=== PATIENT | female | born 1950 | race Caucasian/White ===

== ENCOUNTER 2018-08-27 08:09 | Emergency (ER) | payer MEDICARE, OTHER, SELFPAY ==
[2018-08-27 08:11] VITALS: BP 161/72; PULSE 81; RESP 16; TEMP 37.2; O2SAT 96
--- NOTE | 2018-08-27 08:27 | W.ED.GENAD ---
Discharge Plan Disposition Patient Disposition: HOME Condition: Improving Discharge Details Chief Complaint: Nk/Back Pain Clinical Impression: Acute right-sided back pain with sciatica Primary Care Provider: Jenelle Arellano ED Provider: Ap Bolivar Home Meds and New Rx's Prescriptions: New prednisone 20 mg tablet 40 mg PO DAILY 5 Days Qty: 10 RF: 0 tramadol 50 mg tablet 50 mg PO Q6H PRN (Reason: pain) Qty: 5 RF: 0 No Action ProAir HFA 8.5 GM HFA aerosol inhaler 1 puff Inhalation Q4H PRN RF: 0 Centrum Silver 1 EACH tablet 1 tab PO DAILY RF: 0 Qvar 8.7 GM aerosol 1 inh Inhalation QID RF: 0 loratadine-pseudoephedrine [Loratadine-D] 1 EACH tablet extended release 24 hr 1 tab PO PRN PRNRF: 0 Discharge Instructions Instructions: Back Pain (ED) Additional Instructions: Return for worsening pain, numbness, tingling, weakness of the leg, or changes to urine. Follow-up with regular doctor in 5-7 days if not improving. May use medications as prescribed. Remove the lidocaine patch in 12 hours. Medical Decision Making 67-year-old female presents with days of right SI joint pain now with some radiation to her buttock and leg. No motor or sensory dysfunction. No changes to bowel or bladder habits. She arrives to the emergency department afebrile with mild hypertension of 161/72. Her exam does not reveal any deficits. Likely acute sciatica, with a recent slip and fall on the ice, must exclude an underlying pelvic fracture and patient sent for x-ray and given ibuprofen for pain. Her radiograph does not reveal acute fracture. Consistent with sciatica. She will be given a lidocaine topical patch for 12 hours, I will place her on a 5-day burst of steroid for anti-inflammatory properties, and will offer her small amount of tramadol as needed pain in addition to ibuprofen. She is stable for discharge at this time. HPI General Mode of arrival: ambulatory. Date/Time Provider Initiated Documentation: 08/27/18 08:15. Limitations to Documentation: no limitations. Information obtained by: patient. History of Present Illness 67 year old F presents to the emergency department with the chief complaint of Right low back pain, described as moderate and similar to prior episodes, Quality is described as aching, and is localized to the back and right. Patient distal. Patient started experiencing this day(s) and it has been constant. No relieving factors improve symptom(s), Movement worsens symptoms . Patient notes no other symptoms.. Patient did receive the following treatments prior to arrival, none HPI Narrative: Patient has a history of intermittent right low back pain. Same over weeks time, now worsened since a fall on [place] in which she slipped and fell on her bottom. At that time she did not have any neck/chest chest back/abdomen pain. No numbness, tingling, weakness. No changes to urine Related Data Home Medications Medication Instructions Recorded Confirmed yepkrzib-uvs-TE-lycopen-lutein 1 tab PO DAILY 11/01/14 08/27/18 [Centrum Silver Tablet] beclomethasone dipropionate [Qvar] 1 inh INHALATION QID 07/17/15 08/27/18 albuterol sulfate [Proair Hfa] 1 puff INHALATION Q4H PRN inhaler 08/15/15 08/27/18 loratadine-pseudoephedrine 1 tab PO PRN PRN 12/27/15 08/27/18 [Loratadine-D 24Hr Tablet] prednisone 40 mg PO DAILY 5 Days #10 tab 08/27/18 tramadol 50 mg PO Q6H PRN #5 tab 08/27/18 Previous Rx's Medication Instructions Recorded prednisone 40 mg PO DAILY 5 Days #10 tab 08/27/18 tramadol 50 mg PO Q6H PRN #5 tab 08/27/18 Allergies Allergy/AdvReac Type Severity Reaction Status Date / Time No Known Allergies Allergy Unverified 08/27/18 08:17 General Stated Complaint: Nk/Back Pain ABELARDO: 4 Review of Systems Review of Systems 8 systems reviewed and otherwise negative [facility] Medical History Tobacco use (Acute) Uterine procidentia (Acute 01/17/17) Sensorineural hearing loss, bilateral (Acute 03/29/14) Social History number of children: 4 Smoking/Tobacco Use Status: Current every day substance use type: does not use seatbelt use: always Female Reproductive History Menstrual control method: none Menopause type: natural History History 7 Para Hx # Term Pregnancies 4 Multiple births Hx # Pregnancies Ectopic pregnancies AB induced Hx Number of Living Children AB spontaneous Exam Narrative Exam Narrative: GEN: awake, alert, oriented 3. Pleasant, well groomed, interactive. HEAD: Normocephalic, atraumatic ENT: Mucous membranes moist, oropharynx unremarkable, External ear exam unremarkable EYES: PERRL, EOMI NECK: Full ROM, no ALOK, no menigismus CHEST/RESP: Nontender, clear to auscultation bilateral, no wheeze/rhonchi/rales CARDIOVASCULAR: RRR, no murmur, rub tone. 2+ Rad pulse bilateral ABDOMEN: Soft, nontender, no mass. +Bowel sounds. Back exam reveals no midline tenderness, step-off, deformity. She is tender at the right sciatic notch. EXT: Full ROM, no edema, no rash. Motor 5 out of 5 bilaterally. Sensation intact throughout including saddle distribution. 2+ patellar reflex bilaterally. Gait narrow based with good heel Neuro: Grossly normal neurologic exam, conversant, interactive. Psych: Speech fluent, thoughts congruent, affect normal Course Vital Signs Temperature 37.2 C 08/27/18 08:11 Pulse 81 08/27/18 08:11 Respiratory Rate 16 08/27/18 08:11 Blood Pressure 161/72 H 08/27/18 08:11 Pulse Oximetry 96 08/27/18 08:11 Temperature 37.2 C 08/27/18 08:11 Temperature Source Temporal Artery Scan 08/27/18 08:11 Pulse 81 08/27/18 08:11 Respiratory Rate 16 08/27/18 08:11 Respiratory Effort Non-Labored 08/27/18 08:14 Blood Pressure 161/72 H 08/27/18 08:11 Blood Pressure Position Sitting 08/27/18 08:11 Pulse Oximetry 96 08/27/18 08:11 Oxygen Delivery Method Room Air 08/27/18 08:11 Oxygen Flow Rate 0 08/27/18 08:11 Pain Level 9 08/27/18 08:16
[2018-08-27] MEDS: Ibuprofen 800 MG TAB PO (08:29)
--- NOTE | 2018-08-27 08:31 | ED.GENADUL_ITS ---
Discharge Plan Disposition Patient Disposition: HOME Condition: Improving Discharge Details Chief Complaint: Nk/Back Pain Clinical Impression: Acute right-sided back pain with sciatica Primary Care Provider: Jenelle Arellano ED Provider: Ap Bolivar Home Meds and New Rx's Prescriptions: New prednisone 20 mg tablet 40 mg PO DAILY 5 Days Qty: 10 RF: 0 tramadol 50 mg tablet 50 mg PO Q6H PRN (Reason: pain) Qty: 5 RF: 0 No Action ProAir HFA 8.5 GM HFA aerosol inhaler 1 puff Inhalation Q4H PRN RF: 0 Centrum Silver 1 EACH tablet 1 tab PO DAILY RF: 0 Qvar 8.7 GM aerosol 1 inh Inhalation QID RF: 0 loratadine-pseudoephedrine [Loratadine-D] 1 EACH tablet extended release 24 hr 1 tab PO PRN PRNRF: 0 Discharge Instructions Instructions: Back Pain (ED) Additional Instructions: Return for worsening pain, numbness, tingling, weakness of the leg, or changes to urine. Follow-up with regular doctor in 5-7 days if not improving. May use medications as prescribed. Remove the lidocaine patch in 12 hours. Medical Decision Making 67-year-old female presents with days of right SI joint pain now with some radiation to her buttock and leg. No motor or sensory dysfunction. No changes to bowel or bladder habits. She arrives to the emergency department afebrile with mild hypertension of 161/72. Her exam does not reveal any deficits. Likely acute sciatica, with a recent slip and fall on the ice, must exclude an underlying pelvic fracture and patient sent for x-ray and given ibuprofen for pain. Her radiograph does not reveal acute fracture. Consistent with sciatica. She will be given a lidocaine topical patch for 12 hours, I will place her on a 5- day burst of steroid for anti-inflammatory properties, and will offer her small amount of tramadol as needed pain in addition to ibuprofen. She is stable for discharge at this time. HPI General Mode of arrival: ambulatory . Date/Time Provider Initiated Documentation: 08/27/18 08:15 . Limitations to Documentation: no limitations . Information obtained by: patient . History of Present Illness 67 year old F presents to the emergency department with the chief complaint of Right low back pain, described as moderate and similar to prior episodes, Quality is described as aching, and is localized to the back and right. Patient distal. Patient started experiencing this day(s) and it has been constant. No relieving factors improve symptom(s), Movement worsens symptoms . Patient notes no other symptoms.. Patient did receive the following treatments prior to arrival, none HPI Narrative: Patient has a history of intermittent right low back pain. Same over weeks time, now worsened since a fall on [place] in which she slipped and fell on her bottom. At that time she did not have any neck/chest chest back/abdomen pain. No numbness, tingling, weakness. No changes to urine Related Data Home Medications Medication Instructions Recorded Confirmed mpuuxrah-jvo-DC-lycopen-lutein 1 tab PO DAILY 11/01/14 08/27/18 [Centrum Silver Tablet] beclomethasone dipropionate [Qvar] 1 inh INHALATION QID 07/17/15 08/27/18 albuterol sulfate [Proair Hfa] 1 puff INHALATION Q4H PRN inhaler 08/15/15 08/27/18 loratadine-pseudoephedrine 1 tab PO PRN PRN 12/27/15 08/27/18 [Loratadine-D 24Hr Tablet] prednisone 40 mg PO DAILY 5 Days #10 tab 08/27/18 tramadol 50 mg PO Q6H PRN #5 tab 08/27/18 Previous Rx's Medication Instructions Recorded prednisone 40 mg PO DAILY 5 Days #10 tab 08/27/18 tramadol 50 mg PO Q6H PRN #5 tab 08/27/18 Allergies Allergy/AdvReac Type Severity Reaction Status Date / Time No Known Allergies Allergy Unverified 08/27/18 08:17 General Stated Complaint: Nk/Back Pain ABELARDO: 4 Review of Systems Review of Systems 8 systems reviewed and otherwise negative [facility] Medical History Tobacco use (Acute) Uterine procidentia (Acute 01/17/17) Sensorineural hearing loss, bilateral (Acute 03/29/14) Social History number of children: 4 Smoking/Tobacco Use Status: Current every day substance use type: does not use seatbelt use: always Female Reproductive History Menstrual control method: none Menopause type: natural History History 7 Para Hx # Term Pregnancies 4 Multiple births Hx # Pregnancies Ectopic pregnancies AB induced Hx Number of Living Children AB spontaneous Exam Narrative Exam Narrative: GEN: awake, alert, oriented 3. Pleasant, well groomed, interactive. HEAD: Normocephalic, atraumatic ENT: Mucous membranes moist, oropharynx unremarkable, External ear exam unremarkable EYES: PERRL, EOMI NECK: Full ROM, no ALOK, no menigismus CHEST/RESP: Nontender, clear to auscultation bilateral, no wheeze/rhonchi/rales CARDIOVASCULAR: RRR, no murmur, rub tone. 2+ Rad pulse bilateral ABDOMEN: Soft, nontender, no mass. +Bowel sounds. Back exam reveals no midline tenderness, step-off, deformity. She is tender at the right sciatic notch. EXT: Full ROM, no edema, no rash. Motor 5 out of 5 bilaterally. Sensation intact throughout including saddle distribution. 2+ patellar reflex bilaterally. Gait narrow based with good heel Neuro: Grossly normal neurologic exam, conversant, interactive. Psych: Speech fluent, thoughts congruent, affect normal Course Vital Signs Temperature 37.2 C 08/27/18 08:11 Pulse 81 08/27/18 08:11 Respiratory Rate 16 08/27/18 08:11 Blood Pressure 161/72 H 08/27/18 08:11 Pulse Oximetry 96 08/27/18 08:11 Temperature 37.2 C 08/27/18 08:11 Temperature Source Temporal Artery Scan 08/27/18 08:11 Pulse 81 08/27/18 08:11 Respiratory Rate 16 08/27/18 08:11 Respiratory Effort Non-Labored 08/27/18 08:14 Blood Pressure 161/72 H 08/27/18 08:11 Blood Pressure Position Sitting 08/27/18 08:11 Pulse Oximetry 96 08/27/18 08:11 Oxygen Delivery Method Room Air 08/27/18 08:11 Oxygen Flow Rate 0 08/27/18 08:11 Pain Level 9 08/27/18 08:16
--- NOTE | 2018-08-27 08:39 | DI.RAD_ITS ---
SYMPTOM/DIAGNOSIS: RT S-I JOINT PAIN, H/O SAME, RECENT FALL AP PELVIS: The history is status post recent fall with S-I joint pain. The bony pelvis is intact. There is no evidence of a pelvic or hip fracture. Note is made of a pessary. SUMMARY: No acute bony, joint or soft tissue abnormality is apparent.
[2018-08-27] MEDS: Lidocaine 5% Patch 1 PATCH TP (08:49)
== END 2018-08-27 08:53 | disposition home or self-care (01) ==
PROVIDERS: Emergency Provider Emergency Medicine; PCP Nurse Practitioner
DX: M54.41 Lumbago with sciatica, right side (principal); W00.0XXA Fall on same level due to ice and snow, initial encounter; J44.9 Chronic obstructive pulmonary disease, unspecified; F17.210 Nicotine dependence, cigarettes, uncomplicated
CPT/HCPCS: 99283; 72170

== ENCOUNTER 2018-12-29 00:37 | Outpatient (CLI) | payer MEDICARE, OTHER, SELFPAY ==
--- NOTE | 2018-12-29 13:36 | DI.MAMMO_ITS ---
SYMPTOMS/DIAGNOSIS: SCREENING, Z12.39 MAMMOGRAMS: Mammograms were interpreted according to the usual protocol including computer analysis with CAD system, tomosynthesis and C view imaging. Comparison is with the prior examinations. There is an ovoid density in the upper posterior right breast seen on the mediolateral oblique view. This area should be further evaluated with a spot compression view. Ultrasound may be indicated at that time. No other suspicious masses or microcalcifications are present. The skin and axillae are unremarkable. IMPRESSION: Additional views of the right breast as described above. Category 0, breast density B. MQSA ASSESSMENT OF FINDINGS: Incomplete: Needs additional imaging evaluation. Category 0. Patient will receive a letter notifying them of these results. BI-RADS category B. There are scattered areas of fibroglandular density.
== END 2018-12-29 00:57 ==
PROVIDERS: PCP Nurse Practitioner; Visit Provider Nurse Practitioner
DX: Z12.31 Encounter for screening mammogram for malignant neoplasm of breast (principal); R92.8 Other abnormal and inconclusive findings on diagnostic imaging of breast
CPT/HCPCS: 77063; 77067

== ENCOUNTER 2019-01-07 01:38 | Outpatient (CLI) | payer MEDICARE, OTHER, SELFPAY ==
--- NOTE | 2019-01-07 14:25 | DI.COMBO_ITS ---
SYMPTOMS/DIAGNOSIS: F/U ABNORMAL MAMMO, OVOID DENSITY OF UPPER POSTERIOR RIGHT BREAST ADDITIONAL MAMMOGRAPHIC VIEWS, RIGHT BREAST, AND RIGHT BREAST ULTRASOUND: Additional images are interpreted according to the usual protocol including tomosynthesis and 2D imaging. Additional mammographic views of the right breast and right breast ultrasound are interpreted in conjunction. These examinations were obtained to evaluate a small focal area of well-circumscribed nodularity in the mid portion of the right breast. Additional mammographic views confirm a low density well- circumscribed nodule measuring up to about 6 mm in diameter. Breast ultrasound shows a few prominent ducts in the central portion of the breast and also shows a 4 mm in diameter well-circumscribed nodule consistent with a small lymph node. CONCLUSION: Right breast nodule identified mammographically has benign characteristics mammographically and appears to correspond with a benign- appearing nodule seen ultrasonographically. Follow-up right breast mammogram and right breast ultrasound requested in six months. Category 3, breast density category B. MQSA ASSESSMENT OF FINDINGS: Probably benign. Six month follow-up recommended. Category 3. Patient will receive a letter notifying them of these results. BI-RADS category B. There are scattered areas of fibroglandular density.
== END 2019-01-07 01:58 ==
PROVIDERS: PCP Nurse Practitioner; Visit Provider Nurse Practitioner
DX: Z12.31 Encounter for screening mammogram for malignant neoplasm of breast (principal); R92.8 Other abnormal and inconclusive findings on diagnostic imaging of breast; N60.41 Mammary duct ectasia of right breast; N60.81 Other benign mammary dysplasias of right breast
CPT/HCPCS: 76642; 77063; 77067

== ENCOUNTER 2019-07-14 00:34 | Outpatient (CLI) | payer MEDICARE, OTHER, SELFPAY ==
--- NOTE | 2019-07-14 13:00 | DI.US_ITS ---
EXAM: MG MAMMO DIAGNOSTIC UNI and right breast ultrasound CLINICAL HISTORY: ABNL MAMMO, RT BREAST, R92.8, 6-MO F/U TECHNIQUE: Craniocaudal and mediolateral oblique Full Field Digital Mammography views with Computer Aided Diagnosis followed by Breast Tomosynthesis and right breast ultrasound. COMPARISON: Priors available for comparison FINDINGS: Mammography/Tomosynthesis: Breast Density: Breast Density - Category B - Scattered areas of fibroglandular density Masses/Architectural Distortion: There are stable nodules in the right breast. Microcalcifications: No suspicious pleomorphic-type are seen. Skin Thickening/Nipple Retraction: None. Breast Ultrasound: Right breast ultrasound Echotexture: Normal appearance of the glandular tissue. Cyst: None. Solid lesions: There is a 0.6 cm hypoechoic ovoid nodule at the 8 o'clock position of the right breas t 10 cm from the nipple. It has a hyperechoic notch. The finding is most consistent with a benign i ntraparenchymal lymph node. No suspicious cystic or solid masses are seen sonographically. IMPRESSION: 1. No significant interval change with no specific features of malignancy noted. 2. Unless there is more urgent need, follow-up screening mammography is recommended, as per [place] [employer] guidelines. ACR BI-RAD Category- 1 Negative Breast Density - Category B - Scattered areas of fibroglandular density The findings were discussed with the patient on the date of the examination. A negative radiographic report should not delay biopsy if a dominant or clinically suspicious mass is present. Up to ten percent of cancers are not identified on mammography. A negative report may reinforce clinical impression. Adenosis and dense breasts may obscure an underlying neoplasm. False positive reports average 6 to 10%. Patient will receive a letter notifying them of these results.
== END 2019-07-14 00:54 ==
PROVIDERS: PCP Nurse Practitioner; Visit Provider Nurse Practitioner
DX: Z12.31 Encounter for screening mammogram for malignant neoplasm of breast (principal); R92.8 Other abnormal and inconclusive findings on diagnostic imaging of breast; R59.0 Localized enlarged lymph nodes; N63.13 Unspecified lump in the right breast, lower outer quadrant
CPT/HCPCS: 76642; 77061; 77065; G0279

== ENCOUNTER → 2019-09-23 10:53 | Outpatient (CLI) | payer MEDICARE, OTHER, SELFPAY ==
--- NOTE | 2019-09-23 10:40 | DI.RAD_ITS ---
EXAM: XR THUMB LT INDICATION: eval L thumb pain, swelling. COMPARISON: No exams were available for comparison TECHNIQUE: 2D digital imaging was performed. FINDINGS: At the 1st carpometacarpal joint, there is joint space narrowing, subchondral sclerosis and cyst form ation. The metacarpophalangeal joint and interphalangeal joint of the thumb appear unremarkable. Th e soft tissues are unremarkable. 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
== END ==
PROVIDERS: PCP Nurse Practitioner; Referring Provider Nurse Practitioner; Visit Provider Student in an Organized Health Care Education/Training Program
DX: M79.645 Pain in left finger(s) (principal); M18.12 Unilateral primary osteoarthritis of first carpometacarpal joint, left hand
CPT/HCPCS: 99203; 99214; 73140; L3924

== ENCOUNTER 2019-10-20 11:20 | Emergency (ER) | payer MEDICARE, OTHER, SELFPAY ==
[2019-10-20 11:22] VITALS: BP 153/104; PULSE 90; RESP 20; TEMP 36.9; O2SAT 94
--- NOTE | 2019-10-20 11:37 | W.ED.GENAD ---
Discharge Plan Disposition Patient Disposition: HOME Condition: Stable Discharge Details Chief Complaint: Orthopedic Clinical Impression: Other sprain of left foot, initial encounter, Sprain of hand, left, Fall Primary Care Provider: Jenelle Arellano ED Provider: Pilar Oakes Home Meds and New Rx's Prescriptions: Continued budesonide-formoterol [Symbicort] 160-4.5 mcg/actuation HFA aerosol inhaler 2 puff IH BID RF: 0 albuterol sulfate [ProAir HFA] 8.5 GM HFA aerosol inhaler 1 puff Inhalation Q4H PRN RF: 0 Centrum Silver 1 EACH tablet 1 tab PO DAILY RF: 0 loratadine-pseudoephedrine [Loratadine-D] 1 EACH tablet extended release 24 hr 1 tab PO PRN PRNRF: 0 Discharge Instructions Instructions: Foot Sprain (ED), Hand Sprain (ED), Fall Prevention (ED) Additional Instructions: Follow up with primary care provider in 3-5 days. Return to ED sooner if any worsening or concerns. Increase oral fluids. Please take Tylenol or Ibuprofen with food every 4-6 hours as needed for pain and swelling. Rest, ice compression elevation. Referrals: Jenelle Arellano [Primary Care Provider] - Medical Decision Making 5-year-old female presents with left hand and left foot pain after trip and fall at home earlier today. Denies LOC, neck or back pain or any other injuries at this time. On exam she has tenderness to palpation over the dorsal dorsal aspect of her left foot and a small contusion noted. She also has a little bit of tenderness to her left thumb. Full range of motion. 1139: X-ray ordered of left hand and left foot. Offered patient Tylenol or ibuprofen which she declined at this time. 1233: X-ray results are still pending. I did not appreciate any acute fracture, dislocation or bony abnormality on the foot or hand x-rays. Patient given Peña wrap's to left hand and left foot instructed on rice procedures, verbalized understanding. Instructed to follow-up with PCP or return to the ED for any worsening symptoms or concerns. At this time I feel it is safe for patient to be discharged home, she is ambulatory in department. HPI General Mode of arrival: ambulatory. Date/Time Provider Initiated Documentation: 10/20/19 11:20. Limitations to Documentation: no limitations. Information obtained by: patient. HPI Narrative: 5-year-old female presents to the ER with left hand and left foot pain after a trip and fall at home earlier today. Patient states that she tripped over something on the floor and landed on her left hand and left foot. She is ambulatory in department. No LOC no neck or back pain no other complaints. She is alert and oriented x4. Related Data Home Medications Medication Instructions Recorded Confirmed Centrum Silver 1 tab PO DAILY 11/01/14 10/20/19 albuterol sulfate [ProAir HFA] 1 puff INHALATION Q4H PRN inhaler 08/15/15 10/20/19 loratadine-pseudoephedrine 1 tab PO PRN PRN 12/27/15 10/20/19 [Loratadine-D] budesonide-formoterol HFA 160 2 puff IH BID 04/23/19 10/20/19 mcg-4.5 mcg/actuation aerosol inhaler Allergies Allergy/AdvReac Type Severity Reaction Status Date / Time No Known Allergies Allergy Unverified 10/20/19 11:29 General Stated Complaint: Orthopedic ABELARDO: 4 Review of Systems Narrative: Constitutional: Negative for weight loss, alert and oriented, well groomed, normal body habitus, appears comfortable. HEENT: Denies trauma, headaches, blurry vision, nasal discharge, sore throat, trouble swallowing. Chest: Denies chest pain, palpitations, irregular rhythm, hypertension. Respiratory: Denies Shortness of breath, cough, hemoptysis. GI: Denies abdominal pain, nausea, vomiting, diarrhea, constipation. : Denies dysuria, hematuria, flank pain, rectal bleeding. Extremities: Left hand and left foot pain Neuro: Denies dizziness, blurry vision, weakness, syncope, headache or facial numbness. Hematologic: Denies easy bruising, intolerance to heat or cold, hair loss. [facility] Medical History Sensorineural hearing loss, bilateral (Acute 03/29/14) Tobacco use (Acute) Uterine procidentia (Acute 01/17/17) Used 88mm ring with support pessary until prolapse beyond ring pessary. 12/2018 [place] 76 mm long stem pessary was inserted. 03/2019 short stemmed 76mm pessary placed. 04/2019 #2 donut ordered. Social History Smoking/Tobacco Use Status: Current every day Alcohol Intake: never Drug use: Never Substance use type: does not use Number of Children: 4 Seatbelt use: always Do you feel safe at home: Yes Female Reproductive History Menstrual control method: none Menopause type: natural History History 7 Para Hx # Term Pregnancies 4 Multiple births Hx # Pregnancies Ectopic pregnancies AB induced Hx Number of Living Children AB spontaneous Exam Narrative Exam Narrative: Constitutional: Allert and oriented x3. Appears stated age. Normal body habitus. Head: Normocephalic, no trauma. Eyes: Pupils PERRLA, Red reflex noted, EOM's intact. Eyelids symmetrical withour lesions, discharge, or swelling. ENT: Bilateral TM's WNL, External ear normal to inspection, no mastoid TTP, swelling, or erythema, Nasal turbinates WNL, no nasal discharge. Normal dentition, Posterior pharynx WNL, no exudate. Chest: RRR, Normal S1, S2, distal pulses intact. Resp: Lungs clear to auscultation bilaterally, no wheezes, rales, or rhonchi. Musculoskeletal: Normal gait, 5/5 strength to all four extremities. Left thumb tenderness no swelling or deformity noted. Radial pulses intact. Cap refill less than 3 seconds. Left lateral foot pain. And dorsal foot pain with palpation. No deformity or swelling noted. There is a contusion noted to the dorsal surface of her foot. Skin: No suspicious rashes or lesions. Capillary refill ?2 sec. Neurologic: Cranial nerves II-XII intact. Alert and oriented x 3. DTR's intact. Hematologic/Lymphatic: No ecchymosis, no lymphadenopathy. Course Vital Signs Vital signs: Vital Signs Temperature 36.9 C 10/20/19 11:22 Pulse 90 10/20/19 11:22 Respiratory Rate 10/20/19 11:22 Blood Pressure 153/104 H 10/20/19 11:22 Pulse Oximetry 94 L 10/20/19 11:22 Temperature 36.9 C 10/20/19 11:22 Temperature Source Skin 10/20/19 11:22 Pulse 90 10/20/19 11:22 Respiratory Rate 10/20/19 11:22 Respiratory Effort Non-Labored 10/20/19 11:25 Blood Pressure 153/104 H 10/20/19 11:22 Pulse Oximetry 94 L 10/20/19 11:22 Oxygen Delivery Method Room Air 10/20/19 11:22 Oxygen Flow Rate 0 10/20/19 11:22 Pain Level 7 10/20/19 11:22
--- NOTE | 2019-10-20 11:56 | DI.RAD_ITS ---
EXAM: XR HAND LT COMPLETE INDICATION: Fall, thumb pain. COMPARISON: No exams were available for comparison TECHNIQUE: 2D digital imaging was performed. FINDINGS: No acute fracture or dislocation is present. There are degenerative changes seen in the hand and wri st. The findings are most marked at the 1st carpometacarpal joint. The soft tissues are unremarkabl e. IMPRESSION: No acute fracture or dislocation.
--- NOTE | 2019-10-20 11:56 | DI.RAD_ITS ---
EXAM: XR FOOT LT COMPLETE INDICATION: Fall. COMPARISON: No exams were available for comparison TECHNIQUE: 2D digital imaging was performed. FINDINGS: There are degenerative changes seen in the foot. The findings are most marked at the tarsometatarsal joints. No acute fracture or dislocation is present. The soft tissues are unremarkable. IMPRESSION: No acute fracture or dislocation.
== END 2019-10-20 12:38 | disposition home or self-care (01) ==
PROVIDERS: Emergency Provider Registered Nurse Emergency; PCP Nurse Practitioner
DX: S63.92XA Sprain of unspecified part of left wrist and hand, initial encounter (principal); S93.602A Unspecified sprain of left foot, initial encounter; W01.0XXA Fall on same level from slipping, tripping and stumbling without subsequent striking against object, initial encounter
CPT/HCPCS: 99283; 73130; 73630

== ENCOUNTER 2019-10-25 15:46 | Outpatient (CLI) | payer MEDICARE, OTHER, SELFPAY ==
--- NOTE | 2019-10-25 15:36 | DI.RAD_ITS ---
EXAM: XR CHEST 2V PA LATERAL CLINICAL HISTORY: COPD, ACUTE EXACERBATION J44.1 TECHNIQUE: COMPARISON: CHEST 2 VIEWS PA,LAT from 02/05/2018 FINDINGS: The heart is not enlarged. Lungs are clear. There is hiatal hernia. No pleural effusion seen. IMPRESSION: No evidence of acute process.
[2019-10-25 16:22] LABS: HGB 14.9 g/dL (12.0-15.5); Mean Corp. HGB Concentration 33.9 g/dL (32.0-36.0); Mean Corpuscular Hemoglobin 29.6 pg (27.0-33.0); Mean Corpuscular Volume 87.5 fL (80-95); Mean Platelet Volume 10.3 fL (8.0-11.0); Platelet Count 193 x1000/uL (130-400); RBC 5.03 m/cumm (4.00-5.20); RBC Distribution Width 13.4 % (11.7-14.6); White Blood Cell Count 5.06 k/cumm (4.4-10.8)
== END 2019-10-25 16:06 ==
PROVIDERS: PCP Nurse Practitioner; Visit Provider Nurse Practitioner
DX: J44.1 Chronic obstructive pulmonary disease with (acute) exacerbation (principal); K44.9 Diaphragmatic hernia without obstruction or gangrene
CPT/HCPCS: 36415; 85027; 71046

== ENCOUNTER → 2019-11-04 08:52 | Outpatient (BNVA) | payer MEDICARE, OTHER, SELFPAY | PROVIDERS: PCP Nurse Practitioner; Referring Provider Nurse Practitioner; Visit Provider Student in an Organized Health Care Education/Training Program | DX: M18.12 Unilateral primary osteoarthritis of first carpometacarpal joint, left hand (principal) | CPT/HCPCS: 99213 ==

== ENCOUNTER 2020-06-05 14:04 | Outpatient (REF) | payer MEDICARE, OTHER, SELFPAY ==
[2020-06-05 19:21] LABS: ALT 25 U/L (14-59); AST 16 U/L (15-37); Albumin 3.9 g/dL (3.4-5.0); Alkaline Phosphatase 68 U/L (46-116); Anion Gap 7.5 mmol/L (3-11); BUN 10 mg/dL (7-18); Bilirubin, Total 0.3 mg/dL (0.2-1.0); CO2 27.5 mmol/L (21.0-32.0); CREATININE 0.59 mg/dL (0.55-1.02); Calcium 9.3 mg/dL (8.5-10.1); Calculated LDL 124 mg/dL (<100); Chloride 105 mmol/L (98-107); Cholesterol 214 mg/dL (<200); Glucose 96 mg/dL (74-106); HDL Cholesterol 68 mg/dL (40-60); Potassium 4.4 mmol/L (3.5-5.1); Sodium 140 mmol/L (136-145); TSH (W/Ref FT4) 2.07 uIU/mL (0.36-3.74); Total Protein 7.3 g/dL (6.4-8.2); Triglyceride 112 mg/dL (<150)
[2020-06-05 19:40] LABS: Vitamin D 25 Total 31.3 ng/ml (30-100)
== END 2020-06-05 14:24 ==
LOC: NCHCN 14:04
PROVIDERS: PCP Nurse Practitioner; Visit Provider Nurse Practitioner
DX: F32.9 Major depressive disorder, single episode, unspecified (principal); M85.80 Other specified disorders of bone density and structure, unspecified site; E78.89 Other lipoprotein metabolism disorders; J44.9 Chronic obstructive pulmonary disease, unspecified
CPT/HCPCS: 80053; 80061; 82306; 84443

== ENCOUNTER 2020-07-21 04:20 | Outpatient (CLI) | payer MEDICARE, OTHER, SELFPAY ==
--- NOTE | 2020-07-21 10:57 | DI.MAMMO_ITS ---
EXAM: MG MAMMO SCREENING CLINICAL HISTORY: SCREENING,Z12.39 TECHNIQUE: Bilateral full field digital CC and MLO mammographic images were obtained with 3D tomosyn thesis and utilizing computer aided detection (CAD). COMPARISON: Available for comparison. FINDINGS: Masses/Architectural Distortion: None seen. Microcalcifications: No suspicious pleomorphic-type are seen. Skin Thickening/Nipple Retraction: None. IMPRESSION: 1. No significant interval change with no specific features of malignancy noted. 2. Unless there is more urgent need, screening mammography is recommended, as per [employer] guidelines. BI-RADS Category 1 - Negative Breast Density - Category B - Scattered areas of fibroglandular density A negative radiographic report should not delay biopsy if a dominant or clinically suspicious mass is present. Up to ten percent of cancers are not identified on mammography. A negative report may reinforce clinical impression. Adenosis and dense breasts may obscure an underlying neoplasm. False positive reports average 6 to 10%. Patient will receive a letter notifying them of these results.
== END 2020-07-21 04:40 ==
PROVIDERS: PCP Nurse Practitioner; Visit Provider Nurse Practitioner
DX: Z12.31 Encounter for screening mammogram for malignant neoplasm of breast (principal)
CPT/HCPCS: 77063; 77067

== ENCOUNTER 2020-09-04 08:07 | Day surgery (SDC) | payer MEDICARE, OTHER, SELFPAY ==
[2020-09-04 08:43] VITALS: BP 136/77; PULSE 74; RESP 18; TEMP 36.3; O2SAT 95
[2020-09-04] MEDS: Tropicam./Phenyleph. (1/2.5%) 5 ML BTL OD ×3 (08:52→09:04)
[2020-09-04] MEDS: Tetracaine 0.5% 4 ML BTL OD (09:41)
[2020-09-04] MEDS: Povidone-Iodine Ophth 30 ML BTL (09:42)
[2020-09-04] MEDS: Lidocaine 2% Jelly 6 ML SYR (09:42)
[2020-09-04] MEDS: Lidocaine 1% Pres-Free 5 ML VIAL (09:47)
[2020-09-04] MEDS: Balanced Salt Soln.-PLUS 500 ML BAG (09:49)
[2020-09-04] MEDS: Duovisc Viscoelastic System EACH 1 EACH (09:52)
--- NOTE | 2020-09-04 10:09 | W.PM.DSUDISC ---
Discharge Plan Disposition Patient Disposition: HOME Condition: Good Discharge Details Attending Provider: Marco Rain Primary Care Provider: Jenelle Arellano Home Meds and New Rx's Prescriptions: No Action budesonide-formoterol [Symbicort] 160-4.5 mcg/actuation HFA aerosol inhaler 2 puff IH BID RF: 0 Flovent HFA 110 mcg/actuation HFA aerosol inhaler 2 puff inhalation PRN RF: 0 albuterol sulfate [ProAir HFA] 90 mcg/actuation HFA aerosol inhaler 2 puff Inhalation Q4H PRN RF: 0 Centrum Silver 1 EACH tablet 1 tab PO DAILY RF: 0 ipratropium-albuterol 0.5 mg-3 mg(2.5 mg base)/3 mL Solution For Nebulization See Rx Instructions .ROUTE .COMPLEX PRNRF: 0 Spiriva with HandiHaler 18 mcg Capsule, W/Inhalation Device 1 cap INHALATION DAILY RF: 0 meclizine 12.5 mg Tablet 12.5 mg PO Q6H PRNRF: 0 loratadine 10 mg Capsule 10 mg PO DAILY RF: 0 Chantix Continuing Month Genaro 1 mg Tablet 1 mg PO BID RF: 0 Discharge Instructions Stand Alone Forms: Post-op Topical Cataract Discharge Orders Discharge Orders: Discharge Order (Routine); Ordered 09/04/20 Ordered By: Marco Rain DS: Diagnosis Discharge Diagnosis (1) Nuclear sclerotic cataract of right eye: Status: Resolved
--- NOTE | 2020-09-04 10:13 | ROE_ITS ---
Date of service: 09/04/20 Time of Service: 10:13 Operative Note Operative Note DATE OF PROCEDURE: 09/04/20 PRE-OP DIAGNOSIS: Nuclear cataract, right eye POST-OP DIAGNOSIS: same PROCEDURE: Cataract extraction using phacoemulsification with intraocular lens implant, right eye SURGEON: Marco Rain ANESTHESIA: MAC and local (sub-tenon's anesthetic infiltration) ESTIMATED BLOOD LOSS: 0 PATHOLOGY: none sent COMPLICATIONS: None Patient was transported to: same day Patient's condition: stable Implants: Toñito and To[employer] Vision / [employer] Tecnis ZCB00 intr aocular lens Indications: Progressive decreased vision due to cataract, right eye Procedure Description: CATARACT SURGERY OPERATIVE REPORT PREOPERATIVE DIAGNOSIS: Nuclear cataract, right eye POSTOPERATIVE DIAGNOSIS: Same OPERATION: Cataract extraction using phacoemulsification with posterior chamber intraocular lens implant, right eye. IOL: IOL Bass Singer/Model: J[employer]J Vision / NAV Tecnis ZCB00 IOL Power: + 20.0 diopters IOL Serial Number: [id number] Optic Diameter: 6.0mm Haptic/Overall Diameter: 13.0mm PHACO INFO: Hood [employer] Vision System with OZil and Active Fluidics Cumulative Dispersed Energy (CDE): 3.00 seconds SURGEON: Marco Rain MD, SUNNY ANESTHESIA: Monitored Anesthesia Care (MAC), with local sub-tenon's anesthetic infiltration COMPLICATIONS: None SPECIMENS: None INDICATIONS FOR PROCEDURE: The patient is a 69-year-old lady with history of diminished visual acuity in her right eye secondary to the development of nuclear cataract. She is significantly symptomatic that she desires cataract surgery and attempt to improve and maximize her vision. PROCEDURE: The correct surgical eye was identified and marked as the right eye and the pupil was dilated in the preoperative area using mydriatics and cycloplegics. The dilated pupil size was 7.0 mm. No oral sedation was given at the patient request. The patient was brought to the operating room where cardiopulmonary monitoring was instituted and surgical time-out was performed, confirming the correct operative eye and IOL power. Topical anesthesia was administered and ophthalmic povidone-iodine 5% was instilled into the conjunctival fornices. Lidocaine gel was applied to the cornea and the fozia-ocular area was prepped with Betadine 10% solution and draped in the usual sterile fashion for intraocular surgery, including an aperture drape. A Tegaderm transparent film dressing was cut in half and used to cover the lashes and lid margins. Care was taken to sequester the lashes and lid margins under the Tegaderm dressing. A lid speculum was placed between the lids of the operative eye and the Martina-Aylin operating microscope was maneuvered into position. River scissors were then used to make a conjunctival buttonhole approximately 6mm posterior to the limbus in the inferonasal quadrant. Blunt dissection was carried out to expose bare sclera, and a blunt-tipped sub-tenon?s anesthesia cannula was introduced and passed posteriorly along the globe where non- preserved plain lidocaine was injected into posterior sub-Tenon?s space. A sideport knife was used to make a paracentesis port inferiortemporally. Intraocular phenylephrine/lidocaine was injected into the anterior chamber. The anterior chamber was then filled with viscoelastic. A 2.4mm keratome knife was used to create a half-thickness groove at the limbus and then to construct a t hree-plane near-clear corneal tunnel extending 2.0mm into clear cornea in the superiortemporal position. . A flap was raised on the anterior capsule and capsulorhexis forceps were used to complete a continuous curvilinear capsulorhexis of 5.0 mm. Balanced salt solution was then used to perform cortical cleaving hydrodissection and nuclear hydrodelineation until the lens could be freely rotated within the capsular bag. The lens nucleus was then disassembled and removed within the capsular bag and iris plane using phacoemulsification. Residual cortical material was removed using the I/A handpiece. The posterior capsule was carefully polished to remove as much residual lens epithelial cells as safely possible. The capsular bag was then inflated and the anterior chamber deepened with viscoelastic. The lens implant described above was inserted into the capsular bag using the NAV [place] Injector. A Kuglen hook was used to dial the IOL into position. Residual viscoelastic was then removed first from posterior to the IOL, then from the anterior chamber using the I/A handpiece. The lens implant was noted to center nicely within the capsular bag. The incisions were stromally hydrated, and the anterior chamber was reformed using BSS. Then 0.1cc of moxifloxacin 5.0mg/ml were injected into the capsular bag and anterior chamber. The incisions were checked with a Weck spear and found to be secure. Several drops of ophthalmic povidone-iodine 5% were then applied to the eye followed by two drops of Imprimis combination prednisolone/moxifloxacin/nepafenac solution. The drapes were removed and a clear plastic protective eye shield was placed over the eye. The patient was then returned to [facility] in stable condition.
== END 2020-09-04 10:42 | disposition home or self-care (01) ==
PROVIDERS: PCP Nurse Practitioner; Visit Provider Ophthalmology
PROC: (CPT 66984; principal; 2020-09-04 09:45)
DX: H25.11 Age-related nuclear cataract, right eye (principal); J44.9 Chronic obstructive pulmonary disease, unspecified; F17.210 Nicotine dependence, cigarettes, uncomplicated
CPT/HCPCS: 66984; V2632

== ENCOUNTER 2020-09-18 09:29 | Day surgery (SDC) | payer MEDICARE, OTHER, SELFPAY ==
[2020-09-18 09:43] VITALS: BP 133/71; PULSE 74; RESP 19; TEMP 36.1; O2SAT 93
[2020-09-18] MEDS: Tropicam./Phenyleph. (1/2.5%) 5 ML BTL OS ×3 (10:02→10:13)
[2020-09-18] MEDS: Tetracaine 0.5% 4 ML BTL OS (10:53)
[2020-09-18] MEDS: Povidone-Iodine Ophth 30 ML BTL (10:53)
[2020-09-18] MEDS: Lidocaine 2% Jelly 6 ML SYR (10:54)
[2020-09-18] MEDS: Lidocaine 1% Pres-Free 5 ML VIAL (11:00)
[2020-09-18] MEDS: Balanced Salt Soln.-PLUS 500 ML BAG (11:04)
[2020-09-18] MEDS: Duovisc Viscoelastic System EACH 1 EACH (11:04)
--- NOTE | 2020-09-18 11:25 | W.PM.DSUDISC ---
Discharge Plan Disposition Patient Disposition: HOME Condition: Good Discharge Details Attending Provider: Marco Rain Primary Care Provider: Jenelle Arellano Home Meds and New Rx's Prescriptions: No Action budesonide-formoterol [Symbicort] 160-4.5 mcg/actuation HFA aerosol inhaler 2 puff IH BID RF: 0 Flovent HFA 110 mcg/actuation HFA aerosol inhaler 2 puff inhalation PRN RF: 0 albuterol sulfate [ProAir HFA] 90 mcg/actuation HFA aerosol inhaler 2 puff Inhalation Q4H PRN RF: 0 Centrum Silver 1 EACH tablet 1 tab PO DAILY RF: 0 ipratropium-albuterol 0.5 mg-3 mg(2.5 mg base)/3 mL Solution For Nebulization See Rx Instructions .ROUTE .COMPLEX PRNRF: 0 Spiriva with HandiHaler 18 mcg Capsule, W/Inhalation Device 1 cap INHALATION DAILY RF: 0 meclizine 12.5 mg Tablet 12.5 mg PO Q6H PRNRF: 0 loratadine 10 mg Capsule 10 mg PO DAILY RF: 0 Chantix Continuing Month Genaro 1 mg Tablet 1 mg PO BID RF: 0 Discharge Instructions Stand Alone Forms: Post-op Topical Cataract, Ludwig Titus (DSU) Discharge Orders Discharge Orders: Discharge Order (Routine); Ordered 09/18/20 Ordered By: Marco Rain DS: Diagnosis Discharge Diagnosis (1) Nuclear sclerotic cataract of left eye: Status: Resolved
--- NOTE | 2020-09-18 11:26 | W.PM.OP ---
Date of service: 09/18/20 Time of Service: 11:26 Operative Note Operative Note DATE OF PROCEDURE: 09/18/20 PRE-OP DIAGNOSIS: Nuclear cataract, left eye POST-OP DIAGNOSIS: same PROCEDURE: Cataract extraction using phacoemulsification with intraocular lens implant, left eye SURGEON: Marco Rain ANESTHESIA: MAC and local (sub-tenon's anesthetic infiltration) PATHOLOGY: none sent COMPLICATIONS: None Patient was transported to: same day Patient's condition: stable Implants: Toñito and [employer] Vision / [employer] Tecnis ZCB00 Indications: Progressive decreased vision due to cataract, left eye Procedure Description: CATARACT SURGERY OPERATIVE REPORT PREOPERATIVE DIAGNOSIS: Nuclear cataract, left eye POSTOPERATIVE DIAGNOSIS: Same OPERATION: Cataract extraction using phacoemulsification with posterior chamber intraocular lens implant, left eye. IOL: IOL Dye Tub Operator/Model: J&J Vision / NAV Tecnis ZCB00 IOL Power: + 20.50 diopters IOL Serial Number: [id number] Optic Diameter: 6.0mm Haptic/Overall Diameter: 13.0mm PHACO INFO: Hood [employer] Vision System with OZil and Active Fluidics Cumulative Dispersed Energy (CDE): 7.23 seconds SURGEON: Marco Rain MD, SUNNY ANESTHESIA: Monitored Anesthesia Care (MAC), with local sub-tenon's anesthetic infiltration COMPLICATIONS: None SPECIMENS: None INDICATIONS FOR PROCEDURE: The patient is a 69-year-old lady with history of diminished visual acuity in both eyes secondary to the development of bilateral nuclear cataract. She has already undergone cataract surgery in the right eye and is doing well postoperatively with uncorrected visual acuity of 20/20 in the right eye. She now presents for cataract surgery in the left eye. PROCEDURE: The correct surgical eye was identified and marked as the left eye and the pupil was dilated in the preoperative area using mydriatics and cycloplegics. The dilated pupil size was 7.0 mm. Oral sedation was administered in the form of an Imprimis MKO Melt (midazolam 3mg/ketamine 25mg/ondansetron 2mg). The patient was brought to the operating room where cardiopulmonary monitoring was instituted and surgical time-out was performed, confirming the correct operative eye and IOL power. Topical anesthesia was administered and ophthalmic povidone-iodine 5% was instilled into the conjunctival fornices. Lidocaine gel was applied to the cornea and the fozia-ocular area was prepped with Betadine 10% solution and draped in the usual sterile fashion for intraocular surgery, including an aperture drape. A Tegaderm transparent film dressing was cut in half and used to cover the lashes and lid margins. Care was taken to sequester the lashes and lid margins under the Tegaderm dressing. A lid speculum was placed between the lids of the operative eye and the Martina-Aylin operating microscope was maneuvered into position. River scissors were then used to make a conjunctival buttonhole approximately 6mm posterior to the limbus in the inferonasal quadrant. Blunt dissection was carried out to expose bare sclera, and a blunt-tipped sub-tenon?s anesthesia cannula was introduced and passed posteriorly along the globe where non-preserved plain lidocaine was injected into posterior sub-Tenon?s space. Some immediate subconjunctival hemorrhage was noted during injection of the lidocaine. A sideport knife was used to make a paracentesis port superior/superiortemporally. Intraocular phenylephrine/lidocaine was injected into the anterior chamber. The anterior chamber was then filled with viscoelastic. A 2.4mm keratome knife was used to create a half-thickness groove at the limbus and then to construct a three-plane near-clear corneal tunnel extending 2.0mm into clear cornea in the temporal position. . A flap was raised on the anterior capsule and capsulorhexis forceps were used to complete a continuous curvilinear capsulorhexis of 5.5 mm. Balanced salt solution was then used to perform cortical cleaving hydrodissection and nuclear hydrodelineation until the lens could be freely rotated within the capsular bag. The lens nucleus was then disassembled and removed within the capsular bag and iris plane using phacoemulsification. Residual cortical material was removed using the 45-degree angled silicone I/A tip with 0.3mm port. The posterior capsule was carefully polished to remove as much residual lens epithelial cells as safely possible. The capsular bag was then inflated and the anterior chamber deepened with viscoelastic. The lens implant described above was inserted into the capsular bag using the NAV [place] Injector. A Kuglen hook was used to dial the IOL into position. Residual viscoelastic was then removed first from posterior to the IOL, then from the anterior chamber using the I/A handpiece. The lens implant was noted to center nicely within the capsular bag. The incisions were stromally hydrated, and the anterior chamber was reformed using BSS. Then 0.5cc of moxifloxacin 1.0mg/ml were injected into the capsular bag and anterior chamber. The incisions were checked with a Weck spear and found to be secure. Several drops of ophthalmic povidone-iodine 5% were then applied to the eye followed by two drops of Imprimis combination prednisolone/moxifloxacin/nepafenac solution. The drapes were removed and a clear plastic protective eye shield was placed over the eye. The patient was then returned to Same Day Surgery in stable condition.
== END 2020-09-18 11:52 | disposition home or self-care (01) ==
PROVIDERS: PCP Nurse Practitioner; Visit Provider Ophthalmology
PROC: (CPT 66984; principal; 2020-09-18 12:30)
DX: H25.12 Age-related nuclear cataract, left eye (principal); Z98.41 Cataract extraction status, right eye; Z96.1 Presence of intraocular lens; J44.9 Chronic obstructive pulmonary disease, unspecified; F17.210 Nicotine dependence, cigarettes, uncomplicated; K21.9 Gastro-esophageal reflux disease without esophagitis
CPT/HCPCS: 66984; V2632

== ENCOUNTER 2021-06-08 07:41 | Outpatient (CLI) | payer MEDICARE, OTHER, SELFPAY ==
[2021-06-08] MEDS: Albuterol HFA 18 GM 200 PUFF INH IH (11:10)
[2021-06-08] MEDS: Inhaler, Assist Device 1 EACH MC (11:10)
--- NOTE | 2021-06-08 15:17 | W.PFT ---
Date of service: 06/08/21 Time of Service: 10:04 Pulmonary Function Test Result Requesting Provider Jenelle Arellano Indications: COPD, dyspnea Interpretation Spirometry: There is moderate airflow limitation. There is a significant bronchodilator response Lung Volumes: There is hyperinflation and air trapping Diffusion Capacity: The diffusion is reduced Airway Pressure: There is increased airways resistance Clinical Correlation therefore is recommended.
== END 2021-06-08 07:42 | disposition home or self-care (01) ==
LOC: RT 07:50
PROVIDERS: PCP Nurse Practitioner; Visit Provider Nurse Practitioner
DX: J44.9 Chronic obstructive pulmonary disease, unspecified (principal); R06.09 Other forms of dyspnea; R94.2 Abnormal results of pulmonary function studies
CPT/HCPCS: 94060; 94726; 94729

== ENCOUNTER 2021-09-04 01:10 | Outpatient (CLI) | payer MEDICARE, SELFPAY ==
--- NOTE | 2021-09-04 08:45 | DI.CTLCSR_ITS ---
Exam(s) CT CHEST LUNG CANCER SCREEN EXAM: CT CHEST LUNG CANCER SCREEN CLINICAL HISTORY: Screening for lung cancer,CURRENT SMOKER, F17.210 TECHNIQUE: Imaging Protocol: Axial computed tomography images with coronal and sagittal reformatted images were created and reviewed COMPARISON: CR XR CHEST 2V PA LATERAL from 10/25/2019 CR XR CHEST 2V PA LATERAL from 10/25/2019 FINDINGS: Tracheobronchial tree: Patent where visualized. Pulmonary parenchyma: No consolidation or dominant measurable mass. Moderately severe centrilobular a nd paraseptal emphysematous changes are present. Lung Nodules: There is a 3 mm nodule in the periphery of the right lower lobe. There is a 2 mm nodul e in the periphery of the left upper lobe. Mediastinum and Josette: No dominant adenopathy or fluid collection. There is a large hiatal hernia. Th e esophagus is otherwise unremarkable. Thyroid gland: Unremarkable. Lymph nodes: Unremarkable. Pleura: No effusion or pneumothorax. Heart: The heart is not dilated. Coronary artery calcifications are present. No pericardial effusion . Aorta: Thoracic aorta non-dilated.Atherosclerosis is present. Upper abdomen: There is a 2.2 cm round hypodense lesion incompletely imaged in the superior pole of the right kidney. This may represent a cyst. Renal ultrasound is recommended for further evaluation . Soft Tissues: Unremarkable. Bones: Within normal limits. IMPRESSION: 1. Small pulmonary nodules as described above. 2. 2.2 cm round hypodense lesion in the superior pole of the right kidney. Renal ultrasound is recom mended for further evaluation. Lung RADS Cat 2 - Benign Appearance / Behavior: Nodules with a very low likelihood of becoming a clin ically active cancer due to size or lack of growth Lung-RADS 1.0 CATEGORIES: Category 0 - Prior chest CT exam(s) being located for comparison. Category 1 - Annual screening in 12 months. No nodules or definitely benign nodules. Category 2 - Annual screening in 12 months. Benign appearance. Nodules with low likelihood of becomin g active cancer. Category 3 - 6-month follow-up. Probably benign. Short-term follow-up suggested. Nodules with low lik elihood of becoming active cancer. Category 4A - 3-month follow-up and CT/PET if >8 mm in size. Suspicious finding. Findings which requi re additional testing. Category 4B - Findings which require additional testing and tissue sampling. Suspicious finding. Modifier S- Potentially clinically significant finding. (Non lung cancer) RADIATION DOSE DELIVERED: 71.43mGy.cm Total DLP 1.84mGy CTDIvol 71.43mGy.cm Total DLP 1.84mGy CTDIvol DATA REPOSITORY: All CT scans at this facility are submitted to the National Radiology Data Registry (NRDR) Dose Index Registry (DIR) with the [employer] (ACR). RADIATION OPTIMIZATION: All CT scans at this facility use at least one of these dose optimization te chniques: automated exposure control; mA and/or kV adjustment per patient size (includes targeted exa ms where dose is matched to clinical indication); or iterative reconstruction.
== END 2021-09-04 01:30 ==
PROVIDERS: PCP Nurse Practitioner; Visit Provider Student in an Organized Health Care Education/Training Program
DX: Z12.2 Encounter for screening for malignant neoplasm of respiratory organs (principal); F17.210 Nicotine dependence, cigarettes, uncomplicated; R91.8 Other nonspecific abnormal finding of lung field; N28.89 Other specified disorders of kidney and ureter; J43.2 Centrilobular emphysema
CPT/HCPCS: 71271

== ENCOUNTER 2021-10-11 14:27 | Outpatient (REF) | payer MEDICARE, SELFPAY ==
[2021-10-11 20:27] LABS: Anion Gap 7.8 mmol/L (3-11); BUN 12 mg/dL (7-18); CO2 28.2 mmol/L (21.0-32.0); CREATININE 0.6 mg/dL (0.55-1.02); Calcium 9.5 mg/dL (8.5-10.1); Chloride 98 mmol/L (98-107); Glucose 84 mg/dL (74-106); Potassium 3.1 mmol/L (3.5-5.1); Sodium 134 mmol/L (136-145)
== END 2021-10-11 14:28 | disposition home or self-care (01) ==
LOC: NCHCN 14:27
PROVIDERS: PCP Nurse Practitioner; Visit Provider Nurse Practitioner Family
DX: I10 Essential (primary) hypertension (principal)
CPT/HCPCS: 80048

== ENCOUNTER 2021-10-18 14:21 | Outpatient (CLI) | payer MEDICARE, SELFPAY ==
--- NOTE | 2021-10-18 | DI.RAD_ITS ---
Exam(s) XR SACROILIAC JOINTS EXAM: XR SACROILIAC JOINTS CLINICAL HISTORY: RT SI JOINT PAIN, M53.3. TECHNIQUE: 2D digital imaging was performed. Were obtained. COMPARISON: CR XR pelvis AP from 08/27/2018 FINDINGS: Bones: No fracture is present. No bony destructive lesion is seen. Alignment is satisfactory. SI Joint:No fusion or erosions. There is mild sclerosis of the right SI joint. Soft Tissue: Normal. IMPRESSION: 1. Mild sclerosis of the right SI joint. This may be degenerative in nature. An infectious or infla mmatory process cannot be excluded. Please correlate clinically. 2. No acute fracture or dislocation. DATA REPOSITORY: RADIATION DOSE DELIVERED:
== END 2021-10-18 14:41 ==
LOC: DI 14:22
PROVIDERS: PCP Nurse Practitioner; Visit Provider Physician Assistant Medical
DX: M53.3 Sacrococcygeal disorders, not elsewhere classified (principal)
CPT/HCPCS: 72202

== ENCOUNTER 2021-10-18 16:19 | Outpatient (REF) | payer MEDICARE, SELFPAY | END 2021-10-18 16:20 | disposition home or self-care (01) | LOC: LBN 16:19 | PROVIDERS: PCP Nurse Practitioner; Visit Provider Physician Assistant Medical | DX: N28.89 Other specified disorders of kidney and ureter (principal) | CPT/HCPCS: 87077; 87086; 87186 ==

== ENCOUNTER 2021-11-23 02:00 | Outpatient (CLI) | payer MEDICARE, SELFPAY ==
--- NOTE | 2021-11-23 09:15 | DI.US_ITS ---
Exam(s) US RENAL EXAM: US RENAL CLINICAL HISTORY: RENAL MASS, N28.89; 2.2 CM ROUND HYPODENSE LESION SUPERIOR POLE RT KIDNEY. TECHNIQUE: [place] scale, color and spectral Doppler were used. COMPARISON: CT CT CHEST LUNG CANCER SCREEN from 09/04/2021 FINDINGS: Renal size in cm: Right: 8.8. Left: 10.3. Echogenicity: Normal. Hydronephrosis: No. Cyst or mass: There is a 2.8 x 2.3 x 2.4 cm simple cyst in the superior pole of the right kidney. Th is corresponds to the hypodense lesion seen on the CT scan of the chest from 09/04/2021. No follow-up is recommended. There are smaller simple cysts seen in both kidneys. The largest on the left measur es 0.9 cm. Nephrolithiasis: No. Other findings: None. Bladder:The bladder cannot be evaluated sonographically as it was not adequately prepped. Ureteral jets: Right: Not visualized on this examination. Left: Not visualized on this examination. Renal color flow: Symmetric and within normal limits. IMPRESSION: The hypodense lesion seen on the CT scan from 09/04/2021 corresponds to a simple cyst. No follow-up is recommended. DATA REPOSITORY:
== END 2021-11-23 02:20 ==
LOC: DI 02:01
PROVIDERS: PCP Nurse Practitioner; Visit Provider Nurse Practitioner Family
DX: N28.89 Other specified disorders of kidney and ureter (principal)
CPT/HCPCS: 76770

== ENCOUNTER 2022-04-01 04:24 | Outpatient (RCR) | payer MEDICARE, SELFPAY ==
--- NOTE | 2022-04-01 09:30 | HOLTER_ITS ---
APPROVED REPORT Conclusion This is a 24-hour Holter monitor ordered for an irregular rhythm Predominant rhythm was sinus with an average heart rate of 82. Minimum was 58, maximum 136 There were occasional ventricular ectopic beats, rare couplets, rare triplets There was one 8 beat run of accelerated idioventricular rhythm There were occasional atrial premature beats. There was no atrial fibrillation, no supraventricular tachycardia There was no high-grade AV block, no pauses greater than 3 seconds There were no apparent patient symptoms
== END 2022-05-01 23:59 | disposition home or self-care (01) ==
LOC: RT 04:24
PROVIDERS: PCP Nurse Practitioner; Visit Provider Nurse Practitioner Family
DX: I49.9 Cardiac arrhythmia, unspecified (principal); I49.1 Atrial premature depolarization
CPT/HCPCS: 93227; 93225; 93226

== ENCOUNTER → 2022-08-09 00:26 | Outpatient (CLI) | payer MEDICARE, SELFPAY ==
--- NOTE | 2022-08-09 15:15 | DI.MAMMO_ITS ---
Exam(s) MAMMO SCREENING EXAM: MAMMO SCREENING CLINICAL HISTORY: SCREENING, Z12.39 TECHNIQUE: Bilateral full field digital CC and MLO mammographic images were obtained with 3D tomosyn thesis and utilizing computer aided detection (CAD). COMPARISON: Available for comparison. FINDINGS: Masses/Architectural Distortion: None seen. Microcalcifications: No suspicious pleomorphic-type are seen. Skin Thickening/Nipple Retraction: None. IMPRESSION: 1. No significant interval change with no specific features of malignancy noted. 2. Unless there is more urgent need, screening mammography is recommended, as per [place] [employer] guidelines. BI-RADS Category 1 - Negative Breast Density - Category B - Scattered areas of fibroglandular density Breast density category C or D implies that the patient has dense breast tissue. Dense breast tissue is very common and is not abnormal but dense breast tissue can make it harder to find cancer on a ma mmogram. Also, dense breast tissue may increase their breast cancer risk. This information about the result of the mammogram report was provided to the patient to raise their awareness. Use this report when you speak with the patient about their risks for breast cancer, which includes their family hist ory. At that time, you may recommend for more screening tests (Ultrasound or MRI) as they might be us eful based on their risk. A negative radiographic report should not delay biopsy if a dominant or clinically suspicious mass is present. Up to ten percent of cancers are not identified on mammography. A negative report may reinforce clinical impression. Adenosis and dense breasts may obscure an underlying neoplasm. False positive reports average 6 to 10%. Patient will receive a letter notifying them of these results.
== END ==
PROVIDERS: PCP Nurse Practitioner Family; Visit Provider Nurse Practitioner Family
DX: Z12.31 Encounter for screening mammogram for malignant neoplasm of breast (principal)
CPT/HCPCS: 77063; 77067

== ENCOUNTER 2022-10-08 17:17 | Outpatient (REF) | payer MEDICARE, SELFPAY ==
[2022-10-08 20:18] LABS: Anion Gap 8.1 mmol/L (3-11); BUN 13 mg/dL (7-18); CO2 28.9 mmol/L (21.0-32.0); CREATININE 0.7 mg/dL (0.55-1.02); Calcium 9.4 mg/dL (8.5-10.1); Chloride 103 mmol/L (98-107); Estimated GFR 91.26 (mL/min/1.73m2); Glucose 128 mg/dL (74-106); Potassium 3.3 mmol/L (3.5-5.1); Sodium 140 mmol/L (136-145)
== END 2022-10-08 17:18 | disposition home or self-care (01) ==
LOC: NCHCN 17:17
PROVIDERS: PCP Nurse Practitioner Family; Visit Provider Nurse Practitioner Family
DX: I10 Essential (primary) hypertension (principal); J44.9 Chronic obstructive pulmonary disease, unspecified
CPT/HCPCS: 80048

== ENCOUNTER 2022-11-06 02:01 | Outpatient (CLI) | payer MEDICARE, SELFPAY ==
--- NOTE | 2022-11-06 07:30 | DI.CTLCSR_ITS ---
Exam(s) CT CHEST LUNG CANCER SCREEN EXAM: CT CHEST LUNG CANCER SCREEN CLINICAL HISTORY: Screening for lung cancer,CURRENT SMOKER, F17.210 TECHNIQUE: Imaging Protocol: Axial computed tomography images with coronal and sagittal reformatted images were created and reviewed. Low dose screening protocol. COMPARISON: CT CT CHEST LUNG CANCER SCREEN from 09/04/2021 FINDINGS: Tracheobronchial tree: No bronchiectasis or mucus plugging.. Mediastinum and Josette: No dominant adenopathy or fluid collection. Pulmonary parenchyma: No consolidation or dominant measurable mass. Moderate emphysematous changes, g reater in the upper lobes.. Lung Nodules: Few scattered tiny nodules. No suspicious nodules. Pleura: No effusion. No pneumothorax. Heart: The heart is not dilated. Moderate coronary artery calcifications are seen. Aorta: Thoracic aorta non-dilated. Upper abdomen: Large hiatal hernia. Stable hypodensity in the upper right lobe of the liver consist ent with a cyst. No further follow-up recommended. Bones: Unremarkable for age. Soft Tissues: Unremarkable. IMPRESSION: No suspicious pulmonary nodules. Lung RADS Cat 2 - Benign Appearance / Behavior: Nodules with a very low likelihood of becoming a clin ically active cancer due to size or lack of growth Lung-RADS 1.0 CATEGORIES: Category 0 - Prior chest CT exam(s) being located for comparison. Category 1 - Annual screening in 12 months. No nodules or definitely benign nodules. Category 2 - Annual screening in 12 months. Benign appearance. Nodules with low likelihood of becomin g active cancer. Category 3 - 6-month follow-up. Probably benign. Short-term follow-up suggested. Nodules with low lik elihood of becoming active cancer. Category 4A - 3-month follow-up and CT/PET if >8 mm in size. Suspicious finding. Findings which requi re additional testing. Category 4B - Findings which require additional testing and tissue sampling. Category 4X - Category 3 or 4 nodules with additional features or imaging findings that increases the suspicion of malignancy. Modifier S- Potentially clinically significant findings (non lung cancer) RADIATION DOSE DELIVERED: 71.21mGy.cm Total DLP DATA REPOSITORY: All CT scans at this facility are submitted to the National Radiology Data Registry (NRDR) Dose Index Registry (DIR) with the [employer] (ACR). RADIATION OPTIMIZATION: All CT scans at this facility use at least one of these dose optimization te chniques: automated exposure control; mA and/or kV adjustment per patient size (includes targeted exa ms where dose is matched to clinical indication); or iterative reconstruction.
== END 2022-11-06 02:21 ==
PROVIDERS: PCP Nurse Practitioner Family; Visit Provider Physician Assistant Surgical
DX: F17.210 Nicotine dependence, cigarettes, uncomplicated (principal); Z12.2 Encounter for screening for malignant neoplasm of respiratory organs
CPT/HCPCS: 71271

== ENCOUNTER 2022-11-13 09:09 | Outpatient (CLI) | payer MEDICARE, SELFPAY ==
--- NOTE | 2022-11-13 08:45 | DI.RAD_ITS ---
Exam(s) XR KNEE LT 3V AP,LAT,BRAYAN EXAM: XR KNEE LT 3V AP,LAT,BRAYAN CLINICAL HISTORY: Right knee pain. TECHNIQUE: 2D digital imaging was performed of the left knee. Three images were obtained. Merchant ,AP and lateral views were obtained. COMPARISON: None. FINDINGS: BONES: No acute fracture is present. No bony destructive lesion is seen. JOINTS: The knee is normally aligned. No joint effusion is seen. Mild joint space narrowing is presen t. SOFT TISSUE: Surgical clips are seen posteriorly. IMPRESSION: Mild joint space narrowing. No acute abnormality. DATA REPOSITORY: RADIATION DOSE DELIVERED:
--- NOTE | 2022-11-13 09:00 | DI.RAD_ITS ---
Exam(s) XR KNEE RT 3V AP,LAT,BRAYAN EXAM: XR KNEE RT 3V AP,LAT,BRAYAN CLINICAL HISTORY: Right knee pain. TECHNIQUE: 2D digital imaging was performed of the right knee. Three views obtained. Merchant, AP an d lateral views were obtained. COMPARISON: None. FINDINGS: BONES: No acute fracture is present. No bony destructive lesion is seen. JOINTS: The knee is normally aligned. There is a small suprapatellar joint effusion. There is modera te narrowing in the medial femoral tibial joint space. There is mild spurring of the posterior hines la. SOFT TISSUE: Normal. IMPRESSION: Mild degenerative changes of the right knee. DATA REPOSITORY: RADIATION DOSE DELIVERED:
== END 2022-11-13 09:10 | disposition home or self-care (01) ==
LOC: DIORS 09:10
PROVIDERS: PCP Nurse Practitioner Family; Referring Provider Nurse Practitioner Family; Visit Provider Student in an Organized Health Care Education/Training Program
DX: M17.11 Unilateral primary osteoarthritis, right knee; M17.12 Unilateral primary osteoarthritis, left knee
CPT/HCPCS: 20610; 73562; 99203; J1030

== ENCOUNTER → 2023-05-29 10:12 | Outpatient (BNVA) | payer MEDICARE, SELFPAY | PROVIDERS: PCP Nurse Practitioner Family; Referring Provider Nurse Practitioner Family | DX: M17.11 Unilateral primary osteoarthritis, right knee (principal) | CPT/HCPCS: 20610; J1030 ==

== ENCOUNTER → 2023-07-03 11:00 | Outpatient (BNVA) | payer MEDICARE, SELFPAY | PROVIDERS: PCP Nurse Practitioner Family; Referring Provider Nurse Practitioner Family; Visit Provider Physician Assistant Surgical | DX: J44.9 Chronic obstructive pulmonary disease, unspecified (principal); Z79.899 Other long term (current) drug therapy; F17.210 Nicotine dependence, cigarettes, uncomplicated | CPT/HCPCS: 99214 ==

== ENCOUNTER 2023-10-15 15:50 | Outpatient (REF) | payer MEDICARE, SELFPAY ==
[2023-10-15 16:10] LABS: Abs Immature Grans 0.02 10^3/uL (0.0-0.06); Absolute Basophil Count 0.08 10^3/uL (0.0-0.2); Absolute Eosinophil Count 0.19 10^3/uL (0.0-0.7); Absolute Lymphocyte Count 2.34 10^3/uL (1.2-3.4); Absolute Monocyte Count 0.58 10^3/uL (0.1-0.8); Absolute Neutrophil Count 4.94 10^3/uL (1.2-6.7); Eosinophils % 2.3; HCT 46.4 % (36.0-46.0); HGB 15.3 g/dL (11.2-15.7); Immature Grans % 0.2; Lymphocytes % 28.7; MCV 88 fL (80-95); MPV 10.8 fL (8.0-11.0); Monocytes % 7.1; Neutrophils % 60.7; Platelet Count 287 10^3/uL (130-400); RBC 5.27 10^6/uL (3.93-5.22); RDW 12.6 % (11.7-14.6); WBC 8.15 10^3/uL (4.4-10.8)
[2023-10-15 16:41] LABS: Hemoglobin A1C 5.6 % (<5.7)
[2023-10-15 17:17] LABS: ALT 18 U/L (14-59); AST 14 U/L (15-37); Albumin 3.8 g/dL (3.4-5.0); Alkaline Phosphatase 64 U/L (46-116); Anion Gap 11.2 mmol/L (3-11); BUN 13 mg/dL (7-18); Bilirubin, Total 0.2 mg/dL (0.2-1.0); CO2 25.8 mmol/L (21.0-32.0); CREATININE 0.6 mg/dL (0.55-1.02); Calcium 9.6 mg/dL (8.5-10.1); Chloride 106 mmol/L (98-107); Estimated GFR 94.13 (mL/min/1.73m2); Glucose 97 mg/dL (74-106); Magnesium 1.9 mg/dL (1.8-2.4); Potassium 4.3 mmol/L (3.5-5.1); Sodium 143 mmol/L (136-145); Total Protein 7.3 g/dL (6.4-8.2); Vitamin B12 559 pg/mL (193-986)
== END 2023-10-15 15:51 | disposition home or self-care (01) ==
LOC: NCHCN 15:50
PROVIDERS: PCP Nurse Practitioner Family; Referring Provider Nurse Practitioner Family; Visit Provider Nurse Practitioner Family
DX: I10 Essential (primary) hypertension (principal); R25.2 Cramp and spasm; R20.2 Paresthesia of skin; R79.89 Other specified abnormal findings of blood chemistry; H81.03 Meniere's disease, bilateral
CPT/HCPCS: 80053; 82607; 83036; 83735; 85025

== ENCOUNTER → 2023-11-10 01:38 | Outpatient (CLI) | payer MEDICARE, SELFPAY ==
--- NOTE | 2023-11-10 09:55 | DI.CTLCSR_ITS ---
Exam(s) CT CHEST LUNG CANCER SCREEN EXAM: CT CHEST LUNG CANCER SCREEN CLINICAL HISTORY: Screening for lung cancer,CURRENT SMOKER, F17.210 TECHNIQUE: Imaging Protocol: Axial computed tomography images with coronal and sagittal reformatted images were created and reviewed COMPARISON: CT CT CHEST LUNG CANCER SCREEN from 09/04/[address] CHEST LUNG CANCER SCREEN from 11/06/2022 FINDINGS: Tracheobronchial tree: Patent where visualized. Pulmonary parenchyma: Moderate centrilobular and paraseptal emphysematous changes are present. There is scarring in the left lingula and right middle lobe. No focal consolidating infiltrates are seen. Lung Nodules: There are few tiny less than 2 mm nodules present which appears stable. No suspicious nodules are seen. Mediastinum and Josette: No dominant adenopathy or fluid collection. The esophagus is unremarkable.There is a large hiatal hernia. Thyroid gland: Unremarkable. Lymph nodes: Unremarkable. Pleura: No effusion or pneumothorax. Heart: The heart is not dilated. Coronary artery calcification and/or stents are present. No pericar dial effusion. Aorta: Thoracic aorta non-dilated.Atherosclerotic calcification is present. Upper abdomen: Stable hepatic and right renal cyst. Soft Tissues: Unremarkable. Bones: Within normal limits. IMPRESSION: No suspicious nodules. Stable tiny less than 2 mm nodules. Lung RADS Cat 2 - Benign Appearance / Behavior: Nodules with a very low likelihood of becoming a clin ically active cancer due to size or lack of growth Lung-RADS 1.0 CATEGORIES: Category 0 - Prior chest CT exam(s) being located for comparison. Category 1 - Annual screening in 12 months. No nodules or definitely benign nodules. Category 2 - Annual screening in 12 months. Benign appearance. Nodules with low likelihood of becomin g active cancer. Category 3 - 6-month follow-up. Probably benign. Short-term follow-up suggested. Nodules with low lik elihood of becoming active cancer. Category 4A - 3-month follow-up and CT/PET if >8 mm in size. Suspicious finding. Findings which requi re additional testing. Category 4B - Findings which require additional testing and tissue sampling. Suspicious finding. Category 4X - Category 3 or 4 nodules with additional features or imaging findings that increases the suspicion of malignancy. Modifier S- Potentially clinically significant finding. (Non lung cancer) RADIATION DOSE DELIVERED: Total DLP Total DLP DATA REPOSITORY: All CT scans at this facility are submitted to the National Radiology Data Registry (NRDR) Dose Index Registry (DIR) with the [employer] (ACR). RADIATION OPTIMIZATION: All CT scans at this facility use at least one of these dose optimization te chniques: automated exposure control; mA and/or kV adjustment per patient size (includes targeted exa ms where dose is matched to clinical indication); or iterative reconstruction.
== END ==
PROVIDERS: PCP Nurse Practitioner Family; Visit Provider Physician Assistant Surgical
DX: F17.210 Nicotine dependence, cigarettes, uncomplicated (principal); Z12.2 Encounter for screening for malignant neoplasm of respiratory organs
CPT/HCPCS: 71271

== ENCOUNTER → 2023-12-01 02:50 | Outpatient (CLI) | payer MEDICARE, SELFPAY ==
--- NOTE | 2023-12-01 12:40 | DI.MAMMO_ITS ---
Exam(s) MAMMO SCREENING EXAM: MAMMO SCREENING CLINICAL HISTORY: Z12.31 Encounter for screening mammogram for malig neop of breast TECHNIQUE: Bilateral full field digital CC and MLO mammographic images were obtained with 3D tomosyn thesis and utilizing computer aided detection (CAD). COMPARISON: Available for comparison. FINDINGS: Masses/Architectural Distortion: No suspicious nodules are seen. No areas of architectural distortio n are present. Microcalcifications: No suspicious pleomorphic-type are seen. Skin Thickening/Nipple Retraction: None. IMPRESSION: 1. No significant interval change with no specific features of malignancy noted. 2. Unless there is more urgent need, screening mammography is recommended, as per [place] [employer] [employer] guidelines. BI-RADS Category 1 - Negative Breast Density - Category B - Scattered areas of fibroglandular density Breast density category C or D implies that the patient has dense breast tissue. Dense breast tissue is very common and is not abnormal but dense breast tissue can make it harder to find cancer on a ma mmogram. Also, dense breast tissue may increase their breast cancer risk. This information about the result of the mammogram report was provided to the patient to raise their awareness. Use this report when you speak with the patient about their risks for breast cancer, which includes their family hist ory. At that time, you may recommend for more screening tests (Ultrasound or MRI) as they might be us eful based on their risk. A negative radiographic report should not delay biopsy if a dominant or clinically suspicious mass is present. Up to ten percent of cancers are not identified on mammography. A negative report may reinforce clinical impression. Adenosis and dense breasts may obscure an underlying neoplasm. False positive reports average 6 to 10%. Patient will receive a letter notifying them of these results.
== END ==
PROVIDERS: PCP Nurse Practitioner Family; Visit Provider Nurse Practitioner Family
DX: Z12.31 Encounter for screening mammogram for malignant neoplasm of breast (principal)
CPT/HCPCS: 77063; 77067

== ENCOUNTER → 2024-01-15 10:18 | Outpatient (BNVA) | payer MEDICARE, SELFPAY | PROVIDERS: PCP Nurse Practitioner Family; Referring Provider Nurse Practitioner Family; Visit Provider Student in an Organized Health Care Education/Training Program | DX: J44.9 Chronic obstructive pulmonary disease, unspecified (principal); F17.210 Nicotine dependence, cigarettes, uncomplicated | CPT/HCPCS: 99214 ==

== ENCOUNTER 2024-05-17 14:55 | Outpatient (CLI) | payer MEDICARE, SELFPAY ==
--- NOTE | 2024-05-17 | DI.RAD_ITS ---
Exam(s) XR LUMBAR SPINE COMPLETE EXAM: XR LUMBAR SPINE COMPLETE CLINICAL HISTORY: LOW BACK PAIN M54.50 X 1 WEEK, KNOWN OSTEOPENIA ON DEXA. TECHNIQUE: 2D digital imaging was performed. COMPARISON: CR XR SACROILIAC JOINTS from 10/18/2021 FINDINGS: Five years No evidence acute fracture. There is mild anterolisthesis of L4 upon L5 which appears related to fac et arthropathy. There are no pars defects. There is no disc space narrowing with the exception of m ild narrowing at L2-3 level. Degenerative changes are noted in the facet joints of the lower 3 level s. There is partial sacralization of the L5 segment on the left side. No scoliosis. No osseous lesions . IMPRESSION: Findings as above. DATA REPOSITORY: RADIATION DOSE DELIVERED:
--- OUTSIDE RECORDS SUMMARY | 2024-05-17 15:05 | XMS_ITS | Encounter Summary ---
Author Organization [facility] [place] [address] Care Team Providers Care Divider Operator Name Role Phone ArielaJenelle gilmore DOCUMENT CONTROL SPECIALIST Primary Care Provider Reason for Referral * Consultation (Routine) - Closed Specialty Diagnoses / Procedures Referred By Contac t Referred To Contact General Surgery Diagnoses Rectal prolapse Ingrid Trotter MD [facility] [place] [address] [facility] [place] [address] [place] [phone] Referral ID Status Reason Start Date Expiration Date V isits Requested Visits Authorized [id number] Closed Consult, Test & Treat 02/11/2020 02/10/2021 1 1 Reason for Visit * Consultation (Routine) - Closed Specialty Diagnoses / Procedures Referred By Contac t Referred To Contact Obstetrics and Gynecology Diagnoses Complete uterovaginal prolapse UTEROVAGINAL PROLAPSE Ingrid Borjas MD [address] [place] [address] [facility] Bottle Line Worker [address] [place] [phone] Referral ID Status Reason Start Date Expiration Date V isits Requested Visits Authorized [id number] Closed Consult, Test & Treat [facility] PCP Updated and/or Approved 02/04/2020 02/03/2021 1 1 Encounter Details Date Type Department Care Team (Latest Contact Info) Description 02/11/2020 3:00 PM EDT TH Visit (TeleHealth) Obstetrics [place] [address] Ingrid Trotter MD [facility] [place] [address] Uterovaginal prolapse (Primary Dx); Rectal prolapse; Urinary frequency; Pessary maintenance Social History Tobacco Use Types Packs/Day Years Used Date Smoking Tobacco: Every Day Cigarettes 1 48 Smokeless Tobacco: Never Comments:Now 1/2 ppd; previo usly 1.5ppd. Alcohol Use Standard Drinks/Week Comments Not Currently 0 (1 standard drink = 0.6 oz pur e alcohol) Sex and Gender Information Value Date Recorded Sex Assigned at Not on file Gender Identity Not on file Sexual Orientation Not on file documented as of this encounter Last Filed Vital Signs Vital Sign Reading Time Taken Comments Blood Pressure - - Pulse - - Temperature - - Respiratory Rate - - Oxygen Saturation - - Inhaled Oxygen Concentration - - Weight 61.2 kg (135 lb) 02/10/2020 2:07 PM EDT Height 157.5 cm (5' 2) 02/10/2020 2:07 PM EDT Body Mass Index 24.69 02/10/2020 2:07 PM EDT documented in this encounter Progress Notes * Mary Burton, [facility] - 02/11/2020 3:00 PM EDT ____ Patient not reached __X__Patient reached and the following information was reviewed/obtained per protocol. _X__Confirmed patient name and date of _X__Confirmed tele med appt (Virtual visit) is downloaded and functioning _X__Confirmed location of patient- TeleVisit is taking place in [place]_X_ [place]__[place]__ [place]__ If not on myD, working on signing up for my Confirmed has completed any pre-visit questionnaires If has not received required previsit questionnaires, send via [facility] _X__Reviewed medications, allergies, pharmacy, pain/depression, education _X__Documented height/weight/LMP Other information or concerns: Patient states she currently is using a pessary, although it's been falling out recently. She's notnoticed some rectal prolapse and some blood with bowel movements * Ingrid Trotter MD - 02/11/2020 3:00 PM EDT Female Pelvic Medicine and Reconstructive Surgery @ [facility] New Patient Telephone Encounter 1. Reason/purpose for phone call: uterine procidentia 2. The patient voiced an understanding of the reason and intent of the phone call, and provided verbal consent to discuss clinical issues by phone. Additionally, the patient acknowledged that a telephone consultation is a billable encounter, and that the patient or their medical insurance carrier co uld be billed. 3. 02/11/2020, Total time of call: 42 minutes. The patient was located in [place] during this visit. 4. Summary of conversation, decision making, and plan: See note below. Ingrid Trotter MD Patient Name: Oksana Valiente Patient Primary Care Provider: Jenelle Arellano APRN Referring provider: Ingrid Borjas Patient Active Problem List Diagnosis Code ??? Uterovaginal prolapse, complete N81.3 ??? 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 Asymptomatic varicose veins of right lower extremity I83.91 Chief Complaint: uterovaginal prolapse History of Present Illness: Ms. Valiente is a 69 y.o. old woman, seen at the kind request of Ingrid Borjas. 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 Most recently, she tried a 76mm donut pessary, which was 'horrible' and caused rectal pain; Gehrungdid as well. She has an 84mm ring with support back in place Starting 3 days ago, she has possible rectal prolapse. She is having pain, irritation, mild spotting on a pad since this prolapse occurred. No blood in stool. Has a daily bowel movement without straining. Starting 3 days, she has abdominal pain - it feels like gravity is pulling down and causing pain. It resolves when she lays down as well. Previous urinary incontinence/prolapse treatments (Medical/Behavioral/Surgical): Pessary Goals for this visit 1. Address prolapse Bladder Function Urinary incontinence: No No. episodes: n/a Pad use (per day): 1 Pad type: liner Daytime voids: Q1hr with urgency; almost never has leakage; sometimes tries to void and cannot - she thinks due to the prolapse, though not sure. Nocturia: 1 Previous urinary incontinence treatment (Medical/Behavioral/Surgical): no ICIQ-UI Short Form How often do you leak urine? Never 0 About once a week or less often 1 x 2-3 times a week 2 About once a day 3 Several times a day 4 All the time 5 How much urine do you usually leak? None 0 x A small amount 1 A moderate amount 2 A large amount 3 Overall, how much does leaking interfere with your everyday life? 2 (0 not at all, 10 a great deal) ICIQ Sum the scores: 5 When does urine leak? (Check all that apply) Never - Urine does not leak X Very rarely Leaks before you can get to the toilet No Leaks when you cough or sneeze Leaks when you are asleep Leaks when you are physically active/exercising Leaks when you have finished urinating or are dressed Leaks for no obvious reason Leaks all the time Bladder irritants: Fluid intake: I don't like water Caffeine intake: Coffee or tea, 5x/day Artificial sweeteners: no Cigarette smoking (packs, time, if quit when): 1/2 ppd smoker Alcohol: No, maybe once a year Storage symptoms Q1hr bothersome Urinary frequency + urgency Nocturia Stress urinary incontinence - leakage with exertion, cough/sneeze Almost never Urge urinary incontinence - leakage preceded immediately by urge to void Noctural enuresis - NOT IN ASSOCIATION WITH URGE Continuous urinary leakage Other: (e,g. giggle, intercourse-related) Bladder sensation x Normal - aware of filling and increased sensation up to desire to void Increased - feels an early and persistent need to void Reduced - aware of filling but NOT definite desire to void Absent - NO sensation of filling or need to void Non-specific - No specific bladder symptoms during filling or void Voiding symptoms None Slow stream Spraying Intermittent stream - stop/start on > 1 occasion during void x Straining - muscular effort to initiate, maintain OR improve stream Bulge is in the way - has to reduce. Terminal dribble - prolonged final part of void x Feeling of incomplete emptying Pelvic Organ Prolapse (POP) Do you personally see or feel a vaginal bulge? Yes What precipitates prolapse or symptoms of prolapse? All the time Previous treatment for POP (physical therapy, pessary, surgery)?: Pessary, see HPI. Worked great until about 2 years ago. Bowel Function Number of bowel movements (day/week): Daily Fecal incontinence (yes/no): no Number of fecal incontinent episodes (day/week): n/a Last colonoscopy 'a while ago', unsure when. Defecatory Dysfunction: Symptom Presence Symptom Presence NONE x Incomplete Emptying Straining Infrequent stools (<3 week) Splinting Abdominal discomfort Loose stools Defecatory urgency Hard stools Other Sexual Function Active?: No MEDICAL HISTORY Past Medical History: Diagnosis Date ??? COPD (chronic obstructive pulmonary disease) Does not use inhaler due to expense ??? Dyspepsia OTC H2 joselin Past Surgical History: Procedure Laterality Date ??? MOHS SURGERY basal cell ca on face ??? VEIN SURGERY OB History Para Term AB Living 6 4 0 0 0 0 SAB TAB Ectopic Multiple Live Births 0 0 0 0 0 # Outcome Date GA Lbr Binu/2nd Weight Sex Delivery Anes PTL Lv 6 5 4 Para 3 Para 2 Para 1 Para Obstetric Comments x4 Gynecologic History: LMP: No LMP recorded. Patient is postmenopausal. Menarche: regular periods Menopause: Mid-40s Abnormal paps: No; had on last year with Dr. Diana. Hormone replacement: no Medication reconciliation completed by me Outpatient Medications Marked as Taking for the 02/11/20 encounter (TH Visit (TeleHealth)) with Ingrid Trotter MD Medication Sig Dispense Refill ??? albuteroL 90 mcg/actuation HFA Aerosol Inhaler Inhale 2 puffs into the lungs every 4 hours as needed for Wheezing. Use with spacer ??? budesonide-formoteroL (SYMBICORT) 80-4.5 mcg/actuation HFA Aerosol Inhaler Inhale into the lungs daily. ??? Nhuyzccoxswia-Foqyomxm-Ghqzya Tab Take by mouth. ??? OMEPRAZOLE (PRILOSEC ORAL) No Known Allergies Social History Socioeconomic History ??? Marital status: Spouse name: Not on file ??? Number of children: Not on file ??? Years of education: Not on file ??? Highest education level: Not on file Occupational History ??? Not on file Social Needs ??? Financial resource strain: Not on file ??? Food insecurity Worry: Not on file Inability: Not on file ??? Transportation needs Medical: Not on file Non-medical: Not on file Tobacco Use ??? Smoking status: Current Every Day Smoker Packs/day: 1.00 Years: 48.00 Pack years: 48.00 Types: Cigarettes ??? Smokeless tobacco: Never Used ??? Tobacco comment: Now 1/2 ppd; previously 1.5ppd. Substance and Sexual Activity ??? Alcohol use: Not Currently Alcohol/week: 0.0 standard drinks ??? Drug use: Not Currently ??? Sexual activity: Not Currently Lifestyle ??? Physical activity Days per week: Not on file Minutes per session: Not on file ??? Stress: Not on file Relationships ??? Social connections Talks on phone: Not on file Gets together: Not on file Attends caodaism service: Not on file Active member of club or organization: Not on file Attends meetings of clubs or organizations: Not on file Relationship status: Not on file ??? Intimate partner violence Fear of current or ex partner: Not on file Emotionally abused: Not on file Physically abused: Not on file Forced sexual activity: Not on file Other Topics Concern ??? Not on file Social History Narrative ??? Not on file Family History Adopted: Yes ROS: Review of all other systems negative except for those mentioned above or indicated below: (blank indicates negative) System Symptom Presence Constitutional Weight Loss Weight gain Eyes History of glaucoma ENT/Mouth Mouth sores/Dry mouth Cardiovascular Chest pain Leg swelling Respiratory Wheezing Some with COPD SOB Some with COPD GI Nausea/vomiting Constipation Abdominal pain Yes, see HPI H/o diverticular disease Skin/Breast Breast masses Rash/ulcer Musculoskeletal Muscle weakness Trouble Walking Neurological Dizziness/falling Numbness Psychiatric Depression Anxiety Endocrine Abnormal thirst Menopause Yes Hot flashes Hematologic Frequent bruising History of blood transfusions Maybe so, but cannot remember why. If so, 30 years ago. Blood clots (DVT / PE) No; has prominent veins, was checked several times, never had thrombosis. Prior problems w/ anesthesia Outside medical records reviewed: yes Data reviewed (images/urodynamic studies): n/a OBJECTIVE: Not available. Impression: Ms. Valiente is a 69 y.o. woman with: ?? Uterovaginal prolapse ?? Pessary management of vaginal prolapse ?? Possible rectal prolapse, with abdominal discomfort and bleeding ?? Urinary frequency and urgency, concerning for incomplete bladder emptying or overactive bladder For her pelvic organ prolapse, we discussed normal and abnormal anatomy of pelvic floor support. Wediscussed the symptoms of cystocele or rectocele is a vaginal bulge or the need to splint for comfort, micturition, or defecation, and that prolapse almost never causes pain. We discussed options fortreatment of pelvic organ prolapse include fenestrated cube pessary, and surgery. I provided her with the options table for treatment of prolapse, both overview and surgical. The following surgical options were reviewed with the patient for treatment of her uterovaginal prolapse: 1. Vaginal hysterectomy with stockbridge ligament (uterosacral or sacrospinous) repair, with 70-80% success at 5 years out from surgery. 2. Supra-cervical hysterectomy with laparoscopic mesh sacral colpopexy, with 90% success at 5 yearsout from surgery, but increased risks for complications of bowel obstruction, mesh erosion and longer anesthetic time. 3. [place] Colpocleisis, with closure of the vagina, with 90-95% success at 5 years out from surgery. We discussed that this closed the vagina and that vaginal sexual intercourse is no longer possible. We discussed that this would have the shortest anesthetic time and lower risks. If she proves not to have rectal prolapse, she would prefer the procedure with the shortest recovery time, ideally the colpocleisis. Her workplace will reopen in April at earliest. 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 We discussed that she may have rectal prolapse, which would need evaluation by colorectal surgery. If present, we could do a concurrent vaginal and rectal prolapse repair surgery. We also discussed that her urinary frequency and urgency may be due to incomplete bladder emptying from her pelvic organ prolapse, or may be due to overactive bladder. We will discuss further after exam. Recommended trial of reducing bladder irritants to assess for symptoms improvement. Recommendations: Based on the patients' expressed goals for management I have recommended the following: ?? Come for exam and possible pessary placement (likely fenestrated cube) ?? Referral to colorectal surgery for evaluation of rectal prolapse ?? Try to decrease smoking to reduce surgical risk ?? Do a trial of reducing caffeine and tobacco, which may reduce your urinary frequency and urgency RTC for exam (Measured void, urine dip, PVR, POPQ, possible pessary) Ingrid Trotter MD Division of Female Pelvic Medicine/Reconstructive Surgery CC: GREG [place] documented in this encounter Plan of Treatment Scheduled Referrals Name Type Priority Associated Diagnoses Order Schedule Referral to Colorectal Surgery Outpatient Referral Routine Rectal prolapse Ordered: 02/11/2020 documented as of this encounter Visit Diagnoses Diagnosis Uterovaginal prolapse- Primary Uterovaginal prolapse, unspecified Rectal prolapse Urinary frequency Pessary maintenance Fitting and adjustment of other device documented in this encounter Care Teams Divider Operator Relationship Specialty Start Date End Date Jenelle Arellano APRN [address] [place] [address] PCP - General Family Medicine 05/27/18 11/03/23 documented as of this encounter
--- OUTSIDE RECORDS SUMMARY | 2024-05-17 15:05 | XMS_ITS | Encounter Summary ---
[place] [address] Care Team Providers Care Live Hanger Name Role Phone Jenelle Arellano APRN Primary Care Provider Encounter Details Date Type Department Care Team (Latest Contact Info) Description 11/05/2022 Travel Social History Tobacco Use Types Packs/Day Years Used Date Smoking Tobacco: Every Day Cigarettes 1 48 Smokeless Tobacco: Never Comments:Now 5 per day; previously 2 ppd. Alcohol Use Standard Drinks/Week Comments Not Currently 0 (1 standard drink = 0.6 oz pur e alcohol) Sex and Gender Information Value Date Recorded Sex Assigned at Not on file Gender Identity Not on file Sexual Orientation Not on file documented as of this encounter Plan of Treatment Not on file documented as of this encounter Visit Diagnoses Not on filedocumented in this encounter Care Teams Live Hanger Relationship Specialty Start Date End Date Jenelle Arellano APRN [address] [place] [address] PCP - General Family Medicine 05/27/18 11/03/23 documented as of this encounter
--- OUTSIDE RECORDS SUMMARY | 2024-05-17 15:05 | XMS_ITS | Encounter Summary ---
Author Organization [facility] [place] [address] Care Team Providers Care Trimming Inspector Name Role Phone Adan Jenelle GARZA Primary Care Provider [phone] Reason for Visit * Reason Comments Uterine Prolapse Pessary Fitting * Consultation (Routine) - Closed Specialty Diagnoses / Procedures Referred By Contac t Referred To Contact Obstetrics and Gynecology Diagnoses Complete uterovaginal prolapse Encounter for fitting and adjustment of other specified devices Ingrid Borjas MD [address] [place] [address] [facility] [employer] [address] [place] [address] Referral ID Status Reason Start Date Expiration Date Visits Re quested Visits Authorized [id number] Closed 06/20/2022 06/20/2023 1 1 Encounter Details Date Type Department Care Team (Late st Contact Info) Description 08/13/2022 3:00 PM EST Office Visit Obstetrics [place] [address] Ann-Marie Cottrell SHANK STITCHER [facility] [address] Uterovaginal prolapse, complete; Encounter for fitting and adjustment of pessary Social History Tobacco Use Types Packs/Day Years [...] Sign Reading Time Taken Comments Blood Pressure 149/73 08/13/2022 2:43 PM EST Pulse 68 08/13/2022 2:43 PM EST Temperature 37 ??C (98.6 ??F) 08/13/2022 2:43 PM EST Respiratory Rate 16 08/13/2022 2:43 PM EST Oxygen Saturation 95% 08/13/2022 2:43 PM EST Inhaled Oxygen Concentration - - Weight 58.5 kg (129 lb) 08/13/2022 2:43 PM EST Height 153 cm (5' 0.25) 08/13/2022 2:43 PM EST Body Mass Index 24.98 08/13/2022 2:43 PM EST documented in this encounter Progress Notes * Ann-Marie Cottrell, SHANK STITCHER - 08/13/2022 3:00 PM EST Female Pelvic Medicine and Reconstructive Surgery Initial Pessary Fitting Patient Active Problem List Diagnosis Code ??? Uterovaginal prolapse, complete N81.3 ??? 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 Asymptomatic varicose veins of right lower extremity I83.91 SUBJECTIVE: Ms. Valiente presents today for an initial pessary fitting. She was previously diagnosed with uterovaginal prolapse. She sees Dr. Borjas in [place] for pessary management. She sees them about every 3-4 months for removal and cleaning. Sometimes the pessary will move down and hurt her back or pelvic bone. Usually this happens after afew months. She has COPD and notes the pessary descends sometimes with coughing. Sometimes will descend with picking up something heavy. She has tried to push the pessary back up but this hasn't helped. She otherwise likes the pessary. Denies bleeding, abnormal discharge, or pain. She has tried a few other pessaries with her referring provider but they did not work better and would fall out. With our practice she has tried a #4 fenestrated cube and #7 RS. OBJECTIVE: BP 149/73 Pulse 68 Temp 37 ??C (98.6 ??F) (Temporal) Resp 16 Ht 153 cm (5' 0.25) Wt 58.5kg (129 lb) SpO2 95% BMI 24.98 kg/m?? A cooker operator is present for the examination. General: Appears healthy, well developed and well nourished. No apparent distress. Urethra: Nontender, midline, no lesions. Vulva: Well developed and appropriate architecture present. No lesions or abnormal discharge. Vagina: scant discharge, no bleeding, erythema or granulation tissue #8 RS was removed w/o difficulty. A # 9 Ring with support pessary was placed without difficulty and the patient reported no discomfort with the pessary in situ. . The patient was instructed to ambulate for several minutes and to try void without expelling the pessary. ASSESSMENT: ??? Uterovaginal prolapse: now refit with #9 RS We looked at our available pessaries and she identified trying a Gellhorn, donut and fenestrated cube previously. She would really like to stick with an RS as this has worked the best for her. We also briefly discussed surgery as an option for prolapse management and offered surgical consult with Dr. Trotter. She is not interested in pursuing surgery at this time. PLAN: ?? Advised f/u in 2-4 weeks to assess fit and then every 3-6 months for removal, cleaning, pelvic exam and reinsertion or PRN based on any s/e. She prefers to do this with her referring provider. Sheknows I remain available for pessary management, if desired, and she can schedule a surgical consult with Dr. Trotter, if desired. Ann-Marie Cottrell APRN Division of Female Pelvic Medicine and Reconstructive Surgery documented in this encounter Plan of Treatment Not on file documented as of this encounter Visit Diagnoses Diagnosis Uterovaginal prolapse, complete Encounter for fitting and adjustment of pessary Fitting and adjustment of other device documented in this encounter Care Teams Trimming Inspector Relationship Specialty Start Date End Date Jenelle Arellano APRN [address] [place] [address] PCP - General Family Medicine 05/27/18 11/03/23 documented as of this encounter
--- OUTSIDE RECORDS SUMMARY | 2024-05-17 15:05 | XMS_ITS | Encounter Summary ---
[place] [address] Care Team Providers Care Incident Manager Name Role Phone Jenelle Arellano APRN Primary Care Provider Encounter Details Date Type Department Care Team (Latest Contact Info) Description 03/21/2023 Travel Social History Tobacco Use Types Packs/Day [...] on filedocumented in this encounter Care Teams Incident Manager Relationship Specialty Start Date End Date Jenelle Arellano APRN [address] [place] [address] PCP - General Family Medicine 05/27/18 11/03/23 documented as of this encounter
--- OUTSIDE RECORDS SUMMARY | 2024-05-17 15:05 | XMS_ITS | Encounter Summary ---
[place] [address] Care Team Providers Care Machine Setter Supervisor Name Role Phone Jenelle Arellano APRN Primary Care Provider Encounter Details Date Type Department Care Team (Latest Contact Info) Description 08/13/2022 Travel Social History Tobacco Use Types Packs/Day [...] on filedocumented in this encounter Care Teams Machine Setter Supervisor Relationship Specialty Start Date End Date Jenelle Arellano APRN [address] [place] [address] PCP - General Family Medicine 05/27/18 11/03/23 documented as of this encounter
--- OUTSIDE RECORDS SUMMARY | 2024-05-17 15:05 | XMS_ITS | Encounter Summary ---
Author Organization [facility] [place] [address] Care Team Providers Care Canvas Goods Fabricator Name Role Phone Adan Jenelle GARZA Primary Care Provider [phone] Reason for Visit * Reason Comments Pessary Check Encounter Details Date Type Department Care Team (Late st Contact Info) Description 11/05/2022 3:00 PM EST Office Visit Obstetrics [place] [address] Ann-Marie Cottrell APRN [facility] [place] [address] Uterovaginal prolapse, complete; Pessary maintenance Social History Tobacco Use Types Packs/Day Years Used Date Smoking Tobacco: Every Day Cigarettes 1 48 Smokeless Tobacco: Never Tobacco Cessation:Ready to Q uit: Not Asked; Counseling Given: Not Answered Comments:Now 5 per day; previously 2 ppd. [...] Sign Reading Time Taken Comments Blood Pressure 129/64 11/05/2022 2:24 PM EST Pulse 73 11/05/2022 2:24 PM EST Temperature 36.7 ??C (98.1 ??F) 11/05/2022 2:24 PM ES T Respiratory Rate 16 11/05/2022 2:24 PM EST Oxygen Saturation 94% 11/05/2022 2:24 PM EST Inhaled Oxygen Concentration - - Weight 58.5 kg (129 lb) 11/05/2022 2:24 PM EST Height 153 cm (5' 0.25) 11/05/2022 2:24 PM EST Body Mass Index 24.98 11/05/2022 2:24 PM EST documented in this encounter Progress Notes * Annamaria Diego LNA - 11/05/2022 3:00 PM EST Examination chaperoned by LEIDY Jeffries. * Ann-Marie Cottrell APRN - 11/05/2022 3:00 PM EST Female Pelvic Medicine and Reconstructive Surgery Pessary Check Patient Active Problem List Diagnosis Code ??? Uterovaginal prolapse, complete N81.3 ??? 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 Asymptomatic varicose veins of right lower extremity I83.91 SUBJECTIVE: Ms. Valiente returns for a pessary check. She denies: vaginal bleeding and discomfort related to the pessary. She was refit for a #9 RS 08/2022. Overall has been working well for her. She has tried a variety of other pessaries and prefers RS the most. She has felt some pressure on her back with this pessary,occasional discharge, and sometimes the pessary feels displaced but on other days it feels fine OBJECTIVE: BP 129/64 Pulse 73 Temp 36.7 ??C (98.1 ??F) (Temporal) Resp 16 Ht 153 cm (5' 0.25) Wt 58.5 kg (129 lb) SpO2 94% BMI 24.98 kg/m?? EMLA cream was applied 10-15 minutes prior to pessary removal. A safety intern is present for the examination. General: Appears healthy, well developed and well nourished. No apparent distress. Urethra: Nontender, midline, no lesions. Vulva: Well developed and appropriate architecture present. No lesions or abnormal discharge. Vagina:Pale, pink, moist. no granulation tissue some discharge no bleeding Cervix: no lesions PESSARY TYPE: # 9 Ring with support Pessary removed, cleaned and reinserted without difficulty. ASSESSMENT: UVP, managing fairly well with pessary PLAN: ??? Continue using pessary as instructed for management of symptoms. ??? She may return to her primary provider for pessary maintenance after our next pessary check RTC in 3-4 months or sooner prn Ann-Marie Cottrell APRN Division of Female Pelvic Medicine and Reconstructive Surgery documented in this encounter Plan of Treatment Not on file documented as of this encounter Visit Diagnoses Diagnosis Uterovaginal prolapse, complete Pessary maintenance Fitting and adjustment of other device documented in this encounter Care Teams Canvas Goods Fabricator Relationship Specialty Start Date End Date Jenelle Arellano APRN [address] [facility] [place] [address] PCP - General Family Medicine 05/27/18 11/03/23 documented as of this encounter
--- OUTSIDE RECORDS SUMMARY | 2024-05-17 15:05 | XMS_ITS | Encounter Summary ---
[place] [address] Care Team Providers Care Bench Jeweler Name Role Phone Jenelle Arellano APRN Primary Care Provider [phone] Reason for Visit * Reason Comments Leg Pain I have veins * Consultation (Routine) - Closed Specialty Diagnoses / Procedures Referred By Contglen t Referred To Contact Vascular Surgery Diagnoses VARICOSE VEINS LOWER EXTREMITIES Jenelle Arellano APRN [address] [place] [address] [facility] [address] [place] [address] Referral ID Status Reason Start Date Expiration Date V isits Requested Visits Authorized [id number] Closed Consult, Test & Treat Connection Center 05/27/2018 05/27/2019 1 1 Encounter Details Date Type Department Care Team (Late st Contact Info) Description 06/10/2018 1:30 PM EDT Office [place] [address] Caryn Izaguirre PA [address] [facility] [place] [address] Varicose veins of left lower extremity with other complications (Primary Dx); Asymptomatic varicose veins of right lower extremity Social History Tobacco Use Types Packs/Day Years Used Date Smoking Tobacco: Every Day Cigarettes 1 48 Smokeless Tobacco: Never Alcohol Use Standard Drinks/Week Comments Not Asked 0 (1 standard drink = 0.6 oz pur e alcohol) Sex and Gender Information Value Date Recorded Sex Assigned at Not on file Gender Identity Not on file Sexual Orientation Not on file documented as of this encounter Last Filed Vital Signs Vital Sign Reading Time Taken Comments Blood Pressure 167/71 06/10/2018 1:08 PM EDT Pulse 72 06/10/2018 1:08 PM EDT Temperature - - Respiratory Rate - - Oxygen Saturation 95% 06/10/2018 1:08 PM EDT Inhaled Oxygen Concentration - - Weight - - Height - - Body Mass Index - - documented in this encounter Patient Instructions * Patient Instructions* Caryn Izaguirre PA - 06/10/2018 1:30 PM EDT We discussed a trial of conservative management today which includes the daily use of 20-30 mmHg gradient compression hose, periodic leg elevation, regular exercise, weight management, and moisturizers daily for skin care. If these measures adequately control her symptoms we can see her as needed. If they do not, after a3 month trial, then she should contact us. At that pointwe can plan a follow up visit with an assessment in the vascular lab for venous reflux prior. She will then see a surgeon to review the effectiveness of conservative management and discuss further treatment options if indicated. She will contact the clinic if she has any questions or concerns. documented in this encounter Progress Notes * Caryn Izaguirre PA - 06/10/2018 1:30 PM EDT This is a new patient to the practice who is being evaluated for varicose veins and was referred byJenelle Arellano APRN. Currently the patient is experiencing symptoms in the left leg veins including: ( x ) pain - aching soreness and often a tightness in the left foot/lower leg ( x ) edema - swelling of the left leg primarily, worse by end of each day ( ) Skin changes related to venous disease including: ( ) dry skin ( ) itching ( ) Stasis dermatitis ( ) Ulcerations These symptoms have been present for several years and have been gradually worsening. Also has veins on the right which are not currently painful or causing swelling. The patient denies a history of superficial venous thrombosis. Prior treatment: This patient has been treated surgically in the past for venous disease. However, this was so long ago that she cannot recall exactly what was done and does believe it was done on the left. Current treatment: Currently the patient is utilizing the following measures for treatment of the above symptoms. ( x ) Periodic leg elevation: in evenings ( x ) Regular exercise: walks for exercise ( x ) Weight management: not overweight ( x ) Skin care: moisturizers used daily ( ) Oral analgesics: ( ) Compression therapy: At this point the conservative measures that the patient has been utilizing have failed to prevent progression of her symptoms.. The patient has not had prior venous duplex imaging to assess for reflux. PMHx: Past Medical History: Diagnosis Date ??? COPD (chronic obstructive pulmonary disease) Does not use inhaler due to expense ??? Dyspepsia OTC H2 joselin Family History: Family History Problem Relation Age of Onset ??? Adopted: Yes Social History: Social History Substance Use Topics ??? Smoking status: Current Every Day Smoker Packs/day: 1.00 Years: 48.00 Types: Cigarettes ??? Smokeless tobacco: Never Used ??? Alcohol use Not on file Medications: Medications 06/10/18 1345 Medication Sig Taking? Oynqmvmlqmgps-Qsoopjvb-Tatdnm Tab Take by mouth. OMEPRAZOLE (PRILOSEC ORAL) Allergies: No Known Allergies Review of Systems: Constitutional (weight change, fever) - Denies Neuro (dizziness, seizures, numbness, tingling) - Denies Eyes (vision) - Denies Ears, nose, throat (hearing) - Denies Cardiovascular (CP) - Denies Respiratory (SOB) - Denies GI (abd pain, nausea, emesis, blood in stool) - Denies (hematuria, dysuria, frequency) - Denies Muscoloskeletal (extremity pain, weakness) - as per HPI Skin (ulcers, rashes) - Denies All other ROS negative Physical Exam: Vitals: Most Recent Vitals: 06/10/18 1308 BP: 167/71 Pulse: 72 SpO2: 95% PainSc: 0 - No pain Gen: No acute distress. HEENT: Normocephalic, atraumatic. No scleral icterus. Normal dentition Neck: Supple, no JVD. Heart: Regular rate and rhythm Lungs: Regular respiratory rate with no increased work of breathing. Vascular Exam: R L 2/2 2/2 2/2 2/2 Trace edema left lower leg with truncal varicosities bilateral lower extremities <3 sec cap refill bilateral feet Skin: No hyperpigmentation, stasis dermatitis, or lipodermatosclerosis Digits/Nails: No evidence of clubbing, cyanosis, ischemia, or tissue loss. Musculoskeletal: Gait - stable, no notable motor sensory deficits on gross examination. Psych: AAOx3, mood/affect congruent Labs/Studies: None today Impression: Varicose veins with pain/edema left leg Asymptomatic right leg varicose veins Recommendations: We discussed a trial of conservative management today which includes the daily useof 20-30 mmHg gradient compression hose, periodic leg elevation, regular exercise, weight management, and moisturizers daily for skin care. If these measures adequately control her symptoms we can see her as needed. If they do not, after a3 month trial, then she should contact us. At that pointwe can plan a follow up visit with an assessment in the vascular lab for venous reflux prior. She will then see a surgeon to review the effectiveness of conservative management and discuss further treatment options if indicated. She will contact the clinic if she has any questions or concerns. documented in this encounter Plan of Treatment Not on file documented as of this encounter Visit Diagnoses Diagnosis Varicose veins of left lower extremity with other complications- Primary Asymptomatic varicose veins of right lower extremity Asymptomatic varicose veins documented in this encounter Care Teams Bench Jeweler Relationship Specialty Start Date End Date Jenelle Arellano APRN [address] [place] [address] PCP - General Family Medicine 05/27/18 11/03/23 documented as of this encounter
--- OUTSIDE RECORDS SUMMARY | 2024-05-17 15:05 | XMS_ITS | Encounter Summary ---
[place] [address] Care Team Providers Care Butcher'S Assistant Name Role Phone Jenelle Arellano APRN Primary Care Provider Encounter Details Date Type Department Care Team (Late st Contact Info) Description 04/19/2020 11:00 AM EDT Clinical Support Obstetrics [place] [phone] Nurse, Obgyn II, RN Social History Tobacco Use Types Packs/Day Years [...] on filedocumented in this encounter Care Teams Butcher'S Assistant Relationship Specialty Start Date End Date Jenelle Arellano APRN [address] [place] [address] PCP - General Family Medicine 05/27/18 11/03/23 documented as of this encounter
--- OUTSIDE RECORDS SUMMARY | 2024-05-17 15:05 | XMS_ITS | Encounter Summary ---
Author Organization [facility] Address [facility] [place] [address] Care Team Providers Care Nicker Name Role Phone Jenelle Arellano SAFETY ASSISTANT Primary Care Provider [phone] Reason for Visit * Reason Comments Vaginal Prolapse Encounter Details Date Type Department Care Team (Late st Contact Info) Description 02/23/2020 8:30 AM EDT Office Visit Obstetrics [place] [address] Ingrid Trotter MD [facility] [place] [address] Prolapse of vaginal wall; Microscopic hematuria; Incomplete bladder emptying Social History Tobacco Use Types Packs/Day Years [...] Sign Reading Time Taken Comments Blood Pressure 144/76 02/23/2020 8:31 AM EDT Pulse 72 02/23/2020 8:31 AM EDT Temperature 36.3 ??C (97.3 ??F) 02/23/2020 8:31 AM ED T Respiratory Rate 18 02/23/2020 8:31 AM EDT Oxygen Saturation 94% 02/23/2020 8:31 AM EDT Inhaled Oxygen Concentration - - Weight 63 kg (139 lb) 02/23/2020 8:31 AM EDT Height 153.7 cm (5' 0.5) 02/23/2020 8:31 AM EDT Body Mass Index 26.7 02/23/2020 8:31 AM EDT documented in this encounter Progress Notes * Ingrid Trotter MD - 02/23/2020 8:30 AM EDT Female Pelvic Medicine and Reconstructive Surgery Follow-up Note Patient Active Problem List Diagnosis Code ??? Uterovaginal prolapse, complete N81.3 ??? 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 Asymptomatic varicose veins of right lower extremity I83.91 ID/PRIOR EVALUATION: Oksana Valiente is a 69 y.o. year-old P4 with uterine procidentia managed with pessary, and recent concern for possible rectal prolapse with accompanying. Telehealth visit: 02/11/20 Issues: UI: Almost never - urge Urgency/Frequency: Q1hr with urgency; many bladder irritants, don't like water, 1/2 ppd smoker. Nocturia: 1 Urinary hesitancy: Yes, has to reduce bulge. Vaginal bulge: Yes, managed with pessary Defecatory dysfunction: No Sexually active: No Prior treatments: Several pessaries; now uncomfortable & not supporting bulge. SUBJECTIVE: Oksana Valiente comes in today for follow up of prior telehealth visit. Most of her bother is She has a pessary in place in the vaginal area, but she can still feel a vaginal bulge, and also has urinary hesitancy and needs to reduce prolapse to void. She has another bulge, but isn't sure if it is rectal. something is out. No blood in stool. For the last month, she has a small bowel movement every time she eats, she has a bowel movement. During exam while standing, patient palpated prolapse, and said it is what she is feeling - she hasnever noticed more posterior/rectal component. OBJECTIVE: Blood pressure 144/76, pulse 72, temperature 36.3 ??C (97.3 ??F), temperature source Temporal, resp. rate 18, height 153.7 cm (5' 0.5), weight 63 kg (139 lb), SpO2 94 %. PVR via scanner: 68. Via straight catheter 80cc General: normal appearing female, pleasant mood, normal speech Skin: skin of abdomen/pelvis normal, stretch de la rosa, no scars visible Respiratory: Bronchial breath sounds; no consolidationsl no wheezing Neuro: no paraspinous tenderness; saddle sensory function (S2-4) intact in the pelvic area to touch Cardiac: regular rate and rhythm, no appreciated murmurs Gastrointestinal: Mildly prominent suprapubic tissue questionable to urinary retention, no palpablemasses/organomegaly, soft/nontender, no appreciable hernia Musculoskeletal: levator ani resting tone: 1/5, levator ani contraction: 1/5, no levator ani muscle tenderness bilaterally no coccygeus muscle tenderness bilaterally no obturator internus muscle tenderness bilaterally lower extremity motor 5/5 bilaterally Pelvic: Cough stress test (empty supine): neg External Genitalia: Vulva, Aldine's and Bartholin glands normal, urethra without tenderness or mass Vagina: Atrophic epithelium (yes/no)?: mild Discharge?: Moderate yellow discharge Cervix: No lesions, nontender Bimanual (uterus/adnexa): Uterus with obvious descensus; mobile; adnexa not palpable; no masses Rectovaginal: Enterocele: no Rectocele: moderate Anal sphincter: Resting tone: 1/5 Squeeze: 2/5 No evidence of rectal prolapse External anal sphincter: ?unclear if intact POP Q Measurements: (standing with valsalva) Aa +3 Ba +5 C +5 GH 3,3 PB 2.5,2.5 TVL 9 Ap -1 Bp -1 D -4 Genital hiatus >3 fingerbreadths wide ASSESSMENT: Oksana Valiente is a 69 y.o. year old woman with: ?? Stage 3 uterovaginal prolapse ?? Newly fitted #4 fenestrated cube pessary ?? Normal bladder emptying ?? Urine dip concerning for UTI; patient asymptomatic ?? No evidence of rectal prolapse; will cancel CORS consult. We reviewed that her prolapse can be managed with pessary or surgery. She strongly prefers pessary,if able to adequately manage symptoms. We briefly reviewed surgical options; she will call if pessary is inadequate or she decides she wants to further consider surgery. PLAN: ??? Return in 2-3 weeks for pessary check. ??? Then q2-3mo pessary maintenance with primary BACTERIOLOGIST DAIRY or with our office, per patient preference. ??? Consider trial of Emla cream prior to pessary maintenance. I spent 40 minutes total with the patient, with 25 minutes of the time spent [id number] in discussing her diagnosis and reviewing options for treatment. Ingrid Trotter MD documented in this encounter Plan of Treatment Not on file documented as of this encounter Procedures Procedure Name Priority Date/Time Associated Diagnosis Comments URINALYSIS MICROSCOPIC EXAM Routine 02/23/2020 9:00 AM EDT URINALYSIS WITH REFLEX CULTURE Routine 02/23/2020 9:00 AM EDT Microscopic hematuria URINE CULTURE Routine 02/23/2020 9:00 AM EDT BLADDER SCANNER Routine 02/23/2020 Prolapse of vaginal wall POCT URINE DIPSTICK Routine 02/23/2020 Prolapse of vaginal wall documented in this encounter Results * (ABNORMAL) Urine culture (02/23/2020 9:00 AM EDT) Urine Culture 10,000-49,000 cfu/ml Escherichia coli : two morphologies(A) [facility] Organism Escherichia coli(A) [facility] Organism Escherichia coli(A) [facility] Urine specimen obtained via straight catheter (specimen) 02/23/2020 9:00 AM EDT 02/23/2020 11:28 AM EDT Narrative Resulting Agency Comment Spec In Lab Organism Antibiotic Method Susceptibility Escherichia coli Amikacin VITEK 2 METHOD Sensitive Escherichia coli Ampicillin + Sulbactam VITEK 2 METHOD Intermediate Escherichia coli Aztreonam VITEK 2 METHOD Sensitive Escherichia coli Cefazolin VITEK 2 METHOD Sensitive Escherichia coli Ceftazidime VITEK 2 METHOD <=1: Sensitive Escherichia coli Ceftriaxone VITEK 2 METHOD Sensitive Escherichia coli Ertapenem VITEK 2 METHOD Sensitive Escherichia coli Gentamicin VITEK 2 METHOD Sensitive Escherichia coli Levofloxacin VITEK 2 METHOD Sensitive Comment: Levofloxacin and Ciprofloxacin may not adequately treat infections in critically ill patients even when isolates test susceptible in the laboratory. Contact Infectious Disease before using in critically ill patients. Escherichia coli Meropenem VITEK 2 METHOD <=0.25: Sensitive Escherichia coli Nitrofurantoin VITEK 2 METHOD Sensitive Escherichia coli Piperacillin/Tazobactam VITEK 2 METHO D <=4: Sensitive Escherichia coli Tetracycline VITEK 2 METHOD Sensitive Escherichia coli Tobramycin VITEK 2 METHOD Sensitive Escherichia coli Trimethoprim/Sulfa VITEK 2 METHOD Sensitive Escherichia coli Amikacin VITEK 2 METHOD Sensitive Escherichia coli Ampicillin + Sulbactam VITEK 2 METHOD Resistant Escherichia coli Aztreonam VITEK 2 METHOD Sensitive Escherichia coli Cefazolin VITEK 2 METHOD Sensitive Escherichia coli Ceftazidime VITEK 2 METHOD <=1: Sensitive Escherichia coli Ceftriaxone VITEK 2 METHOD Sensitive Escherichia coli Ertapenem VITEK 2 METHOD Sensitive Escherichia coli Gentamicin VITEK 2 METHOD Sensitive Escherichia coli Levofloxacin VITEK 2 METHOD Sensitive Comment: Levofloxacin and Ciprofloxacin may not adequately treat infections in critically ill patients even when isolates test susceptible in the laboratory. Contact Infectious Disease before using in critically ill patients. Escherichia coli Meropenem VITEK 2 METHOD <=0.25: Sensitive Escherichia coli Nitrofurantoin VITEK 2 METHOD Sensitive Escherichia coli Piperacillin/Tazobactam VITEK 2 METHO D <=4: Sensitive Escherichia coli Tetracycline VITEK 2 METHOD Sensitive Escherichia coli Tobramycin VITEK 2 METHOD Sensitive Escherichia coli Trimethoprim/Sulfa VITEK 2 METHOD Sensitive Ingrid Trotter MD MICROBIOLOGY - [facility] AL ORDERABLES [facility] [place] [address] * (ABNORMAL) Urinalysis Microscopic Exam (02/23/2020 9:00 AM EDT) RBC, Urine 0 0 - 4 /HPF [facility] WBC, Urine 1 0 - 5 /HPF [facility] Bacteria, Urine Many(A) None /HPF [facility] Squamous Epithelial Cells Raw Data, Urine 1 <=4 /HPF [facility] Hyaline Casts, Urine 2 0 - 2 /LPF [facility] Urine specimen obtained via straight catheter (specimen) 02/23/2020 9:00 AM EDT 02/23/2020 10:47 AM EDT Narrative Resulting Agency Comment Spec In Lab Ingrid Trotter MD URINE ORDERABLES Performing Organization Address [facility]/ZIP Co de Phone Number [facility] [place] [address] * (ABNORMAL) Urinalysis with reflex Culture (02/23/2020 9:00 AM EDT) Glucose, Urine Dipstick Negative Negative mg/dL [facility] Protein, Urine Dipstick Trace(A) Negative mg/dL [facility] Bilirubin, Urine Dipstick Negative Negative mg/dL [facility] Comment: Clinical correlation required for positive Urine Bilirubin results as false positive may occur with some drugs and drug related products. If a false positive is suspected a serum total bilirubin should be considered if clinically indicated. Urobilinogen, Urine Dipstick Normal Normal mg/dL [facility] pH, Urn (dipstick) 6.0 5.0 - 8.0 [facility] Blood, Urine Dipstick Small(A) Negative mg/dL [facility] Ketone, Urine Dipstick Negative Negative mg/dL [facility] Nitrite, Urine Dipstick Positive(A) Negative [facility] Leukocytes, Urine Dipstick Negative Negative [facility] Appearance, Urine Dipstick Clear Clear [facility] Specific Britton Urine Automated 1.012 1.006 - 1.030 [facility] Color, Urine Dipstick Yellow Yellow [facility] Reflex to Culture Yes [facility] Urine specimen obtained via straight catheter (specimen) 02/23/2020 9:00 AM EDT 02/23/2020 10:47 AM EDT Narrative Resulting Agency Comment Spec In Lab Ingrid Trotter MD URINE ORDERABLES Performing Organization Address City/[facility]/ZIP Co de Phone Number [facility] [place] [address] * Bladder Scanner (02/23/2020) Bladder Scan (mL) 68 mL Ingrid Trotter MD URO PROC W/O RFL ORD ERABLES * POCT urine dipstick (02/23/2020) POC Sp Britton 1.010 1.002 - 1.030 POC pH, UA 5 5.0 - 8.5 POC Leuk, UA Trace Negative - Negative POC Nitrite, UA Pos. Negative - Negative POC Protein, UA Trace Negative - Negative mg/dL POC Glucose, UA Norm. Normal - Normal mg/dL POC Ketone, UA Neg. Negative - Negative POC Urobil, UA Norm. 0.2 - 1.0 mg/dL POC Bili, UA Neg. Negative - Negative POC Blood, UA About 50 Negative - Negative mike/uL Ingrid Trotter MD POINT OF CARE TEST O RDERABLES documented in this encounter Visit Diagnoses Diagnosis Prolapse of vaginal wall Unspecified prolapse of vaginal rojas Microscopic hematuria Incomplete bladder emptying documented in this encounter Care Teams Nicker Relationship Specialty Start Date End Date Jenelle Arellano, SAFETY ASSISTANT [address] [place] [address] PCP - General Family Medicine 05/27/18 11/03/23 documented as of this encounter
--- OUTSIDE RECORDS SUMMARY | 2024-05-17 15:05 | XMS_ITS | Encounter Summary ---
[place] [address] Care Team Providers Care Clean Out Driller Name Role Phone None Primary Care Provider Unavailabl e Encounter Details Date Type Department Care Team (Latest Contact Info) Description 05/11/2024 Travel Social History Tobacco Use Types Packs/Day [...] on filedocumented in this encounter Care Teams Clean Out Driller Relationship Specialty Start Date End Date None None PCP - General 11/04/23 documented as of this encounter
--- OUTSIDE RECORDS SUMMARY | 2024-05-17 15:05 | XMS_ITS | Encounter Summary ---
[place] [address] Care Team Providers Care Edge Gluer Name Role Phone Jenelle Arellano APRN Primary Care Provider Encounter Details Date Type Department Care Team (Late st Contact Info) Description 02/20/2021 Telephone [place] [id number] Jossie Chavarria Social History Tobacco Use Types Packs/Day Years [...] on file documented as of this encounter Miscellaneous Notes * Telephone Encounter - Jossie Chavarria - 02/20/2021 3:26 PM EDT Called home and mobile number to schedule cxr, pft, and new patient appt from referral. No answer and no voicemail on both. Sending letter and closing referral. documented in this encounter Plan of Treatment Not on file documented as of this encounter Visit Diagnoses Not on filedocumented in this encounter Care Teams Edge Gluer Relationship Specialty Start Date End Date Jenelle Arellano APRN [facility] [place] [address] [place] [address] PCP - General Family Medicine 05/27/18 11/03/23 documented as of this encounter
--- OUTSIDE RECORDS SUMMARY | 2024-05-17 15:05 | XMS_ITS | Encounter Summary ---
Author Organization [facility] Address [facility] [place] [address] Care Team Providers Care Presales Engineer Name Role Phone Jenelle Arellano APRN Primary Care Provider [phone] Reason for Visit * Reason Comments Pessary Check Encounter Details Date Type Department Care Team (Late st Contact Info) Description 04/19/2020 11:15 AM EDT Office Visit Obstetrics [place] [address] Ingrid Trotter MD [facility] [address] Uterovaginal prolapse; Encounter for fitting and adjustment of pessary [...] Sign Reading Time Taken Comments Blood Pressure 147/73 04/19/2020 10:49 AM EDT Pulse 76 04/19/2020 10:49 AM EDT Temperature 36.7 ??C (98.1 ??F) 04/19/2020 10:49 AM E DT Respiratory Rate 18 04/19/2020 10:49 AM EDT Oxygen Saturation 95% 04/19/2020 10:49 AM EDT Inhaled Oxygen Concentration - - Weight 63 kg (139 lb) 04/19/2020 10:49 AM EDT Height 154.3 cm (5' 0.75) 04/19/2020 10:49 AM E DT Body Mass Index 26.48 04/19/2020 10:49 AM EDT documented in this encounter Progress Notes * Ingrid Trotter MD - 04/19/2020 11:15 AM EDTSummary: FU: #7 RS working great Female Pelvic Medicine and Reconstructive Surgery Follow-up Note Patient Active Problem List Diagnosis Code ??? Uterovaginal prolapse, complete N81.3 ??? 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 Asymptomatic varicose veins of right lower extremity I83.91 ID/PRIOR EVALUATION: Oksana Valiente is a 69 y.o. year-old last seen for pessary for prolapse. Prior treatments: She is so happy with the #7 ring with support pessary. SUBJECTIVE: No pain, no bleeding. Pessary takes 1-2 weeks to 'settle into place', and always has when she had prior pessaries, but then she becomes accustomed to it, and it is perfect. She doesn't want to touch it today. She usually sees Dr. Borjas at [facility] for pessary exchanges. PMH stable; she started taking meclizine prn again due to dizziness with standing. Also has Meniere's disease. OBJECTIVE: BP 147/73 Pulse 76 Temp 36.7 ??C (98.1 ??F) (Temporal) Resp 18 Ht 154.3 cm (5' 0.75) Wt 63 kg (139 lb) SpO2 95% BMI 26.48 kg/m?? General: normal appearing female, pleasant mood, normal speech She declined exam today. ASSESSMENT: Oksana Valiente is a 69 y.o. year old woman with: ?? Pelvic organ prolapse ?? Managed with pessary PLAN: ??? Continue pessary ??? Have pessary exchange in June with Dr. Borjas, then q4-6months as tolerated. ??? If you have vaginal irritation or erosions, then you could start vaginal estrogen. RTC prn I spent 12 minutes total with the patient, with 8 minutes of the time spent [id number] in discussing her diagnosis and reviewing options for treatment. Ingrid Trotter MD CC: Ingrid Borjas documented in this encounter Plan of Treatment Not on file documented as of this encounter Visit Diagnoses Diagnosis Uterovaginal prolapse Uterovaginal prolapse, unspecified Encounter for fitting and adjustment of pessary Fitting and adjustment of other device documented in this encounter Care Teams Presales Engineer Relationship Specialty Start Date End Date Jenelle Arellano, CONCRETE PAVER [address] [place] [address] PCP - General Family Medicine 05/27/18 11/03/23 documented as of this encounter
--- OUTSIDE RECORDS SUMMARY | 2024-05-17 15:05 | XMS_ITS | Encounter Summary ---
Author Organization [facility] [place] [address] Care Team Providers Care Collection Systems Consultant Name Role Phone Marynhungnathaniel Jenelle GREG Primary Care Provider Reason for Visit * Reason Comments Follow-up Encounter Details Date Type Department Care Team (Late st Contact Info) Description 03/09/2020 10:45 AM EDT Office Visit Obstetrics and Gynecology at [facility] [place] [place] [address] Lisa Lynn COOK HELPER PRESERVES [facility] [place] [address] Uterovaginal prolapse; Encounter for fitting and adjustment [...] Sign Reading Time Taken Comments Blood Pressure 128/76 03/09/2020 10:24 AM EDT Pulse 97 03/09/2020 10:24 AM EDT Temperature - - Respiratory Rate 18 03/09/2020 10:2 4 AM EDT Oxygen Saturation 96% 03/09/2020 10: 24 AM EDT Inhaled Oxygen Concentration - - Weight 62.6 kg (137 lb 14.4 oz) 020 10:24 AM EDT Height 155 cm (5' 1.02) 03/09/2020 10: 24 AM EDT Body Mass Index 26.04 03/09/2020 10:24 AM EDT documented in this encounter Progress Notes * Lisa Lynn APRN - 03/09/2020 10:45 AM EDT Patient Active Problem List Diagnosis Code ??? Uterovaginal prolapse, complete N81.3 ??? 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 Asymptomatic varicose veins of right lower extremity I83.91 SUBJECTIVE: Oksaan Valiente comes in today for a 2-3 week pessary check. Her prolapse has come down beside the pessary and she is very uncomfortable. Pessary type: #4 fenestrated cube She denies vaginal bleeding, but she does have discharge and external genital pain. She says that at first the pessary seemed like a good fit, but after the first day she has felt it rolling around, if that's even possible. OBJECTIVE: There were no vitals taken for this visit. Pelvic: Normal external genitalia, including urethral meatus and perineum. Vagina: Minimal erythema Cervix: Is the leading part at #4 with the #[address] Bimanual: deferred Rectal deferred. ASSESSMENT: Oksana Valiente is a 69 y.o. year old woman with: Uterovaginal prolapse, poorly reduced by current pessary PLAN: The #4 fenestrated cube pessary was removed, and a #7 ring with support is placed. This is comfortably retained with toileting in the office. Oksana really hoped to avoid surgery, but she is interested to know how surgery might be done; she is and has heard of obliterative procedures. The surgical options grid is given and briefly discussed. She will schedule a surgical discussion with Dr. Trotter (now scheduled for 03-17-10), and knows she can call if she has problems before that time. Lisa Lynn APRN Division of Female Pelvic Medicine & Reconstructive Surgery documented in this encounter Plan of Treatment Not on file documented as of this encounter Visit Diagnoses Diagnosis Uterovaginal prolapse Uterovaginal prolapse, unspecified Encounter for fitting and adjustment of pessary Fitting and adjustment of other device documented in this encounter Care Teams Collection Systems Consultant Relationship Specialty Start Date End Date Jenelle Arellano, COOK HELPER PRESERVES [address] [place] [address] PCP - General Family Medicine 05/27/18 11/03/23 documented as of this encounter
--- OUTSIDE RECORDS SUMMARY | 2024-05-17 15:05 | XMS_ITS | Encounter Summary ---
[place] [address] Care Team Providers Care Portable Router Operator Name Role Phone Jenelle Arellano APRN Primary Care Provider [phone] Reason for Visit * Reason Comments Follow-up Encounter Details Date Type Department Care Team (Late st Contact Info) Description 09/03/2022 3:15 PM EST Office Visit Dermatology at [address] [address] Isaac Cedeño MD [address] [facility], [place] [address] History of basal cell carcinoma Social History Tobacco Use Types Packs/Day Years [...] on file documented as of this encounter Progress Notes * Isaac Cedeño MD - 09/03/2022 3:15 PM EST Problem: 1. Repeat skin checkup 2. 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 Bingham March 2000 Oksana follows up after last being seen some 6 weeks ago. I biopsied a lesion on her left lower calf which came back showing scar tissue. This was an area that has been scabbing on again off again for a year or 2. Physical examination reveals a pleasant 71-year-old woman who has excellent healing of both sites, the left lateral calf site which proved to be just scar tissue, and the wart site on the left posterior ankle. There is no evidence of any activity at either biopsy site. She has no other lesions of concern. Assessment plan: Status post benign biopsy left lateral calf and removal of wart left posterior ankle 1. Patient reassured about her benign examination today 2. Recommend return to clinic as needed for new lesion/concerns. CC: Jenelle Arellano APRN documented in this encounter Plan of Treatment Not on file documented as of this encounter Visit Diagnoses Diagnosis History of basal cell carcinoma Personal history of other malignant neoplasm of skin documented in this encounter Care Teams Portable Router Operator Relationship Specialty Start Date End Date Jenelle Arellano APRN [address] [place] [address] PCP - General Family Medicine 05/27/18 11/03/23 documented as of this encounter
--- OUTSIDE RECORDS SUMMARY | 2024-05-17 15:05 | XMS_ITS | Encounter Summary ---
[place] [address] Care Team Providers Care Criminal Justice Teacher Name Role Phone Jenelle Arellano APRN Primary Care Provider [phone] Encounter Details Date Type Department Care Team (Latest Contact Info) Description 09/03/2022 Travel Social History Tobacco Use Types Packs/Day [...] on filedocumented in this encounter Care Teams Criminal Justice Teacher Relationship Specialty Start Date End Date Jenelle Arellano APRN [address] [place] [address] PCP - General Family Medicine 05/27/18 11/03/23 documented as of this encounter
--- OUTSIDE RECORDS SUMMARY | 2024-05-17 15:05 | XMS_ITS | Encounter Summary ---
[place] [address] Care Team Providers Care Lead Sewage Plant Operator Name Role Phone Marynhungnathaniel Jenlele GREG Primary Care Provider [phone] Reason for Visit * Reason Comments Follow-up Encounter Details Date Type Department Care Team (Late st Contact Info) Description 03/21/2023 1:20 PM EDT Office Visit Obstetrics [place] [address] Ann-Marie Cottrell APRN [facility] [address] Uterovaginal prolapse, complete; Pessary maintenance Social History [...] as of this encounter Progress Notes * Ann-Marie Cottrell APRN - 03/21/2023 1:20 PM EDT Female Pelvic Medicine and Reconstructive Surgery Pessary Check Patient Active Problem List Diagnosis Code Uterovaginal prolapse, complete N81.3 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 Valiente returns for a pessary check. Pessary has been great - hasn't moved once! Has some discharge but not bothersome. She denies: vaginal bleeding, abnormal discharge, and discomfort related to the pessary. OBJECTIVE: There were no vitals taken for this visit. EMLA cream was applied 10-15 minutes prior to pessary removal. A field naturalist is present for the examination. General: Appears healthy, well developed and well nourished. No apparent distress. Urethra: Nontender, midline, no lesions. Vulva: Well developed and appropriate architecture present. No lesions or abnormal discharge. Vagina:Pale, pink, moist. no granulation tissue scant discharge no bleeding Cervix: no lesions PESSARY TYPE: # 9 Ring with support Pessary removed, cleaned and reinserted without difficulty. ASSESSMENT: UVP, managing well with pessary, prefers to continue pessary checks here as opposed to returning toher referring provider PLAN: Continue using pessary as instructed for management of symptoms. RTC in 6 months or sooner prn Ann-Marie Cottrell APRN Division of Female Pelvic Medicine and Reconstructive Surgery * Annamaria Diego LNA - 03/21/2023 1:20 PM EDT Examination chaperoned by LEIDY Jeffries. documented in this encounter Plan of Treatment Not on file documented as of this encounter Visit Diagnoses Diagnosis Uterovaginal prolapse, complete Pessary maintenance Fitting and adjustment of other device documented in this encounter Care Teams Lead Sewage Plant Operator Relationship Specialty Start Date End Date Jenelle Arellano APRN [address] [place] [address] PCP - General Family Medicine 05/27/18 11/03/23 documented as of this encounter
--- OUTSIDE RECORDS SUMMARY | 2024-05-17 15:05 | XMS_ITS | Encounter Summary ---
Author Organization [facility] [place] [address] Care Team Providers Care Technician Inventory Specialist Name Role Phone Adan Jenelle GREG Primary Care Provider Reason for Visit * Reason Comments Follow-up * Consultation (Routine) - Closed Specialty Diagnoses / Procedures Referred By Contglen lott Referred To Contact Dermatology Diagnoses Disorder of the skin and subcutaneous tissue, unspecified Skin Lesion Procedures Consult Kelsi Hernandez APRN [address] [place] [address] Isaac Cedeño MD [address] [place] [address], [place] [address] Referral ID Status Reason Start Date Expiration Date Visits Re quested Visits Authorized [id number] Closed 04/16/2022 04/16/2023 1 1 Encounter Details Date Type Department Care Team (Late st Contact Info) Description 06/20/2022 8:15 AM EDT Office Visit Dermatology at [address] [address] Isaac Cedeño MD [address] [place] [address], CAT DERMATOLOGY [place], [place] [id number] History of basal cell carcinoma; Scar Social History Tobacco Use Types Packs/Day Years [...] Progress Notes * Isaac Cedeño MD - 06/20/2022 8:15 AM EDT Problem: 1. Skin check 2. 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 It scabs peels off and then a scab forms again. I had seen her a number of years ago and treateda basal cell carcinoma on the right lateral cheek which apparently recurred and then required Mohs surgery. Physical examination reveals a pleasant 71-year-old woman who has a crusting scabbing lesion on theleft lower lateral calf. She also has a verruca vulgaris on the back of her left ankle. Assessment plan: Rule out SCC versus BCCA left lateral calf 1. After obtaining informed consent, the site was anesthetized and removed with shave C&D x3 2. Triple antibiotic ointment and bandage placed 3. Wound care instructions and supplies given. 4. We will notify patient of biopsy results in 1 week. 5. Return to clinic here prn Verruca vulgaris left posterior ankle 1. Could consider treatment with LN2 2. Return to clinic as needed CC: Jenelle rAellano APRN documented in this encounter Plan of Treatment Not on file documented as of this encounter Visit Diagnoses Diagnosis History of basal cell carcinoma Personal history of other malignant neoplasm of skin Scar Scar condition and fibrosis of skin documented in this encounter Care Teams Technician Inventory Specialist Relationship Specialty Start Date End Date Jenelle Arellano APRN [address] [place] [address] PCP - General Family Medicine 05/27/18 11/03/23 documented as of this encounter
--- OUTSIDE RECORDS SUMMARY | 2024-05-17 15:05 | XMS_ITS | Encounter Summary ---
[place] [address] Care Team Providers Care Marklogic Developer Name Role Phone None Primary Care Provider Unavailabl e Encounter Details Date Type Department Care Team (Latest Contact Info) Description 11/04/2023 Travel Social History Tobacco Use Types Packs/Day [...] on filedocumented in this encounter Care Teams Marklogic Developer Relationship Specialty Start Date End Date None None PCP - General 11/04/23 documented as of this encounter
--- OUTSIDE RECORDS SUMMARY | 2024-05-17 15:05 | XMS_ITS | Encounter Summary ---
[place] [address] Care Team Providers Care Protection Specialist Name Role Phone None Primary Care Provider Unavailabl e Reason for Visit * Reason Comments Follow-up Encounter Details Date Type Department Care Team (Late st Contact Info) Description 05/11/2024 2:00 PM EDT Office Visit Obstetrics [place] [phone] Caryn Boswell, BALLISTICS EXPERT FORENSIC [address] [facility] [place] [address] Uterovaginal prolapse, complete; Pessary maintenance Social History [...] Sign Reading Time Taken Comments Blood Pressure 149/70 05/11/2024 1:38 PM EDT Pulse 90 05/11/2024 1:38 PM EDT Temperature 36.5 ??C (97.7 ??F) 05/11/2024 1:38 PM ED T Respiratory Rate - - Oxygen Saturation 95% 05/11/2024 1:38 PM EDT Inhaled Oxygen Concentration - - Weight 53.5 kg (118 lb) 05/11/2024 1:38 PM EDT Height - - Body Mass Index 22.67 11/04/2023 2:14 PM EST documented in this encounter Progress Notes * Caryn Boswell APRN - 05/11/2024 2:00 PM EDT VISIT TYPE: Pessary follow-up visit SUBJECTIVE: Ms. Valiente returns for a pessary follow up check. She has been managing with a ring with support pessary since 2019 and this was increased in size toa #9 RS in 08/2022. She is very happy with this management and wants to keep with pessary use. She denies: vaginal bleeding, abnormal discharge, and discomfort related to the pessary. OBJECTIVE: BP 149/70 Pulse 90 Temp 36.5 ??C (97.7 ??F) Wt 53.5 kg (118 lb) SpO2 95% BMI 22.67 kg/m?? A billing coordinator is declined for the examination. General: In no acute distress. External Genitalia: Within normal limits Urethra: Midline Vagina: atrophic no granulation tissue Mild milky yellow discharge No evidence of infection PESSARY TYPE: # 9 Ring with support Pessary removed and thrown out. New pessary reinserted. ASSESSMENT: Prolapse, managing well with pessary PLAN: Pessary was removed and thrown out. New pessary replaced due to discoloration and odor. She will return in 6 months or sooner prn Caryn Boswell APRN Urogynecology documented in this encounter Plan of Treatment Not on file documented as of this encounter Visit Diagnoses Diagnosis Uterovaginal prolapse, complete Pessary maintenance Fitting and adjustment of other device documented in this encounter Care Teams Protection Specialist Relationship Specialty Start Date End Date None None PCP - General 11/04/23 documented as of this encounter
--- OUTSIDE RECORDS SUMMARY | 2024-05-17 15:05 | XMS_ITS | Encounter Summary ---
Author Organization [facility] [place] [address] Care Team Providers Care Counselor Aide Name Role Phone Felipa Carlos GREG Primary Care Provider [phone] Encounter Details Date Type Department Care Team (Late st Contact Info) Description 07/20/2015 [place] [phone] Asiya Ferraro RN Social History Tobacco Use Types Packs/Day [...] as of this encounter Progress Notes * Asiya Ferraro RN - 07/20/2015 10:40 AM EST Tobacco Treatment Note: Tobacco cessation referral received from Tamia Marroquin LD [facility] Screening Program. Chart reviewed & T/C to Ms Valiente re: tobacco cessation resources available. Plan: There was no voice message capability. Information re: tobacco cessation resources in the Count includes the [facility] & D- tobacco treatment program [phone] was sent out. [facility] will also make another attempt to try to contact by phone. Asiya Ferraro RN, MS, C-TTS Beeper documented in this encounter Plan of Treatment Not on file documented as of this encounter Visit Diagnoses Not on filedocumented in this encounter Care Teams Counselor Aide Relationship Specialty Start Date End Date Felipa Carlos APRN PCP - General Family Medicine 06/03/15 10/27/16 documented as of this encounter
--- OUTSIDE RECORDS SUMMARY | 2024-05-17 15:05 | XMS_ITS | Encounter Summary ---
[place] [address] Care Team Providers Care Neurology Professor Name Role Phone ArielaJenelle gilmore ARMATURE WINDER AUTOMOTIVE Primary Care Provider [phone] Reason for Visit * Reason Onset Date Comments Results 02/25/2020 Encounter Details Date Type Department Care Team (Late st Contact Info) Description 02/25/2020 Telephone Obstetrics [place] [address] Yue Daniels, RN Results Social History Tobacco Use Types Packs/Day Years [...] encounter Miscellaneous Notes * Telephone Encounter - Yue Daniels RN - 02/25/2020 2:24 PM EDT Spoke to patient per Dr Alvarez request - Pt has a UTI Bactrim DS BID x 3 days - Called to her preferred pharmacy May take 'Azo Maximum Strength' tablets, which are available over the counter, if needed to reduce symptoms. ??This turns the urine orange. Advised to ask her pharmacist to help her locate this She was asked to call with : fever/chills, nausea/vomiting, flank pain, severe abdominal pain. Advised stay well hydrated by drinking approximately ~64oz water a day and to avoid cranberry juice, which may make symptoms worse during a urinary tract infection. She will call us if she develops: fever/chills, nausea/vomiting, flank pain, severe abdominal pain. documented in this encounter Plan of Treatment Not on file documented as of this encounter Visit Diagnoses Not on filedocumented in this encounter Care Teams Neurology Professor Relationship Specialty Start Date End Date Jenelle Arellano, ARMATURE WINDER AUTOMOTIVE [address] [place] [address] PCP - General Family Medicine 05/27/18 11/03/23 documented as of this encounter
--- OUTSIDE RECORDS SUMMARY | 2024-05-17 15:05 | XMS_ITS | Encounter Summary ---
[place] [address] Care Team Providers Care Runstitching Machine Operator Name Role Phone Felipa Carlos APRN Primary Care Provider [phone] Encounter Details Date Type Department Care Team (Late st Contact Info) Description 10/16/[address] [place] [phone] Merry Palacio Social History Tobacco Use Types Packs/Day Years [...] encounter Miscellaneous Notes * Telephone Encounter - Merry Palacio - 10/16/2015 3:34 PM EST Had a difficult time reaching the patient to finish discussing the LCS program. She never respondedto letters and messages. I contacted Felipa Carlos office to let them know. documented in this encounter Plan of Treatment Not on file documented as of this encounter Visit Diagnoses Not on filedocumented in this encounter Care Teams Runstitching Machine Operator Relationship Specialty Start Date End Date Felipa Carlos APRN PCP - General Family Medicine 06/03/15 10/27/16 documented as of this encounter
--- OUTSIDE RECORDS SUMMARY | 2024-05-17 15:05 | XMS_ITS | Encounter Summary ---
[place] [address] Care Team Providers Care Blast Furnace Auxiliaries Supervisor Name Role Phone Jenelle Arellano APRN Primary Care Provider Encounter Details Date Type Department Care Team (Late st Contact Info) Description 02/25/2020 Orders Only Obstetrics [place] [phone] Yue Daniels, RN Social History Tobacco Use Types Packs/Day [...] on filedocumented in this encounter Care Teams Blast Furnace Auxiliaries Supervisor Relationship Specialty Start Date End Date Jenelle Arellano APRN [address] [place] [address] PCP - General Family Medicine 05/27/18 11/03/23 documented as of this encounter
--- OUTSIDE RECORDS SUMMARY | 2024-05-17 15:05 | XMS_ITS | Encounter Summary ---
Author Organization [facility] [place] [address] Care Team Providers Care Eyelet Cutter Name Role Phone None Primary Care Provider Unavailabl e Reason for Visit * Reason Comments Pessary Check Encounter Details Date Type Department Care Team (Late st Contact Info) Description 11/04/2023 2:40 PM EST Office Visit Obstetrics [place] [address] Ann-Marie Cottrell, CURING SUPERVISOR [facility] [place] [address] Uterovaginal prolapse, complete; Pessary maintenance Social History [...] Sign Reading Time Taken Comments Blood Pressure 153/74 11/04/2023 2:14 PM EST Pulse 70 11/04/2023 2:14 PM EST Temperature 36.7 ??C (98.1 ??F) 11/04/2023 2:14 PM ES T Respiratory Rate - - Oxygen Saturation 95% 11/04/2023 2:14 PM EST Inhaled Oxygen Concentration - - Weight 58.5 kg (129 lb) 11/04/2023 2:14 PM EST Height 153.7 cm (5' 0.5) 11/04/2023 2:14 PM EST Body Mass Index 24.78 11/04/2023 2:14 PM EST documented in this encounter Progress Notes * Ann-Marie Cottrell APRN - 11/04/2023 2:40 PM EST Female Pelvic Medicine and Reconstructive Surgery Pessary Check Patient Active Problem List Diagnosis Code Uterovaginal prolapse, complete N81.3 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 Valiente returns for a pessary check. She denies: vaginal bleeding, abnormal discharge, and discomfort related to the pessary. OBJECTIVE: BP 153/74 Pulse 70 Temp 36.7 ??C (98.1 ??F) (Temporal) Ht 153.7 cm (5' 0.5) Wt 58.5 kg (129 lb) SpO2 95% BMI 24.78 kg/m?? Lidocaine cream was not applied 10-15 minutes prior to pessary removal. A field mechanic/site lead is present for the examination. General: Appears healthy, well developed and well nourished. No apparent distress. Urethra: Nontender, midline, no lesions. Vulva: Well developed and appropriate architecture present. No lesions or abnormal discharge. Vagina:Pale, pink, moist. no granulation tissue no discharge no bleeding Cervix: no lesions PESSARY TYPE: # 9 Ring with support Pessary removed, cleaned and reinserted without difficulty. ASSESSMENT: UVP, managing well with pessary PLAN: Continue using pessary as instructed for symptoms RTC in 6 months or sooner marco antonion Ann-Marie Cottrell APRN Division of Female Pelvic Medicine and Reconstructive Surgery * Katerine Branch LNA - 11/04/2023 2:40 PM EST Examination chaperoned by LEIDY Cortez. documented in this encounter Plan of Treatment Not on file documented as of this encounter Visit Diagnoses Diagnosis Uterovaginal prolapse, complete Pessary maintenance Fitting and adjustment of other device documented in this encounter Care Teams Eyelet Cutter Relationship Specialty Start Date End Date None None PCP - General 11/04/23 documented as of this encounter
--- OUTSIDE RECORDS SUMMARY | 2024-05-17 15:05 | XMS_ITS | Encounter Summary ---
Author Organization [facility] [place] [address] Care Team Providers Care Transformer Coil Winder Name Role Phone Jenelle Arellano OFFICE ASSISTANCE Primary Care Provider [phone] Encounter Details Date Type Department Care Team (Late st Contact Info) Description 07/05/2022 Telephone Dermatology at [address] [phone] Nati Acosta RN Social History Tobacco Use Types Packs/Day [...] encounter Miscellaneous Notes * Telephone Encounter - Nati Acosta RN - 07/05/2022 2:43 PM EDT Patient called and informed of her pathology results. Patient had a shave biopsy left lateral calf on 06/20/2022. Diagnosis: Cicatrix/ healing wound tissue. Per Dr. Cedeño no further treatment is needed, reviewed wound care and recommend support stocking and follow up in the clinic in 6 weeks. Patient informed and stated that she understood. Patient did make a 6 week follow up on 08/16/2022. Patient stated no questions or concerns at this time. documented in this encounter Plan of Treatment Not on file documented as of this encounter Visit Diagnoses Not on filedocumented in this encounter Care Teams Transformer Coil Winder Relationship Specialty Start Date End Date Jenelle Arellano, GREG [address] [place] [address] PCP - General Family Medicine 05/27/18 11/03/23 documented as of this encounter
--- OUTSIDE RECORDS SUMMARY | 2024-05-17 15:05 | XMS_ITS | Clinical Summary ---
Author Organization [facility] [place] [address] Care Team Providers Care Vascular Technologist Name Role Phone None Primary Care Provider Unavailabl e Allergies No known active allergies Medications Medication Sig Dispensed Refills Start Date End Date Status hydroCHLOROthiazide (Hydrodiuril) 12.5 mg Tablet Take 12.5 mg by mouth daily. 04/18/2022 Active montelukast (Singulair) 10 mg Tablet Take 10 mg by mouth daily. 04/18/2022 Active Spiriva Respimat 2.5 mcg/actuation Mist 2 puffs daily. 06/19/2022 Ac tive meclizine (Antivert) 12.5 mg Tablet Take 12.5 mg by mouth 3 times daily as needed. Active losartan (Cozaar) 25 mg tablet Take 25 mg by mouth daily. Active fluticasone propionate (Flovent HFA) 44 mcg/actuation HFA Aerosol Inhaler Inhale 2 puffs into the lungs 2 times daily. Active Active Problems Problem Noted Date Diagnosed Date Varicose veins of left lower extremity with other complications 06/10/2018 Asymptomatic varicose veins of right lower extre mity 06/10/2018 Uterovaginal prolapse, complete 02/15/2014 Encounters Date Type Department Care Team Description 05/11/2024 2:00 PM EDT Office Visit Obstetrics [place] [phone] Caryn Boswell APRN Uterovaginal prolapse, complete; Pessary maintenance 05/11/2024 Travel from Last 3 Months Immunizations Name Administration Dates Next Due Influenza (Fluzone HD) Trivalent High Dose 07/08 Influenza Adjuvanted (FluAd) Trivalent, PF 65yrs + 06/15/2019 Social History Tobacco Use Types Packs/Day Years [...] on file Sexual Orientation Not on file Last Filed Vital Signs Vital Sign Reading Time Taken Comments Blood Pressure 149/70 05/11/2024 1:38 PM EDT Pulse 90 05/11/2024 1:38 PM EDT Temperature 36.5 ??C (97.7 ??F) 05/11/2024 1:38 PM ED T Respiratory Rate 16 11/05/2022 2:24 PM EST Oxygen Saturation 95% 05/11/2024 1:38 PM EDT Inhaled Oxygen Concentration - - Weight 53.5 kg (118 lb) 05/11/2024 1:38 PM EDT Height 153.7 cm (5' 0.5) 11/04/2023 2:14 PM EST Body Mass Index 22.67 11/04/2023 2:14 PM EST Plan of Treatment Health Maintenance Due Date Last Done Comments CT Colonography 1950 Colonoscopy 1950 Colorectal Cancer Screening 1950 FIT DNA 1950 FIT 1950 Sigmoidoscopy (10 year) with FIT yearly 1950 Sigmoidoscopy 1950 Pneumoccocal Vaccine: 65+ (1 of 2 - PCV) 1954 Hepatitis C Screening 1966 Lipid Screening 1966 Tdap adult 12/18/1967 Tetanus vaccine 12/18/1967 Zoster vaccine (1 of 2) 1998 Advance Directive 12/18/2003 Bone Density Scan 2013 Covid-19 Vaccine (1 - season) 2024 Influenza (Flu) vaccine (1 o f 1 - Influenza standard series) 05/02/2024 06/15/2019, 07/08/2016 Care Teams Vascular Technologist Relationship Specialty Start Date End Date None None PCP - General 11/04/23
--- OUTSIDE RECORDS SUMMARY | 2024-05-17 15:06 | XMS_ITS | Encounter Summary ---
Author Organization [facility] Address [address] [place] [address] Care Team Providers Care Silo Filler Name Role Phone Unavailable Primary Care Provider Unavailabl e Encounter Details Date Type Department Care Team (Late st Contact Info) Description 12/15/2000 Results Only [facility] [employer] conversion [address] [place] [address] Alaina Saravia, SAVANA [address] [place] [address] Social History Tobacco Use Types Packs/Day Years Used Date Smoking Tobacco: Never Assessed Sex and Gender Information Value Date Recorded Sex Assigned at Not on file Gender Identity Not on file Sexual Orientation Not on file documented as of this encounter Plan of Treatment Not on file documented as of this encounter Procedures Procedure Name Priority Date/Time Associated Diagnosis Comments CYTOPATHOLOGY Routine 12/15/2000 0:00 EDT documented in this encounter Results * CYTOPATHOLOGY (12/15/2000 0:00 EDT) Pathology Report: CYTOPATHOLOGY REPORT Reports generated via electronic interface contain original data; however they are lacking the format of the original report. Caution should be taken when reading/interpreti ng unformatted reports. Name: ? OKSANA BEE ? Accession #: ? [id number] : ? 1950 (Age: 50) ??F ?Collect Date: ? 12/15/2000 Location: ? [facility] ? Receive Date: ? 2000 Provider: ?ALAINA SARAVIA PRESCHOOL EDUCATION DIRECTOR Copy to: ? Specimen/Source: ?Conventional Pap Test, Cervix/Endocervix Last Menstrual Period: ? Menstrual/Pregnanc y Status: ? Menopausal Previous Gynecologic Pathology: ? ASC-US: repeat pap 3-6 mos ? SPECIMEN ADEQUACY ? Satisfactory for evaluation but limited by obscuring inflammation. GENERAL CATEGORIZATION ? Benign Cellular Changes DESCRIPTIVE DIAGNOSIS ? Predominance of coccobacilli present consistent with shift in vaginal erma. ? Document reviewed and electronically signed by: ? Jenelle Moeller, ??SCT(ASCP) ? Report Date: ??12/18/2000 10:00 End of Report [facility] 12/15/2000 2000 Alaina Saravia NP PATHOLOGY ORDERABLES [facility] [address] [place] [address] documented in this encounter Visit Diagnoses Not on filedocumented in this encounter
--- OUTSIDE RECORDS SUMMARY | 2024-05-17 15:06 | XMS_ITS | Encounter Summary ---
Author Organization [facility] Address [address] [place] [address] Care Team Providers Care Farmworker Livestock Name Role Phone Unavailable Primary Care Provider Unavailabl e Encounter Details Date Type Department Care Team (Late st Contact Info) Description 06/23/2003 Results Only [facility] [place] conversion [address] [place] [address] Alaina Saravia, SAVANA [address] [place] [address] Social History Tobacco Use Types Packs/Day Years Used Date Smoking Tobacco: Never Assessed Sex and Gender Information Value Date Recorded Sex Assigned at Not on file Gender Identity Not on file Sexual Orientation Not on file documented as of this encounter Plan of Treatment Not on file documented as of this encounter Procedures Procedure Name Priority Date/Time Associated Diagnosis Comments HPV DETECTION, HIGH RISK TYPES Routine 06/23/2003 13:42 EDT CYTOPATHOLOGY Routine 06/23/2003 0:00 EDT documented in this encounter Results * HUMAN PAPILLOMA VIRUS DNA TEST (06/23/2003 13:42 EDT) Specimen Description Cervix, ThinPrep vial [facility] Result Negative for HPV types 16, 18, 31, 33, 35, 39, 45, 51, 52, 56, 58, 59, and 68. [facility] Report Status Final [id number] [facility] 06/23/2003 13:4 2 EDT 07/05/2003 13:42 EST Alaina Saravia NP MICROBIOLOGY - GENER AL ORDERABLES [facility] [address] [place] [address] * CYTOPATHOLOGY (06/23/2003 0:00 EDT) Pathology Report: CYTOPATHOLOGY REPORT Reports generated via electronic interface contain original data; however they are lacking the format of the original report. Caution should be taken when reading/interpreti ng unformatted reports. Name: ? OKSANA BEE ? Accession #: ? [id number] : ? 1950 (Age: 52) ??F ?Collect Date: ? 06/23/2003 Location: ? [facility] ? Receive Date: ? 06/27/2003 Provider: ?ALAINA SARAVIA NP Copy to: ? Specimen/Source: ?ThinPrep Pap Test, Cervix/Endocervix Last Menstrual Period: ? Menstrual/Pregnanc y Status: ? Post Menopausal Previous Gynecologic Pathology: ? ASC-US: 2000 Other: ? HPVA - HPV testing requested if ASC-US on the current ThinPrep Pap test. ? SPECIMEN ADEQUACY ? Satisfactory for Evaluation - transformation zone component present GENERAL CATEGORIZATION ? Epithelial Cell Abnormality INTERPRETATION ? Squamous Cell Abnormality - Atypical squamous cells, undetermined significance. EDUCATIONAL NOTES/RECOMMENDATI ONS ? [facility] recommends following the 2001 Consensus Guidelines for the Management of Women with Cervical Cytological Abnormalities (DAVID,2002;287:212 0-9). Management algorithms have been distributed by [facility] and are available online at www.ASCCP.org. ? Document reviewed and electronically signed by: ? MAGUI SILVERMAN MD ? Report Date: ??07/04/2003 14:36 End of Report [facility] 06/23/2003 06/27/2003 Alaina Saravia NP PATHOLOGY ORDERABLES Performing Organization Address City/State/[place] de Phone Number [facility] [address] [place] [address] documented in this encounter Visit Diagnoses Not on filedocumented in this encounter
--- OUTSIDE RECORDS SUMMARY | 2024-05-17 15:06 | XMS_ITS | Encounter Summary ---
Author Organization [facility] Address [address] [place] [address] Care Team Providers Care Plastic Boat Patcher Name Role Phone Unavailable Primary Care Provider Unavailabl e Encounter Details Date Type Department Care Team (Late st Contact Info) Description 12/01/2002 Results Only [facility] [place] [facility] [address] [place] [address] Caleb Tavera MD [address] [place] [address] Social History Tobacco Use Types Packs/Day Years Used Date Smoking Tobacco: Never Assessed Sex and Gender Information Value Date Recorded Sex Assigned at Not on file Gender Identity Not on file Sexual Orientation Not on file documented as of this encounter Plan of Treatment Not on file documented as of this encounter Procedures Procedure Name Priority Date/Time Associated Diagnosis Comments SURGICAL PATHOLOGY Routine 12/01/2002 0:00 EST documented in this encounter Results * SURGICAL PATHOLOGY (12/01/2002 0:00 EST) Pathology Report: SURGICAL PATHOLOGY REPORT Reports generated via electronic interface contain original data; however they are lacking the format of the original report. Caution should be taken when reading/interpreti ng unformatted reports. Name: ? OKSANA BEE ? Accession #: ? [id number] ? : ? 1950 (Age: 51) ??F ? Collect Date: ? 12/01/2002 ? Location: ? [facility] ? Receive Date: ? 12/01/2002 ? Provider: BREANNA TAVERA MD Copy to: LORENZO CHAPMAN CHECKER AND PACKER ? Final Pathologic Diagnosis: A. ?Stomach, linear ulcer of body, biopsy: 1. ?Minimal chronic active gastritis. ? - Helicobacter pylori-like microorganisms not demonstrated on H&E stain. B. ?Stomach, proximal ulcer, biopsy: 1. ?Minimal chronic gastritis. ? - Helicobacter pylori-like microorganisms not demonstrated on H&E stain. C. ?Gastroesophageal junction, biopsies: 1. ?Benign stratified squamous epithelium with focal hemorrhagic congestion. 2. ?Attached fragment of gastric mucosa with surface hemorrhage and acute inflammation. Document reviewed and electronically signed by: CALEB JEAN BAPTISTE MD Report ??Date: 12/03/2002 17:59 By the signature above, the attending physician certifies that he/she has personally conducted a gross and/or microscopic examination of the described specimens and rendered or confirmed the above diagnosis. Specimen(s) Received: A. ?Linear ulcer body of stomach B. ?Ulcer in HH C. ?GE jct Clinical History: ? Large HH with ulcer, linear ulcer of body below diaphragm Gross Description: ? Received in Hollande' s fixative labelled Rocco and linear ulcer body of stomach is a 0.3 x 0.2 x 0.1 cm toussaint soft tissue biopsy. ??Entirely submitted as (A). Received in Hollande' s fixative labelled Rocco and proximal stomach ulcer is a 0.2 x 0.1 x 0.1 cm toussaint soft tissue biopsy. ??Entirely submitted as (B). Received in Hollande' s fixative labelled Rocco and GE junction are two toussaint soft tissue biopsies measuring 0.1 x 0.1 x 0.1 cm and 0.2 x 0.1 x 0.1 cm. Entirely submitted as (C). ??(Iris Franco)/tmg End of Report [facility] 12/01/2002 12/01/2002 15: 03 EST Caleb Tavera MD PATHOLOGY ORDERABLES [facility] [address] [place] [address] documented in this encounter Visit Diagnoses Not on filedocumented in this encounter
--- OUTSIDE RECORDS SUMMARY | 2024-05-17 15:06 | XMS_ITS | Encounter Summary ---
[facility] Organization [facility] [place] [address] Care Team Providers Care Hand Candy Dipper Name Role Phone Caleb Singer MD Primary Care Provider [phone] Reason for Visit * Reason Comments Vaginal Prolapse Encounter Details Date Type Department Care Team (Late st Contact Info) Description 02/01/2014 2:15 PM EDT Office Visit Obstetrics [place] [id number] Lucian Melendez MD [facility] OBSTETRICS [place] [address] Prolapse of vaginal rojas (Primary Dx) Discharge Disposition: Home Social History Tobacco Use Types Packs/Day Years Used Date Smoking Tobacco: Every Day Cigarettes 0.5 15 Smokeless Tobacco: Never Sex and Gender Information Value Date Recorded Sex Assigned at Not on file Gender Identity Not on file Sexual Orientation Not on file documented as of this encounter Last Filed Vital Signs Vital Sign Reading Time Taken Comments Blood Pressure 130/72 02/01/2014 3:03 PM EDT Pulse 72 02/01/2014 3:03 PM EDT Temperature - - Respiratory Rate - - Oxygen Saturation - - Inhaled Oxygen Concentration - - Weight 68.6 kg (151 lb 3.2 oz) 02/01/2014 3:03 P M EDT Height 157.5 cm (5' 2) 02/01/2014 3:03 PM EDT Body Mass Index 27.65 02/01/2014 3:03 PM EDT documented in this encounter Progress Notes * Lucian Melendez MD - 02/01/2014 2:59 PM EDT Female Pelvic Medicine and Reconstructive Surgery @ [facility] Patient Name: Oksana Valiente Patient Primary Care Provider: CALEB SINGER MD Referring Provider: Yari Epstein Chief Complaint: pelvic organ prolapse History of Present Illness: Ms. Valiente is a 63 y.o. old para 4 woman, seen at the kind request of Yari Epstein, flow nurse. She presents for evaluation and assessment of pelvic organ prolapse and urinary incontinence of 2-3yrs duration. Patient reports discomfort and fullness at her vagina. She sometimes feel that she cannot sit due to the discomfort from the vaginal prolapse. It feels like a baseball between my legs.She says these symptoms have been occurring for 2-3yrs with increasing intensity, and she recently obtained health insurance. She says prolapse is present at all times. She recently tried compressionunderwear and says it mildly relieves the prolapse. Patient reports vaginal bleeding and vaginal discharge for the last year. She wears pad and changes it 4-5x/day. She says she bleeds when sitting, s tanding, or walking for long periods of time/distances. She also reports difficulty initiating urine steam. She reports urine incontinence when laugh, cough, sneeze, about a few times a week. She says incontinence is sometimes associated with the urge to void. She wears pads daily, but says that is more due to what she thinks is vaginal discharge and vag inal bleeding. No h/o UTIs. Patient denies fecal incontinence. Formed BM 1x/day. Patient was prescribed estrogen cream by Dr. Epstein for friable cervical tissue noted on pelvic exam,but she says it was too expensive and did not fill the prescription. Goals for visit: 1. To get fixed as soon as possible Bladder Function Urinary incontinence: yes No. episodes: Few times/wk Pad use (per day): 4-5x/day Pad type: Maxi pad Daytime voids: 6 Nocturia: 4x/night Previous urinary incontinence treatment (Medical/Behavioral/Surgical): No Storage symptoms Urinary frequency X Nocturia X Stress urinary incontinence - leakage with exertion, cough/sneeze X Urge urinary incontinence - leakage preceded immediately by urge to void Noctural enuresis - NOT IN ASSOCIATION WITH URGE Continuous urinary leakage Other: (e,g. giggle, intercourse-related) Bladder sensation X Normal - aware of filling and increased sensation up to desire to void Increased - feels an early and persistent need to void Reduced - aware of filling but NOT definite desire to void Absent - NO sensation of filling or need to void Non-specific - No specific bladder symptoms during filling or void Voiding symptoms None X Slow stream X Spraying Intermittent stream - stop/start on > 1 occasion during void Straining - muscular effort to initiate, maintain OR improve stream Terminal dribble - prolonged final part of void X Feeling of incomplete emptying Bladder irritants: Caffeine intake: 6c/day in AM and at night Cigarette smoking (packs, time, if quit when): 10cigs/day Alcohol: none Pelvic Organ Prolapse (POP) Any personally see or feel a vaginal bulge? yes What precipitates prolapse or symptoms of prolapse? Always present Extent of protrusion: feels like 8in Previous treatment for POP (physical therapy, pessary, surgery)?: none Bowel Function Fecal incontinence (yes/no): no Number of fecal incontinent episodes (day/week): none Number of bowel movements (day/week): 1/day Defecatory Dysfunction: Symptom Presence Symptom Presence NONE X Incomplete Emptying Straining Infrequent stools (<3 week) Splinting Abdominal discomfort Loose stools Defecatory urgency Hard stools Other Sexual Function Active?: no Desire to retain sexual function?: Patient is unsure. Gynecologic/Obstetric History: Last PAP smear: She believes in 2005. She has never had abnormal pap. Last mammogram: 2005. She is scheduled for mammogram next week. Past Medical History Diagnosis Date ??? COPD (chronic obstructive pulmonary disease) Does not use inhaler due to expense ??? Dyspepsia OTC H2 joselin Past Surgical History Procedure Date ??? Vein surgery ??? Mohs surgery basal cell ca on face Outpatient Prescriptions Marked as Taking for the 02/01/14 encounter (Office Visit) with Lucian Melendez MD Medication Sig Dispense Refill ??? Dgwlfkabcpznu-Jadyiomx-Rboczc Tab Take by mouth. No Known Allergies History Social History ??? Marital Status: Spouse Name: N/A Number of Children: N/A ??? Years of Education: N/A Occupational History ??? Not on file. Social History Main Topics ??? Smoking status: Current Every Day Smoker -- 0.5 packs/day for 15 years Types: Cigarettes ??? Smokeless tobacco: Never Used ??? Alcohol Use: Not on file ??? Drug Use: Not on file ??? Sexually Active: Not on file Other Topics Concern ??? Not on file Social History Narrative ??? No narrative on file Family History Problem Relation Age of Onset ??? Adopted: Yes Family history: Unknown b/c adopted ROS: Review of all other systems negative except for those mentioned above or indicated below: System Symptom Presence Constitutional Weight Loss Weight gain Fatigue Eyes Vision changes ENT/Mouth Sinus problems Mouth sores Cardiovascular Chest pain CHEN Leg swelling Heart palpitations Respiratory Wheezing Hemoptysis SOB Chronic cough GI Nausea/vomiting Abdominal pain Musculoskeletal Muscle weakness Skin/breast Pain in breast Discharge Masses Rash/ulcer Neurological Dizziness Numbness Trouble Walking Psychiatric Depression Anxiety Endocrine Abnormal thirst Hot flashes Hematologic Frequent bruising Blood clots (DVT / PE) Prior problems w/ anesthesia Patient denies each of the above Outside medical records reviewed: referral note in scanned docs Data reviewed (images/urodynamic studies): none OBJECTIVE: Bladder scan (to exclude urinary retention): 202 ml Urine Dip (to rule out infection): not able to obtain urine sample due to difficulty initiating stream Blood pressure 130/72, pulse 72, height 157.5 cm (5' 2), weight 68.584 kg (151 lb 3.2 oz). General: normal appearing female, pleasant mood, normal speech Respiratory: wheezing in bases b/l; no rales or rhonchi Cardiac: regular rate and rhythm, no appreciated murmurs Pelvic: Cough stress test (empty supine): negative External Genitalia: vulva, [place]'s and Bartholin glands normal, urethra without tenderness or mass Vagina: complete uterovaginal prolapse with cervix at +10cm Atrophic epithelium (yes/no)?: Dry, mildly erythematous epithelium Discharge?: none Cervix: Erythematous 1cm x 1cm friable tissue inferior to os; no bleeding noted Bimanual (uterus/adnexa): able to reinsert prolapse and perform bimanual exam; no uterine or adnexal masses appreciated POP Q Measurements: Aa +2 Ba +10 C +10 GH 4,5 PB TVL 10 Ap -2 Bp +10 D +10 Impression: Ms. Valiente is a .63 y.o. woman with: ?? Stage IV uterovaginal prolapse. ?? Mild urinary retention, likely secondary to above ?? Mixed incontinence, likely a consequence of retention ?? Vaginal spotting, likely secondary to mucosal irritation from a chronic prolapse Recommendations: I reviewed the anatomy and physiology of pelvic organ prolapse. We discussed options for managementincluding: Continued observation, pelvic floor exercises (supervised or unsupervised), pessary and/or surgery. ?? Patient expressed interest in pessary trial, for its lack of complications and immediate treatment of symptoms. Due to time in schedule, patient was fitted for a pessary at this appointment. #5 ring with support pessary was used with successful reduction of prolapse. ?? Patient will schedule f/u in 2wks. ?? Measure PVR at next visit, with hopes that the pessary decreases urinary retention. ?? Consider EMB if spotting persists ?? If she elects surgery, options include [place] colpocleisis if sexual activity is not wanted vs. Colpopexy. LUCIAN MELENDEZ MD Division of Female Pelvic Medicine/Reconstructive Surgery CC: MD Yari MAY documented in this encounter Plan of Treatment Not on file documented as of this encounter Procedures Procedure Name Priority Date/Time Associated Diagnosis Comments BLADDER SCANNER Routine 02/01/2014 Prolapse of vaginal rojas POCT URINE DIPSTICK Routine 02/01/2014 Prolapse of vaginal rojas documented in this encounter Results * Bladder Scanner (02/01/2014) Pathologist [facility] Bladder Scan (mL) 202mL mL Lucian Melendez MD URO PROC W/O RFL ORD ERABLES * POCT urine dipstick (02/01/2014) Pathologist [facility] POC Sp Cando 1.002 - 1.030 Comment:scant void difficult y initiating and emptying POC pH, UA 5.0 - 8.5 POC Leuk, UA Negative - Negative POC Nitrite, UA Negative - Negative POC Protein, UA Negative - Negative mg/dL POC Glucose, UA Normal - Normal mg/dL POC Ketone, UA Negative - Negative POC Urobil, UA 0.2 - 1.0 mg/dL POC Bili, UA Negative - Negative POC Blood, UA Negative - Negative mike/uL Lucian Melendez MD POINT OF CARE TEST O RDERABLES documented in this encounter Visit Diagnoses Diagnosis Prolapse of vaginal rojas- Primary Unspecified prolapse of vaginal rojas documented in this encounter Care Teams Hand Candy Dipper Relationship Specialty Start Date End Date Caleb Singer MD PCP - General 07/24/10 06/02/15 documented as of this encounter
--- OUTSIDE RECORDS SUMMARY | 2024-05-17 15:06 | XMS_ITS | Encounter Summary ---
Author Organization [facility] Address [address] [place] [address] Care Team Providers Care Religious Education Director Name Role Phone Unavailable Primary Care Provider Unavailabl e Encounter Details Date Type Department Care Team (Late st Contact Info) Description 04/22/2000 Results Only [facility] conversion [address] [place] [address] Fanny Koch MD [address] [place] [address] Social History Tobacco Use Types Packs/Day Years Used Date Smoking Tobacco: Never Assessed Sex and Gender Information Value Date Recorded Sex Assigned at Not on file Gender Identity Not on file Sexual Orientation Not on file documented as of this encounter Plan of Treatment Not on file documented as of this encounter Procedures Procedure Name Priority Date/Time Associated Diagnosis Comments CYTOPATHOLOGY Routine 04/22/2000 0:00 EDT documented in this encounter Results * CYTOPATHOLOGY (04/22/2000 0:00 EDT) Pathology Report: CYTOPATHOLOGY REPORT Reports generated via electronic interface contain original data; however they are lacking the format of the original report. Caution should be taken when reading/interpreti ng unformatted reports. Name: ? OKSANA BEE ? Accession #: ? [id number] : ? 1950 (Age: 49) ??F ?Collect Date: ? 04/22/2000 Location: ? [facility] ? Receive Date: ? 04/24/2000 Provider: ?FANNY KOCH UPHOLSTERY TRIMMER Copy to: ? Specimen/Source: ?Conventional Pap Test, Cervix/Endocervix Last Menstrual Period: ? 1994 Hormonal/Contracep tive Status: ? Yes Previous Gynecologic Pathology: ? Yes ? SPECIMEN ADEQUACY ? Satisfactory for evaluation but limited by obscuring inflammation. GENERAL CATEGORIZATION ? Within Normal Limits ? Document reviewed and electronically signed by: ? TEVIN Yañez(ASCP) ? Report Date: ??04/25/2000 14:47 End of Report CHATA AVALOS 04/22/2000 04/24/2000 Fanny Koch MD PATHOLOGY ORDERABLES [facility] AVALOS [address] [place] [address] documented in this encounter Visit Diagnoses Not on filedocumented in this encounter
--- OUTSIDE RECORDS SUMMARY | 2024-05-17 15:06 | XMS_ITS | Referral Summary ---
Author Organization [facility] Address [address] [place] [address] Care Team Providers Care Combat Systems Engineer Name Role Phone Amish Cope MD Primary Care Provider [phone] Social History Tobacco Use Types Packs/Day Years Used Date Smoking Tobacco: Never Assessed Sex and Gender Information Value Date Recorded Sex Assigned at Not on file Gender Identity Not on file Sexual Orientation Not on file Plan of Treatment Not on file Care Teams Combat Systems Engineer Relationship Specialty Start Date End Date Amish Cope MD PCP - General 07/14/15
--- OUTSIDE RECORDS SUMMARY | 2024-05-17 15:06 | XMS_ITS | Encounter Summary ---
Author Organization [facility] Address [address] [place] [address] Care Team Providers Care Civil Engineering Professor Name Role Phone Unavailable Primary Care Provider Unavailabl e Encounter Details Date Type Department Care Team (Late st Contact Info) Description 12/26/1999 Results Only [facility] conversion [address] [place] [address] Fanny Koch MD [address] [place] [address] Social History Tobacco Use Types [...] Priority Date/Time Associated Diagnosis Comments CYTOPATHOLOGY Routine 12/26/1999 7:59 EDT documented in this encounter Results * CYTOPATHOLOGY (12/26/1999 7:59 EDT) Pathology Report: CYTOPATHOLOGY REPORT Reports generated via electronic interface contain original data; however they are lacking the format of the original report. Caution should be taken when reading/interpreti ng unformatted reports. Name: ? OKSANA BEE ? Accession #: ? [id number] : ? 1950 (Age: 49) ??F ?Collect Date: ? 12/26/1999 Location: ?Receive Date: ? 12/26/1999 Provider: ?FANNY KOCH WELL TREATMENT OFFSIDER Copy to: ?FANNY D AUGUST WELL TREATMENT OFFSIDER ? Specimen/Source: ?Pap Smear (One Slide) Last Menstrual Period: ? GYNECOLOGIC ??CYTOPATHOLOGY ??REPORT Name: OKSANA BEE ? FA : 1950 ?? 49Y F ?Client ID: [id number] SS#: [id number] ? Clinician: AUGUST WELL TREATMENT OFFSIDER, FANNY Powers Location: [facility] ??Copy to: ?? Specimen: ?Pap Smear (One Slide) ? Source: Cervix/Endocervix ?Collected: 12/21/99 ? Received: 12/26/1999 ?LMP: 1996 ? Hormone Therapy: No ? : No ? Radiation Therapy: No ?? Post : No ?Chemotherapy: No ?IUD: No ? Prev Abnormal Pap: No ?? Clinical Hx: ?(Blank marquez indicate information not provided on requisition) SPECIMEN ADEQUACY: ? Satisfactory For Evaluation ?? GENERAL CATEGORIZATION: ? EPITHELIAL CELL ABNORMALITY ?? DESCRIPTIVE DIAGNOSIS: ? Atypical Squamous Cells Of Undetermined Significance (ASCUS), ? Favor Reactive Process ?? RECOMMENDATION: ? Recommend Repeat Pap Smear In Approximately 3-6 Months Or ? Further Follow-up, As Clinically Indicated ? Reviewed And Electronically Signed By: ? Sarika Velasquez M.D. ? Report Date: ?? 01/09/2000 Room 21 Media Archived Tests - Final Diagnosis Text Field: Clinical History : ? Document reviewed and electronically signed by: ? Conversion ? Report Date: ??01/09/2000 00:00 End of Report CHATA AVALOS 12/26/1999 7:59 EDT 12/26/1999 8:00 EDT Fanny Koch MD PATHOLOGY ORDERABLES CHATA AVALOS [address] [place] [address] documented in this encounter Visit Diagnoses Not on filedocumented in this encounter
--- OUTSIDE RECORDS SUMMARY | 2024-05-17 15:06 | XMS_ITS | Clinical Summary ---
Author Organization [facility] Address [address] [place] [address] Care Team Providers Care Professor Of Legal Studies Name Role Phone Amish Cope MD Primary Care Provider Social History Tobacco Use Types Packs/Day Years Used Date Smoking Tobacco: Never Assessed Sex and Gender Information Value Date Recorded Sex Assigned at Not on file Gender Identity Not on file Sexual Orientation Not on file Plan of Treatment Health Maintenance Due Date Last Done Comments Hepatitis C Screen 1950 RSV Immunization ( o r 60+ Years) (1 - 1-dose 60+ series) 2008 Fall Risk Screening 2013 COVID-19 Vaccine ( season) 2023 Care Teams Professor Of Legal Studies Relationship Specialty Start Date End Date Amish Cope MD PCP - General 07/14/15
--- OUTSIDE RECORDS SUMMARY | 2024-05-17 15:06 | XMS_ITS | Encounter Summary ---
[facility] [place] [address] Care Team Providers Care Factory Representative Name Role Phone None Primary Care Provider Unavailabl e Encounter Details Date Type Department Care Team (Late st Contact Info) Description 01/02/2005 [place] [address] John Bingham MD [facility] [place] [address] Social History Tobacco Use Types Packs/Day Years Used Date Smoking Tobacco: Never Assessed Sex and Gender Information Value Date Recorded Sex Assigned at Not on file Gender Identity Not on file Sexual Orientation Not on file documented as of this encounter Plan of Treatment Not on file documented as of this encounter Procedures Procedure Name Priority Date/Time Associated Diagnosis Comments SURGICAL PATHOLOGY REPORT Routine 01/02/2005 4:31 PM EDT documented in this encounter Results * Surgical Pathology Report (01/02/2005 4:31 PM EDT) Surgical Pathology Report [id number] ? Location: The signing pathologist has (i) examined the relevant preparation(s) for the specimen(s) and (ii) rendered or confirmed the diagnosis(es). . ?Pathology Surgical Pathology Final Report Clinical Information Specimen Submitted: A - Skin, (L) Upper lip, skin Clinical History: Small papule 4 mm with central punctum; ? BCC vs Pilar sheath acanthoma, giant comedo, etc Gross Description Labeled/Fixativ e: ? Labeled with the patient's name, formalin. Qty/Size/Weight : ?Single, 1.6 x 0.6 x 0.4 cm. Tissue Description: ?? Ellipse of toussaint skin with a 0.6 x 0.5-cm, toussaint papule ?with a central, 0.2-cm punctuation. Sections/Proces sing: ??The specimen is inked and serially sectioned. ??The ?ends are submitted in (1); the remainder of the ?specimen submitted in (2). ?? (T2) ??aje/SNS Microscopic Description Slides reviewed, microscopic description not recorded. Diagnosis Skin, left upper lip, excision: ?Pilar sheath acanthoma. CR-0 01/03/05 AVT 01/03/05 Verified by: ? Ronda Young MD ?Dermatopathol ogist ?(Electronic Signature) The attending pathologist whose signature appears on this report has reviewed all diagnostic slides and has edited the gross and/or microscopic portion of the report in rendering the final pathologic diagnosis. [place] CERDA 01/02/2005 4:31 PM EDT John Bingham MD PATHOLOGY/CYTOLOGY O RDERABLES [place] documented in this encounter Visit Diagnoses Not on filedocumented in this encounter Care Teams Factory Representative Relationship Specialty Start Date End Date None None PCP - General 11/04/23 documented as of this encounter
--- OUTSIDE RECORDS SUMMARY | 2024-05-17 15:06 | XMS_ITS | Encounter Summary ---
Author Organization [facility] Address [address] [place] [address] Care Team Providers Care Motion Picture Critic Name Role Phone Unavailable Primary Care Provider Unavailabl e Encounter Details Date Type Department Care Team (Late st Contact Info) Description 11/15/2003 Results Only [facility] conversion [address] [place] [address] Amish Tavera MD [address] [place] [address] Social History Tobacco Use Types Packs/Day Years Used Date Smoking Tobacco: Never Assessed Sex and Gender Information Value Date Recorded Sex Assigned at Not on file Gender Identity Not on file Sexual Orientation Not on file documented as of this encounter Plan of Treatment Not on file documented as of this encounter Procedures Procedure Name Priority Date/Time Associated Diagnosis Comments SURGICAL PATHOLOGY Routine 11/15/2003 0:00 EST documented in this encounter Results * SURGICAL PATHOLOGY (11/15/2003 0:00 EST) Pathology Report: SURGICAL PATHOLOGY REPORT Reports generated via electronic interface contain original data; however they are lacking the format of the original report. Caution should be taken when reading/interpreting unformatted reports. Name: ? OKSANA BEE ? Accession #: ? [id number] ? : ? 1950 (Age: 52) ??F ? Collect Date: ? 11/15/2003 ? Location: ? [facility] ? Receive Date: ? 11/15/2003 ? Provider: BREANNA TAVERA MD Copy to: ALAINA CHAPMAN AUTOMATIC SPREADER OPERATOR ? Final Pathologic Diagnosis: ? Esophagogastric junction, biopsy: 1. ?Squamocolumnar junctional mucosa with: ? - ??Reactive glandular and squamous epithelial changes. - ??Mild chronic inflammation. - ??Focal intestinal metaplasia. - ??No definitive evidence of dysplasia. Comment: ? This case has been presented at the intradepartmental consultation conference on 11/17/03. ??(Dr. Ferreira)/ Document reviewed and electronically signed by: Alanna Ferreira MD Report ??Date: 11/17/2003 15:27 By the signature above, the attending physician certifies that he/she has personally conducted a gross and/or microscopic examination of the described specimens and rendered or confirmed the above diagnosis. Specimen(s) Received: ? GE junction bx Clinical History: ? Gastroscopy; PMH anemia; HH, mild esophagitis, GERD Gross Description: ? Received in Hollande's fixative labelled Rocco and GE junction bx is a single soft tissue fragment that measures 0.4 x 0.3 x 0.2 cm. ??The specimen is entirely submitted in one cassette. ??(Dr. Morris-)/[facility] End of Report CHATA AVALOS 11/15/2003 11/15/2003 15: 27 EST Amish Tavera MD PATHOLOGY ORDERABLES [facility] AVALOS [address] [place] [address] documented in this encounter Visit Diagnoses Not on filedocumented in this encounter
--- OUTSIDE RECORDS SUMMARY | 2024-05-17 15:06 | XMS_ITS | Encounter Summary ---
[place] [address] Care Team Providers Care Web Development Consultant Name Role Phone Felipa Carlos APRN Primary Care Provider [phone] Encounter Details Date Type Department Care Team (Late st Contact Info) Description 07/13/[address] [place] [id number] Merry Palacio Social History Tobacco Use Types [...] * Telephone Encounter - Merry Palacio - 07/13/2015 7:[address] Lung Cancer Screening Initial Contact Is the patient between the ages of 55 and 77? Yes Has the patient ever been a smoker? Yes Patient Referral From? PCP Responsible Provider: Felipa Carlos Location of Provider: [facility] Has the patient received educational materials? No, Send Materials Send staff message for CT Lung Wreath Machine Tender to call patient. CT Lung Cancer Screening Part 1, Eligibility Screening Ever cigarette smoker? Yes Pack years >=30? Yes , 48 pack years Current smoker? Yes - Offer Referral to Cessation Quit <=15 Years ago? Yes Ever diagnosed with Lung Cancer? No To your knowledge, have you been diagnosed with Melanoma, Breast Cancer, or Colon Cancer in the last 5 years? No That you are aware of, do you have any New Lung Nodule or Growing Lung Nodule imaging results in the past 2 years? No That you know of, have you coughed up blood or experienced unexplained weight loss >15 lbs in the past year? No Treated for pneumonia in past 3 months? No Materials received and reviewed by patient? No - Resend Today Patient is willing to be contacted about being included in future research studies? Yes Read script to patient: While there is no charge for the screening CT scan, any follow up that might result from the screening will be charged to your insurance and be subject to any copays or deductibles. Does patient still want to be screened? Yes Review common findings, potential benefits and harms. Read script to patient: You agree to understanding that you are at increased risk to develop lung cancer and may benefit from screening for lung cancer with low-dose chest CT. You also understand that there are both potential benefits and harms to screening. You have had an opportunity to ask questions about the screening process. You agree to be screened with the reports sent to you and and to your provider. Does the patient understand? Yes Patient is eligible. Does the patient wish to be screened? Yes, we will speak again after she goes through [employer], I have emaiedl her the materials. Schedule Appointment through Imaging scheduling. Route note to Referring clinician & PCP (if different) documented in this encounter Plan of Treatment Not on file documented as of this encounter Visit Diagnoses Not on filedocumented in this encounter Care Teams Web Development Consultant Relationship Specialty Start Date End Date Felipa Carlos APRN PCP - General Family Medicine 06/03/15 10/27/16 documented as of this encounter
--- OUTSIDE RECORDS SUMMARY | 2024-05-17 15:06 | XMS_ITS | Encounter Summary ---
Author Organization [facility] Address [address] [place] [address] Care Team Providers Care Driver Manager Name Role Phone Amish Cope MD Primary Care Provider [phone] Encounter Details Date Type Department Care Team (Late st Contact Info) Description 10/30/2017 Results Only [facility] [phone] Eduardo Martinez MD [address] [place] [address] [address] [place], [place] [id number] Social History Tobacco Use Types Packs/Day Years Used Date Smoking Tobacco: Never Assessed Sex and Gender Information Value Date Recorded Sex Assigned at Not on file Gender Identity Not on file Sexual Orientation Not on file documented as of this encounter Plan of Treatment Not on file documented as of this encounter Procedures Procedure Name Priority Date/Time Associated Diagnosis Comments PAP TEST- RESULT ONLY Routine 10/30/2017 0:00 EST documented in this encounter Results * PAP TEST- RESULT ONLY (10/30/2017 0:00 EST) Pathology Report: CYTOPATHOLOGY REPORT Reports generated via electronic interface contain original data; however they are lacking the format of the original report. Caution should be taken when reading/interpreti ng unformatted reports. Name: ? OKSANA BEE ? Accession #: ? [id number] ? : ? 1950 (Age: 66) ??F ?Collect Date: ? 10/30/2017 ? Location: ? [facility] ? Receive Date: ? 10/31/2017 ? Provider: EDUARDO MARTINEZ MD Copy to: MELISSA COX SUBSTATION SUPERVISOR ? Final Report SPECIMEN ADEQUACY ? Satisfactory for Evaluation - transformation zone component present GENERAL CATEGORIZATION ? Negative for Intraepithelial Lesion or Malignancy ?? Treatment History: Yes: PESSARY USE Specimen/Source: ??Pap Test, Cervix, ThinPrep Imaging System with manual evaluation Document reviewed and electronically signed by: ? SABINO De La Torre(ASCP) ? Report ??Date: 11/10/2017 10:17 HPV with Pap Test ? Date Ordered: ? 11/10/2017 ? Status: ?? Signed Out ?Date Complete: ? 11/11/2017 ? By: ??System Interface ? Date Reported: ? 11/11/2017 ? Interpretation RESULT: Negative for HPV. No E6 or E7 mRNA is detected from HPV types 16,18,31,33,35, 39,45,51,52,56,58, 59,66, and 68 by equine vet mediated amplification. Comments Document reviewed and electronically signed by: ? System Interface ? Report date: 11/11/2017 By the signature above, the attending physician certifies that he/she has personally conducted a gross and/or microscopic examination of the described specimens and rendered or confirmed the above diagnosis. End of Report [facility] 10/30/2017 10/31/2017 Eduardo Martinez MD PATHOLOGY ORDERABLES [facility] [address] [place] [address] documented in this encounter Visit Diagnoses Not on filedocumented in this encounter Care Teams Driver Manager Relationship Specialty Start Date End Date Amish Cope MD PCP - General 07/14/15 documented as of this encounter
--- OUTSIDE RECORDS SUMMARY | 2024-05-17 15:06 | XMS_ITS | Encounter Summary ---
Author Organization [facility] Address [address] [place] [address] Care Team Providers Care Talent Director Name Role Phone Unavailable Primary Care Provider Unavailabl e Encounter Details Date Type Department Care Team (Late st Contact Info) Description 05/17/2002 Results Only [facility] [place] [facility] [address] [place] [address] Alaina Chapman, SAVANA [address] [place] [address] Social History Tobacco Use Types [...] Priority Date/Time Associated Diagnosis Comments CYTOPATHOLOGY Routine 05/17/2002 0:00 EDT documented in this encounter Results * CYTOPATHOLOGY (05/17/2002 0:00 EDT) Pathology Report: CYTOPATHOLOGY REPORT Reports generated via electronic interface contain original data; however they are lacking the format of the original report. Caution should be taken when reading/interpreti ng unformatted reports. Name: ? OKSANA BEE ? Accession #: ? [id number] : ? 1950 (Age: 51) ??F ?Collect Date: ? 05/17/2002 Location: ? [facility] ? Receive Date: ? 05/19/2002 Provider: ?ALAINA CHAPMAN BACK FACER Copy to: ? Specimen/Source: ?ThinPrep Pap Test, Cervix/Endocervix Last Menstrual Period: ? 1996 Previous Gynecologic Pathology: ? ASC-US: ? SPECIMEN ADEQUACY ? Satisfactory for Evaluation - transformation zone component present GENERAL CATEGORIZATION ? Negative for Intraepithelial Lesion or Malignancy ? Document reviewed and electronically signed by: ? SABINO Brennan(ASCP) ? Report Date: ??05/21/2002 08:46 End of Report [facility] 05/17/2002 05/19/2002 Alaina Chapman NP PATHOLOGY ORDERABLES [facility] [address] [place] [address] documented in this encounter Visit Diagnoses Not on filedocumented in this encounter
--- OUTSIDE RECORDS SUMMARY | 2024-05-17 15:06 | XMS_ITS | Encounter Summary ---
Author Organization [facility] Address [address] [place] [address] Care Team Providers Care Mold Mechanic Name Role Phone Unavailable Primary Care Provider Unavailabl e Encounter Details Date Type Department Care Team (Late st Contact Info) Description 05/19/[address] Results [address] [facility] [place] conversion [address] [place] [address] Alaina Saravia, SAVANA [address] [place] [address] Social History Tobacco Use Types [...] Priority Date/Time Associated Diagnosis Comments CYTOPATHOLOGY Routine 05/19/2007 0:00 EDT documented in this encounter Results * CYTOPATHOLOGY (05/19/2007 0:00 EDT) Pathology Report: CYTOPATHOLOGY REPORT Reports generated via electronic interface contain original data; however they are lacking the format of the original report. Caution should be taken when reading/interpreti ng unformatted reports. Name: ? OKSANA BEE ? Accession #: ? [id number] : ? 1950 (Age: 56) ??F ?Collect Date: ? 05/19/2007 Location: ? [facility] ? Receive Date: ? 05/20/2007 Provider: ?ALAINA SARAVIA ASSEMBLER TESTER Copy to: ? Specimen/Source: ?ThinPrep Pap Test, Cervix/Endocervix, processed on [employer] ThinPrep Imaging System, with manual evaluation Last Menstrual Period: ? years ago Other: ? HPVA - HPV testing requested if ASC-US on the current ThinPrep Pap test. ? SPECIMEN ADEQUACY ? Satisfactory for Evaluation - transformation zone component present GENERAL CATEGORIZATION ? Negative for Intraepithelial Lesion or Malignancy ? Document reviewed and electronically signed by: ? TEVIN Yañez(ASCP) ? Report Date: ??05/26/2007 08:58 End of Report [facility] 05/19/2007 05/20/2007 Alaina Saravia NP PATHOLOGY ORDERABLES [facility] [address] [place] [address] documented in this encounter Visit Diagnoses Not on filedocumented in this encounter
--- OUTSIDE RECORDS SUMMARY | 2024-05-17 15:06 | XMS_ITS | Encounter Summary ---
Author Organization [facility] [place] [address] Care Team Providers Care Tobacco Stripper Hand Name Role Phone Amish Cope MD Primary Care Provider [phone] Reason for Visit * Reason Comments Pessary Check Encounter Details Date Type Department Care Team (Late st Contact Info) Description 02/15/2014 10:00 AM EDT Follow-Up Obstetrics [place] [phone] Lucian Melendez MD [facility] OBSTETRICS [place] [address] Uterovaginal prolapse, complete (Primary Dx) Discharge Disposition: Home Social History [...] Sign Reading Time Taken Comments Blood Pressure 130/78 02/15/2014 10:00 AM EDT Pulse 60 02/15/2014 10:00 AM EDT Temperature - - Respiratory Rate - - Oxygen Saturation - - Inhaled Oxygen Concentration - - Weight 68 kg (149 lb 14.4 oz) 02/15/2014 10:00 A M EDT Height 157.5 cm (5' 2) 02/15/2014 10:00 AM EDT Body Mass Index 27.42 02/15/2014 10:00 AM EDT documented in this encounter Progress Notes * Lucian Melendez MD - 02/15/2014 10:21 AM EDT VISIT TYPE: Pessary follow-up visit 02/15/2014 Oksana Valiente [id number] Problem list: ?? Stage IV uterovaginal prolapse ?? Mid urinary retention ?? Vagina spotting - thought to be secondary to vaginal mucosal irritation from her prolpase PESSARY TYPE: Ring with Support size 5 SUBJECTIVE: Ms. Valiente returns for a pessary follow up check. The patient denies: vaginal bleeding, abnormal discharge, discomfort related to the pessary. She states she feels 100% better. She is not interested in surgery for her prolapse. OBJECTIVE: Bladder scan: 25 General: In no acute distress. External Genitalia: Within normal limits Urethra: Midline Cervix / Vagina: normal Bimanual: without masses Rectal: deferred. ASSESSMENT: Prolapse, managing well with pessary PLAN: Pessary was removed, cleaned and replaced. She will return in 4 months (hopes to follow up with Dr. Epstein) Follow up at [facility] [place] [facility] for problems related to her pessary, or is she decides not to use her pessary. LUCIAN MELENDEZ MD documented in this encounter Plan of Treatment Not on file documented as of this encounter Visit Diagnoses Diagnosis Uterovaginal prolapse, complete- Primary documented in this encounter Care Teams Tobacco Stripper Hand Relationship Specialty Start Date End Date Amish Cope MD PCP - General 07/24/10 06/02/15 documented as of this encounter
--- OUTSIDE RECORDS SUMMARY | 2024-05-17 15:06 | XMS_ITS | Encounter Summary ---
Author Organization [facility] Address [address] [place] [address] Care Team Providers Care Padder Cushion Name Role Phone Unavailable Primary Care Provider Unavailabl e Encounter Details Date Type Department Care Team (Late st Contact Info) Description 07/13/2004 Results Only [facility] [address] [place] [address] Alaina Chapman, SAVANA [address] [place] [address] Social History Tobacco Use Types [...] Priority Date/Time Associated Diagnosis Comments CYTOPATHOLOGY Routine 07/13/2004 0:00 EST documented in this encounter Results * CYTOPATHOLOGY (07/13/2004 0:00 EST) Pathology Report: CYTOPATHOLOGY REPORT Reports generated via electronic interface contain original data; however they are lacking the format of the original report. Caution should be taken when reading/interpreti ng unformatted reports. Name: ? OKSANA BEE ? Accession #: ? [id number] : ? 1950 (Age: 53) ??F ?Collect Date: ? 07/13/2004 Location: ? [facility] ? Receive Date: ? 07/16/2004 Provider: ?ALAINA CHAPMAN HOOP DRIVING MACHINE OPERATOR HELPER Copy to: ? Specimen/Source: ?ThinPrep Pap Test, Cervix/Endocervix Last Menstrual Period: ? 1998 Previous Gynecologic Pathology: ? ASC-US: 1999 and 2002 Other: ? HPVA - HPV testing requested if ASC-US on the current ThinPrep Pap test. ? SPECIMEN ADEQUACY ? Satisfactory for Evaluation - transformation zone component present GENERAL CATEGORIZATION ? Negative for Intraepithelial Lesion or Malignancy ? Document reviewed and electronically signed by: ? SABINO Brennan(ASCP) ? Report Date: ??07/23/2004 13:45 End of Report [facility] 07/13/2004 07/16/2004 Alaina Chapman NP PATHOLOGY ORDERABLES [facility] [address] [place] [address] documented in this encounter Visit Diagnoses Not on filedocumented in this encounter
== END 2024-05-17 15:15 ==
LOC: DI 14:56
PROVIDERS: Visit Provider Nurse Practitioner Family
DX: M54.50 Low back pain, unspecified (principal)
CPT/HCPCS: 72110

== ENCOUNTER 2024-06-02 01:06 | Outpatient (CLI) | payer MEDICARE, SELFPAY ==
--- NOTE | 2024-06-02 14:44 | DI.RAD_ITS ---
Exam(s) XR SHOULDER RT COMPLETE 2+V EXAM: XR SHOULDER RT COMPLETE 2+V CLINICAL HISTORY: Rt shoulder pain, M25.511. TECHNIQUE: 2D digital imaging was performed of the right shoulder. Five images were obtained. AP, Grashey, Y-view and axillary views were obtained. COMPARISON: No exams were available for comparison FINDINGS: BONES: No acute fracture is present. No bony destructive lesion is seen. JOINTS: No dislocation present. There are mild degenerative changes seen at the acromioclavicular and glenohumeral joints. SOFT TISSUE: Normal. IMPRESSION: Mild degenerative changes seen in the right shoulder. DATA REPOSITORY: RADIATION DOSE DELIVERED:
== END 2024-06-02 01:26 ==
LOC: DI 01:06
PROVIDERS: Visit Provider Nurse Practitioner Family
DX: M25.511 Pain in right shoulder (principal)
CPT/HCPCS: 73030

== ENCOUNTER → 2024-06-29 10:04 | Outpatient (BNVA) | payer MEDICARE, SELFPAY | PROVIDERS: PCP Nurse Practitioner Family; Referring Provider Nurse Practitioner Family; Visit Provider Student in an Organized Health Care Education/Training Program | DX: M17.11 Unilateral primary osteoarthritis, right knee (principal) | CPT/HCPCS: 99214 ==

== ENCOUNTER → 2024-07-14 11:03 | Outpatient (BNVA) | payer MEDICARE, SELFPAY | PROVIDERS: PCP Nurse Practitioner Family; Referring Provider Nurse Practitioner Family; Visit Provider Physician Assistant Surgical | DX: J44.9 Chronic obstructive pulmonary disease, unspecified (principal); F17.210 Nicotine dependence, cigarettes, uncomplicated | CPT/HCPCS: 99214 ==

== ENCOUNTER 2024-09-09 09:42 | Outpatient (REF) | payer MEDICARE, SELFPAY ==
--- OUTSIDE RECORDS SUMMARY | 2024-09-09 09:48 | XMS_ITS | Encounter Summary ---
[place] [address] Care Team Providers Care Captain Airline Pilot Name Role Phone Marynhungnathaniel Jenelle GREG Primary Care Provider [phone] Reason for Visit * Reason Comments Follow-up Encounter Details Date Type Department Care Team (Late st Contact Info) Description 03/21/2023 1:20 PM EDT Office Visit Obstetrics [place] [address] Ann-Marie Cottrell APRN [facility] [place] [address] Uterovaginal prolapse, complete; Pessary maintenance Social History [...] 10-15 minutes prior to pessary removal. A curtain cutter is present for the examination. General: Appears [...] device documented in this encounter Care Teams Captain Airline Pilot Relationship Specialty Start Date End Date Jenelle Arellano APRN [address] [place] [address] PCP - General Family Medicine 05/27/18 11/03/23 documented as of this encounter
--- OUTSIDE RECORDS SUMMARY | 2024-09-09 09:48 | XMS_ITS | Encounter Summary ---
[place] [address] Care Team Providers Care Risk And Insurance Manager Name Role Phone None Primary Care Provider [...] on filedocumented in this encounter Care Teams Risk And Insurance Manager Relationship Specialty Start Date End Date None None PCP - General 11/04/23 documented as of this encounter
--- OUTSIDE RECORDS SUMMARY | 2024-09-09 09:48 | XMS_ITS | Encounter Summary ---
Author Organization [facility] [place] [address] Care Team Providers Care Leasing Coordinator Name Role Phone Adan Jenelle GREG Primary Care Provider [phone] Reason for Visit * Reason Comments Uterine Prolapse Pessary Fitting * Consultation (Routine) - Closed Specialty Diagnoses / Procedures Referred By Contac t Referred To Contact Obstetrics and Gynecology Diagnoses Complete uterovaginal prolapse Encounter for fitting and adjustment of other specified devices Ingrid Borjas MD [address] [place] [address] [facility] Personal Secretary [address] [place] [address] Referral ID Status Reason Start Date Expiration Date Visits Re quested Visits Authorized [id number] Closed 06/20/2022 06/20/2023 1 1 Encounter Details Date Type Department Care Team (Late st Contact Info) Description 08/13/2022 3:00 PM EST Office Visit Obstetrics [place] [address] Ann-Marie Cottrell GLEASON OPERATOR [facility] [place] [address] Uterovaginal prolapse, complete; Encounter for [...] this encounter Progress Notes * Ann-Marie Cottrell, GLEASON OPERATOR - 08/13/2022 3:00 PM EST Female Pelvic [...] uterovaginal prolapse. She sees Dr. Borjas in [place] for pessary management. She sees them about [...] lb) SpO2 95% BMI 24.98 kg/m?? A drier and pulverizer tender is present for the examination. General: Appears [...] device documented in this encounter Care Teams Leasing Coordinator Relationship Specialty Start Date End Date Jenelle Arellano APRN [address] [place] [address] PCP - General Family Medicine 05/27/18 11/03/23 documented as of this encounter
--- OUTSIDE RECORDS SUMMARY | 2024-09-09 09:48 | XMS_ITS | Encounter Summary ---
[place] [address] Care Team Providers Care Medical Social Worker Name Role Phone None Primary Care Provider [...] on filedocumented in this encounter Care Teams Medical Social Worker Relationship Specialty Start Date End Date None None PCP - General 11/04/23 documented as of this encounter
--- OUTSIDE RECORDS SUMMARY | 2024-09-09 09:48 | XMS_ITS | Encounter Summary ---
[place] [address] Care Team Providers Care Accounts Receivable Coordinator Name Role Phone None Primary Care Provider Unavailabl e Reason for Visit * Reason Comments Follow-up Encounter Details Date Type Department Care Team (Late st Contact Info) Description 05/11/2024 2:00 PM EDT Office Visit Obstetrics [place] [phone] Caryn Boswell, OFFSET LITHOGRAPHIC PRESS SETTER [address] [facility] [place] [address] Uterovaginal prolapse, complete; Pessary maintenance Social History [...] lb) SpO2 95% BMI 22.67 kg/m?? A professor of sociology is declined for the examination. General: In [...] device documented in this encounter Care Teams Accounts Receivable Coordinator Relationship Specialty Start Date End Date None None PCP - General 11/04/23 documented as of this encounter
--- OUTSIDE RECORDS SUMMARY | 2024-09-09 09:48 | XMS_ITS | Encounter Summary ---
[place] [address] Care Team Providers Care College Scouting Coordinator Name Role Phone Jenelle Arellano APRN Primary Care Provider [phone] Encounter Details Date Type Department Care Team [...] on filedocumented in this encounter Care Teams College Scouting Coordinator Relationship Specialty Start Date End Date Jenelle Arellano APRN [address] [place] [address] PCP - General Family Medicine 05/27/18 11/03/23 documented as of this encounter
--- OUTSIDE RECORDS SUMMARY | 2024-09-09 09:48 | XMS_ITS | Encounter Summary ---
Author Organization [facility] [place] [address] Care Team Providers Care Skin Diving Teacher Name Role Phone AdanJenelle GREG Primary Care Provider Reason for Visit * Reason Comments Follow-up * Consultation (Routine) - Closed Specialty Diagnoses / Procedures Referred By Contglen lott Referred To Contact Dermatology Diagnoses Disorder of the skin and subcutaneous tissue, unspecified Skin Lesion Procedures Consult Kelsi Hernandez APRN [address] [place] [address] Isaac Cedeño MD [address] [place] [address], [place] [address] Referral ID Status Reason Start Date Expiration Date Visits Re quested Visits Authorized [id number] Closed 04/16/2022 04/16/2023 1 1 Encounter Details Date Type Department Care Team (Late st Contact Info) Description 06/20/2022 8:15 AM EDT Office Visit Dermatology at [address] [address] Isaac Cedeño MD [address] [place] [address], CAT DERMATOLOGY [place], [place] [id number] History of basal cell carcinoma; Scar Social [...] BCCA right cheek treated with Mohs surgery [facility] [place] presents today for a nonhealing lesion [...] Return to clinic as needed CC: Jenelle Arellano APRN documented in this encounter Plan of Treatment Not on file documented as of this encounter Visit Diagnoses Diagnosis History of basal cell carcinoma Personal history of other malignant neoplasm of skin Scar Scar condition and fibrosis of skin documented in this encounter Care Teams Skin Diving Teacher Relationship Specialty Start Date End Date Jenelle Arellano APRN [address] [place] [address] PCP - General Family Medicine 05/27/18 11/03/23 documented as of this encounter
--- OUTSIDE RECORDS SUMMARY | 2024-09-09 09:48 | XMS_ITS | Clinical Summary ---
Author Organization [facility] Address [address] [facility] [place] [address] Care Team Providers Care Composite Bond Worker Name Role Phone None Primary Care [...] extre mity 06/10/2018 Uterovaginal prolapse, complete 02/15/2014 Immunizations Name Administration Dates Next Due Influenza [...] year) with FIT yearly 1950 Sigmoidoscopy 1950 Hepatitis C Screening 1966 Lipid Screening 1966 Pneumoccocal Vaccine: 65+ (1 of 2 - PCV) 12/18/1967 Tetanus/Diphtheria/Pertussis Vaccines (1 - Tdap) 12/18/1967 Zoster vaccine (1 of 2) 1998 Advance Directive 12/18/2003 Bone Density Scan 2013 RSV Vaccine (1 - 1-dose 75+ series) 12/18/2023 Covid-19 Vaccine (1 - season) 2024 Influenza (Flu) vaccine (1 o f 1 - Influenza standard series) 05/02/2024 06/15/2019, 07/08/2016 Care Teams Composite Bond Worker Relationship Specialty Start Date End Date None None PCP - General 11/04/23
--- OUTSIDE RECORDS SUMMARY | 2024-09-09 09:48 | XMS_ITS | Encounter Summary ---
[place] [address] Care Team Providers Care Lime Kiln Worker Name Role Phone Jenelle Arellano APRN Primary Care Provider Encounter Details Date Type Department Care Team (Late st Contact Info) Description 02/20/2021 [place] [phone] Jossie Chavarria Social History Tobacco Use Types [...] on filedocumented in this encounter Care Teams Lime Kiln Worker Relationship Specialty Start Date End Date Jenelle Arellano APRN [facility] [place] [address] PCP - General Family Medicine 05/27/18 11/03/23 documented as of this encounter
--- OUTSIDE RECORDS SUMMARY | 2024-09-09 09:48 | XMS_ITS | Encounter Summary ---
[place] [address] Care Team Providers Care Interventional Physiatrist Name Role Phone Jenelle Arellano APRN Primary [...] on filedocumented in this encounter Care Teams Interventional Physiatrist Relationship Specialty Start Date End Date Jenelle Arellano APRN [address] [place] [address] PCP - General Family Medicine 05/27/18 11/03/23 documented as of this encounter
--- OUTSIDE RECORDS SUMMARY | 2024-09-09 09:48 | XMS_ITS | Encounter Summary ---
[place] [address] Care Team Providers Care Conveyor System Operator Name Role Phone Jenelle Arellano APRN [...] on filedocumented in this encounter Care Teams Conveyor System Operator Relationship Specialty Start Date End Date Jenelle Arellano APRN [address] [place] [address] PCP - General Family Medicine 05/27/18 11/03/23 documented as of this encounter
--- OUTSIDE RECORDS SUMMARY | 2024-09-09 09:48 | XMS_ITS | Encounter Summary ---
Author Organization [facility] [place] [address] Care Team Providers Care Tissue Packer Name Role Phone Adan Jenelle GARZA Primary Care Provider Reason for Visit * Reason Comments Pessary Check Encounter Details Date Type Department Care Team (Late st Contact Info) Description 11/05/2022 3:00 PM EST Office Visit Obstetrics [place] [address] Ann-Marie Cottrell APRN [facility] [place] [address] Uterovaginal prolapse, complete; Pessary maintenance Social History [...] 10-15 minutes prior to pessary removal. A clin application specialist is present for the examination. General: Appears [...] device documented in this encounter Care Teams Tissue Packer Relationship Specialty Start Date End Date Jenelle Arellano APRN [address] [place] [address] PCP - General Family Medicine 05/27/18 11/03/23 documented as of this encounter
--- OUTSIDE RECORDS SUMMARY | 2024-09-09 09:48 | XMS_ITS | Encounter Summary ---
[place] [address] Care Team Providers Care Promotion Writer Name Role Phone Jenelle Arellano APRN Primary [...] on filedocumented in this encounter Care Teams Promotion Writer Relationship Specialty Start Date End Date Jenelle Arellano APRN [address] [place] [address] PCP - General Family Medicine 05/27/18 11/03/23 documented as of this encounter
--- OUTSIDE RECORDS SUMMARY | 2024-09-09 09:48 | XMS_ITS ---
Author Organization Unknown ALLERGIES AND ADVERSE REACTIONS No information ASSESSMENT No information CHIEF COMPLAINT No information MEDICATIONS No information OBJECTIVE DATA No information PHYSICAL EXAMINATION No information TREATMENT PLAN Planned Care Start Date Provider Encounter for Check-up [id number] PROBLEMS No information RESULTS No information REVIEW OF SYSTEMS No information SUBJECTIVE DATA No information VITAL SIGNS No information
--- OUTSIDE RECORDS SUMMARY | 2024-09-09 09:48 | XMS_ITS | Encounter Summary ---
[place] [address] Care Team Providers Care Strategic Planning Director Name Role Phone Jenelle Arellano APRN Primary Care Provider [phone] Reason for Visit * Reason Comments Follow-up Encounter Details Date Type Department Care Team (Late st Contact Info) Description 09/03/2022 3:15 PM EST Office Visit Dermatology at [address] [address] Isaac Cedeño MD [address] [facility], [place] [address] History of basal cell carcinoma Social History [...] BCCA right cheek treated with Mohs surgery [facility] [place] [place] per Dr. Bingham March 2000 Oksana follows [...] skin documented in this encounter Care Teams Strategic Planning Director Relationship Specialty Start Date End Date Jenelle Arellano APRN [address] [place] [address] PCP - General Family Medicine 05/27/18 11/03/23 documented as of this encounter
--- OUTSIDE RECORDS SUMMARY | 2024-09-09 09:48 | XMS_ITS | Encounter Summary ---
Author Organization [facility] [place] [address] Care Team Providers Care Strap Maker Name Role Phone None Primary Care Provider Unavailabl e Reason for Visit * Reason Comments Pessary Check Encounter Details Date Type Department Care Team (Late st Contact Info) Description 11/04/2023 2:40 PM EST Office Visit Obstetrics [place] [address] Ann-Marie Cottrell, SAW SETTER [facility] [place] [address] Uterovaginal prolapse, complete; Pessary maintenance Social History [...] 10-15 minutes prior to pessary removal. A pug mill operator is present for the examination. General: [...] device documented in this encounter Care Teams Strap Maker Relationship Specialty Start Date End Date None None PCP - General 11/04/23 documented as of this encounter
--- OUTSIDE RECORDS SUMMARY | 2024-09-09 09:48 | XMS_ITS | Encounter Summary ---
Author Organization [facility]ly [facility] [place] [address] Care Team Providers Care Bottle Blower Name Role Phone Jenelle Arellano DENTAL LABORATORY TECHNICIAN Primary Care Provider [phone] Encounter Details Date Type Department Care Team (Late st Contact Info) Description 07/05/2022 Telephone Dermatology at [address] [address] Nati Acosta RN Social History [...] on filedocumented in this encounter Care Teams Bottle Blower Relationship Specialty Start Date End Date Jenelle Arellano, GREG [address] [facility] [place] [address] PCP - General Family Medicine 05/27/18 11/03/23 documented as of this encounter
--- OUTSIDE RECORDS SUMMARY | 2024-09-09 09:49 | XMS_ITS | Encounter Summary ---
Author Organization [facility] Address [address] [place] [address] Care Team Providers Care Medical Billing Assistant Name Role Phone Unavailable Primary Care Provider Unavailabl e Encounter Details Date Type Department Care Team (Late st Contact Info) Description 12/01/2002 Results Only [facility] conversion [address] [place] [address] Caleb Tavera MD [address] [place] [address] Social History Tobacco Use Types Packs/Day Years Used Date Smoking Tobacco: Never Assessed Comments Unknown Sex and Gender Information Value Date Recorded Sex Assigned at Not on file Legal Sex Female 18:24 EST Gender Identity Not on file Sexual Orientation [...] ? OKSANA BEE ? Accession #: ? [id number] ? : ? 1950 (Age: 51) ??F ? Collect Date: ? 12/01/2002 ? Location: ? [facility] ? Receive Date: ? 12/01/2002 ? Provider: BREANNA TAVERA MD Copy to: LORENZO CHAPMAN FORGING DIE SINKER ? Final Pathologic Diagnosis: A. ?Stomach, linear [...] biopsy. ??Entirely submitted as (B). [facility] Rocco and GE junction are two toussaint soft tissue biopsies measuring 0.1 x 0.1 x 0.1 cm and 0.2 x 0.1 x 0.1 cm. Entirely submitted as (C). ??(Iris Franco)/tmg End of Report [facility] 12/01/2002 12/01/2002 15: 03 EST us Caleb Tavera MD PATHOLOGY ORDERABLES Final Res ult [facility] [address] [place] [address] documented in this encounter Visit Diagnoses Not on filedocumented in this encounter
--- OUTSIDE RECORDS SUMMARY | 2024-09-09 09:49 | XMS_ITS | Referral Summary ---
Author Organization [facility] Address [address] [place] [address] Care Team Providers Care Material Crew Supervisor Name Role Phone Amish Cope MD Primary Care Provider [phone] Social History Tobacco Use Types Packs/Day Years Used Date Smoking Tobacco: Never Assessed Comments Unknown Sex and Gender Information Value Date Recorded Sex Assigned at Not on file Legal Sex Female 18:24 EST Gender Identity Not on file Sexual Orientation Not on file Plan of Treatment Not on file Care Teams Material Crew Supervisor Relationship Specialty Start Date End Date Amish Cope MD PCP - General 07/14/15
--- OUTSIDE RECORDS SUMMARY | 2024-09-09 09:49 | XMS_ITS | Encounter Summary ---
Author Organization [facility] Address [address] [place] [address] Care Team Providers Care Engineer Design And Construction Name Role Phone Unavailable Primary Care Provider Unavailabl e Encounter Details Date Type Department Care Team (Late st Contact Info) Description 06/23/2003 Results Only [facility] - Map conversion [address] [place] [address] Alaina Saravia, SAVANA [address] [place] [address] Social History Tobacco Use Types [...] 68. [facility] Report Status Final [id number] [facility] 06/23/2003 13:4 2 EDT 07/05/2003 13:42 EST us Alaina Saravia NP MICROBIOLOGY - GENERAL ORDER SOURAV Final Result [facility] [address] [place] [address] * CYTOPATHOLOGY (06/23/2003 0:00 EDT) Pathology Report: CYTOPATHOLOGY REPORT Reports generated via electronic interface contain original data; however they are lacking the format of the original report. Caution should be taken when reading/interpreti ng unformatted reports. Name: ? OKSANA BEE Roxy ? Accession #: ? [id number] : ? 1950 (Age: 52) ??F ?Collect [...] cells, undetermined significance. EDUCATIONAL NOTES/RECOMMENDATI ONS ? [facility] recommends following the 2001 Consensus Guidelines for the Management of Women with Cervical Cytological Abnormalities (DAVID,2002;287:212 0-9). Management algorithms have been distributed by [facility] and are available online at www.ASCCP.org. ? Document reviewed and electronically signed by: ? MAGUI SILVERMAN MD ? Report Date: ??07/04/2003 14:36 End of Report [facility] 06/23/2003 06/27/2003 Alaina Saravia NP PATHOLOGY ORDERABLES Final R esult [facility] [address] [place] [address] documented in this encounter Visit Diagnoses Not on filedocumented in this encounter
--- OUTSIDE RECORDS SUMMARY | 2024-09-09 09:49 | XMS_ITS | Encounter Summary ---
[place] [address] Care Team Providers Care Heel Wheeler Name Role Phone Jenelle Arellano APRN Primary Care Provider Encounter Details Date Type Department Care Team (Late st Contact Info) Description 04/19/2020 11:00 AM EDT Clinical Support Obstetrics [place] [address] Nurse, Obgyn II, RN Social History Tobacco [...] on filedocumented in this encounter Care Teams Heel Wheeler Relationship Specialty Start Date End Date Jenelle Arellano APRN [address] [place] [address] PCP - General Family Medicine 05/27/18 11/03/23 documented as of this encounter
--- OUTSIDE RECORDS SUMMARY | 2024-09-09 09:49 | XMS_ITS | Encounter Summary ---
[place] [address] Care Team Providers Care Melter Caster Name Role Phone Felipa Carlos APRN Primary Care Provider [phone] Encounter Details Date Type Department Care Team (Late st Contact Info) Description 10/16/[address] [place] [address] Merry Palacio Social History Tobacco Use Types [...] on filedocumented in this encounter Care Teams Melter Caster Relationship Specialty Start Date End Date Felipa Carlos APRN PCP - General Family Medicine 06/03/15 10/27/16 documented as of this encounter
--- OUTSIDE RECORDS SUMMARY | 2024-09-09 09:49 | XMS_ITS | Encounter Summary ---
Author Organization [facility] Address [facility] [place] [address] Care Team Providers Care Log Sorter Name Role Phone Jenelle Arellano APRN Primary Care Provider [phone] Reason for Visit * Reason Comments Pessary Check Encounter Details Date Type Department Care Team (Late st Contact Info) Description 04/19/2020 11:15 AM EDT Office Visit Obstetrics [place] [address] Ingrid Trotter MD [facility] [address] Uterovaginal prolapse; Encounter for fitting and adjustment [...] with 8 minutes of the time spent [id number] in discussing her diagnosis and reviewing options for treatment. Ingrid Trotter MD CC: Ingrid Borjas documented in this encounter Plan of Treatment Not on file documented as of this encounter Visit Diagnoses Diagnosis Uterovaginal prolapse Uterovaginal prolapse, unspecified Encounter for fitting and adjustment of pessary Fitting and adjustment of other device documented in this encounter Care Teams Log Sorter Relationship Specialty Start Date End Date Jenelle Arellano, SHUTTLE BUGGY OPERATOR [address] [place] [address] PCP - General Family Medicine 05/27/18 11/03/23 documented as of this encounter
--- OUTSIDE RECORDS SUMMARY | 2024-09-09 09:49 | XMS_ITS | Encounter Summary ---
Author Organization [facility] Address [address] [place] [address] Care Team Providers Care Fraud Analyst Name Role Phone Unavailable Primary Care Provider Unavailabl e Encounter Details Date Type Department Care Team (Late st Contact Info) Description 05/19/2007 Results Only [facility] conversion [address] [place] [address] Alaina Chapman, SAVANA [address] [place] [address] Social History Tobacco Use Types [...] ? OKSANA BEE ? Accession #: ? [id number] : ? 1950 (Age: 56) ??F ?Collect Date: ? 05/19/2007 Location: ? [facility] ? Receive Date: ? 05/20/2007 Provider: ?ALAINA CHAPMAN SPRINKLER IRRIGATION EQUIPMENT MECHANIC Copy to: ? Specimen/Source: ?ThinPrep Pap Test, Cervix/Endocervix, processed on [facility] ThinPrep Imaging System, with manual evaluation Last [...] End of Report [facility] 05/19/2007 05/20/2007 us Alaina Chapman NP PATHOLOGY ORDERABLES Final R esult [facility] [address] [place] [address] documented in this encounter Visit Diagnoses Not on filedocumented in this encounter
--- OUTSIDE RECORDS SUMMARY | 2024-09-09 09:49 | XMS_ITS | Encounter Summary ---
[place] [address] Care Team Providers Care Global Climate Change Analyst Name Role Phone None Primary Care Provider Unavailabl e Encounter Details Date Type Department Care Team (Late st Contact Info) Description 01/02/2005 [place] [phone] John Bingham MD Social History Tobacco Use Types Packs/Day Years [...] (01/02/2005 4:31 PM EDT) Surgical Pathology Report [id number] ? Location: The signing pathologist has (i) [...] PM EDT John Bingham MD PATHOLOGY/CYTOLOGY [facility] [place] documented in this encounter Visit Diagnoses Not on filedocumented in this encounter Care Teams Global Climate Change Analyst Relationship Specialty Start Date End Date None None PCP - General 11/04/23 documented as of this encounter
--- OUTSIDE RECORDS SUMMARY | 2024-09-09 09:49 | XMS_ITS | Encounter Summary ---
Author Organization [facility] [place] [address] Care Team Providers Care Shift Mechanic Name Role Phone Amihs Cope MD Primary Care Provider Unavaila ble Reason for Visit * Reason Comments Pessary Check Encounter Details Date Type Department Care Team (Late st Contact Info) Description 02/15/2014 10:00 AM EDT Follow-Up Obstetrics [place] [phone] Lucian Melendez MD [facility] DR OBSTETRICS [place] [address] Uterovaginal prolapse, complete (Primary Dx) Discharge Disposition: [...] TYPE: Pessary follow-up visit 02/15/2014 Oksana Valiente [id number] Problem list: ?? Stage IV uterovaginal prolapse [...] up with Dr. Epstein) Follow up at [facility] for problems related to her pessary, or is she decides not to use her pessary. LUCIAN MELENDEZ MD documented in this encounter Plan of Treatment Not on file documented as of this encounter Visit Diagnoses Diagnosis Uterovaginal prolapse, complete- Primary documented in this encounter Care Teams Shift Mechanic Relationship Specialty Start Date End Date Amish Cope MD PCP - General 07/24/10 06/02/15 documented as of this encounter
--- OUTSIDE RECORDS SUMMARY | 2024-09-09 09:49 | XMS_ITS | Encounter Summary ---
[place] [address] Care Team Providers Care Women'S Studies Professor Name Role Phone Felipa Carlos APRN Primary Care Provider [phone] Encounter Details Date Type Department Care Team (Late st Contact Info) Description 07/13/[address] [place] [phone] Merry Palacio Social History Tobacco Use Types [...] Responsible Provider: Felipa Carlos Location of Provider: [facility] Has the patient received educational materials? No, Send Materials Send staff message for CT Lung Furniture Repair Technician to call patient. CT Lung Cancer Screening [...] will speak again after she goes through [facility], I have emaiedl her the materials. Schedule Appointment through Imaging scheduling. Route note to Referring clinician & PCP (if different) documented in this encounter Plan of Treatment Not on file documented as of this encounter Visit Diagnoses Not on filedocumented in this encounter Care Teams Women'S Studies Professor Relationship Specialty Start Date End Date Felipa Carlos APRN PCP - General Family Medicine 06/03/15 10/27/16 documented as of this encounter
--- OUTSIDE RECORDS SUMMARY | 2024-09-09 09:49 | XMS_ITS | Encounter Summary ---
Author Organization [facility] Address [facility] [place] [address] Care Team Providers Care Applications Programmer Analyst Name Role Phone Jenelle Arellano MARKET BASKET MAKER Primary Care Provider [phone] Reason for Visit * Reason Comments Vaginal Prolapse Encounter Details Date Type Department Care Team (Late st Contact Info) Description 02/23/2020 8:30 AM EDT Office Visit Obstetrics [place] [address] Ingrid Trotter MD [facility] [place] [address] Prolapse of vaginal wall; Microscopic hematuria; Incomplete [...] test (empty supine): neg External Genitalia: Vulva, [place]'s and [place] glands normal, urethra without tenderness [...] ??? Then q2-3mo pessary maintenance with primary BELT PUNCHER or with our office, per patient preference. ??? Consider trial of Emla cream prior to pessary maintenance. I spent 40 minutes total with the patient, with 25 minutes of the time spent [id number] in discussing her diagnosis and reviewing options [...] 10,000-49,000 cfu/ml Escherichia coli : two morphologies(A) [facility] Organism Escherichia coli(A) [facility] Organism Escherichia coli(A) [facility] Urine specimen obtained via straight catheter [...] METHOD Sensitive Ingrid Trotter MD MICROBIOLOGY - [facility] AL ORDERABLES [facility] [place] [address] * (ABNORMAL) Urinalysis Microscopic Exam (02/23/2020 9:00 AM EDT) RBC, Urine 0 0 - 4 /HPF [facility] WBC, Urine 1 0 - 5 /HPF [facility] Bacteria, Urine Many(A) None /HPF [facility] Squamous Epithelial Cells Raw Data, Urine 1 <=4 /HPF [facility] Hyaline Casts, Urine 2 0 - 2 /LPF [facility] Urine specimen obtained via straight catheter (specimen) 02/23/2020 9:00 AM EDT 02/23/2020 10:47 AM EDT Narrative Resulting Agency Comment Spec In Lab Ingrid Trotter MD URINE ORDERABLES Performing Organization Address [facility]/ZIP Co de Phone Number [facility] [place] [address] * (ABNORMAL) Urinalysis with reflex Culture (02/23/2020 9:00 AM EDT) Glucose, Urine Dipstick Negative Negative mg/dL [facility] Protein, Urine Dipstick Trace(A) Negative mg/dL [facility] Bilirubin, Urine Dipstick Negative Negative mg/dL [facility] Comment: Clinical correlation required for positive Urine Bilirubin results as false positive may occur with some drugs and drug related products. If a false positive is suspected a serum total bilirubin should be considered if clinically indicated. Urobilinogen, Urine Dipstick Normal Normal mg/dL [facility] pH, Urn (dipstick) 6.0 5.0 - 8.0 [facility] Blood, Urine Dipstick Small(A) Negative mg/dL [facility] Ketone, Urine Dipstick Negative Negative mg/dL [facility] Nitrite, Urine Dipstick Positive(A) Negative [facility] Leukocytes, Urine Dipstick Negative Negative [facility] Appearance, Urine Dipstick Clear Clear [facility] Specific [place] Urine Automated 1.012 1.006 - 1.030 [facility] Color, Urine Dipstick Yellow Yellow [facility] Reflex to Culture Yes [facility] Urine specimen obtained via straight catheter (specimen) 02/23/2020 9:00 AM EDT 02/23/2020 10:47 AM EDT Narrative Resulting Agency Comment Spec In Lab Ingrid Trotter MD URINE ORDERABLES Performing Organization Address City/[facility]/ZIP Co de Phone Number [facility] [place] [address] * Bladder Scanner (02/23/2020) Bladder Scan (mL) 68 mL Ingrid Trotter MD URO PROC W/O RFL ORD ERABLES * POCT urine dipstick (02/23/2020) POC Sp [place] 1.010 1.002 - 1.030 POC pH, UA [...] emptying documented in this encounter Care Teams Applications Programmer Analyst Relationship Specialty Start Date End Date Jenelle Arellano, MARKET BASKET MAKER [address] [place] [address] PCP - General Family Medicine 05/27/18 11/03/23 documented as of this encounter
--- OUTSIDE RECORDS SUMMARY | 2024-09-09 09:49 | XMS_ITS | Encounter Summary ---
[place] [address] Care Team Providers Care Merchandise Planning Manager Name Role Phone Jenelle Arellano APRN Primary Care Provider [phone] Reason for Visit * Reason Comments Leg Pain I have veins * Consultation (Routine) - Closed Specialty Diagnoses / Procedures Referred By Contglen t Referred To Contact Vascular Surgery Diagnoses VARICOSE VEINS LOWER EXTREMITIES Jenelle Arellano APRN [address] [place] [address] [facility] Vascular Surg [address] [place] [address] Referral ID Status Reason Start Date Expiration Date V isits Requested Visits Authorized [id number] Closed Consult, Test & Treat Connection Center 05/27/2018 05/27/2019 1 1 Encounter Details Date Type Department Care Team (Late st Contact Info) Description 06/10/2018 1:30 PM EDT Office Visit [place] [address] Caryn Izaguirre PA [address] [facility] [place] [address] Varicose veins of left lower extremity with [...] Medications: Medications 06/10/18 1345 Medication Sig Taking? Xsvlkpobdegcy-Elxjfuma-Dtrjlt Tab Take by mouth. OMEPRAZOLE (PRILOSEC ORAL) [...] veins documented in this encounter Care Teams Merchandise Planning Manager Relationship Specialty Start Date End Date Jenelle Arellano APRN [address] [place] [address] PCP - General Family Medicine 05/27/18 11/03/23 documented as of this encounter
--- OUTSIDE RECORDS SUMMARY | 2024-09-09 09:49 | XMS_ITS | Encounter Summary ---
Author Organization [facility] Address [address] [place] [address] Care Team Providers Care Locomotive Pipe Fitter Name Role Phone Unavailable Primary Care Provider Unavailabl e Encounter Details Date Type Department Care Team (Late st Contact Info) Description 07/13/2004 Results Only [facility] - Map conversion [address] [place] [address] Alaina Chapman, SAVANA [address] [place] [address] Social History Tobacco Use Types [...] ? OKSANA BEE ? Accession #: ? [id number] : ? 1950 (Age: 53) ??F ?Collect Date: ? 07/13/2004 Location: ? [facility] ? Receive Date: ? 07/16/2004 Provider: ?ALAINA CHAPMAN SKI GUIDE Copy to: ? Specimen/Source: ?ThinPrep Pap Test, [...] End of Report [facility] 07/13/2004 07/16/2004 us Alaina Chapman NP PATHOLOGY ORDERABLES Final R esult [facility] [address] [place] [address] documented in this encounter Visit Diagnoses Not on filedocumented in this encounter
--- OUTSIDE RECORDS SUMMARY | 2024-09-09 09:49 | XMS_ITS | Encounter Summary ---
[place] [address] Care Team Providers Care Salon Manager Name Role Phone MaryJenelle andre GREG Primary Care Provider Reason for Visit * Reason Comments Follow-up Encounter Details Date Type Department Care Team (Late st Contact Info) Description 03/09/2020 10:45 AM EDT Office Visit Obstetrics [place] [phone] Lisa Lynn APRN Uterovaginal prolapse; Encounter for fitting and adjustment [...] veins of right lower extremity I83.91 SUBJECTIVE: Oksana Valiente comes in today for a 2-3 [...] device documented in this encounter Care Teams Salon Manager Relationship Specialty Start Date End Date Jenelle Arellano APRN [address] [place] [address] PCP - General Family Medicine 05/27/18 11/03/23 documented as of this encounter
--- OUTSIDE RECORDS SUMMARY | 2024-09-09 09:49 | XMS_ITS | Encounter Summary ---
Author Organization [facility] Address [address] [place] [address] Care Team Providers Care Mortar Mixer Name Role Phone Unavailable Primary Care Provider Unavailabl e Encounter Details Date Type Department Care Team (Late st Contact Info) Description 04/22/2000 Results Only [facility] [place] conversion [address] [place] [address] Fanny Koch MD [address] [place] [phone] Social History Tobacco Use Types Packs/Day [...] ? OKSANA BEE ? Accession #: ? [id number] : ? 1950 (Age: 49) ??F ?Collect Date: ? 04/22/2000 Location: ? [facility] ? Receive Date: ? 04/24/2000 Provider: ?FANNY KOCH SOCK KNITTING MACHINE OPERATOR Copy to: ? Specimen/Source: ?Conventional Pap Test, Cervix/Endocervix Last Menstrual Period: ? 1994 Hormonal/Contracep tive Status: ? Yes Previous Gynecologic Pathology: ? Yes ? SPECIMEN ADEQUACY ? Satisfactory for evaluation but limited by obscuring inflammation. GENERAL CATEGORIZATION ? Within Normal Limits ? Document reviewed and electronically signed by: ? TEVIN Yañez(ASCP) ? Report Date: ??04/25/2000 14:47 End of Report [facility] 04/22/2000 04/24/2000 us Fanny Koch MD PATHOLOGY ORDERABLES Final Re sult [facility] [address] [place] [address] documented in this encounter Visit Diagnoses Not on filedocumented in this encounter
--- OUTSIDE RECORDS SUMMARY | 2024-09-09 09:49 | XMS_ITS | Encounter Summary ---
[place] [address] Care Team Providers Care Senior Integration Developer Name Role Phone ArielaJenelle gilmore CURBER Primary Care Provider [phone] Reason for Visit * Reason Onset Date Comments Results 02/25/2020 Encounter Details Date Type Department Care Team (Late st Contact Info) Description 02/25/2020 Telephone Obstetrics [place] [address] Yue Daniels, RN Results Social [...] on filedocumented in this encounter Care Teams Senior Integration Developer Relationship Specialty Start Date End Date Jenelle Arellano, CURBER [address] [place] [address] PCP - General Family Medicine 05/27/18 11/03/23 documented as of this encounter
--- OUTSIDE RECORDS SUMMARY | 2024-09-09 09:49 | XMS_ITS | Encounter Summary ---
Author Organization [facility] [place] [address] Care Team Providers Care Form Presser Name Role Phone ArielaJenelle gilmore SURGICAL GARMENT ASSEMBLER Primary Care Provider [phone] Reason for Referral * Consultation (Routine) - Closed Specialty Diagnoses / Procedures Referred By Contac t Referred To Contact General Surgery Diagnoses Rectal prolapse Ingrid Trotter MD [facility] [place] [address] [facility] [address] [place] [phone] Referral ID Status Reason Start Date Expiration Date V isits Requested Visits Authorized [id number] Closed Consult, Test & Treat 02/11/2020 02/10/2021 1 1 Reason for Visit * Consultation (Routine) - Closed Specialty Diagnoses / Procedures Referred By Contac t Referred To Contact Obstetrics and Gynecology Diagnoses Complete uterovaginal prolapse UTEROVAGINAL PROLAPSE Ingrid Borjas MD [address] [place] [address] [facility] Garbage Truck Helper [address] [place] [phone] Referral ID Status Reason Start Date Expiration Date V isits Requested Visits Authorized [id number] Closed Consult, Test & Treat [facility] PCP Updated and/or Approved 02/04/2020 02/03/2021 1 1 Encounter Details Date Type Department Care Team (Latest Contact Info) Description 02/11/2020 3:00 PM EDT TH Visit (TeleHealth) Obstetrics [place] [address] Ingrid Trotter MD [facility] [place] [address] Uterovaginal prolapse (Primary Dx); Rectal prolapse; Urinary [...] this encounter Progress Notes * Mary Burton, [facility] - 02/11/2020 3:00 PM EDT ____ Patient [...] not received required previsit questionnaires, send via [facility] _X__Reviewed medications, allergies, pharmacy, pain/depression, education _X__Documented height/weight/LMP Other information or concerns: Patient states she currently is using a pessary, although it's been falling out recently. She's notnoticed some rectal prolapse and some blood with bowel movements * Ingrid Trotter MD - 02/11/2020 3:00 PM EDT Female Pelvic Medicine and Reconstructive Surgery @ [facility] New Patient Telephone Encounter 1. Reason/purpose for [...] 42 minutes. The patient was located in [place] during this visit. 4. Summary of conversation, [...] Inhaler Inhale into the lungs daily. ??? Ehoufirilakyc-Wonihjny-Agbqlr Tab Take by mouth. ??? OMEPRAZOLE (PRILOSEC [...] file Gets together: Not on file Attends adventist service: Not on file Active member of [...] her uterovaginal prolapse: 1. Vaginal hysterectomy with [place] ligament (uterosacral or sacrospinous) repair, with 70-80% [...] at earliest. In charge of housekeeping for [facility], if able to reopen. We discussed that [...] device documented in this encounter Care Teams Form Presser Relationship Specialty Start Date End Date Jenelle Arellano APRN [address] [place] [address] PCP - General Family Medicine 05/27/18 11/03/23 documented as of this encounter
--- OUTSIDE RECORDS SUMMARY | 2024-09-09 09:49 | XMS_ITS | Encounter Summary ---
Author Organization [facility] Address [address] [place] [address] Care Team Providers Care Retail Cashier Associate Name Role Phone Unavailable Primary Care Provider Unavailabl e Encounter Details Date Type Department Care Team (Late st Contact Info) Description 05/17/2002 Results Only [facility] [place] conversion [address] [place] [address] Alaina Chapman, SAVANA [address] [place] [address] Social History Tobacco Use Types [...] ? OKSANA BEE ? Accession #: ? [id number] : ? 1950 (Age: 51) ??F ?Collect Date: ? 05/17/2002 Location: ? [facility] ? Receive Date: ? 05/19/2002 Provider: ?ALAINA CHAPMAN DUMPING MACHINE OPERATOR Copy to: ? Specimen/Source: ?ThinPrep Pap Test, Cervix/Endocervix Last Menstrual Period: ? 1996 Previous Gynecologic Pathology: ? ASC-US: ? SPECIMEN ADEQUACY ? Satisfactory for Evaluation - transformation zone component present GENERAL CATEGORIZATION ? Negative for Intraepithelial Lesion or Malignancy ? Document reviewed and electronically signed by: ? SABINO Brennan(ASCP) ? Report Date: ??05/21/2002 08:46 End of Report [facility] 05/17/2002 05/19/2002 us Alaina Chapman NP PATHOLOGY ORDERABLES Final R esult [facility] [address] [place] [address] documented in this encounter Visit Diagnoses Not on filedocumented in this encounter
--- OUTSIDE RECORDS SUMMARY | 2024-09-09 09:49 | XMS_ITS | Encounter Summary ---
Author Organization [facility] [place] [address] Care Team Providers Care Public Service Representative Name Role Phone Felipa Carlos GREG Primary Care Provider [phone] Encounter Details Date Type Department Care Team (Late st Contact Info) Description 07/20/2015 Notes [place] [phone] Asiya Ferraro RN Social History Tobacco Use [...] Information re: tobacco cessation resources in the [facility] & D- tobacco treatment program [phone] was sent out. [facility] Tobacco Treatment Program will also make another attempt to try to contact by phone. Asiya Ferraro RN, MS, C-TTS Beeper documented in this encounter Plan of Treatment Not on file documented as of this encounter Visit Diagnoses Not on filedocumented in this encounter Care Teams Public Service Representative Relationship Specialty Start Date End Date Felipa Carlos APRN PCP - General Family Medicine 06/03/15 10/27/16 documented as of this encounter
--- OUTSIDE RECORDS SUMMARY | 2024-09-09 09:49 | XMS_ITS | Encounter Summary ---
[place] [address] Care Team Providers Care Shredding Floor Equipment Operator Name Role Phone Jenelle Arellano APRN Primary Care Provider [phone] Encounter Details Date Type Department Care Team (Late st Contact Info) Description 02/25/2020 Orders Only Obstetrics [place] [phone] Yue Daniels, RN Social History Tobacco Use [...] on filedocumented in this encounter Care Teams Shredding Floor Equipment Operator Relationship Specialty Start Date End Date Jenelle Arellano APRN [address] [place] [address] PCP - General Family Medicine 05/27/18 11/03/23 documented as of this encounter
--- OUTSIDE RECORDS SUMMARY | 2024-09-09 09:49 | XMS_ITS | Encounter Summary ---
Author Organization [facility] Address [address] [place] [address] Care Team Providers Care Technical Consultant Name Role Phone Unavailable Primary Care Provider Unavailabl e Encounter Details Date Type Department Care Team (Late st Contact Info) Description 11/15/2003 Results Only [facility] [place] conversion [address] [place] [address] Amish Tavera MD [address] [place] [address] Social History Tobacco Use Types Packs/Day Years [...] ? OKSANA BEE ? Accession #: ? [id number] ? : ? 1950 (Age: 52) ??F ? Collect Date: ? 11/15/2003 ? Location: ? [facility] ? Receive Date: ? 11/15/2003 ? Provider: BREANNA TAVERA MD Copy to: ALAINA ADELA SUPERVISOR [employer] FORMER ? Final Pathologic Diagnosis: ? Esophagogastric junction, [...] is entirely submitted in one cassette. ??(Dr. Morris-)/[facility] End of Report [facility] 11/15/2003 11/15/2003 15: 27 EST us Amish Tavera MD PATHOLOGY ORDERABLES Final Res ult [facility] [address] [place] [address] documented in this encounter Visit Diagnoses Not on filedocumented in this encounter
--- OUTSIDE RECORDS SUMMARY | 2024-09-09 09:49 | XMS_ITS | Encounter Summary ---
Author Organization [facility] Address [address] [place] [address] Care Team Providers Care Product Marketing Specialist Name Role Phone Unavailable Primary Care Provider Unavailabl e Encounter Details Date Type Department Care Team (Late st Contact Info) Description 12/15/2000 Results Only [facility] [place] conversion [address] [place] [address] Alaina Saravia, SAVANA [address] [place] [address] Social History Tobacco Use Types [...] ? OKSANA BEE ? Accession #: ? [id number] : ? 1950 (Age: 50) ??F ?Collect Date: ? 12/15/2000 Location: ? [facility] ? Receive Date: ? 2000 Provider: ?ALAINA SARAVIA PILING CUTTER Copy to: ? Specimen/Source: ?Conventional Pap Test, [...] End of Report [facility] 12/15/2000 2000 us Alaina Saravia NP PATHOLOGY ORDERABLES Final R esult [facility] [address] [place] [address] documented in this encounter Visit Diagnoses Not on filedocumented in this encounter
--- OUTSIDE RECORDS SUMMARY | 2024-09-09 09:49 | XMS_ITS | Clinical Summary ---
Author Organization [facility] Address [address] [place] [address] Care Team Providers Care Casino Accountant Name Role Phone Amish Cope MD Primary Care Provider [phone] Social History Tobacco Use Types Packs/Day Years Used Date Smoking Tobacco: Never Assessed Comments Unknown Sex and Gender Information Value Date Recorded Sex Assigned at Not on file Legal Sex Female 18:24 EST Gender Identity Not on file Sexual Orientation Not on file Plan of Treatment Health Maintenance Due Date Last Done Comments Hepatitis C Screen 1950 Fall Risk Screening 2013 RSV Immunization ( o r 60+ Years) (1 - 1-dose 75+ series) 12/18/2023 COVID-19 Vaccine (2023- season) 2024 Care Teams Casino Accountant Relationship Specialty Start Date End Date Amish Cope MD PCP - General 07/14/15
--- OUTSIDE RECORDS SUMMARY | 2024-09-09 09:49 | XMS_ITS | Encounter Summary ---
Author Organization [facility] Address [address] [place] [address] Care Team Providers Care Behavioral Technician Name Role Phone Amish Cope MD Primary Care Provider [phone] Encounter Details Date Type Department Care Team (Late st Contact Info) Description 10/30/2017 Results Only [facility] [phone] Eduardo Martinez MD [address] [place] [address] [address] [place], [place] [phone] Social History Tobacco Use Types Packs/Day Years [...] ? OKSANA BEE ? Accession #: ? [id number] ? : ? 1950 (Age: 66) ??F ?Collect Date: ? 10/30/2017 ? Location: ? [facility] ? Receive Date: ? 10/31/2017 ? Provider: EDUARDO MARTINEZ MD Copy to: MELISSA COX TUNNEL MUCKER ? Final Report SPECIMEN ADEQUACY ? Satisfactory [...] types 16,18,31,33,35, 39,45,51,52,56,58, 59,66, and 68 by analytics director mediated amplification. Comments Document reviewed and electronically signed by: ? System Interface ? Report date: 11/11/2017 By the signature above, the attending physician certifies that he/she has personally conducted a gross and/or microscopic examination of the described specimens and rendered or confirmed the above diagnosis. End of Report [facility] 10/30/2017 10/31/2017 us Eduardo Martinez MD PATHOLOGY ORDERABLES Final Res ult [facility] [address] [place] [address] documented in this encounter Visit Diagnoses Not on filedocumented in this encounter Care Teams Behavioral Technician Relationship Specialty Start Date End Date Amish Cope MD PCP - General 07/14/15 documented as of this encounter
--- OUTSIDE RECORDS SUMMARY | 2024-09-09 09:49 | XMS_ITS | Encounter Summary ---
Author Organization [facility] Address [address] [place] [address] Care Team Providers Care School Commissioner Name Role Phone Unavailable Primary Care Provider Unavailabl e Encounter Details Date Type Department Care Team (Late st Contact Info) Description 12/26/1999 Results Only [facility] [place] conversion [address] [place] [address] Fanny Koch MD [address] [place] [address] Social History Tobacco Use Types [...] ? OKSANA BEE ? Accession #: ? [id number] : ? 1950 (Age: 49) ??F ?Collect Date: ? 12/26/1999 Location: ?Receive Date: ? 12/26/1999 Provider: ?FANNY KOCH WEB MARKETING MANAGER Copy to: ?FANNY KOCH NP ? Specimen/Source: ?Pap Smear (One Slide) Last Menstrual Period: ? GYNECOLOGIC ??CYTOPATHOLOGY ??REPORT Name: CAYETANO BEERA Ramsey ? [facility] : 1950 ?? 49Y F ?Client ID: [id number] SS#: [id number] ? Clinician: AUGUST SAWANT, FANNY Powers Location: [facility] ??Copy to: ?? Specimen: ?Pap Smear (One [...] Velasquez M.D. ? Report Date: ?? 01/09/2000 Mobile Backstage Archived Tests - Final Diagnosis Text Field: Clinical History : ? Document reviewed and electronically signed by: ? Conversion ? Report Date: ??01/09/2000 00:00 End of Report [facility] 12/26/1999 7:59 EDT 12/26/1999 8:00 EDT us Fanny Koch MD PATHOLOGY ORDERABLES Final Re sult [facility] [address] [place] [address] documented in this encounter Visit Diagnoses Not on filedocumented in this encounter
--- OUTSIDE RECORDS SUMMARY | 2024-09-09 09:49 | XMS_ITS | Encounter Summary ---
Author Organization [facility] [place] [address] Care Team Providers Care System Configuration Specialist Name Role Phone Caleb Singer MD Primary Care Provider Unavaila ble Reason for Visit * Reason Comments Vaginal Prolapse Encounter Details Date Type Department Care Team (Late st Contact Info) Description 02/01/2014 2:15 PM EDT Office Visit Obstetrics [place] [address] Lucian Melendez MD [facility] DR OBSTETRICS [place] [address] Prolapse of vaginal rojas (Primary Dx) Discharge [...] Female Pelvic Medicine and Reconstructive Surgery @ [facility] Patient Name: Oksana Valiente Patient Primary Care Provider: CALEB SINGER MD Referring Provider: Yari Epstein Chief Complaint: pelvic organ prolapse History of Present Illness: Ms. Valiente is a 63 y.o. old para 4 woman, seen at the kind request of Yari Epstein, personal injury legal assistant. She presents for evaluation and assessment of [...] Melendez MD Medication Sig Dispense Refill ??? Hvxtgjkunmikf-Spxsqxjk-Fcefoq Tab Take by mouth. No Known Allergies [...] test (empty supine): negative External Genitalia: vulva, Standing Pine's and Bartholin glands normal, urethra without tenderness [...] encounter Results * Bladder Scanner (02/01/2014) Pathologist [facility] Bladder Scan (mL) 202mL mL Lucian Melendez MD URO PROC W/O RFL ORD ERABLES * POCT urine dipstick (02/01/2014) Pathologist [facility] POC Sp [place] 1.002 - 1.030 Comment:scant void difficult y [...] rojas documented in this encounter Care Teams System Configuration Specialist Relationship Specialty Start Date End Date Caleb Singer MD PCP - General 07/24/10 06/02/15 documented as of this encounter
[2024-09-09 16:24] LABS: HCT 45.4 % (36.0-46.0); HGB 14.7 g/dL (11.2-15.7); MCH 29.6 pg (27.0-33.0); MCHC 32.4 % (32.0-36.0); MCV 92 fL (80-95); MPV 12.2 fL (8.0-11.0); Platelet Count 212 10^3/uL (130-400); RBC 4.96 10^6/uL (3.93-5.22); RDW-SD 43.8 fL; WBC 7.41 10^3/uL (4.4-10.8)
[2024-09-09 16:36] LABS: Anion Gap 6.5 mmol/L (3-11); BUN 14 mg/dL (7-18); CO2 29.5 mmol/L (21.0-32.0); CREATININE 0.7 mg/dL (0.55-1.02); Calcium 9.7 mg/dL (8.5-10.1); Chloride 107 mmol/L (98-107); Estimated GFR 90.14 (mL/min/1.73m2); Glucose 90 mg/dL (74-106); Potassium 4.5 mmol/L (3.5-5.1); Sodium 143 mmol/L (136-145)
== END 2024-09-09 09:43 | disposition home or self-care (01) ==
LOC: NCHCN 09:42
PROVIDERS: PCP Nurse Practitioner Family; Visit Provider Nurse Practitioner Family
DX: Z01.818 Encounter for other preprocedural examination (principal)
CPT/HCPCS: 80048; 85027

== ENCOUNTER 2024-10-01 13:26 | Inpatient (IN) | payer MEDICARE, SELFPAY ==
[2024-10-01] VITALS (65 sets, daily range): BP systolic 82–216; BP diastolic 38–167; PULSE 51–111; RESP 2–28; TEMP 36.2–36.7; O2SAT 73–99
--- NOTE | 2024-10-01 13:39 | ED.GENADUL_ITS ---
Discharge Plan Disposition Patient Disposition: Home Discharge Details Clinical Impression: Pneumonia, Lesion of left shawnee kidney, Acute UTI Primary Care Provider: Caryn Bernard ED Provider: Leyla Rangel Home Meds and New Rx's Prescriptions: No Action fluticasone propion-salmeterol [Advair Diskus] 250-50 mcg/dose blister with device 1 inh inhalation BID Qty: 60 12RF Spiriva Respimat 2.5 mcg/actuation mist 2 inh inhalation QAM Qty: 4 12RF albuterol sulfate 90 mcg/actuation HFA aerosol inhaler 2 puff inhalation QID PRN (Reason: shortness of breath or wheezing) Qty: 8.5 12RF meclizine 12.5 mg tablet 12.5 mg PO Q6H PRN losartan 25 mg tablet 25 mg PO DAILY Patient Comments: Patient not sure of the dosing montelukast [Singulair] 10 mg tablet 10 mg PO DAILY ipratropium-albuterol 0.5 mg-3 mg(2.5 mg base)/3 mL solution for nebulization See Rx Instructions .ROUTE .COMPLEX PRN (Reason: shortness of breath or wheezing) Qty: 180 12RF Rx Instructions: 3 mL inhaled as needed (DME) Space Chamber Spacer See Rx Instructions .Route Qty: 1 0RF Rx Instructions: As directed Centrum Silver 1 EACH tablet 1 tab PO DAILY HPI General Date/Time Provider Initiated Documentation: 10/01/24 13:38 . HPI Narrative: Oksana is a 73 year old female who presents to the emergency department today for evaluation of R lower hip pain and shortness of breath with cough. She reports she started feeling unwell 3 days ago, with low energy, mild headache, hot/cold chills, mild congestion, cough productive of brownish sputum, decreased appetite, and increased shortness of breath. This has been accompanied by discomfort just above her right lateral hip that is aggravated with movement and palpation. Denies recorded fevers, sore throat, chest pain, wheezing, vomiting, change in bowel function. Says she has been trying to stay well hydrated; admits to some urgency with urination but denies dysuria. Has been taking regularly prescribed meds at home; has not felt need for rescue inhaler/nebs. No h/o trauma or inciting event. Past medical history is significant for COPD, HTN. Says last COPD exacerbation was years ago and no recent h/o PNA. Denies h/o anticoagulation. Physical exam reassuring. +tenderness to palpation just superior to R lateral iliac crest, no overlying ecchymosis/skin lesions. Abdomen is soft, nondistended, otherwise nontender to palpation. Normoactive bowel sounds. Coarse wheezes noted in right middle lung field. Easy work of breathing. Normal heart sounds. Moist mucous membranes. No obvious JVD or pedal edema. D/dx includes but is not limited to: PNA, COPD exacerbation, viral illness such as COVID-19 or flu, dehydration, electrolyte imbalance, kidney dysfunction, appendicitis, unusual presentation of diverticulitis/other colitis, muscular pain. I independently interpreted the following tests: CBC shows leukocytosis with white cell count 29.23. VBG reassuring, pH 7.39. CMP unremarkable, no BUN elevation. BNP is elevated at 13.44. UA is consistent with UTI, positive nitrites and 20-50 WBCs. EKG reassuring, normal sinus rhythm rate 98, PAC noted, no changes consistent with acute ischemia, normal intervals. Although Oksana did meet sepsis criteria, elevated BNP was concerning for possible CHF and pressures were reassuring, so gentle fluid rehydration was initiated with fluid bolus. Blood cultures drawn, empiric treatment with ceftriaxone and azithromycin given. After 1 neb treatment Oksana reported that she did not feel any improvement in her breathing, however her O2 saturation improved from low 90s to mid 90s on room air. CT abdomen/pelvis and chest x-ray remarkable for right lower lobe pneumonia, as well as lesion in the left kidney representing either hemorrhagic cyst or other pathology. CT of chest ordered per radiologist recommendation for further evaluation of pneumonia and to rule out pneumothorax. Consulted with Dr. Guerrier, [facility] hospitalist. Handoff report given to Lita Sibley NP, evening HARVINDER. CT Chest results pending, surgery paged for consult to discuss kidney cyst. Related Data Home Medications ?Medication ?Instructions ?Recorded ?Confirmed hgnbawpj-nqh-itwac acid 0.4 1 tab PO DAILY 11/01/14 10/01/24 mg-lycopene 300 mcg-lutein 250 mcg tablet (Centrum Silver) montelukast 10 mg tablet 10 mg PO DAILY 05/28/21 10/01/24 (Singulair) meclizine 12.5 mg tablet 12.5 mg PO Q6H PRN 09/27/22 10/01/24 losartan 25 mg tablet 25 mg PO DAILY 01/15/24 10/01/24 albuterol sulfate 90 mcg/actuation 2 puff inhalation QID PRN 07/14/24 10/01/24 aerosol inhaler shortness of breath or wheezing #8.5 grams fluticasone 250 mcg-salmeterol 50 1 inh inhalation BID #60 ea 07/14/24 10/01/24 mcg/dose blistr powdr for inhalation (Advair Diskus) tiotropium bromide 2.5 2 inh inhalation QAM #4 grams 07/14/24 10/01/24 mcg/actuation mist for inhalation (Spiriva Respimat) inhalational spacing device (Space #1 ea 08/10/24 10/01/24 Chamber) ipratropium 0.5 mg-albuterol 3 mg See Rx Instructions .Route 08/10/24 10/01/24 (2.5 mg base)/3 mL nebulization .COMPLEX PRN shortness of breath soln or wheezing #180 mL Previous Rx's ?Medication ?Instructions ?Recorded albuterol sulfate 90 mcg/actuation 2 puff inhalation QID PRN 07/14/24 aerosol inhaler shortness of breath or wheezing #8.5 grams fluticasone 250 mcg-salmeterol 50 1 inh inhalation BID #60 ea 07/14/24 mcg/dose blistr powdr for inhalation (Advair Diskus) tiotropium bromide 2.5 2 inh inhalation QAM #4 grams 07/14/24 mcg/actuation mist for inhalation (Spiriva Respimat) inhalational spacing device (Space #1 ea 08/10/24 Chamber) ipratropium 0.5 mg-albuterol 3 mg See Rx Instructions .Route 08/10/24 (2.5 mg base)/3 mL nebulization .COMPLEX PRN shortness of breath soln or wheezing #180 mL Allergies Allergy/AdvReac Type Severity Reaction Status Date / Time No Known Allergies Allergy Unverified 10/01/24 13:36 General Stated Complaint: Headache ABELARDO: 3 Review of Systems Narrative: See HPI Exam Const General: cooperative, healthy appearing, comfortable, no acute distress, well developed and well groomed Nutritional Appearance: average body habitus Orientation: alert and oriented x3 HENMT Head: normal to inspection General nose exam: external nose normal Mouth: oral mucosae normal and moist mucous membranes Resp Effort & Inspection: normal respiratory effort and able to speak in complete sentences Auscultation: wheezes (Coarse wheezes right side) Cardio Rate: tachycardic Rhythm: regular rhythm GI Inspection: normal to inspection and non-distended Palpation: soft, not firm, no guarding and nontender Auscultation: normal bowel sounds Skin General skin exam: no rashes or lesions noted Course Vital Signs Vital signs: Vital Signs Temperature 36.2 C L 10/01/24 13:27 Pulse 110 H 10/01/24 13:27 Respiratory Rate 18 10/01/24 13:27 Blood Pressure 95/65 L 10/01/24 13:27 Pulse Oximetry 90 L 10/01/24 13:27 Temperature 36.2 C L 10/01/24 13:38 Temperature Source Oral 10/01/24 13:38 Pulse 110 H 10/01/24 13:38 Respiratory Rate 18 10/01/24 13:38 Blood Pressure 95/65 L 10/01/24 13:38 Blood Pressure Position Sitting 10/01/24 13:38 Pulse Oximetry 90 L 10/01/24 13:38 Oxygen Delivery Method Room Air 10/01/24 13:38 Oxygen Flow Rate 0 10/01/24 13:38 Pain Level 8 10/01/24 13:38 Medical Decision Making Quality:SDOH Health Related Social Needs: No Data to Display PFSH All Active Problems (Updated 10/01/24 @ 16:15 by Leyla Amador) Acute UTI (Acute) Lesion of left shawnee kidney (Acute) Pneumonia (Acute) Arthritis of knee, left (Acute) Arthritis of knee, right (Acute) DEPO MEDROL 40m05/29/23; 11/13/2022 Hypertension (Chronic) Renal mass (Acute) Irregular cardiac rhythm (Acute) Nicotine dependence, cigarettes, uncomplicated (Acute) Skin lesion of left lower limb (Acute) Tick bite (Acute) COPD (chronic obstructive pulmonary disease) (Chronic) Mass of joint of left wrist (Acute) Impairment of auditory discrimination (Acute 03/14/14) Mixed hearing loss, unilateral (Acute 03/14/14) Sensorineural hearing loss (Acute 03/14/14) Arthritis of carpometacarpal (CMC) joint of left thumb (Acute) Other sprain of left foot, initial encounter (Acute) Sprain of hand, left (Acute) Fall (Acute) Encounter for pessary maintenance (Acute) Tobacco use (Acute) Uterine procidentia (Acute 01/17/17) Used 89mm ring with support pessary until prolapse beyond ring pessary. 03/2019 short stemmed 76mm Gellhorn pessary placed. 04/2019 ring with support pessary inserted For 2019 76 mm donut pessary inserted. 2019 89mm ring with support pessary placed at [facility] [place] [facility] 04/2021. 95mm Ring with support placed. Sensorineural hearing loss, bilateral (Acute 03/29/14) Medical History (Updated 10/01/24 @ 16:15 by Leyla Amador) Migraine Hiatal hernia Hearing loss, bilateral Varicose veins of lower extremity Meniere disease Depression Osteopenia GERD (gastroesophageal reflux disease) Basal cell carcinoma, face COPD (chronic obstructive pulmonary disease) Surgical History (Updated 09/18/20 @ 11:26 by Marco Rain MD) History of basal cell carcinoma excision on face History of varicose vein stripping Social History (Updated 05/28/21 @ 09:05 by Enedina Vital) Smoking/Tobacco Use Status: Current every day Tobacco Type: cigarettes Years smoked: 61 Smoking risk assessment performed?: Yes Alcohol Intake: never Drug use: Never Substance use type: does not use Number of Children: 4 Current gender identity: female Seatbelt use: always Do you feel safe at home: Yes Additional Social history: pt not in a relationship Female Reproductive History Menstrual control method: none Menopause type: natural History History 7 Para Hx # Term Pregnancies 4 Multiple births Hx # Pregnancies Ectopic pregnancies AB induced Hx Number of Living Children AB spontaneous
--- NOTE | 2024-10-01 13:45 | DI.RAD_ITS ---
Exam(s) XR CHEST 2V PA LATERAL EXAM: XR CHEST 2V PA LATERAL CLINICAL HISTORY: cough, sob. h/o COPD. TECHNIQUE: 2D digital imaging was performed. COMPARISON: CR XR CHEST 2V PA LATERAL from 10/25/[address] ABDOMEN PELVIS W from 10/01/2024 FINDINGS: 2 views: Heart size is normal. The mediastinum is not widened. Moderate-large hiatal hernia again noted. There is infiltrate in the posterior basal segment of the right lower lobe. No pleural effusions. P ossible tiny ipsilateral right pneumothorax. No obvious rib fractures. There is scarring or platelike atelectasis in the superior lingular segment of the opposite-left lung . IMPRESSION: Right lower lobe infiltrate in the posterior basal segment of the right lower lobe. Subtle suggestion of tiny right pneumothorax over the lower right lateral chest wall. Recommend follow-up chest CT scan. DATA REPOSITORY: RADIATION DOSE DELIVERED:
--- NOTE | 2024-10-01 13:45 | DI.CT_ITS ---
Exam(s) CT ABDOMEN PELVIS W EXAM: CT ABDOMEN PELVIS W CLINICAL HISTORY: R lateral flank pain with general malaise. TECHNIQUE: Imaging Protocol: Axial computed tomography images with coronal and sagittal reformatted images were created and reviewed CONTRAST MATERIAL: Intravenous: Omnipaque-350 100cc Oral: None COMPARISON: No exams were available for comparison FINDINGS: VISUALIZED LUNG BASES: Uppermost images of this abdominal study reveal a large area of infiltrate in the right lower lobe xx. There is a subtle suggestion of of a small ipsilateral pneumothorax. There is no overlying rib destruction. The visualized left lung base is clear. No obvious pleural effusions. Large hiatal hernia is noted. ABDOMEN: There is no ascites. LIVER: There is a subcapsular hypodensity in the dome of the liver measuring 1.8 cm AP x 1 cm wide. Has appearance of a benign cyst. There is another smaller tiny cyst in the most inferior aspect of t he right hepatic lobe measuring 0.4 cm. There are no focal findings in the left hepatic lobe. GALLBLADDER/BILIARY: Gallbladder appears mildly distended. No obvious intraluminal gallstones. CBD is not dilated. PANCREAS: No evidence of pancreatic mass nor dilatation of the pancreatic duct. SPLEEN: Spleen is not enlarged. No obvious intrasplenic lesions. Splenic and portal veins are paten t. ADRENALS: There are no significant adrenal masses. KIDNEYS:There are multiple benign cysts noted in both kidneys. The largest of these is in the superi or pole of the right kidney and measures 3.5 by 2.8 cm. In addition, in the anterior cortex of the l eft kidney there is a denser lesion measuring 2 x 1.8 by 2.3 cm which is more internally dense and ex hibits some peripheral calcification or enhancement. Possibly hemorrhagic cyst versus is renal absce ss. Cannot exclude neoplasm. There are no renal calculi. No hydronephrosis. No hydroureter. No r adiopaque calculi in the urinary bladder.. ABDOMINAL AORTA: Abdominal aorta is heavily calcified but not enlarged. The iliac arteries are also calcified but not enlarged. LYMPH NODES:There is no retroperitoneal nor paraaortic adenopathy. ABDOMINAL WALL: No evidence of significant anterior abdominal wall nor inguinal hernia. GI: There is no evidence of bowel obstruction, free air, nor abscess. PELVIS: GI: No evidence of appendicitis.There is diverticulosis of the left side of the colon, most prominent in the sigmoid. There is, however, no evidence of obvious acute diverticulitis. LYMPH NODES: There is no intrapelvic nor inguinal adenopathy. REPRODUCTIVE: Uterus is surgically absent. A large diameter upper vaginal pessary is in place. Its diameter is 10 cm. No abnormal adnexal masses. No free fluid in the pelvis. URINARY BLADDER: No evidence of cystocele. There is some mild non-uniform bladder wall thickening. Pelvic ureters are not dilated. OSSEOUS: Significant degenerative changes in the left hip. Mild degenerative anterolisthesis L4 upon L5. No disc space narrowing at this level. Facet arthropathy evident as causative of the mild list hesis at this level. No lytic nor blastic osseous lesions identified. IMPRESSION: 1. There is a large area of infiltrate in the right lower lobe posterior basal segment. Visualized l eft lung base is clear. No pleural effusions. Recommend chest CT scan. 2. In addition to multiple benign cysts in both kidneys there is also a denser lesion in the left kid keena measuring 2 x 1.8 x 2.3 cm which is either a hemorrhagic cyst or other pathology. Cannot exclude abscess or (less likely) neoplasm. 3. Extensive sigmoid diverticulosis. No obvious acute diverticulitis. 4. Previous hysterectomy. Large 10 cm diameter pessary in place in the upper vagina. Report called by myself to ER provider 10/01/2024 at 3:35 p.m. RADIATION DOSE DELIVERED: 256.58mGy.cm Total DLP DATA REPOSITORY: All CT scans at this facility are submitted to the National Radiology Data Registry (NRDR) Dose Index Registry (DIR) with the [employer] (A[employer]). RADIATION OPTIMIZATION: All CT scans at this facility use at least one of these dose optimization te chniques: automated exposure control; mA and/or kV adjustment per patient size (includes targeted exa ms where dose is matched to clinical indication); or iterative reconstruction.
--- NOTE | 2024-10-01 14:00 | RT.EKG_ITS ---
APPROVED REPORT Exam: Resting ECG Reason for Exam: SOB Patient Location: E HR:98 bpm ECG Measurements Heart Rate 98 AXIS MS 121 P 39 QRSd 80 QRS -18 QT 356 T 74 QTc 454 Conclusion Sinus rhythm 98 normal aixs no stemi
[2024-10-01 14:17] LABS: Abs Immature Grans 0.57 10^3/uL (0.0-0.06); Absolute Neutrophil Count 26.07 10^3/uL (1.2-6.7); Basophils % 0.4 %; HGB 15.4 g/dL (11.2-15.7); Lymphocytes % 5.2 %; MCH 30.3 pg (27.0-33.0); MCHC 33.5 % (32.0-36.0); MCV 90 fL (80-95); MPV 10.8 fL (8.0-11.0); Monocytes % 3.2 %; Neutrophils % 89.2 %; Platelet Count 230 10^3/uL (130-400); RBC 5.09 10^6/uL (3.93-5.22); RDW 12.7 % (11.7-14.6); RDW-SD 42.5 fL
[2024-10-01 14:18] LABS: BE (Venous) 0 mmol/L (-2-3); HCO3 (Venous) 25 mmol/L (23-28); O2 Sat (Venous) 84 %; TCO2 (Venous) 22 mmol/L (24-29); pCO2 (Venous) 41 mmHg (41-51); pH (Venous) 7.39 (7.31-7.41); pO2 (Venous) 48 mmHg
[2024-10-01 14:19] LABS: Absolute Basophil Count 0.12 10^3/uL (0.0-0.2); Absolute Lymphocyte Count 1.52 10^3/uL (1.2-3.4); Absolute Monocyte Count 0.94 10^3/uL (0.1-0.8); WBC 29.23 10^3/uL (4.4-10.8)
[2024-10-01 14:29] LABS: Diff Comment Agrees w/ Instrument; RBC Morphology Normal
[2024-10-01 14:47] LABS: ALT 19 U/L (14-59); AST 28 U/L (15-37); Albumin 3.2 g/dL (3.4-5.0); Alkaline Phosphatase 61 U/L (46-116); Anion Gap 11.6 mmol/L (3-11); BUN 16 mg/dL (7-18); Bilirubin, Total 0.79 mg/dL (0.2-1.0); CO2 26.4 mmol/L (21.0-32.0); CREATININE 0.8 mg/dL (0.55-1.02); Calcium 9.9 mg/dL (8.5-10.1); Chloride 100 mmol/L (98-107); Estimated GFR 76.79 (mL/min/1.73m2); Glucose 97 mg/dL (74-106); NT-proBNP 1344 pg/mL (<300); Potassium 4.2 mmol/L (3.5-5.1); Sodium 138 mmol/L (136-145); Total Protein 7.8 g/dL (6.4-8.2)
[2024-10-01] MEDS: Albuterol/Ipratropium 3 ML UPD VIAL UPD ×2 (14:51→23:40)
[2024-10-01] MEDS: Normal Saline - Diluent 50 ML VIAL IJ (15:02)
[2024-10-01 15:03] LABS: COVID-19 PCR Negative (Negative); Influenza A PCR Negative (Negative); Influenza B PCR Negative (Negative); RSV PCR Negative (Negative)
[2024-10-01] MEDS: Omnipaque 350 MG/ML 100 ML BTL 70 ML IJ (15:03)
[2024-10-01 15:12] LABS: Source Nasopharynx
[2024-10-01 15:51] LABS: Bilirubin Small (Negative); Blood Moderate (Negative); Clarity Sl Cloudy (Clear); Glucose Negative (Negative); Ketones 15 mg/dL (Negative); Leukocyte Esterase Small (Negative); Nitrite Positive (Negative); Specific Gravity >= 1.030 (1.005-1.025); pH 5.5 (5-8)
[2024-10-01 16:00] LABS: Bacteria Many HPF (Negative); C & S Indicated? No/Sq. Contamination; Crystals Negative HPF (Negative); Epithelial Cells Many HPF (Negative); Mucus Moderate (Negative); Other Cells Rare Transitional (Negative); RBC 20-50 HPF (0-2)
[2024-10-01 16:01] LABS: WBC 20-50 HPF (0-5)
--- NOTE | 2024-10-01 16:07 | DI.CT_ITS ---
Exam(s) CT CHEST WO EXAM: CT CHEST WO CLINICAL HISTORY: evaluate for pneumothorax, PNA. TECHNIQUE: Multi planar reconstructions were performed. CONTRAST MATERIAL: None COMPARISON: CT CT CHEST LUNG CANCER SCREEN from 11/10/2023 FINDINGS: CHEST: LUNGS: There is COPD emphysematous changes. There is a large infiltrate in the right lower lobe post erior and lateral basal segments. There are few tiny calcified granulomas in the lung marquez. There is some platelike atelectasis in the lingular segment of the left lung. There are no pleural effusi ons. There is a very subtle suggestion of a possible peripheral pneumothorax along the lateral right chest wall. This would be approximately 5 percent pneumothorax. Similar findings not seen on the opposite-left side. MEDIASTINUM: There is a large retrocardiac hiatal hernia which measures 8 cm wide by 4 cm AP by 6 cm craniocaudal. Visualized thyroid unremarkable.No obvious axillary adenopathy CARDIAC: Heart size is normal. There is no pericardial effusion.Caliber of the thoracic aorta is sli ghtly prominent. VISUALIZED UPPER ABDOMEN:See separate abdominal CT scan report IMPRESSION: 1. Large right lower lobe infiltrate, predominately involving the posterior basal segment of the rig ht lower lobe. 2. Thin ipsilateral right-side pneumothorax, approximately 5 percent. 3. Large retrocardiac hiatal hernia. This brings to mind the possibility of aspiration pneumonia. Report called by myself to ER provider 10/01/2024 at 4:15 p.m. RADIATION DOSE DELIVERED: 123.12mGy.cm Total DLP DATA REPOSITORY: All CT scans at this facility are submitted to the National Radiology Data Registry (NRDR) Dose Index Registry (DIR) with the [employer] (ACR). RADIATION OPTIMIZATION: All CT scans at this facility use at least one of these dose optimization te chniques: automated exposure control; mA and/or kV adjustment per patient size (includes targeted exa ms where dose is matched to clinical indication); or iterative reconstruction.
--- NOTE | 2024-10-01 16:20 | ED.PROG_ITS ---
Date of service: 10/01/24 Time of Service: 16:20 Medical Decision Making Care assumed from provider (Leyla Amador) Please see their initial HPI, PE, and documentation. Discussed patient details and case and pending workup and disposition. Patient is hemodynamically stable, and alert and oriented. At the time of signout I did speak with Dr. Pineda who hospitalist recommend speaking to you about possible left-sided renal cyst versus abscess. Dr. Pineda recommended outpatient follow-up regarding this after treatment of the pneumonia. Does not recommend any urgent renal procedure. I also spoke with Dr. Lara regarding this chest CT he does note a large right lower lobe infiltrate and a small less than 5% lateral pneumothorax. No rib fractures. Hospitalist repaged. Spoke with Dr. Guerrier who requests consult with Nephrology. 1700: [facility] transfer center called. Images pushed. 1857: Spoke with with urology at [facility] he was able to personally review the CTs. I did discuss the patient case details including labs and vital signs with him. He reports that this is most likely a small renal mass and there is no urgency in needing to address this at this time. He would recommend follow- up with urology with recurrent CTs every 3 months. Will discuss patient again with hospitalist. Hospitalist agrees to accept patient for admission pending floor orders and transport to the floor at this time. Informed by full time staff interpreter that they are having a hard time getting the oximeter to vegetable picker appropriately patient has been satting 94-98 percent on room air with a good pleth this entire time. At the time of this dictation awaiting bed placement. Hospitalist at for eval. This text was generated using Zite dictation system, please disregard any oddities of phrase or misspellings. Medical Records Medical records reviewed: Yes I reviewed the patient's medical records. Imaging Data Radiologic Study: Imaging: CT Scan Radiologist's impression: FINDINGS: CHEST: LUNGS: There is COPD emphysematous changes. There is a large infiltrate in the right lower lobe posterior and lateral basal segments. There are few tiny calcified granulomas in the lung marquez. There is some platelike atelectasis in the lingular segment of the left lung. There are no pleural effusions. There is a very subtle suggestion of a possible peripheral pneumothorax along the lateral right chest wall. This would be approximately 5 percent pneumothorax. Similar findings not seen on the opposite-left side. MEDIASTINUM: There is a large retrocardiac hiatal hernia which measures 8 cm wide by 4 cm AP by 6 cm craniocaudal. Visualized thyroid unremarkable.No obvious axillary adenopathy CARDIAC: Heart size is normal. There is no pericardial effusion.Caliber of the thoracic aorta is slightly prominent. VISUALIZED UPPER ABDOMEN:See separate abdominal CT scan report IMPRESSION: 1. Large right lower lobe infiltrate, predominately involving the posterior basal segment of the right lower lobe. 2. Thin ipsilateral right-side pneumothorax, approximately 5 percent. 3. Large retrocardiac hiatal hernia. This brings to mind the possibility of aspiration pneumonia. Lab Data Lab results reviewed: Yes I reviewed the patient's lab results. Labs: 10/01/24 15:55 Blood Blood Culture - Pending 10/01/24 15:38 Blood Blood Culture - Pending Laboratory Tests Range/Units 10/01/24 10/01/24 10/01/24 13:59 14:35 15:37 WBC (4.4-10.8) 10^3/uL 29.23 H* RBC (3.93-5.22) 10^6/uL 5.09 Hgb (11.2-15.7) g/dL 15.4 Hct (36.0-46.0) % 46.0 MCV (80-95) fL 90 MCH (27.0-33.0) pg 30.3 MCHC (32.0-36.0) % 33.5 RDW (11.7-14.6) % 12.7 Plt Count (130-400) 10^3/uL 230 MPV (8.0-11.0) fL 10.8 Immature Gran % % 2.0 Neutrophils % % 89.2 Lymphocytes % % 5.2 Monocytes % % 3.2 Eosinophils % % 0.0 Basophils % % 0.4 Nucleated RBC % (0.0-0.3) % 0.0 Absolute Neutrophils (1.2-6.7) 10^3/uL 26.07 H Absolute Lymphocytes (1.2-3.4) 10^3/uL 1.52 Absolute Monocytes (0.1-0.8) 10^3/uL 0.94 H Absolute Eosinophils (0.0-0.7) 10^3/uL 0.00 Absolute Basophils (0.0-0.2) 10^3/uL 0.12 RBC Morphology Normal VBG pH (7.31-7.41) 7.39 VBG pCO2 (41-51) mmHg 41 VBG pO2 mmHg 48 VBG HCO3 (23-28) mmol/L 25 VBG Total CO2 (24-29) mmol/L 22 L VBG O2 Saturation % 84 VBG Base Excess (-2-3) mmol/L 0 Sodium (136-145) mmol/L 138 Potassium (3.5-5.1) mmol/L 4.2 Chloride (98-107) mmol/L 100 Carbon Dioxide (21.0-32.0) mmol/L 26.4 Anion Gap (3-11) mmol/L 11.6 H BUN (7-18) mg/dL 16 Creatinine (0.55-1.02) mg/dL 0.8 Est GFR (CKD-EPI 2020) (mL/min/1.73m2) 76.79 Glucose (74-106) mg/dL 97 Calcium (8.5-10.1) mg/dL 9.9 Total Bilirubin (0.2-1.0) mg/dL 0.79 AST (15-37) U/L 28 ALT (14-59) U/L 19 Alkaline Phosphatase (46-116) U/L 61 NT-Pro-B Natriuret Pep (<300) pg/mL 1344 H Total Protein (6.4-8.2) g/dL 7.8 Albumin (3.4-5.0) g/dL 3.2 L Urine Color (Yellow) Yellow Urine Clarity (Clear) Sl Cloudy Urine pH (5-8) 5.5 Ur Specific Levels (1.005-1.025) >= 1.030 H Urine Protein (Neg-Trace) mg/dL >=300 H Urine Ketones (Negative) mg/dL 15 H Urine Blood (Negative) Moderate H Urine Nitrite (Negative) Positive H Urine Bilirubin (Negative) Small H Urine Urobilinogen (Up to 0.2) mg/dL 1.0 H Ur Leukocyte Esterase (Negative) Small H Urine RBC (0-2) HPF 20-50 H Urine WBC (0-5) HPF 20-50 H Ur Epithelial Cells (Negative) HPF Many Urine Crystals (Negative) HPF Negative Urine Bacteria (Negative) HPF Many Urine Mucus (Negative) Moderate Urine Other (Negative) Rare Transitional Ur Culture Indicated? No/Sq. Contamination Urine Glucose (Negative) mg/dL Negative COVID-19 Source Nasopharynx SARS-CoV-2 (PCR) (Negative) Negative Influenza Type A (PCR) (Negative) Negative Influenza Type B (PCR) (Negative) Negative RSV (PCR) (Negative) Negative Add-On Test Request TNP Quality:SDOH Health Related Social Needs: No Data to Display Discharge Plan Disposition Patient Disposition: Admit to [facility] Condition: Stable Discharge Details Clinical Impression: Pneumonia, Lesion of left tejon kidney, Acute UTI Primary Care Provider: Caryn Bernard ED Provider: Pilar Oakes Home Meds and New Rx's Prescriptions: No Action fluticasone propion-salmeterol [Advair Diskus] 250-50 mcg/dose blister with device 1 inh inhalation BID Qty: 60 12RF Spiriva Respimat 2.5 mcg/actuation mist 2 inh inhalation QAM Qty: 4 12RF albuterol sulfate 90 mcg/actuation HFA aerosol inhaler 2 puff inhalation QID PRN (Reason: shortness of breath or wheezing) Qty: 8.5 12RF meclizine 12.5 mg tablet 12.5 mg PO Q6H PRN losartan 25 mg tablet 25 mg PO DAILY Patient Comments: Patient not sure of the dosing montelukast [Singulair] 10 mg tablet 10 mg PO DAILY ipratropium-albuterol 0.5 mg-3 mg(2.5 mg base)/3 mL solution for nebulization See Rx Instructions .ROUTE .COMPLEX PRN (Reason: shortness of breath or wheezing) Qty: 180 12RF Rx Instructions: 3 mL inhaled as needed (DME) Space Chamber Spacer See Rx Instructions .Route Qty: 1 0RF Rx Instructions: As directed Centrum Silver 1 EACH tablet 1 tab PO DAILY
[2024-10-01] MEDS: Famotidine 20 MG/2 ML VIAL IVP (17:06)
[2024-10-01] MEDS: cefTRIAXone 2 GM/50 ML BAG IVPB (17:06)
[2024-10-01] MEDS: AZITHROMYCIN 500 MG in Normal Saline 250 ML 250 MG IVPB (17:06)
--- OUTSIDE RECORDS SUMMARY | 2024-10-01 22:08 | XMS_ITS | Clinical Summary ---
Author Organization [facility] Address [facility] [place] [address] Care Team Providers Care Hot Kettle Tender Name Role Phone None Primary Care Provider [...] Encounters Date Type Department Care Team Description 10/01/2024 5:20 PM EST Ancillary Procedure Radiology Library at [facility] [place] [phone] Anand Martínez MD Arrived 10/01/2024 5:15 PM EST Ancillary Procedure Radiology Library at [facility] [place] [address] Anand Martínez MD Arrived 10/01/2024 [place] [address] Amish Mathews MD from Last 3 Months Immunizations Name Administration [...] Screening 1966 Lipid Screening 1966 Pneumoccocal Vaccine: 50+ (1 of 2 - PCV) 12/18/1967 Tetanus/Diphtheria/Pertussis Vaccines (1 - Tdap) 12/18/1967 Zoster vaccine (1 of 2) 1998 Advance Directive 12/18/2003 Bone Density Scan 2013 RSV Vaccine (1 - 1-dose 75+ series) 12/18/2023 Covid-19 Vaccine ( season) 2024 Influenza (Flu) vaccine (1 o f 1 - Influenza standard series) 05/02/2024 06/15/2019, 07/08/2016 Procedures Procedure Name Priority Date/Time Associated Diagnosis Comments FILM LIBRARY STORAGE ONLY DX CHEST Routine 10/01/2024 5:12 PM EST FILM LIBRARY STORAGE ONLY CT CHEST ABDOMEN PELVIS Routine 10/01/2024 5:12 PM EST from Last 3 Months Results * Film Library- Storage Only DX Chest (10/01/2024 5:12 PM EST) Narrative [facility] - 10/01/2024 5:12 PM EST This exam is auto-finalizing. It's purpose is for storage only. Anand Martínez MD [facility] FILM LIBRARY ORD ERABLES Performing Organization Address [facility] de Phone Number [place], [place] * Film Library- Storage Only CT Chest Abdomen Pelvis (10/01/2024 5:12 PM EST) Narrative [facility] - 10/01/2024 5:12 PM EST This exam is auto-finalizing. It's purpose is for storage only. Anand Martínez MD [facility] FILM LIBRARY ORD ERABLES Performing Organization Address [facility] de Phone Number [place], [place] from Last 3 Months Care Teams Hot Kettle Tender Relationship Specialty Start Date End Date None None PCP - General 11/04/23
--- OUTSIDE RECORDS SUMMARY | 2024-10-01 22:08 | XMS_ITS | Encounter Summary ---
Author Organization [place] [address] Care Team Providers Care Shaker Repairer Name Role Phone None Primary Care Provider Unavailabl e Encounter Details Date Type Department Care Team (Late st Contact Info) Description 10/01/2024 [place] [address] Amish Mathews MD [facility] [place] [address] Social History Tobacco Use Types Packs/Day Years [...] encounter Miscellaneous Notes * Telephone Encounter - Amish Mathews MD - 10/01/2024 6:46 PM ESTSummary: Depresi Images from the original note were not included. Call from transfer center 73 yo at [facility] for Right flank pain and fevers Other medical problems COPD GERD Depression Looks well WCC 29K U/A 20-50 wBc's GFR 76 Unlikely abscess, most likely small renal tumor. Needs Urological f/u but not rgent RLL pneumonia Impression RLL Pnemonia Small renal mass suspicious for a [id number] renal cancer No evidence of a renal abscess Recommend Non urgent out patient f/u with Urology once she has recovered from her pneumonia (over next 1-3 months documented in this encounter Plan of Treatment Not on file documented as of this encounter Visit Diagnoses Not on filedocumented in this encounter Care Teams Shaker Repairer Relationship Specialty Start Date End Date None None PCP - General 11/04/23 documented as of this encounter
--- OUTSIDE RECORDS SUMMARY | 2024-10-01 22:08 | XMS_ITS | Encounter Summary ---
Author Organization [facility] [place] [address] Care Team Providers Care Pulverizer Feeder Name Role Phone Jenelle Arellano FOAM CHARGER Primary Care Provider [phone] Encounter Details Date Type Department Care Team (Late st Contact Info) Description 07/05/2022 Telephone Dermatology at [address] [address] Nati Acosta RN Social History [...] on filedocumented in this encounter Care Teams Pulverizer Feeder Relationship Specialty Start Date End Date Jenelle Arellano, GREG [address] [facility] [place] [address] PCP - General Family Medicine 05/27/18 11/03/23 documented as of this encounter
--- OUTSIDE RECORDS SUMMARY | 2024-10-01 22:08 | XMS_ITS | Encounter Summary ---
[place] [address] Care Team Providers Care Navy Senior Officer Name Role Phone Jenelle Arellano APRN Primary Care Provider Encounter Details Date Type Department Care Team (Late st Contact Info) Description 02/20/2021 Telephone [place] [phone] Jossie Chavarria Social History Tobacco Use Types [...] on filedocumented in this encounter Care Teams Navy Senior Officer Relationship Specialty Start Date End Date Jenelle Arellano APRN [facility] [place] [address] PCP - General Family Medicine 05/27/18 11/03/23 documented as of this encounter
--- OUTSIDE RECORDS SUMMARY | 2024-10-01 22:08 | XMS_ITS | Encounter Summary ---
Author Organization [facility] Address [address] [place] [address] Care Team Providers Care Car Lubricator Name Role Phone Amish Cope MD Primary Care Provider [phone] Encounter Details Date Type Department Care Team (Late st Contact Info) Description 10/30/2017 Results Only [facility] [phone] Eduardo Martinez MD [address] [place] [address] [address] [place], [place] [id number] Social History Tobacco Use Types Packs/Day Years [...] ? OKSANA BEE ? Accession #: ? [id number] ? : ? 1950 (Age: 66) ??F ?Collect Date: ? 10/30/2017 ? Location: ? [facility] ? Receive Date: ? 10/31/2017 ? Provider: EDUARDO MARTINEZ MD Copy to: MELISSA COX ALTERNATIVE ENERGY ENGINEER ? Final Report SPECIMEN ADEQUACY ? Satisfactory [...] types 16,18,31,33,35, 39,45,51,52,56,58, 59,66, and 68 by pulley mortiser operator mediated amplification. Comments Document reviewed and electronically signed by: ? System Interface ? Report date: 11/11/2017 By the signature above, the attending physician certifies that he/she has personally conducted a gross and/or microscopic examination of the described specimens and rendered or confirmed the above diagnosis. End of Report [facility] 10/30/2017 10/31/2017 us Eduardo Martinez MD PATHOLOGY ORDERABLES Final Res ult [facility] [address] [place] [address] documented in this encounter Visit Diagnoses Not on filedocumented in this encounter Care Teams Car Lubricator Relationship Specialty Start Date End Date Amish Cope MD PCP - General 07/14/15 documented as of this encounter
--- OUTSIDE RECORDS SUMMARY | 2024-10-01 22:08 | XMS_ITS | Encounter Summary ---
Author Organization [facility] [place] [address] Care Team Providers Care Insole Taper Name Role Phone Amish Cope MD Primary Care Provider Unavaila ble Reason for Visit * Reason Comments Pessary Check Encounter Details Date Type Department Care Team (Late st Contact Info) Description 02/15/2014 10:00 AM EDT Follow-Up Obstetrics [place] [phone] Lucian Melendez MD [facility] DR OBSTETRICS [place] [address] Uterovaginal prolapse, complete (Primary Dx) Discharge Disposition: [...] TYPE: Pessary follow-up visit 02/15/2014 Oksana Valiente [id number] Problem list: ?? Stage IV uterovaginal prolapse [...] up with Dr. Epstein) Follow up at [facility] for problems related to her pessary, or is she decides not to use her pessary. LUCIAN MELENDEZ MD documented in this encounter Plan of Treatment Not on file documented as of this encounter Visit Diagnoses Diagnosis Uterovaginal prolapse, complete- Primary documented in this encounter Care Teams Insole Taper Relationship Specialty Start Date End Date Amish Cope MD PCP - General 07/24/10 06/02/15 documented as of this encounter
--- OUTSIDE RECORDS SUMMARY | 2024-10-01 22:08 | XMS_ITS | Encounter Summary ---
[place] [address] Care Team Providers Care Manager Neonatal Name Role Phone Felipa Carlos APRN Primary Care Provider [phone] Encounter Details Date Type Department Care Team (Late st Contact Info) Description 07/13/[address] [place] [phone] Merry Palacio Social History Tobacco Use Types [...] Responsible Provider: Felipa Carlos Location of Provider: [facility] Has the patient received educational materials? No, Send Materials Send staff message for CT Lung Tool Machine Shop Supervisor to call patient. CT Lung Cancer Screening [...] will speak again after she goes through [facility], I have emaiedl her the materials. Schedule Appointment through Imaging scheduling. Route note to Referring clinician & PCP (if different) documented in this encounter Plan of Treatment Not on file documented as of this encounter Visit Diagnoses Not on filedocumented in this encounter Care Teams Manager Neonatal Relationship Specialty Start Date End Date Felipa Carlos APRN PCP - General Family Medicine 06/03/15 10/27/16 documented as of this encounter
--- OUTSIDE RECORDS SUMMARY | 2024-10-01 22:08 | XMS_ITS | Encounter Summary ---
[place] [address] Care Team Providers Care Supervisor Coating Name Role Phone Jenelle Arellano APRN Primary [...] on filedocumented in this encounter Care Teams Supervisor Coating Relationship Specialty Start Date End Date Jenelle Arellano APRN [address] [place] [address] PCP - General Family Medicine 05/27/18 11/03/23 documented as of this encounter
--- OUTSIDE RECORDS SUMMARY | 2024-10-01 22:08 | XMS_ITS | Encounter Summary ---
Author Organization [facility] Address [facility] [place] [address] Care Team Providers Care Landing Worker Name Role Phone Jenelle Arellano SPECIAL EFFECTS MAKEUP ARTIST Primary Care Provider [phone] Reason for Visit * Reason Comments Vaginal Prolapse Encounter Details Date Type Department Care Team (Late st Contact Info) Description 02/23/2020 8:30 AM EDT Office Visit Obstetrics [place] [address] Ingrid Trotter MD [facility] [place] [address] Prolapse of vaginal wall; Microscopic hematuria; Incomplete [...] test (empty supine): neg External Genitalia: Vulva, [place]'s and [place]tholin glands normal, urethra without tenderness [...] ??? Then q2-3mo pessary maintenance with primary JOB SERVICE CONSULTANT or with our office, per patient preference. ??? Consider trial of Emla cream prior to pessary maintenance. I spent 40 minutes total with the patient, with 25 minutes of the time spent [id number] in discussing her diagnosis and reviewing options [...] 10,000-49,000 cfu/ml Escherichia coli : two morphologies(A) [facility] Organism Escherichia coli(A) [facility] Organism Escherichia coli(A) [facility] Urine specimen obtained via straight [...] METHOD Sensitive Ingrid Trotter MD MICROBIOLOGY - [facility] AL ORDERABLES [facility] [place] [address] * (ABNORMAL) Urinalysis Microscopic Exam (02/23/2020 9:00 AM EDT) RBC, Urine 0 0 - 4 /HPF [facility] WBC, Urine 1 0 - 5 /HPF [facility] Bacteria, Urine Many(A) None /HPF [facility] Squamous Epithelial Cells Raw Data, Urine 1 <=4 /HPF [facility] Hyaline Casts, Urine 2 0 - 2 /LPF [facility] Urine specimen obtained via straight catheter (specimen) 02/23/2020 9:00 AM EDT 02/23/2020 10:47 AM EDT Narrative Resulting Agency Comment Spec In Lab Ingrid Trotter MD URINE ORDERABLES Performing Organization Address [facility]/ZIP Co de Phone Number [facility] [place] [address] * (ABNORMAL) Urinalysis with reflex Culture (02/23/2020 9:00 AM EDT) Glucose, Urine Dipstick Negative Negative mg/dL [facility] Protein, Urine Dipstick Trace(A) Negative mg/dL [facility] Bilirubin, Urine Dipstick Negative Negative mg/dL [facility] Comment: Clinical correlation required for positive Urine Bilirubin results as false positive may occur with some drugs and drug related products. If a false positive is suspected a serum total bilirubin should be considered if clinically indicated. Urobilinogen, Urine Dipstick Normal Normal mg/dL [facility] pH, Urn (dipstick) 6.0 5.0 - 8.0 [facility] Blood, Urine Dipstick Small(A) Negative mg/dL [facility] Ketone, Urine Dipstick Negative Negative mg/dL [facility] Nitrite, Urine Dipstick Positive(A) Negative [facility] Leukocytes, Urine Dipstick Negative Negative [facility] Appearance, Urine Dipstick Clear Clear [facility] Specific [place] Urine Automated 1.012 1.006 - 1.030 [facility] Color, Urine Dipstick Yellow Yellow [facility] Reflex to Culture Yes [facility] Urine specimen obtained via straight catheter (specimen) 02/23/2020 9:00 AM EDT 02/23/2020 10:47 AM EDT Narrative Resulting Agency Comment Spec In Lab Ingrid Trotter MD URINE ORDERABLES Performing Organization Address City/[facility]/ZIP Co de Phone Number [facility] [place] [address] * Bladder Scanner (02/23/2020) Bladder Scan (mL) 68 mL Ingrid Trotter MD URO PROC W/O RFL ORD ERABLES * POCT urine dipstick (02/23/2020) POC Sp [place] 1.010 1.002 - 1.030 POC pH, UA [...] emptying documented in this encounter Care Teams Landing Worker Relationship Specialty Start Date End Date Jenelle Arellano, SPECIAL EFFECTS MAKEUP ARTIST [address] [place] [address] PCP - General Family Medicine 05/27/18 11/03/23 documented as of this encounter
--- OUTSIDE RECORDS SUMMARY | 2024-10-01 22:08 | XMS_ITS | Encounter Summary ---
[place] [address] Care Team Providers Care Motion Picture Operator Name Role Phone None Primary Care Provider [...] on filedocumented in this encounter Care Teams Motion Picture Operator Relationship Specialty Start Date End Date None None PCP - General 11/04/23 documented as of this encounter
--- OUTSIDE RECORDS SUMMARY | 2024-10-01 22:08 | XMS_ITS | Encounter Summary ---
[place] [address] Care Team Providers Care Criminal Justice Faculty Name Role Phone Jenelle Arellano APRN Primary [...] in this encounter Care Teams Criminal Justice Faculty Relationship Specialty Start Date End Date Jenelle Arellano APRN [address] [place] [address] PCP - General Family Medicine 05/27/18 11/03/23 documented as of this encounter
--- OUTSIDE RECORDS SUMMARY | 2024-10-01 22:08 | XMS_ITS | Encounter Summary ---
Author Organization [place] [address] Care Team Providers Care Loss Prevention Associate Name Role Phone Felipa Carlos GREG Primary Care Provider [phone] Encounter Details Date Type Department Care Team (Late st Contact Info) Description 07/20/2015 Notes [place] [phone] Asiya Ferraro RN Social History Tobacco Use [...] Information re: tobacco cessation resources in the [facility]- tobacco treatment program [phone] was sent out. [facility] will also make another attempt to try to contact by phone. Asiya Ferraro RN, MS, C-TTS Beeper documented in this encounter Plan of Treatment Not on file documented as of this encounter Visit Diagnoses Not on filedocumented in this encounter Care Teams Loss Prevention Associate Relationship Specialty Start Date End Date Felipa Carlos APRN PCP - General Family Medicine 06/03/15 10/27/16 documented as of this encounter
--- OUTSIDE RECORDS SUMMARY | 2024-10-01 22:08 | XMS_ITS | Encounter Summary ---
[place] [address] Care Team Providers Care Marketing Intelligence Manager Name Role Phone Jenelle Arellano APRN Primary Care Provider Encounter Details Date Type Department Care Team (Late st Contact Info) Description 04/19/2020 11:00 AM EDT Clinical Support Obstetrics [place] [phone] Nurse, Obgyn II, RN Social History Tobacco [...] on filedocumented in this encounter Care Teams Marketing Intelligence Manager Relationship Specialty Start Date End Date Jenelle Arellano APRN [address] [place] [address] PCP - General Family Medicine 05/27/18 11/03/23 documented as of this encounter
--- OUTSIDE RECORDS SUMMARY | 2024-10-01 22:08 | XMS_ITS | Encounter Summary ---
Author Organization [facility] Address [facility] [place] [address] Care Team Providers Care Director Patient Financial Services Name Role Phone Jenelle Arellano APRN Primary Care Provider Reason for Visit * Reason Comments Pessary Check Encounter Details Date Type Department Care Team (Late st Contact Info) Description 04/19/2020 11:15 AM EDT Office Visit Obstetrics [place] [address] Ingrid Trotter MD [facility] [place] [address] Uterovaginal prolapse; Encounter for fitting and adjustment [...] sees Dr. Borjas [facility] for pessary exchanges. PMH stable; she [...] with 8 minutes of the time spent [id number] in discussing her diagnosis and reviewing options for treatment. Ingrid Trotter MD CC: Ingrid Borjas documented in this encounter Plan of Treatment Not on file documented as of this encounter Visit Diagnoses Diagnosis Uterovaginal prolapse Uterovaginal prolapse, unspecified Encounter for fitting and adjustment of pessary Fitting and adjustment of other device documented in this encounter Care Teams Director Patient Financial Services Relationship Specialty Start Date End Date Jenelle Arellano, MEDICAL LAB DIRECTOR [address] [place] [address] PCP - General Family Medicine 05/27/18 11/03/23 documented as of this encounter
--- OUTSIDE RECORDS SUMMARY | 2024-10-01 22:08 | XMS_ITS | Encounter Summary ---
Author Organization [place] [address] Care Team Providers Care Lidar Analyst Name Role Phone ArielaJenelle gilmore SHOP MECHANIC Primary Care Provider [phone] Reason for Referral * Consultation (Routine) - Closed Specialty Diagnoses / Procedures Referred By Contac t Referred To Contact General Surgery Diagnoses Rectal prolapse Ingrid Trotter MD [facility] [place] [address] [facility] Gen Surgery [address] [place] [phone] Referral ID Status Reason Start Date Expiration Date V isits Requested Visits Authorized [id number] Closed Consult, Test & Treat 02/11/2020 02/10/2021 1 1 Reason for Visit * Consultation (Routine) - Closed Specialty Diagnoses / Procedures Referred By Contac t Referred To Contact Obstetrics and Gynecology Diagnoses Complete uterovaginal prolapse UTEROVAGINAL PROLAPSE Ingrid Borjas MD [address] [place] [address] [facility] Retirement Administrator [address] [place] [phone] Referral ID Status Reason Start Date Expiration Date V isits Requested Visits Authorized [id number] Closed Consult, Test & Treat [facility] PCP Updated and/or Approved 02/04/2020 02/03/2021 1 1 Encounter Details Date Type Department Care Team (Latest Contact Info) Description 02/11/2020 3:00 PM EDT TH Visit (TeleHealth) Obstetrics [place] [address] Ingrid Trotter MD [facility] [place] [address] Uterovaginal prolapse (Primary Dx); Rectal prolapse; Urinary [...] this encounter Progress Notes * Mary Burton, [facility] - 02/11/2020 3:00 PM EDT ____ Patient [...] not received required previsit questionnaires, send via [facility] _X__Reviewed medications, allergies, pharmacy, pain/depression, education _X__Documented height/weight/LMP Other information or concerns: Patient states she currently is using a pessary, although it's been falling out recently. She's notnoticed some rectal prolapse and some blood with bowel movements * Ingrid Trotter MD - 02/11/2020 3:00 PM EDT Female Pelvic Medicine and Reconstructive Surgery @ [facility] New Patient Telephone Encounter 1. Reason/purpose [...] 42 minutes. The patient was located in [place] during this visit. 4. Summary of conversation, [...] woman, seen at the kind request of Ignrid Borjas. She presents for evaluation and assessment [...] Inhaler Inhale into the lungs daily. ??? Moleyebtzuqpv-Yekntuwc-Nmgjqv Tab Take by mouth. ??? OMEPRAZOLE (PRILOSEC [...] file Gets together: Not on file Attends islam service: Not on file Active member of [...] her uterovaginal prolapse: 1. Vaginal hysterectomy with wichita ligament (uterosacral or sacrospinous) repair, with 70-80% [...] at earliest. In charge of housekeeping for [facility], if able to reopen. We discussed that [...] device documented in this encounter Care Teams Lidar Analyst Relationship Specialty Start Date End Date Jenelle Arellano APRN [address] [place] [address] PCP - General Family Medicine 05/27/18 11/03/23 documented as of this encounter
--- OUTSIDE RECORDS SUMMARY | 2024-10-01 22:08 | XMS_ITS | Encounter Summary ---
Author Organization [facility] [place] [address] Care Team Providers Care Stove Mechanic Name Role Phone Adan Jenelle GREG Primary Care Provider Reason for Visit * Reason Comments Uterine Prolapse Pessary Fitting * Consultation (Routine) - Closed Specialty Diagnoses / Procedures Referred By Contac t Referred To Contact Obstetrics and Gynecology Diagnoses Complete uterovaginal prolapse Encounter for fitting and adjustment of other specified devices Ingrid Borjas MD [address] [place] [address] [facility] Apprenticeship Consultant [address] [place] [address] Referral ID Status Reason Start Date Expiration Date Visits Re quested Visits Authorized [id number] Closed 06/20/2022 06/20/2023 1 1 Encounter Details Date Type Department Care Team (Late st Contact Info) Description 08/13/2022 3:00 PM EST Office Visit Obstetrics [place] [address] Ann-Marie Cottrell COMPOUNDER [employer] [facility] [place] [address] Uterovaginal prolapse, complete; Encounter for [...] this encounter Progress Notes * Ann-Marie Cottrell, [employer] - 08/13/2022 3:00 PM EST Female Pelvic [...] uterovaginal prolapse. She sees Dr. Borjas in [place] for pessary management. She sees them about [...] lb) SpO2 95% BMI 24.98 kg/m?? A behavioral technician is present for the examination. General: Appears [...] device documented in this encounter Care Teams Stove Mechanic Relationship Specialty Start Date End Date Jenelle Arellano APRN [address] [place] [address] PCP - General Family Medicine 05/27/18 11/03/23 documented as of this encounter
--- OUTSIDE RECORDS SUMMARY | 2024-10-01 22:08 | XMS_ITS | Encounter Summary ---
Author Organization [facility] [place] [address] Care Team Providers Care Pre Coder Name Role Phone Adan Jenelle GARZA Primary Care Provider Reason for Visit * Reason Comments Pessary Check Encounter Details Date Type Department Care Team (Late st Contact Info) Description 11/05/2022 3:00 PM EST Office Visit Obstetrics [place] [address] Ann-Marie Cottrell APRN [facility] [place] [address] Uterovaginal prolapse, complete; Pessary maintenance Social History [...] 10-15 minutes prior to pessary removal. A eligibility technician is present for the examination. General: [...] device documented in this encounter Care Teams Pre Coder Relationship Specialty Start Date End Date Jenelle Arellano APRN [address] [facility] [place] [address] PCP - General Family Medicine 05/27/18 11/03/23 documented as of this encounter
--- OUTSIDE RECORDS SUMMARY | 2024-10-01 22:08 | XMS_ITS | Encounter Summary ---
[place] [address] Care Team Providers Care Highway Engineering Technician Name Role Phone MaryJenelle andre GREG Primary Care Provider Reason for Visit * Reason Comments Follow-up Encounter Details Date Type Department Care Team (Late st Contact Info) Description 03/09/2020 10:45 AM EDT Office Visit Obstetrics [place] [phone] Lisa Lynn APRN Uterovaginal prolapse; Encounter for [...] device documented in this encounter Care Teams Highway Engineering Technician Relationship Specialty Start Date End Date Jenelle Arellano APRN [address] [place] [address] PCP - General Family Medicine 05/27/18 11/03/23 documented as of this encounter
--- OUTSIDE RECORDS SUMMARY | 2024-10-01 22:08 | XMS_ITS | Encounter Summary ---
[place] [address] Care Team Providers Care Curriculum Consultant Name Role Phone None Primary Care Provider Unavailabl e Encounter Details Date Type Department Care Team (Late st Contact Info) Description 01/02/2005 [place] [phone] John Bingham MD Social History Tobacco Use [...] (01/02/2005 4:31 PM EDT) Surgical Pathology Report [id number] ? Location: The signing pathologist has (i) [...] on filedocumented in this encounter Care Teams Curriculum Consultant Relationship Specialty Start Date End Date None None PCP - General 11/04/23 documented as of this encounter
--- OUTSIDE RECORDS SUMMARY | 2024-10-01 22:08 | XMS_ITS | Encounter Summary ---
[place] [address] Care Team Providers Care Physical Chemist Name Role Phone Jenelle Arellano APRN Primary Care Provider Encounter Details Date Type Department Care Team (Late st Contact Info) Description 02/25/2020 Orders Only Obstetrics [place] [phone] Yue Daniels, RN Social History Tobacco Use [...] on filedocumented in this encounter Care Teams Physical Chemist Relationship Specialty Start Date End Date Jenelle Arellano APRN [address] [place] [address] PCP - General Family Medicine 05/27/18 11/03/23 documented as of this encounter
--- OUTSIDE RECORDS SUMMARY | 2024-10-01 22:08 | XMS_ITS | Encounter Summary ---
Author Organization [facility] [place] [address] Care Team Providers Care Position Classification Manager Name Role Phone None Primary Care Provider Unavailabl e Reason for Visit * Reason Comments Pessary Check Encounter Details Date Type Department Care Team (Late st Contact Info) Description 11/04/2023 2:40 PM EST Office Visit Obstetrics [place] [address] Ann-Marie Cottrell, ARMATURE AND ROTOR [facility] [place] [address] Uterovaginal prolapse, complete; Pessary maintenance Social History [...] 10-15 minutes prior to pessary removal. A lawnmower repair mechanic is present for the examination. General: Appears [...] device documented in this encounter Care Teams Position Classification Manager Relationship Specialty Start Date End Date None None PCP - General 11/04/23 documented as of this encounter
--- OUTSIDE RECORDS SUMMARY | 2024-10-01 22:08 | XMS_ITS | Encounter Summary ---
[place] [address] Care Team Providers Care Lead Tinner Name Role Phone ArielaJenelle gilmore MOLD COOLER Primary Care Provider [phone] Reason for Visit * Reason Onset Date Comments Results 02/25/2020 Encounter Details Date Type Department Care Team (Late st Contact Info) Description 02/25/2020 Telephone Obstetrics [place] [address] Yue Daniels, RN Results Social [...] on filedocumented in this encounter Care Teams Lead Tinner Relationship Specialty Start Date End Date Jenelle Arellano, MOLD COOLER [address] [place] [address] PCP - General Family Medicine 05/27/18 11/03/23 documented as of this encounter
--- OUTSIDE RECORDS SUMMARY | 2024-10-01 22:08 | XMS_ITS | Encounter Summary ---
[place] [address] Care Team Providers Care Clerk Television Production Name Role Phone Jenelle Arellano APRN Primary Care Provider [phone] Encounter Details Date Type Department Care Team [...] on filedocumented in this encounter Care Teams Clerk Television Production Relationship Specialty Start Date End Date Jenelle Arellano APRN [address] [place] [address] PCP - General Family Medicine 05/27/18 11/03/23 documented as of this encounter
--- OUTSIDE RECORDS SUMMARY | 2024-10-01 22:08 | XMS_ITS | Encounter Summary ---
Author Organization [facility] [place] [address] Care Team Providers Care Sewing Inspector Name Role Phone None Primary Care Provider Unavailabl e Encounter Details Date Type Department Care Team (Late st Contact Info) Description 10/01/2024 5:20 PM EST Ancillary Procedure Radiology Library [facility] [place] [address] Anand Martínez MD [facility] [place] [address] Arrived Social History Tobacco Use Types Packs/Day Years [...] DX CHEST Routine 10/01/2024 5:12 PM EST documented in this encounter Results * Film Library- Storage Only DX Chest (10/01/2024 5:12 PM EST) Narrative [facility] - 10/01/2024 5:12 PM EST This exam is auto-finalizing. It's purpose is for storage only. Anand Martínez MD [facility] FILM LIBRARY ORD ERABLES [place] documented in this encounter Visit Diagnoses Not on filedocumented in this encounter Care Teams Sewing Inspector Relationship Specialty Start Date End Date None None PCP - General 11/04/23 documented as of this encounter
--- OUTSIDE RECORDS SUMMARY | 2024-10-01 22:08 | XMS_ITS | Encounter Summary ---
[place] [address] Care Team Providers Care Instructor Warper Name Role Phone Marynhungnathaniel Jenelle GREG Primary Care Provider [phone] Reason for Visit * Reason Comments Follow-up Encounter Details Date Type Department Care Team (Late st Contact Info) Description 03/21/2023 1:20 PM EDT Office Visit Obstetrics [place] [address] Ann-Marie Cottrell APRN [facility] [place] [address] Uterovaginal prolapse, complete; Pessary maintenance Social History [...] 10-15 minutes prior to pessary removal. A pharmacy data analyst is present for the examination. General: Appears [...] device documented in this encounter Care Teams Instructor Warper Relationship Specialty Start Date End Date Jenelle Arellano APRN [address] [place] [address] PCP - General Family Medicine 05/27/18 11/03/23 documented as of this encounter
--- OUTSIDE RECORDS SUMMARY | 2024-10-01 22:08 | XMS_ITS | Encounter Summary ---
[place] [address] Care Team Providers Care Senior Linux Administrator Name Role Phone Felipa Carlos APRN Primary Care Provider [phone] Encounter Details Date Type Department Care Team (Late st Contact Info) Description 10/16/[address] [place] [address] Merry Palacio Social History Tobacco Use Types [...] filedocumented in this encounter Care Teams Senior Linux Administrator Relationship Specialty Start Date End Date Felipa Carlos APRN PCP - General Family Medicine 06/03/15 10/27/16 documented as of this encounter
--- OUTSIDE RECORDS SUMMARY | 2024-10-01 22:08 | XMS_ITS | Clinical Summary ---
Author Organization [facility] Address [address] [place] [address] Care Team Providers Care Stone And Plate Preparer Apprentice Name Role Phone Amish Cope MD Primary Care Provider [phone] Social History Tobacco Use Types Packs/Day Years [...] COVID-19 Vaccine (2023- season) 2024 Care Teams Stone And Plate Preparer Apprentice Relationship Specialty Start Date End Date Amish Cope MD PCP - General 07/14/15
--- OUTSIDE RECORDS SUMMARY | 2024-10-01 22:08 | XMS_ITS | Referral Summary ---
Author Organization [facility] Address [address] [place] [address] Care Team Providers Care Lozenge Maker Name Role Phone Amish Cope MD Primary Care Provider [phone] Social History Tobacco Use Types Packs/Day Years Used Date Smoking Tobacco: Never Assessed Comments Unknown Sex and Gender Information Value Date Recorded Sex Assigned at Not on file Legal Sex Female 18:24 EST Gender Identity Not on file Sexual Orientation Not on file Plan of Treatment Not on file Care Teams Lozenge Maker Relationship Specialty Start Date End Date Amish Cope MD PCP - General 07/14/15
--- OUTSIDE RECORDS SUMMARY | 2024-10-01 22:08 | XMS_ITS | Encounter Summary ---
Author Organization [facility] [place] [address] Care Team Providers Care Corporate Security Officer Name Role Phone Caleb Singer MD Primary Care Provider Unavaila ble Reason for Visit * Reason Comments Vaginal Prolapse Encounter Details Date Type Department Care Team (Late st Contact Info) Description 02/01/2014 2:15 PM EDT Office Visit Obstetrics [place] [address] Lucian Melendez MD [facility] DR OBSTETRICS [place] [address] Prolapse of vaginal rojas (Primary Dx) Discharge [...] Female Pelvic Medicine and Reconstructive Surgery @ [facility] Patient Name: Oksana Valiente Patient Primary Care Provider: CALEB SINGER MD Referring Provider: Yari Epstein Chief Complaint: pelvic organ prolapse History of Present Illness: Ms. Valiente is a 63 y.o. old para 4 woman, seen at the kind request of Yari Epstein, capping machine operator. She presents for evaluation and assessment of [...] Melendez MD Medication Sig Dispense Refill ??? Octcswcdvzbfx-Ncignhsu-Fonpul Tab Take by mouth. No Known Allergies [...] test (empty supine): negative External Genitalia: vulva, [place]'s and [place]tholin glands normal, urethra without tenderness [...] encounter Results * Bladder Scanner (02/01/2014) Pathologist [facility] Bladder Scan (mL) 202mL mL Lucian Melendez MD URO PROC W/O RFL ORD ERABLES * POCT urine dipstick (02/01/2014) Pathologist [facility] POC Sp [place] 1.002 - 1.030 Comment:scant void difficult y [...] rojas documented in this encounter Care Teams Corporate Security Officer Relationship Specialty Start Date End Date Caleb Singer MD PCP - General 07/24/10 06/02/15 documented as of this encounter
--- OUTSIDE RECORDS SUMMARY | 2024-10-01 22:08 | XMS_ITS | Encounter Summary ---
Author Organization [facility] Address [facility] [place] [address] Care Team Providers Care Wind Energy Technician Name Role Phone None Primary Care Provider Unavailabl e Encounter Details Date Type Department Care Team (Late st Contact Info) Description 10/01/2024 5:15 PM EST Ancillary Procedure Radiology Library at [facility] [place] [address] Anand Martínez MD [facility] [place] [address] Arrived Social History Tobacco Use Types Packs/Day [...] Associated Diagnosis Comments FILM LIBRARY STORAGE ONLY CT CHEST ABDOMEN PELVIS Routine 10/01/2024 5:12 PM EST documented in this encounter Results * Film Library- Storage Only CT Chest Abdomen Pelvis (10/01/2024 5:12 PM EST) Narrative [facility] - 10/01/2024 5:12 PM EST This exam is auto-finalizing. It's purpose is for storage only. Anand Martínez MD G FILM LIBRARY ORD ERABLES LEEANNE [place], [place] documented in this encounter Visit Diagnoses Not on filedocumented in this encounter Care Teams Wind Energy Technician Relationship Specialty Start Date End Date None None PCP - General 11/04/23 documented as of this encounter
--- OUTSIDE RECORDS SUMMARY | 2024-10-01 22:08 | XMS_ITS | Encounter Summary ---
[place] [address] Care Team Providers Care Strapping Machine Operator Name Role Phone Jenelle Arellano APRN Primary Care Provider [phone] Reason for Visit * Reason Comments Follow-up Encounter Details Date Type Department Care Team (Late st Contact Info) Description 09/03/2022 3:15 PM EST Office Visit Dermatology at [address] [address] Isaac Cedeño MD [address] [facility], [place] [address] History of basal cell carcinoma Social History [...] BCCA right cheek treated with Mohs surgery [facility] per Dr. Bingham March 2000 Oksana follows [...] skin documented in this encounter Care Teams Strapping Machine Operator Relationship Specialty Start Date End Date Jenelle Arellano APRN [address] [place] [address] PCP - General Family Medicine 05/27/18 11/03/23 documented as of this encounter
--- OUTSIDE RECORDS SUMMARY | 2024-10-01 22:08 | XMS_ITS | Encounter Summary ---
[place] [address] Care Team Providers Care Inspector Soldering Name Role Phone None Primary Care Provider [...] on filedocumented in this encounter Care Teams Inspector Soldering Relationship Specialty Start Date End Date None None PCP - General 11/04/23 documented as of this encounter
--- OUTSIDE RECORDS SUMMARY | 2024-10-01 22:08 | XMS_ITS | Encounter Summary ---
[place] [address] Care Team Providers Care Envelope Sealer Name Role Phone Jenelle Arellano APRN Primary [...] on filedocumented in this encounter Care Teams Envelope Sealer Relationship Specialty Start Date End Date Jenelle Arellano APRN [address] [place] [address] PCP - General Family Medicine 05/27/18 11/03/23 documented as of this encounter
--- OUTSIDE RECORDS SUMMARY | 2024-10-01 22:08 | XMS_ITS | Encounter Summary ---
Author Organization [facility] [place] [address] Care Team Providers Care Manager Ent Name Role Phone MarynhungnathanielJenelle GREG Primary Care Provider Reason for Visit * Reason Comments Follow-up * Consultation (Routine) - Closed Specialty Diagnoses / Procedures Referred By Contglen lott Referred To Contact Dermatology Diagnoses Disorder of the skin and subcutaneous tissue, unspecified Skin Lesion Procedures Consult Kelsi Hernandez APRN [address] [place] [address] Isaac Cedeño MD [address] [place] [address], [place] [address] Referral ID Status Reason Start Date Expiration Date Visits Re quested Visits Authorized [id number] Closed 04/16/2022 04/16/2023 1 1 Encounter Details Date Type Department Care Team (Late st Contact Info) Description 06/20/2022 8:15 AM EDT Office Visit Dermatology at [address] [address] Isaac Cedeño MD [address] [place] [address], CAT DERMATOLOGY [place], [place] [id number] History of basal cell carcinoma; Scar Social [...] BCCA right cheek treated with Mohs surgery [facility] Oksana presents today for a nonhealing lesion [...] skin documented in this encounter Care Teams Manager Ent Relationship Specialty Start Date End Date Jenelle Arellnao APRN [address] [place] [address] PCP - General Family Medicine 05/27/18 11/03/23 documented as of this encounter
--- OUTSIDE RECORDS SUMMARY | 2024-10-01 22:08 | XMS_ITS | Encounter Summary ---
[place] [address] Care Team Providers Care Telephone Sales Agent Name Role Phone None Primary Care Provider Unavailabl e Reason for Visit * Reason Comments Follow-up Encounter Details Date Type Department Care Team (Late st Contact Info) Description 05/11/2024 2:00 PM EDT Office Visit Obstetrics [place] [address] Caryn Boswell, OPTION TRADER [address] [facility] [place] [address] Uterovaginal prolapse, complete; Pessary maintenance Social History [...] lb) SpO2 95% BMI 22.67 kg/m?? A geospatial information technologist is declined for the examination. General: In [...] device documented in this encounter Care Teams Telephone Sales Agent Relationship Specialty Start Date End Date None None PCP - General 11/04/23 documented as of this encounter
--- OUTSIDE RECORDS SUMMARY | 2024-10-01 22:08 | XMS_ITS | Encounter Summary ---
[place] [address] Care Team Providers Care Incoming Freight Clerk Name Role Phone Jenelle Arellano APRN Primary Care Provider [phone] Reason for Visit * Reason Comments Leg Pain I have veins * Consultation (Routine) - Closed Specialty Diagnoses / Procedures Referred By Contglen t Referred To Contact Vascular Surgery Diagnoses VARICOSE VEINS LOWER EXTREMITIES Jenelle Arellano APRN [address] [place] [address] [facility] V[facility] Surg [address] [place] [address] Referral ID Status Reason Start Date Expiration Date V isits Requested Visits Authorized [id number] Closed Consult, Test & Treat Connection Center 05/27/2018 05/27/2019 1 1 Encounter Details Date Type Department Care Team (Late st Contact Info) Description 06/10/2018 1:30 PM EDT Office Visit [place] [address] Caryn Izaguirre PA [address] [facility] [place] [address] Varicose veins of left lower extremity with [...] Medications: Medications 06/10/18 1345 Medication Sig Taking? Hmydnmshmfnlb-Vjtwjmdy-Evckpf Tab Take by mouth. OMEPRAZOLE (PRILOSEC ORAL) [...] veins documented in this encounter Care Teams Incoming Freight Clerk Relationship Specialty Start Date End Date Jenelle Arellano APRN [address] [place] [address] PCP - General Family Medicine 05/27/18 11/03/23 documented as of this encounter
--- NOTE | 2024-10-01 22:09 | HPE_ITS ---
Date of service: 10/01/24 Time of Service: 21:50 Assessment and Plan Assessment and plan (1) Pneumonia: Status: Acute Assessment and plan: This is the cause of her respiratory symtpoms, hypoxia, and flank pain. Started on ceftriaxone and azithromycin, will continue this for community acquired pneumonia. BNaP up but clinically not CHF, EKG and troponins reassuring (2) Renal mass: Status: Acute Assessment and plan: This appears incidental, urology at [facility] reveiwed the CT and they did not feel this was an acute issue. This is on the left kidney are her pain is on the right where she has pneumonia. (3) COPD (chronic obstructive pulmonary disease): Status: Chronic Assessment and plan: Some evidence of exacerbation. Treating pneumonia as above along with steroids and nebs. VBG showing hypoxic respiratory failure but not hypercarbic. (4) Tobacco use: Status: Acute Assessment and plan: She is ambivalent, only slightly contemplative. Offer patch if craving. (5) Hypertension: Status: Chronic Assessment and plan: continue outpatient medicaiton (6) Pyuria: Status: Acute Assessment and plan: Positive urine but many squamous cells so contaminated. She doesn't have urinary symptoms and the flank pain is explained by RLL pneumonia. Will repeat U/a, but for now UTI would be covered by ceftriaxone anyways. (7) Lymphadenopathy of left cervical region: Status: Acute Assessment and plan: possibly a/w her infection but given smoking history and size of this minimally tender node, should be followed (8) DVT prophylaxis: Status: Acute Assessment and plan: enoxaparin History of Present Illness History of Present Illness Chief Complaint: cough, chills Narrative: 73 yo F smoker with COPD presenting with 2 days of cough, chills, and right sided flank pain. Her syptoms started 2 nights ago, on Friday 09/29. Had runny nose, cough, and chills. She has been in bed for two days, not eating or drinking as much. Cough started dry but then producing brown sputum, no blood. She started to feel more SOB, was using her rescue inhaler but she didn't feel like it was working well. The pain is sharp and constant in the right lateral mid back/flank. She states it is actually getting better since she got here. She has some right shoulder pain as well. No radition to abdomen or groin, no pain with urination or hematuria. She hasn't had left sided pain. No n/v, though she has had a dull headache for 2 days. She states a week ago she had sore throat, but this has been less bothersome as other symptoms have developed. Her grandson who lives with her was very sick with flu-like illness last week as well. She was scheduled for a knee replacement next week. Review of Systems All systems reviewed & are unremarkable except as noted in HPI and below ENT Ears, Nose, Mouth, and Throat: Denies dental pain, Denies dysphagia (no choking on food) and Denies mouth lesions Respiratory Respiratory: Denies hemoptysis Gastrointestinal Gastrointestinal: Denies dysphagia (no choking on food) Musculoskeletal Musculoskeletal: Reports arthralgias (was planning knee replacement this coming week) PFS All Active Problems (Updated 10/01/24 @ 22:31 by Amish Rodríguez) Lymphadenopathy of left cervical region (Acute) Pyuria (Acute) DVT prophylaxis (Acute) Acute UTI (Acute) Lesion of left [place] kidney (Acute) Pneumonia (Acute) Arthritis of knee, left (Acute) Arthritis of knee, right (Acute) DEPO MEDROL 40m05/29/23; 11/13/2022 Hypertension (Chronic) Renal mass (Acute) Irregular cardiac rhythm (Acute) Nicotine dependence, cigarettes, uncomplicated (Acute) Skin lesion of left lower limb (Acute) Tick bite (Acute) COPD (chronic obstructive pulmonary disease) (Chronic) Mass of joint of left wrist (Acute) Encounter for pessary maintenance (Acute) Fall (Acute) Sprain of hand, left (Acute) Other sprain of left foot, initial encounter (Acute) Arthritis of carpometacarpal (CMC) joint of left thumb (Acute) Tobacco use (Acute) Uterine procidentia (Acute 01/17/17) Used 89mm ring with support pessary until prolapse beyond ring pessary. 03/2019 short stemmed 76mm Gellhorn pessary placed. 04/2019 ring with support pessary inserted For 2019 76 mm donut pessary inserted. 2019 89mm ring with support pessary placed at [facility]. 04/2021. 95mm Ring with support placed. Sensorineural hearing loss, bilateral (Acute 03/29/14) Sensorineural hearing loss (Acute 03/14/14) Mixed hearing loss, unilateral (Acute 03/14/14) Impairment of auditory discrimination (Acute 03/14/14) Medical History (Updated 10/01/24 @ 22:31 by Amish Rodríguez) Migraine Hiatal hernia Hearing loss, bilateral Varicose veins of lower extremity Meniere disease Depression Osteopenia GERD (gastroesophageal reflux disease) Basal cell carcinoma, face COPD (chronic obstructive pulmonary disease) Surgical History (Updated 10/01/24 @ 22:16 by Amish Rodríguez) S/P tonsillectomy History of basal cell carcinoma excision on face History of varicose vein stripping Family History (Updated 10/01/24 @ 22:18 by Amish Rodríguez) Other Adopted Social History (Updated 10/01/24 @ 22:18 by Amish Rodríguez) Smoking/Tobacco Use Status: Current every day Tobacco Type: cigarettes Years smoked: 61 Quit status: not considering quitting Counseling given: counseling >3 minutes Smoking risk assessment performed?: Yes Alcohol Intake: never Drug use: Never Substance use type: does not use Number of Children: 4 Current gender identity: female Seatbelt use: always Do you feel safe at home: Yes Additional Social history: pt not in a relationship Lives with daughter and 17 yo grandson in [employer] 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 Female Reproductive History Menstrual control method: none Menopause type: natural History History 2 7 Para Hx # Term Pregnancies 4 Multiple births Hx # Pregnancies Ectopic pregnancies AB induced Hx Number of Living Children AB spontaneous Meds Allergies and Home Medications Allergies Allergy/AdvReac Type Severity Reaction Status Date / Time No Known Allergies Allergy Unverified 10/01/24 13:36 Home Medications ?Medication ?Instructions ?Recorded ?Confirmed ?Type cjqhbvjb-sve-srlht acid 0.4 1 tab PO DAILY 11/01/14 10/01/24 History mg-lycopene 300 mcg-lutein 250 mcg tablet (Centrum Silver) montelukast 10 mg tablet 10 mg PO DAILY 05/28/21 10/01/24 History (Singulair) meclizine 12.5 mg tablet 12.5 mg PO Q6H PRN 09/27/22 10/01/24 History losartan 25 mg tablet 25 mg PO DAILY 01/15/24 10/01/24 History albuterol sulfate 90 mcg/actuation 2 puff inhalation QID PRN 07/14/24 10/01/24 Rx aerosol inhaler shortness of breath or wheezing #8.5 grams fluticasone 250 mcg-salmeterol 50 1 inh inhalation BID #60 ea 07/14/24 10/01/24 Rx mcg/dose blistr powdr for inhalation (Advair Diskus) tiotropium bromide 2.5 2 inh inhalation QAM #4 grams 07/14/24 10/01/24 Rx mcg/actuation mist for inhalation (Spiriva Respimat) inhalational spacing device (Space #1 ea 08/10/24 10/01/24 Rx Chamber) ipratropium 0.5 mg-albuterol 3 mg See Rx Instructions .Route 08/10/24 10/01/24 Rx (2.5 mg base)/3 mL nebulization .COMPLEX PRN shortness of breath soln or wheezing #180 mL Results Imaging Chest x-ray: report reviewed (Right lower lobe infiltrate in the posterior basal segment of the right lower lobe. Subtle suggestion of tiny right pneumothorax over the lower right lateral chest wall.) and image reviewed CT scan - chest: report reviewed (1. Large right lower lobe infiltrate, predominately involving the posterior basal segment of the right lower lobe. 2. Thin ipsilateral right-side pneumothorax, approximately 5 percent. 3. Large retrocardiac hiatal hernia. This brings to mind the possibility of aspiration pneumonia.) EKG: report reviewed and image reviewed (NSR, nl axis, intervals, no ST-T abnormalities) Imaging Studies: CT A/P: . There is a large area of infiltrate in the right lower lobe posterior basal segment. Visualized left lung base is clear. No pleural effusions. Recommend chest CT scan. 2. In addition to multiple benign cysts in both kidneys there is also a denser lesion in the left kidney measuring 2 x 1.8 x 2.3 cm which is either a hemorrhagic cyst or other pathology. Cannot exclude abscess or (less likely) neoplasm. 3. Extensive sigmoid diverticulosis. No obvious acute diverticulitis. 4. Previous hysterectomy. Large 10 cm diameter pessary in place in the upper vagina. Labs 10/01/24 13:59 10/01/24 13:59 Labs: Laboratory Results - last 24 hr 10/01/24 10/01/24 10/01/24 13:59 14:35 15:37 WBC 29.23 H* RBC 5.09 Hgb 15.4 Hct 46.0 MCV 90 MCH 30.3 MCHC 33.5 RDW 12.7 Plt Count 230 MPV 10.8 Immature Gran % 2.0 Neutrophils % 89.2 Lymphocytes % 5.2 Monocytes % 3.2 Eosinophils % 0.0 Basophils % 0.4 Nucleated RBC % 0.0 Absolute Neutrophils 26.07 H Absolute Lymphocytes 1.52 Absolute Monocytes 0.94 H Absolute Eosinophils 0.00 Absolute Basophils 0.12 RBC Morphology Normal VBG pH 7.39 VBG pCO2 41 VBG pO2 48 VBG HCO3 25 VBG Total CO2 22 L VBG O2 Saturation 84 VBG Base Excess 0 Sodium 138 Potassium 4.2 Chloride 100 Carbon Dioxide 26.4 Anion Gap 11.6 H BUN 16 Creatinine 0.8 Est GFR (CKD-EPI 2020) 76.79 Glucose 97 Calcium 9.9 Total Bilirubin 0.79 AST 28 ALT 19 Alkaline Phosphatase 61 NT-Pro-B Natriuret Pep 1344 H Total Protein 7.8 Albumin 3.2 L Urine Color Yellow Urine Clarity Sl Cloudy Urine pH 5.5 Ur Specific [place] >= 1.030 H Urine Protein >=300 H Urine Ketones 15 H Urine Blood Moderate H Urine Nitrite Positive H Urine Bilirubin Small H Urine Urobilinogen 1.0 H Ur Leukocyte Esterase Small H Urine RBC 20-50 H Urine WBC 20-50 H Ur Epithelial Cells Many Urine Crystals Negative Urine Bacteria Many Urine Mucus Moderate Urine Other Rare Transitional Ur Culture Indicated? No/Sq. Contamination Urine Glucose Negative COVID-19 Source Nasopharynx SARS-CoV-2 (PCR) Negative Influenza Type A (PCR) Negative Influenza Type B (PCR) Negative RSV (PCR) Negative Add-On Test Request TNP Last Vital Signs Temp 36.2 C L 10/01/24 13:38 Pulse 92 H 10/01/24 21:56 Resp 18 10/01/24 21:56 BP 107/62 10/01/24 21:56 Pulse Ox 97 10/01/24 21:56 Time Spent Time spent with Patient: 55-74 minutes Time was spent: preparing to see the patient(eg.review tests), obtaining and/or reviewing separately otained hiistory, ordering medications,tests, procedures, referring, communicating with other health healthcare recruiter, indepentently interpreting results, counseling the patient and care coordination
--- OUTSIDE RECORDS SUMMARY | 2024-10-01 22:09 | XMS_ITS | Encounter Summary ---
Author Organization [facility] Address [address] [place] [address] Care Team Providers Care Educational Administration Teacher Name Role Phone Unavailable Primary Care Provider Unavailabl e Encounter Details Date Type Department Care Team (Late st Contact Info) Description 12/15/2000 Results Only [facility] [place] conversion [address] [place] [address] Alaina Chapman, SAVANA [address] [place] [address] Social History Tobacco Use Types [...] ? OKSANA BEE ? Accession #: ? [id number] : ? 1950 (Age: 50) ??F ?Collect Date: ? 12/15/2000 Location: ? [facility] ? Receive Date: ? 2000 Provider: ?ALAINA CHAPMAN FRONT END ASSISTANT Copy to: ? Specimen/Source: ?Conventional Pap Test, [...] Report [facility] 12/15/2000 2000 us Alaina Chapman NP PATHOLOGY ORDERABLES Final R esult [facility] [address] [place] [address] documented in this encounter Visit Diagnoses Not on filedocumented in this encounter
--- OUTSIDE RECORDS SUMMARY | 2024-10-01 22:09 | XMS_ITS | Encounter Summary ---
Author Organization [facility] Address [address] [place] [address] Care Team Providers Care Railroad Engineer Name Role Phone Unavailable Primary Care Provider Unavailabl e Encounter Details Date Type Department Care Team (Late st Contact Info) Description 05/17/2002 Results Only [facility] [place] conversion [address] [place] [address] Alaina Chapman, SAVANA [address] [place] [address] Social History Tobacco Use Types [...] when reading/interpreti ng unformatted reports. Name: ? KOSANA BEE ? Accession #: ? [id number] : ? 1950 (Age: 51) ??F ?Collect Date: ? 05/17/2002 Location: ? [facility] ? Receive Date: ? 05/19/2002 Provider: ?ALAINA CHAPMAN SCIENCE JOB TITLES Copy to: ? Specimen/Source: ?ThinPrep Pap Test, [...] ORDERABLES Final R esult [facility] [address] [place] [address] documented in this encounter Visit Diagnoses Not on filedocumented in this encounter
--- OUTSIDE RECORDS SUMMARY | 2024-10-01 22:09 | XMS_ITS | Encounter Summary ---
Author Organization [facility] Address [address] [place] [address] Care Team Providers Care Sales Systems Engineer Name Role Phone Unavailable Primary Care Provider Unavailabl e Encounter Details Date Type Department Care Team (Late st Contact Info) Description 12/01/2002 Results Only [facility] conversion [address] [place] [address] Caleb Tavera MD [address] [place] [address] Social History Tobacco Use Types Packs/Day Years [...] ? OKSANA BEE ? Accession #: ? [id number] ? : ? 1950 (Age: 51) ??F ? Collect Date: ? 12/01/2002 ? Location: ? [facility] ? Receive Date: ? 12/01/2002 ? Provider: BREANNA TAVERA MD Copy to: LORENZO CHAPMAN SENIOR LOAN PROCESSOR ? Final Pathologic Diagnosis: A. ?Stomach, linear [...] biopsy. ??Entirely submitted as (B). [facility] Rocco and GE junction are two toussaint soft tissue biopsies measuring 0.1 x 0.1 x 0.1 cm and 0.2 x 0.1 x 0.1 cm. Entirely submitted as (C). ??(Iris Franco)/tmg End of Report [facility] 12/01/2002 12/01/2002 15: 03 EST us Caleb Tavera MD PATHOLOGY ORDERABLES Final Res ult [facility] [address] [place] [address] documented in this encounter Visit Diagnoses Not on filedocumented in this encounter
--- OUTSIDE RECORDS SUMMARY | 2024-10-01 22:09 | XMS_ITS | Encounter Summary ---
Author Organization [facility] Address [address] [place] [address] Care Team Providers Care Fractionating Still Operator Name Role Phone Unavailable Primary Care Provider Unavailabl e Encounter Details Date Type Department Care Team (Late st Contact Info) Description 05/19/[address] Results [address] [facility] [place] conversion [address] [place] [address] Alaina Chapman, SAVANA [address] [place] [address] Social History Tobacco Use Types [...] ? OKSANA BEE ? Accession #: ? [id number] : ? 1950 (Age: 56) ??F ?Collect Date: ? 05/19/2007 Location: ? [facility] ? Receive Date: ? 05/20/2007 Provider: ?ALAINA CHAPMAN LICENSE EXAMINER Copy to: ? Specimen/Source: ?ThinPrep Pap Test, Cervix/Endocervix, processed on [employer] ThinPrep Imaging System, with manual evaluation Last [...] ORDERABLES Final R esult [facility] [address] [place] [address] documented in this encounter Visit Diagnoses Not on filedocumented in this encounter
--- OUTSIDE RECORDS SUMMARY | 2024-10-01 22:09 | XMS_ITS | Encounter Summary ---
Author Organization [facility] Address [address] [place] [address] Care Team Providers Care Mushroom Growth Media Mixer Name Role Phone Unavailable Primary Care Provider Unavailabl e Encounter Details Date Type Department Care Team (Late st Contact Info) Description 12/26/1999 Results Only [facility] conversion [address] [place] [address] Fanny Koch MD [address] [place] [address] Social History Tobacco Use Types [...] ? OKSANA BEE ? Accession #: ? [id number] : ? 1950 (Age: 49) ??F ?Collect Date: ? 12/26/1999 Location: ?Receive Date: ? 12/26/1999 Provider: ?FANNY KOCH PEARL TECHNICIAN Copy to: ?FANNY KOCH NP ? Specimen/Source: ?Pap Smear (One Slide) Last Menstrual Period: ? GYNECOLOGIC ??CYTOPATHOLOGY ??REPORT Name: CAYETANO BEERA Ramsey ? [facility] : 1950 ?? 49Y F ?Client ID: [id number] SS#: [id number] ? Clinician: AUGUST SAWANT, FANNY Powers Location: [facility] ??Copy to: [...] Velasquez M.D. ? Report Date: ?? 01/09/2000 [facility] Archived Tests - Final Diagnosis Text Field: Clinical History : ? Document reviewed and electronically signed by: ? Conversion ? Report Date: ??01/09/2000 00:00 End of Report [facility] 12/26/1999 7:59 EDT 12/26/1999 8:00 EDT us Fanny Koch MD PATHOLOGY ORDERABLES Final Re sult [facility] [address] [place] [address] documented in this encounter Visit Diagnoses Not on filedocumented in this encounter
--- OUTSIDE RECORDS SUMMARY | 2024-10-01 22:09 | XMS_ITS | Encounter Summary ---
Author Organization [facility] Address [address] [place] [address] Care Team Providers Care Asthma Educator Name Role Phone Unavailable Primary Care Provider Unavailabl e Encounter Details Date Type Department Care Team (Late st Contact Info) Description 07/13/2004 Results Only [facility] conversion [address] [place] [address] Alaina Chapman, SAVANA [address] [place] [address] Social History Tobacco Use Types [...] ? OKSANA BEE ? Accession #: ? [id number] : ? 1950 (Age: 53) ??F ?Collect Date: ? 07/13/2004 Location: ? [facility] ? Receive Date: ? 07/16/2004 Provider: ?ALAINA CHAPMAN WINEMAKER Copy to: ? Specimen/Source: ?ThinPrep Pap Test, [...] ORDERABLES Final R esult [facility] [address] [place] [address] documented in this encounter Visit Diagnoses Not on filedocumented in this encounter
--- OUTSIDE RECORDS SUMMARY | 2024-10-01 22:09 | XMS_ITS | Encounter Summary ---
Author Organization [facility] Address [address] [place] [address] Care Team Providers Care Video Production Specialist Name Role Phone Unavailable Primary Care Provider Unavailabl e Encounter Details Date Type Department Care Team (Late st Contact Info) Description 11/15/2003 Results Only [facility] conversion [address] [place] [address] Amish Tavera MD [address] [place] [address] Social History Tobacco Use Types Packs/Day Years [...] ? OKSANA BEE ? Accession #: ? [id number] ? : ? 1950 (Age: 52) ??F ? Collect Date: ? 11/15/2003 ? Location: ? [facility] ? Receive Date: ? 11/15/2003 ? Provider: BREANNA TAVERA MD Copy to: ALAINA ADELA LINING FOLDER ? Final Pathologic Diagnosis: ? Esophagogastric junction, [...] is entirely submitted in one cassette. ??(Dr. Morris-)/[facility] End of Report [facility] 11/15/2003 11/15/2003 15: 27 EST us Amish Tavera MD PATHOLOGY ORDERABLES Final Res ult [facility] [address] [place] [address] documented in this encounter Visit Diagnoses Not on filedocumented in this encounter
--- OUTSIDE RECORDS SUMMARY | 2024-10-01 22:09 | XMS_ITS | Encounter Summary ---
Author Organization [facility] Address [address] [place] [address] Care Team Providers Care Nursing Service Administrator Name Role Phone Unavailable Primary Care Provider Unavailabl e Encounter Details Date Type Department Care Team (Late st Contact Info) Description 06/23/2003 Results Only [facility] - Map conversion [address] [place] [address] Alaina Saravia, SAVANA [address] [place] [address] Social History Tobacco Use Types [...] 68. [facility] Report Status Final [id number] [facility] 06/23/2003 13:4 2 EDT 07/05/2003 13:42 EST us Alaina Saravia NP MICROBIOLOGY - GENERAL ORDER SOURAV Final Result [facility] [address] [place] [address] * CYTOPATHOLOGY (06/23/2003 0:00 EDT) Pathology Report: CYTOPATHOLOGY REPORT Reports generated via electronic interface contain original data; however they are lacking the format of the original report. Caution should be taken when reading/interpreti ng unformatted reports. Name: ? OKSANA BEE Roxy ? Accession #: ? [id number] : ? 1950 (Age: 52) ??F ?Collect [...] cells, undetermined significance. EDUCATIONAL NOTES/RECOMMENDATI ONS ? [facility] recommends following the 2001 Consensus Guidelines for the Management of Women with Cervical Cytological Abnormalities (DAVID,2002;287:212 0-9). Management algorithms have been distributed by [facility] and are available online at www.ASCCP.org. ? Document reviewed and electronically signed by: ? MAGUI SILVERMAN MD ? Report Date: ??07/04/2003 14:36 End of Report [facility] 06/23/2003 06/27/2003 Alaina Saravia NP PATHOLOGY ORDERABLES Final R esult [facility] [address] [place] [address] documented in this encounter Visit Diagnoses Not on filedocumented in this encounter
--- OUTSIDE RECORDS SUMMARY | 2024-10-01 22:09 | XMS_ITS | Encounter Summary ---
Author Organization [facility] Address [address] [place] [address] Care Team Providers Care Remarketing Rep Name Role Phone Unavailable Primary Care Provider Unavailabl e Encounter Details Date Type Department Care Team (Late st Contact Info) Description 04/22/2000 Results Only [facility] conversion [address] [place] [address] Fanny Koch MD [address] [place] [address] Social History Tobacco Use Types Packs/Day [...] ? OKSANA BEE ? Accession #: ? [id number] : ? 1950 (Age: 49) ??F ?Collect Date: ? 04/22/2000 Location: ? [facility] ? Receive Date: ? 04/24/2000 Provider: ?FANNY KOCH COIN BOX COLLECTOR Copy to: ? Specimen/Source: ?Conventional Pap Test, [...] ORDERABLES Final Re sult [facility] [address] [place] [address] documented in this encounter Visit Diagnoses Not on filedocumented in this encounter
--- NOTE | 2024-10-01 23:00 | W.PC.ACHO ---
Registration Status: Primary Language: Preferred Language: ED Information & Data Chief Complaint Headache 10/01/24 13:39 Triage Note c/o headache. hot and cold 10/01/24 13:27 chills started friday night. now has side pain. scheduled for knee surgery on . hx COPD. finding it more difficult to breath. took ibuprofen - none today. has been staying in bed the last 2 days. denies CP. has been using inhalers and nebs. Medical / Surgical History (Last Reviewed 10/01/24 @ 22:16 by Amish Rodríguez) Migraine Hiatal hernia Hearing loss, bilateral Varicose veins of lower extremity Meniere disease Depression Osteopenia GERD (gastroesophageal reflux disease) Basal cell carcinoma, face COPD (chronic obstructive pulmonary disease) (Last Updated 10/01/24 @ 22:16 by Amish Rodríguez) S/P tonsillectomy History of basal cell carcinoma excision History of varicose vein stripping Most Recent Vital Signs Temperature 36.7 C 10/01/24 22:17 Temperature Source Oral 10/01/24 13:38 Pulse 89 10/01/24 22:17 Pulse 91 H 10/01/24 20:46 Respiratory Rate 16 10/01/24 22:17 Respiratory Effort Normal, Non-Labored 10/01/24 14:11 Respiratory Depth Normal 10/01/24 14:11 Respiratory Pattern Normal 10/01/24 14:11 Blood Pressure 123/74 10/01/24 22:17 Blood Pressure Mean 77 10/01/24 21:56 Blood Pressure Position Sitting 10/01/24 13:38 Pulse Oximetry 91 L 10/01/24 22:17 Oxygen Delivery Method Room Air 10/01/24 22:17 Oxygen Flow Rate 0 10/01/24 22:17 Pain Level 0 10/01/24 22:17 Allergies No Known Allergies Allergy (Unverified 10/01/24 13:36) Active Medications Generic Name Dose Route Start Last Admin Trade Name Freq PRN Reason Stop Dose Admin Iohexol 70 ml 10/01/24 15:15 10/01/24 15:03 Omnipaque 350 Mg/Ml 100 Ml Btl IJ 10/31/24 23:59 70 ml DIRECTED LASHELL Administration Sodium Chloride 50 ml 10/01/24 15:15 10/01/24 15:02 Normal Saline - Diluent 50 Ml Vial IJ 50 ml .FOR DI USE LASHELL Administration IV IV Catheter Type [Right Peripheral IV Forearm] IV Catheter Type [Left Saline Lock Antecubital] IV Catheter Gauge [Right 20 Forearm] IV Catheter Gauge [Left 20 Antecubital] Diet Orders Category Date Time Status Regular/Normal [DIET] Nutrition 10/02/24 Breakfast Ordered Diagnostics 10/01/24 10/01/24 10/01/24 Range/Units 15:37 14:35 13:59 WBC 29.23 H* (4.4-10.8) 10^3/uL RBC 5.09 (3.93-5.22) 10^6/uL Hgb 15.4 (11.2-15.7) g/dL Hct 46.0 (36.0-46.0) % MCV 90 (80-95) fL MCH 30.3 (27.0-33.0) pg MCHC 33.5 (32.0-36.0) % RDW 12.7 (11.7-14.6) % Plt Count 230 (130-400) 10^3/uL MPV 10.8 (8.0-11.0) fL Immature Gran % 2.0 % Neutrophils % 89.2 % Lymphocytes % 5.2 % Monocytes % 3.2 % Eosinophils % 0.0 % Basophils % 0.4 % Nucleated RBC % 0.0 (0.0-0.3) % Absolute Neutrophils 26.07 H (1.2-6.7) 10^3/uL Absolute Lymphocytes 1.52 (1.2-3.4) 10^3/uL Absolute Monocytes 0.94 H (0.1-0.8) 10^3/uL Absolute Eosinophils 0.00 (0.0-0.7) 10^3/uL Absolute Basophils 0.12 (0.0-0.2) 10^3/uL RBC Morphology Normal VBG pH 7.39 (7.31-7.41) VBG pCO2 41 (41-51) mmHg VBG pO2 48 mmHg VBG HCO3 25 (23-28) mmol/L VBG Total CO2 22 L (24-29) mmol/L VBG O2 Saturation 84 % VBG Base Excess 0 (-2-3) mmol/L Sodium 138 (136-145) mmol/L Potassium 4.2 (3.5-5.1) mmol/L Chloride 100 (98-107) mmol/L Carbon Dioxide 26.4 (21.0-32.0) mmol/L Anion Gap 11.6 H (3-11) mmol/L BUN 16 (7-18) mg/dL Creatinine 0.8 (0.55-1.02) mg/dL Est GFR (CKD-EPI 2020) 76.79 (mL/min/1.73m2) Glucose 97 (74-106) mg/dL Calcium 9.9 (8.5-10.1) mg/dL Total Bilirubin 0.79 (0.2-1.0) mg/dL AST 28 (15-37) U/L ALT 19 (14-59) U/L Alkaline Phosphatase 61 (46-116) U/L NT-Pro-B Natriuret Pep 1344 H (<300) pg/mL Total Protein 7.8 (6.4-8.2) g/dL Albumin 3.2 L (3.4-5.0) g/dL Urine Color Yellow (Yellow) Urine Clarity Sl Cloudy (Clear) Urine pH 5.5 (5-8) Ur Specific [place] >= 1.030 H (1.005-1.025) Urine Protein >=300 H (Neg-Trace) mg/dL Urine Ketones 15 H (Negative) mg/dL Urine Blood Moderate H (Negative) Urine Nitrite Positive H (Negative) Urine Bilirubin Small H (Negative) Urine Urobilinogen 1.0 H (Up to 0.2) mg/dL Ur Leukocyte Esterase Small H (Negative) Urine RBC 20-50 H (0-2) HPF Urine WBC 20-50 H (0-5) HPF Ur Epithelial Cells Many (Negative) HPF Urine Crystals Negative (Negative) HPF Urine Bacteria Many (Negative) HPF Urine Mucus Moderate (Negative) Urine Other Rare Transitional (Negative) Ur Culture Indicated? No/Sq. Contamination Urine Glucose Negative (Negative) mg/dL COVID-19 Source Nasopharynx SARS-CoV-2 (PCR) Negative (Negative) Influenza Type A (PCR) Negative (Negative) Influenza Type B (PCR) Negative (Negative) RSV (PCR) Negative (Negative) Add-On Test Request TNP 10/01/24 17:00 Blood Culture - Pending Blood 10/01/24 15:55 Blood Culture - Pending Blood Intake and Output - 24 Hour Total 10/01/24 13:26 thru 10/01/24 22:17 Intake Total 300 Balance 300 Weight 53 kg Intake: IV 300 Falls Risk Assessment History of Falls No History 10/01/24 22:17 Contributing Factors No Factors 10/01/24 22:17 Ambulatory Aids Independent 10/01/24 22:17 Tubes/Lines With any additional score 10/01/24 22:17 Gait Evaluation No gait disturbance 10/01/24 22:17 Fall Total Score 20 10/01/24 22:17 Level of Risk Standard/Low Risk 10/01/24 22:17 Problems Lymphadenopathy of left cervical region (Acute) Pyuria (Acute) DVT prophylaxis (Acute) Acute UTI (Acute) Lesion of left [place] kidney (Acute) Pneumonia (Acute) Hypertension (Chronic) Renal mass (Acute) COPD (chronic obstructive pulmonary disease) (Chronic) Tobacco use (Acute) v v v v v v v v v Sending and/or Receiving Nurses: Please use comment section below to note any information pertinent to the patient hand-off not included above. Information / Comments: pt has RLL PNA, L kidney lesions, UTI. has bilateral IV - 20g LAC, 20g RFA - no fluids running. Report received from: Mami JACKSON
[2024-10-02] VITALS (8 sets, daily range): BP systolic 111–123; BP diastolic 63–75; PULSE 76–92; RESP 2–18; TEMP 36.5–37.4; O2SAT 89–94
[2024-10-02 07:08] LABS: Abs Immature Grans 0.17 10^3/uL (0.0-0.06); Absolute Eosinophil Count 0.09 10^3/uL (0.0-0.7); Absolute Lymphocyte Count 2.09 10^3/uL (1.2-3.4); Basophils % 0.3 %; Eosinophils % 0.5 %; HCT 40.6 % (36.0-46.0); HGB 13.4 g/dL (11.2-15.7); Immature Grans % 0.9 %; Lymphocytes % 11.6 %; MCV 91 fL (80-95); Monocytes % 4.3 %; Neutrophils % 82.4 %; Platelet Count 243 10^3/uL (130-400); RBC 4.47 10^6/uL (3.93-5.22); RDW 12.8 % (11.7-14.6); RDW-SD 42.5 fL; WBC 17.98 10^3/uL (4.4-10.8)
[2024-10-02 07:13] LABS: Absolute Basophil Count 0.05 10^3/uL (0.0-0.2); Absolute Monocyte Count 0.77 10^3/uL (0.1-0.8); Absolute Neutrophil Count 14.82 10^3/uL (1.2-6.7)
[2024-10-02] MEDS: Losartan 25 MG TAB PO (08:25)
[2024-10-02] MEDS: Montelukast 10 MG TAB PO (08:26)
[2024-10-02] MEDS: Enoxaparin 40 MG/0.4 ML SYR SC (08:26)
[2024-10-02 08:51] LABS: Bilirubin Small (Negative); Blood Large (Negative); Clarity Clear (Clear); Glucose Negative (Negative); Ketones 80 mg/dL (Negative); Leukocyte Esterase Negative (Negative); Nitrite Negative (Negative); Specific Gravity 1.025 (1.005-1.025); Urobilinogen 0.2 mg/dL (Up to 0.2)
[2024-10-02 09:07] LABS: Epithelial Cells Few HPF (Negative); RBC 20-50 HPF (0-2); WBC 20-50 HPF (0-5)
[2024-10-02 09:08] LABS: Bacteria Many HPF (Negative); C & S Indicated? Yes; Casts 0-2 Coarse Granular LPF (Negative); Crystals Negative HPF (Negative); Other Cells Negative (Negative)
[2024-10-02 09:09] LABS: Mucus Heavy (Negative)
[2024-10-02] MEDS: Tiotropium Bromide-Respimat 10 PUFF INH 2 PUFF IH (09:10)
[2024-10-02] MEDS: Budesonide/Formoterol 160/4.5 6 GM 60 PUFF INH IH ×2 (09:10→19:49)
[2024-10-02] MEDS: Albuterol/Ipratropium 3 ML UPD VIAL UPD ×3 (09:11→21:56)
--- NOTE | 2024-10-02 13:26 | PGE_ITS ---
Date of Service Date of service: 10/02/24 Time of Service: 13:26 Assessment and Plan Assessment and plan (1) Pneumonia: Status: Acute Assessment and plan: continue day 2/5 ceftriaxone and azithromycin, will continue this for community acquired pneumonia. (2) Renal mass: Status: Acute Assessment and plan: appears incidental, urology at [facility] reveiwed the CT and they did not feel this was an acute issue. This is on the left kidney are her pain is on the right where she has pneumonia. (3) COPD (chronic obstructive pulmonary disease): Status: Chronic Assessment and plan: Some evidence of exacerbation. Treating pneumonia as above along with steroids and nebs. VBG showing hypoxic respiratory failure but not hypercarbic. (4) Tobacco use: Status: Acute Assessment and plan: She is ambivalent, only slightly contemplative. Offer patch if craving. (5) Hypertension: Status: Chronic Assessment and plan: continue outpatient medicaiton (6) Pyuria: Status: Acute Assessment and plan: Positive urine but many squamous cells so contaminated. She doesn't have urinary symptoms and the flank pain is explained by RLL pneumonia. Will repeat U/a, but for now UTI would be covered by ceftriaxone anyways. (7) Lymphadenopathy of left cervical region: Status: Acute Assessment and plan: possibly a/w her infection but given smoking history and size of this minimally tender node, should be followed (8) DVT prophylaxis: Status: Acute Assessment and plan: enoxaparin (9) Discharge planning issues: Status: Acute Assessment and plan: plan discharge home tomorrow with no new services if remains off oxygen and hemodynamically stable discussed with Dr Guerrier Subjective Subjective Patient reports: no new complaints, tolerating liquids well, tolerating a regular diet and afebrile; denies shortness of breath Interval history since last seen: weaned off oxygen Exam Const General: cooperative, healthy appearing, comfortable, no acute distress, well developed and well groomed Nutritional Appearance: average body habitus Orientation: alert and oriented x3 HENMT Head: normal to inspection Mouth: oral mucosae normal Resp Effort & Inspection: normal respiratory effort and able to speak in complete sentences Auscultation: wheezes (Coarse wheezes right side) Cardio Rhythm: regular rhythm GI Inspection: normal to inspection and non-distended Palpation: soft, no guarding and nontender Skin General skin exam: no rashes or lesions noted Objective Last Vital Signs Temp 36.9 C 10/02/24 07:31 Pulse 78 10/02/24 09:11 Resp 16 10/02/24 09:11 BP 111/63 10/02/24 07:31 Pulse Ox 89 L 10/02/24 09:11 Laboratory Results - last 24 hr 10/01/24 10/01/24 10/01/24 13:59 14:35 15:37 WBC 29.23 H* RBC 5.09 Hgb 15.4 Hct 46.0 MCV 90 MCH 30.3 MCHC 33.5 RDW 12.7 Plt Count 230 MPV 10.8 Immature Gran % 2.0 Neutrophils % 89.2 Lymphocytes % 5.2 Monocytes % 3.2 Eosinophils % 0.0 Basophils % 0.4 Nucleated RBC % 0.0 Absolute Neutrophils 26.07 H Absolute Lymphocytes 1.52 Absolute Monocytes 0.94 H Absolute Eosinophils 0.00 Absolute Basophils 0.12 RBC Morphology Normal VBG pH 7.39 VBG pCO2 41 VBG pO2 48 VBG HCO3 25 VBG Total CO2 22 L VBG O2 Saturation 84 VBG Base Excess 0 Sodium 138 Potassium 4.2 Chloride 100 Carbon Dioxide 26.4 Anion Gap 11.6 H BUN 16 Creatinine 0.8 Est GFR (CKD-EPI 2020) 76.79 Glucose 97 Calcium 9.9 Total Bilirubin 0.79 AST 28 ALT 19 Alkaline Phosphatase 61 NT-Pro-B Natriuret Pep 1344 H Total Protein 7.8 Albumin 3.2 L Urine Color Yellow Urine Clarity Sl Cloudy Urine pH 5.5 Ur Specific [place] >= 1.030 H Urine Protein >=300 H Urine Ketones 15 H Urine Blood Moderate H Urine Nitrite Positive H Urine Bilirubin Small H Urine Urobilinogen 1.0 H Ur Leukocyte Esterase Small H Urine RBC 20-50 H Urine WBC 20-50 H Ur Epithelial Cells Many Urine Crystals Negative Urine Bacteria Many Urine Casts Urine Mucus Moderate Urine Other Rare Transitional Ur Culture Indicated? No/Sq. Contamination Urine Glucose Negative COVID-19 Source Nasopharynx SARS-CoV-2 (PCR) Negative Influenza Type A (PCR) Negative Influenza Type B (PCR) Negative RSV (PCR) Negative Add-On Test Request TNP 10/02/24 10/02/24 06:48 08:39 WBC 17.98 H RBC 4.47 Hgb 13.4 D Hct 40.6 MCV 91 MCH 30.0 MCHC 33.0 RDW 12.8 Plt Count 243 MPV 10.0 Immature Gran % 0.9 Neutrophils % 82.4 Lymphocytes % 11.6 Monocytes % 4.3 Eosinophils % 0.5 Basophils % 0.3 Nucleated RBC % 0.0 Absolute Neutrophils 14.82 H Absolute Lymphocytes 2.09 Absolute Monocytes 0.77 Absolute Eosinophils 0.09 Absolute Basophils 0.05 RBC Morphology VBG pH VBG pCO2 VBG pO2 VBG HCO3 VBG Total CO2 VBG O2 Saturation VBG Base Excess Sodium Potassium Chloride Carbon Dioxide Anion Gap BUN Creatinine Est GFR (CKD-EPI 2020) Glucose Calcium Total Bilirubin AST ALT Alkaline Phosphatase NT-Pro-B Natriuret Pep Total Protein Albumin Urine Color Yellow Urine Clarity Clear Urine pH 6.0 Ur Specific [place] 1.025 Urine Protein 100 H Urine Ketones 80 H Urine Blood Large H Urine Nitrite Negative Urine Bilirubin Small H Urine Urobilinogen 0.2 Ur Leukocyte Esterase Negative Urine RBC 20-50 H Urine WBC 20-50 H Ur Epithelial Cells Few Urine Crystals Negative Urine Bacteria Many Urine Casts 0-2 Coarse Granular Urine Mucus Heavy Urine Other Negative Ur Culture Indicated? Yes Urine Glucose Negative COVID-19 Source SARS-CoV-2 (PCR) Influenza Type A (PCR) Influenza Type B (PCR) RSV (PCR) Add-On Test Request Time Spent with Patient Time Spent with Patient: 35-49 minutes Time was spent: preparing to see the patient(eg.review tests), obtaining and/or reviewing separately otained hiistory, ordering medications,tests, procedures, indepentently interpreting results and counseling the patient
[2024-10-02] MEDS: cefTRIAXone 2 GM/50 ML BAG IVPB (16:10)
--- NOTE | 2024-10-02 16:33 | PDOC.CMIN ---
Date of service: 10/02/24 Time of Service: 16:33 Care Management Initial Assmt Initial Assessment Reason for Hospitalization: PNA, COPD exacerbation Functional Status/Living Situation Patient Presentation: Oksana was sitting up in bed when CM met with her. She stated that she is doing well today, and is no longer requiring supplemental O2. She stated that she lives in [place] with her daughter and grandson. Per report, she is improving, and may be ready for discharge tomorrow, if she continues to improve. She stated that her family will drive her home, when she is ready. She stated that she is independent at baseline, and does not anticipate the need for any services upon discharge. CM will continue to follow. Town of Residence: [place] Resides with: Child Significant Other/Family: Local Employment Status: Retired Instrumental Activities of Daily Living (ADLs): Independent Medications Medication Management: No Issues/Barriers identified Advance Directives Advance Directives: Do you have an Advance Directive: N 12/28/13 13:[address] [facility]: N 12/28/13 13:07 Date Asked 10/01/24 10/01/24 13:31 AD Date Reviewed COLST On File at [facility] No 10/01/24 22:09 COLST Date Scanned Code Status Resuscitation Status Full Code Insurance Coverage/Financial Issues Insurance: BC/BS [facility] advantage Care Team Visit Care Team Role Provider Type Caryn Bernard Primary Care Provider NURSE PRACTITIONER Pilar Oakes NP Emergency Provider NURSE PRACTITIONER Amish Rodríguez Admit Provider [facility] STAFF PHYSICIAN Attending Provider Discharge Potential Discharge Needs: PCP F/U Appt Anticipated Barriers to Discharge: None Identified Patient/Family Education Needs: Review discharge instructions, discuss Ask Me Three Transportation: Private vehicle Plan: Anticipate Oksana will return home once medically cleared. She will be driven home via private vehicle by family. She will follow up with her PCP and discharge plan of care. CM will continue to follow. Social Determinants of Health Screening Social Determinants of Health last assessed: 10/02/24 Will the Patient Participate in the Screening?: Yes Do you worry about having a steady place to live?: yes What is your living situation today?: I have housing today, but am worried about losing it Problems where you live: no known problems In the past 12 months, have you had to go without electric, gas, oil or water in your home?: no Have you or anyone in your house had to go without enough food to eat?: no Has lack of transportation kept you from medical appointments or from doing things needed for daily living?: no Has anyone in your life made you feel unsafe or unsupported?: no How hard is it for you to pay for the very basics like food, housing, medical care, and heating? Would you say it is:: Very hard Do you want help finding or keeping work or a job?: I do not need or want help If for any reason you need help with day-to-day activities such as bathing, preparing meals, shopping, managing finances, etc., do you get the help you need?: I get all the help I need How often do you feel lonely or isolated from those around you?: Never Do you speak a language other than [place] at home?: No Does the patient want assistance with any of the above?: Yes Health Related Social Needs Health related social needs: housing instability, housed, with risk of homelessness (Z59.811) and problems related to housing/economic circumstances (Z59.89) [facility] All Active Problems (Updated 10/02/24 @ 14:53 by Yelena Long NP) Discharge planning issues (Acute) Lymphadenopathy of left cervical region (Acute) Pyuria (Acute) DVT prophylaxis (Acute) Acute UTI (Acute) Lesion of left [place] kidney (Acute) Pneumonia (Acute) Arthritis of knee, left (Acute) Arthritis of knee, right (Acute) DEPO MEDROL 40m05/29/23; 11/13/2022 Hypertension (Chronic) Renal mass (Acute) Irregular cardiac rhythm (Acute) Nicotine dependence, cigarettes, uncomplicated (Acute) Skin lesion of left lower limb (Acute) Tick bite (Acute) COPD (chronic obstructive pulmonary disease) (Chronic) Mass of joint of left wrist (Acute) Impairment of auditory discrimination (Acute 03/14/14) Mixed hearing loss, unilateral (Acute 03/14/14) Sensorineural hearing loss (Acute 03/14/14) Arthritis of carpometacarpal (CMC) joint of left thumb (Acute) Other sprain of left foot, initial encounter (Acute) Sprain of hand, left (Acute) Fall (Acute) Encounter for pessary maintenance (Acute) Tobacco use (Acute) Uterine procidentia (Acute 01/17/17) Used 89mm ring with support pessary until prolapse beyond ring pessary. 03/2019 short stemmed 76mm Gellhorn pessary placed. 04/2019 ring with support pessary inserted For 2019 76 mm donut pessary inserted. 2019 89mm ring with support pessary placed at [facility] 04/2021. 95mm Ring with support placed. Sensorineural hearing loss, bilateral (Acute 03/29/14) Medical History (Updated 10/02/24 @ 14:53 by Yelena Long NP) Migraine Hiatal hernia Hearing loss, bilateral Varicose veins of lower extremity Meniere disease Depression Osteopenia GERD (gastroesophageal reflux disease) Basal cell carcinoma, face COPD (chronic obstructive pulmonary disease) Surgical History (Updated 10/01/24 @ 22:16 by Amish Rodríguez) S/P tonsillectomy History of basal cell carcinoma excision on face History of varicose vein stripping Family History (Updated 10/01/24 @ 22:18 by Amish Rodríguez) Other Adopted Social History (Updated 10/01/24 @ 22:18 by Amish Rodríguez) Smoking/Tobacco Use Status: Current every day Tobacco Type: cigarettes Years smoked: 61 Quit status: not considering quitting Counseling given: counseling >3 minutes Smoking risk assessment performed?: Yes Alcohol Intake: never Drug use: Never Substance use type: does not use Housing: house Number of Children: 4 Current gender identity: female Seatbelt use: always Do you feel safe at home: Yes Additional Social history: pt not in a relationship Lives with daughter and 17 yo grandson in [place] 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 Female Reproductive History Menstrual control method: none Menopause type: natural History History 7 Para Hx # Term Pregnancies 4 Multiple births Hx # Pregnancies Ectopic pregnancies AB induced Hx Number of Living Children AB spontaneous
[2024-10-02] MEDS: AZITHROMYCIN 500 MG in Normal Saline 250 ML 250 MG IV (17:58)
[2024-10-02] MEDS: Normal Saline Flush 10 ML SYR IVP (22:06)
[2024-10-03 07:44] VITALS: BP 141/82; PULSE 84; RESP 16; TEMP 37; O2SAT 93
[2024-10-03] MEDS: Tiotropium Bromide-Respimat 10 PUFF INH 2 PUFF IH (08:34)
[2024-10-03 08:35] VITALS: PULSE 70; RESP 16; RESP 9; O2SAT 90
[2024-10-03] MEDS: Albuterol/Ipratropium 3 ML UPD VIAL UPD (08:35)
[2024-10-03] MEDS: Budesonide/Formoterol 160/4.5 6 GM 60 PUFF INH IH (08:35)
[2024-10-03] MEDS: Enoxaparin 40 MG/0.4 ML SYR SC (08:38)
[2024-10-03] MEDS: Losartan 25 MG TAB PO (08:38)
[2024-10-03] MEDS: Montelukast 10 MG TAB PO (08:38)
--- NOTE | 2024-10-03 11:47 | DSE_ITS ---
Date of service: 10/03/24 Time of Service: 11:47 DS: Diagnosis Discharge Diagnosis (1) Pneumonia: Status: Acute (2) Renal mass: Status: Acute (3) COPD (chronic obstructive pulmonary disease): Status: Chronic (4) Tobacco use: Status: Acute (5) Hypertension: Status: Chronic (6) Pyuria: Status: Acute (7) Lymphadenopathy of left cervical region: Status: Acute Discharge Plan Disposition Patient Disposition: Home Condition: Improving Discharge Details Reason For Visit: pneuonia, COPD exacerbation, hypoxia Admit Date/Time: 10/01/24 20:07 Admit Provider: Amish Rodríguez Attending Provider: Amish Rodríguez Primary Care Provider: Caryn Bernard Hospital Course Hospital Course: This is a 73-year-old female patient past medical history significant for tobacco use disorder COPD, hypertension who presented to the emergency department with complaints of shortness of breath, fever, cough and chills in addition to right lateral back/flank pain. Her workup in the emergency department did show a right lower lobe infiltrate concerning for pneumonia. She did have elevated white count. She was started on ceftriaxone and azithromycin. Part of her workup in the emergency department included a D-dimers which was elevated so she did undergo a CTA of the chest which showed an incidental finding on her kidney with multiple benign lesions to both kidneys with 1 lesion on the left measuring 2 x 1.8 x 2.3 cm which was concerning for either a hemorrhagic cyst or some other pathology. It was not believed that this was an abscess after discussion with radiologist. She should have outpatient follow-up regarding this. She was advised to call her primary care provider for follow-up following this hospitalization. She has been weaned off oxygen and has remained hemodynamically stable. She is eating and drinking and bowels and bladder functioning. She is being discharged home on cefpodoxime and azithromycin to complete a 5-day course. She was advised to abstain from tobacco. She will return sooner to the emergency department for new or worsening symptoms or follow-up outpatient with primary care Discussed with Dr. Guerrier Home Meds and New Rx's Prescriptions: New cefpodoxime 200 mg tablet 200 mg PO BID Qty: 7 0RF Rx Instructions: must administer with a meal/food azithromycin 500 mg tablet 500 mg PO DAILY 3 Days Qty: 3 0RF Continued fluticasone propion-salmeterol [Advair Diskus] 250-50 mcg/dose blister with device 1 inh inhalation BID Qty: 60 12RF Spiriva Respimat 2.5 mcg/actuation mist 2 inh inhalation QAM Qty: 4 12RF albuterol sulfate 90 mcg/actuation HFA aerosol inhaler 2 puff inhalation QID PRN (Reason: shortness of breath or wheezing) Qty: 8.5 12RF meclizine 12.5 mg tablet 12.5 mg PO Q6H PRN losartan 25 mg tablet 25 mg PO DAILY Patient Comments: Patient not sure of the dosing montelukast [Singulair] 10 mg tablet 10 mg PO DAILY ipratropium-albuterol 0.5 mg-3 mg(2.5 mg base)/3 mL solution for nebulization See Rx Instructions .ROUTE .COMPLEX PRN (Reason: shortness of breath or wheezing) Qty: 180 12RF Rx Instructions: 3 mL inhaled as needed (DME) Space Chamber Spacer See Rx Instructions .Route Qty: 1 0RF Rx Instructions: As directed Centrum Silver 1 EACH tablet 1 tab PO DAILY Discharge Instructions Instructions: Community-acquired pneumonia in adults, Quitting smoking Additional Instructions: Your CAT scan did show multiple cysts in both your kidneys this should be followed up outpatient with your primary care provider we do not think that this had anything to do with why you presented and was just an incidental finding. Continue antibiotics to complete a 5-day course even if you feel better You should stop smoking, talk to your primary care provider about this or refer to information and resources provided Call your primary care provider first thing Friday morning for follow-up appointment or return sooner for new or worsening symptoms Push fluids to stay well-hydrated drinking at least 6 to 8 glasses of water daily Referrals: Caryn Bernard [Primary Care Provider] - Activity:: Activity as Tolerated Equipment/Supplies:: No Equipment Needed Diet:: As Tolerated Discharge Orders Discharge Orders: Discharge Order (Routine); Ordered 10/03/24 Ordered By: Yelena Long DS: Summary Time Spent with Patient providing and/or coordinating discharge services: Greater than 30 minutes Status at Discharge Functional status at discharge: independent ambulation Overall status at discharge: patient is progressing back to baseline Mental Status: mental status grossly normal Speech and Movement: speech and movement normal Mood: congruent mood Affect: normal affect Quality:SDOH Health Related Social Needs: Health related social needs housing instability, house d, with risk of homelessness (Z59.811), problems related to housing/economic circumstances (Z59.89) Exam Const General: cooperative, healthy appearing, comfortable, no acute distress, well developed and well groomed Nutritional Appearance: average body habitus Orientation: alert and oriented x3 HENMT Head: normal to inspection Mouth: oral mucosae normal Resp Effort & Inspection: normal respiratory effort and able to speak in complete sentences Auscultation: wheezes (Coarse wheezes right side) Cardio Rhythm: regular rhythm GI Inspection: normal to inspection and non-distended Palpation: soft, no guarding and nontender Skin General skin exam: no rashes or lesions noted Psych Mental Status: mental status grossly normal Speech and Movement: speech and movement normal Mood: congruent mood Affect: normal affect DS: Data Vitals/I&O Vitals and I&O: Vital Signs Temperature 37.0 C 10/03/24 07:44 Temperature Source Tympanic 10/03/24 07:44 Pulse 70 10/03/24 08:35 Pulse 91 H 10/01/24 20:46 Respiratory Rate 16 10/03/24 08:35 Respiratory Effort Normal, Non-Labored 10/01/24 14:11 Respiratory Depth Normal 10/01/24 14:11 Respiratory Pattern Normal 10/01/24 14:11 Blood Pressure 141/82 H 10/03/24 07:44 Blood Pressure Mean 77 10/01/24 21:56 Blood Pressure Position Sitting 10/01/24 13:38 Pulse Oximetry 90 L 10/03/24 08:35 Oxygen Delivery Method Room Air 10/03/24 08:35 Oxygen Flow Rate 0 10/03/24 08:35 Pain Level 0 10/03/24 07:44 Intake & Output 10/02/24 10/02/24 10/03/24 11:59 23:59 11:59 Intake Total 440 / 760 320 / 760 Output Total 300 / 300 Balance 140 / 460 320 / 460 Weight 52.8 kg Intake: IV 320 / 320 Oral 440 / 440 Output: Urine 300 / 300 Other: Urine Color Yellow Urine Appearance Clear Urine Odor Normal Comment pt independent in room not measuring pt independent in room, pt reports voiding pt reported voiding Data Completed and Pending Labs on day of discharge: Preliminary micro results at discharge 10/01/24 17:00 Blood Culture - Preliminary Blood Gram positive cocci 10/02/24 08:39 Urine Culture - Preliminary Urine - Reflex from Ua Gram positive erma, mixed 10/01/24 15:55 Blood Culture - Preliminary Blood NO GROWTH 24 HOURS PFSH All Active Problems (Updated 10/02/24 @ 14:53 by Yelena Long NP) Discharge planning issues (Acute) Lymphadenopathy of left cervical region (Acute) Pyuria (Acute) DVT prophylaxis (Acute) Acute UTI (Acute) Lesion of left ak chin kidney (Acute) Pneumonia (Acute) Arthritis of knee, left (Acute) Arthritis of knee, right (Acute) DEPO MEDROL 40m05/29/23; 11/13/2022 Hypertension (Chronic) Renal mass (Acute) Irregular cardiac rhythm (Acute) Nicotine dependence, cigarettes, uncomplicated (Acute) Skin lesion of left lower limb (Acute) Tick bite (Acute) COPD (chronic obstructive pulmonary disease) (Chronic) Mass of joint of left wrist (Acute) Impairment of auditory discrimination (Acute 03/14/14) Mixed hearing loss, unilateral (Acute 03/14/14) Sensorineural hearing loss (Acute 03/14/14) Arthritis of carpometacarpal (CMC) joint of left thumb (Acute) Other sprain of left foot, initial encounter (Acute) Sprain of hand, left (Acute) Fall (Acute) Encounter for pessary maintenance (Acute) Tobacco use (Acute) Uterine procidentia (Acute 01/17/17) Used 89mm ring with support pessary until prolapse beyond ring pessary. 03/2019 short stemmed 76mm Gellhorn pessary placed. 04/2019 ring with support pessary inserted For 2019 76 mm donut pessary inserted. 2019 89mm ring with support pessary placed at [facility] 04/2021. 95mm Ring with support placed. Sensorineural hearing loss, bilateral (Acute 03/29/14) Medical History (Updated 10/02/24 @ 14:53 by Yelena Long NP) Migraine Hiatal hernia Hearing loss, bilateral Varicose veins of lower extremity Meniere disease Depression Osteopenia GERD (gastroesophageal reflux disease) Basal cell carcinoma, face COPD (chronic obstructive pulmonary disease) Surgical History (Updated 10/01/24 @ 22:16 by Amish Rodríguez) S/P tonsillectomy History of basal cell carcinoma excision on face History of varicose vein stripping Family History (Updated 10/01/24 @ 22:18 by Amish Rodríguez) Other Adopted Social History (Updated 10/01/24 @ 22:18 by Amish Rodríguez) Smoking/Tobacco Use Status: Current every day Tobacco Type: cigarettes Years smoked: 61 Quit status: not considering quitting Counseling given: counseling >3 minutes Smoking risk assessment performed?: Yes Alcohol Intake: never Drug use: Never Substance use type: does not use Housing: house Number of Children: 4 Current gender identity: female Seatbelt use: always Do you feel safe at home: Yes Additional Social history: pt not in a relationship Lives with daughter and 17 yo grandson in [place] 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 Female Reproductive History Menstrual control method: none Menopause type: natural History History 7 Para Hx # Term Pregnancies 4 Multiple births Hx # Pregnancies Ectopic pregnancies AB induced Hx Number of Living Children AB spontaneous Time Spent with Patient Time Spent with Patient: 45-69 minutes Time was spent: preparing to see the patient(eg.review tests), obtaining and/or reviewing separately otained hiistory, ordering medications,tests, procedures, indepentently interpreting results and counseling the patient
--- NOTE | 2024-10-03 14:24 | CMDISCH_ITS ---
Date of service: 10/03/24 Time of Service: 14:24 LACE Index Scoring Tool Questions: Length of Stay (in days): 2 Was the patient admitted via the E.D.?: Yes Comorbidities: Chronic Pulmonary Disease and Any Tumor E.D. Visits: 0 Answers: Total Score: 10 Risk of Readmission: High Risk Care Management Discharge Plan Reason for Hospitalization: pneumonia, COPD exacerbation, hypoxia Discharge Plan: Oksana returned home today with no new services. She was transported home via private vehicle by family. She will follow up with her PCP and discharge plan of care. She was happy to be going home. Patient/Family Education Needs: Review discharge instructions and limitations, discussion of self care needs including ask me three. SDOH Health Related Social Needs: Health related social needs housing instability, house d, with risk of homelessness (Z59.811), problems related to housing/economic circumstances (Z59.89)
== END 2024-10-03 13:53 | disposition home or self-care (01) | DRG 193 ==
LOC: ER 19:02 → MS 22:07
PROVIDERS: Nurse Practitioner Family; Admitting Provider Family Medicine; Emergency Provider Registered Nurse Emergency; PCP Nurse Practitioner Family; Visit Provider Family Medicine
DX: J18.9 Pneumonia, unspecified organism (principal); J96.91 Respiratory failure, unspecified with hypoxia; J44.0 Chronic obstructive pulmonary disease with (acute) lower respiratory infection; J44.1 Chronic obstructive pulmonary disease with (acute) exacerbation; I10 Essential (primary) hypertension; R82.81 Pyuria; R59.0 Localized enlarged lymph nodes; M17.0 Bilateral primary osteoarthritis of knee; F17.200 Nicotine dependence, unspecified, uncomplicated; H90.3 Sensorineural hearing loss, bilateral; R79.1 Abnormal coagulation profile; N28.1 Cyst of kidney, acquired; F32.A Depression, unspecified; K21.9 Gastro-esophageal reflux disease without esophagitis
CPT/HCPCS: 00123; 36415; 71250; 80053; 82805; 87040; 87077; 87637; 93005; 94640; 96365; 96368; 96375; 99285; J1650; 71046; 74177; 81003; 81015; 83880; 85025; 87086; 87186; 93010; 94664; 94667; 94668; 94760; 99223; 99233; 99239; J0456; J0696; J3490; J7620

== ENCOUNTER 2024-11-12 00:10 | Outpatient (CLI) | payer MEDICARE, SELFPAY ==
--- NOTE | 2024-11-12 07:15 | DI.CTLCSR_ITS ---
Exam(s) CT CHEST LUNG CANCER SCREEN EXAM: CT CHEST LUNG CANCER SCREEN CLINICAL HISTORY: Screening for lung cancer,CURRENT SMOKER,F17.210 TECHNIQUE: Imaging Protocol: Axial computed tomography images with coronal and sagittal reformatted images were created and reviewed. Lung Computer Aided Detection (CAD) was utilized. COMPARISON: CT CT CHEST LUNG CANCER SCREEN from 11/10/[address] ABDOMEN PELVIS W from 10/01/[address] CHEST WO from 10/01/2024 FINDINGS: Tracheobronchial tree: Patent where visualized. No bronchiectasis. Pulmonary parenchyma: There are moderate centrilobular emphysematous changes. There is a small perip heral infiltrate in the right lower lobe. This may be residual from the pneumonia from 10/01/2024. Lung Nodules: There are few scattered stable pulmonary nodules. No new pulmonary nodules are seen. No suspicious pulmonary nodules are present. Mediastinum and Josette: No dominant adenopathy or fluid collection. The esophagus is unremarkable.There is a large hiatal hernia. Thyroid gland: Unremarkable. Lymph nodes: Unremarkable. Pleura: No effusion or pneumothorax. Heart: The heart is not dilated. Two vessel coronary artery calcification is present. No pericardial effusion. Aorta: Thoracic aorta non-dilated.Atherosclerotic calcification is present. Upper abdomen: Stable hepatic and renal cysts. Stable appearance of the left peripherally calcified renal lesion. Soft Tissues: Unremarkable. Bones: Within normal limits. IMPRESSION: 1. No new or suspicious pulmonary nodules. Stable less than 2 mm nodules are present. 2. Small peripheral infiltrate in the right lower lobe. This may be residual from the large right lo wer lobe pneumonia from September 2024. It may represent a possible new atelectasis or pneumonia. Ple ase correlate clinically. 3. Stable appearance of the peripherally calcified left renal lesion. Further evaluation with left r enal ultrasound and/or MRI of the kidneys without and with contrast is recommended. Mass cannot be e ntirely excluded. Lung RADS Cat 2S - Benign Appearance / Behavior: Nodules with a very low likelihood of becoming a cli nically active caner due to size or lack of growth. Other: Clinically Significant or Potentially Clin ically Significant Findings (non lung cancer) Lung-RADS 1.0 CATEGORIES: Category 0 - Prior chest CT exam(s) being located for comparison. Category 1 - Annual screening in 12 months. No nodules or definitely benign nodules. Category 2 - Annual screening in 12 months. Benign appearance. Nodules with low likelihood of becomin g active cancer. Category 3 - 6-month follow-up. Probably benign. Short-term follow-up suggested. Nodules with low lik elihood of becoming active cancer. Category 4A - 3-month follow-up and CT/PET if >8 mm in size. Suspicious finding. Findings which requi re additional testing. Category 4B - Findings which require additional testing and tissue sampling. Suspicious finding. Category 4X - Category 3 or 4 nodules with additional features or imaging findings that increases the suspicion of malignancy. Modifier S- Potentially clinically significant finding. (Non lung cancer) Unexpected findings RADIATION DOSE DELIVERED: 21.92mGy.cm Total DLP 21.92mGy.cmTotal DLP DATA REPOSITORY: All CT scans at this facility are submitted to the National Radiology Data Registry (NRDR) Dose Index Registry (DIR) with the [employer] (ACR). RADIATION OPTIMIZATION: All CT scans at this facility use at least one of these dose optimization te chniques: automated exposure control; mA and/or kV adjustment per patient size (includes targeted exa ms where dose is matched to clinical indication); or iterative reconstruction.
== END 2024-11-12 00:30 ==
LOC: DI 00:10
PROVIDERS: PCP Nurse Practitioner Family; Visit Provider Physician Assistant Surgical
DX: F17.210 Nicotine dependence, cigarettes, uncomplicated (principal); Z12.2 Encounter for screening for malignant neoplasm of respiratory organs; R91.8 Other nonspecific abnormal finding of lung field
CPT/HCPCS: 71271

== ENCOUNTER 2024-12-03 00:45 | Outpatient (CLI) | payer MEDICARE, SELFPAY ==
--- NOTE | 2024-12-03 | DI.US_ITS ---
Exam(s) US RENAL EXAM: US RENAL CLINICAL HISTORY: Abnl findings on DI of other specified body structures, R93.89 TECHNIQUE: Ultrasound of both kidneys performed using standard protocol. COMPARISON: CT CT CHEST LUNG CANCER SCREEN from 09/04/2021 US US RENAL from 11/23/[address] ABDOMEN PELVIS W from 10/01/2024 FINDINGS: RIGHT KIDNEY: Measures 9.5 cm in length. Contains a few cysts, these ranging up to 3. 5 cm size. Normal cortical t hickness and corticomedullary differentiation .No solid masses No intrarenal calculi nor hydronephrosis. LEFT KIDNEY: Measures 10.4 cm in length. Also contain benign cysts. For, there is also a more solid-appearing nod ule in the lateral aspect of the kidney towards the upper pole which measures 2.3 x 1.9 x 1.7 cm. Ex hibits a hyperechoic calcified rim and internal echoes. This corresponds to the finding on the CT sc an. There are no intrarenal calculi. No hydronephrosis. URINARY BLADDER: Prevoid volume is 144 cc Postvoid volume is 128 cc No evidence of bladder mass nor diverticuli. Ureterovesical jets: Both not identified. IMPRESSION: 1. In addition to benign bilateral kidney cysts there is a 2.3 x 1.9 x 1.7 cm more solid-appearing n odule in the lateral aspect of the upper half of the left kidney which exhibits some peripheral calci fication. This corresponds to the finding on recent CT scan of 10/01/2024. Main differential diagno sis hears between hemorrhagic cyst versus is neoplasm. Contrast views MRI scan recommended for added specificity.. DATA REPOSITORY:
== END 2024-12-03 01:05 ==
LOC: DI 00:45
PROVIDERS: PCP Nurse Practitioner Family; Visit Provider Nurse Practitioner Family
DX: N28.89 Other specified disorders of kidney and ureter (principal)
CPT/HCPCS: 76770

== ENCOUNTER 2025-01-06 00:52 | Outpatient (CLI) | payer MEDICARE, SELFPAY ==
--- NOTE | 2025-01-06 | DI.MRI_ITS ---
Exam(s) MR ABDOMEN WO/W EXAM: MR ABDOMEN WO/W CLINICAL HISTORY: R93.9 Abn findings on DI other specified body structures, Kidney TECHNIQUE: Multiplanar multisequence MRI was performed with both pre and post contrast infused seque nces. Contrast injected sequences were performed following IV injection of 10 cc of Dotarem. COMPARISON: CT CT ABDOMEN PELVIS W from 10/01/[address] CHEST LUNG CANCER SCREEN from 11/12/2024 US US RENAL from 12/03/2024 FINDINGS: VISUALIZED LUNG BASES: No pleural effusions evident. There is a large retrocardiac hiatal hernia which measures 8 cm wide by 5.5 cm AP by 7.5 cm craniocau kandice. LIVER: There is a benign subcapsular cyst in the right hepatic lobe noted which measures 1.5 cm by 1. 5 cm x 1.2 cm. There is another subcapsular lesion in the peripheral aspect of the left hepatic lobe measuring 1.2 x 1.3 cm. This has appearance of a probable small cavernous hemangioma following contrast injection. BILIARY: There is no obvious acute gallbladder pathology. No obvious gallstones. The CBD is not dilat ed. PANCREAS: There is no evidence of pancreatic mass nor dilatation of the pancreatic duct. SPLEEN: Spleen is not enlarged and there are no intrasplenic lesions.Splenic and portal veins are pat ent ADRENALS: There are no significant adrenal masses. KIDNEYS: Multiple benign cysts in both kidneys. The largest is in the superior pole region of the rig ht kidney and measures 3 by 2.5 by 3.7 cm, exhibiting a thin internal septation. There is no hydronep hrosis.In the anterior cortex of the left kidney there is a non cystic 1.6 by 2 cm lesion which does not exhibit signal characteristics of a simple cyst and does exhibit some internal enhancement. This finding is consistent with either oncocytoma or small renal cell carcinoma ABDOMINAL AORTA: Not enlarged and there is no significant para-aortic adenopathy. ANTERIOR ABDOMINAL WALL/GI: There is no evidence of significant anterior abdominal wall hernia in the field of view of this study.Is no evidence of obvious bowel obstruction. OSSEOUS: There are no lytic osseous lesions in the field of view of this study. IMPRESSION: 1. In addition to multiple benign cortical cysts in the kidneys there is also a 2 x 1.6 cm lesion in the anterior cortex of the left kidney which does not have the appearance of a benign cyst and which appears solid and with internal enhancement consistent with oncocytoma or small renal cell carcinoma. Appropriate referral recommended. 2. Benign liver findings as described above, including a benign cyst in the right hepatic lobe and pr obable small subcapsular hemangioma in the left hepatic lobe. 3. Large hiatal hernia with measurements as above. DATA REPOSITORY:
[2025-01-06] MEDS: Normal Saline - Diluent 50 ML VIAL 25 ML IJ (12:35)
[2025-01-06] MEDS: Gadoterate meglumine 20 ML VIAL 10 ML IVP (12:35)
--- NOTE | 2025-01-06 17:22 | DI.VRAD_ITS ---
PROCEDURE INFORMATION: Exam: MR Abdomen Without and With Contrast Exam date and time: 01/06/2025 12:20 PM Age: 74 years old Clinical indication: Other: Abn findings on di other specified body structures, kidney 2.3x1.9x1.7cm more solid-appearing nodule lateral aspect upper half lt kidney, hemorrhagic cyst vs neoplasm TECHNIQUE: Imaging protocol: Magnetic resonance imaging of the abdomen without and with contrast. Contrast material: DOTAREM; Contrast volume: 10 ml; Contrast route: INTRAVENOUS (IV); COMPARISON: CT ABDOMEN PELVIS W 10/01/2024 3:09 PM images only, no report FINDINGS: Diaphragm: Moderate hiatal hernia. Liver: No suspicious liver mass. Small liver cysts are noted. Gallbladder and biliary ducts: No gallstones. No biliary ductal dilatation. Pancreas: Unremarkable. Spleen: Normal. Adrenal glands: Unremarkable. Kidneys: A solid mass is present in the left kidney, lateral cortex of the upper pole, 1.9 x 1.8 x 2.4 cm diameter. See rental representative T2 image 15 series [id number] and postcontrast image 37 series [id number]. The mass is intermediate signal intensity on the T1 and T2 sequences. Early enhancement of the mass is observed, with washout. The mass shows less avid enhancement than the adjacent renal cortex at the time points available. There is no significant fat within the mass. The kidneys are negative for hydronephrosis. There is no perinephric fluid. Multiple simple cysts are present in both kidneys, T2 hyperintense and uniform, largest 3.1 cm at the superior right kidney. Stomach and bowel: Moderate diverticulosis is noted in the descending colon. Intraperitoneal space: There is no ascites in the upper abdomen. Vasculature: No abdominal aortic aneurysm. Lymph nodes: No enlarged nodes. Bones/joints: Moderate degenerative changes are present in the spine. The exam is not dedicated for evaluation of the spine. Narrowing of the spinal canal is noted at L3-L4 and L4-L5. Soft tissues: Unremarkable. IMPRESSION: Solid enhancing mass in the left kidney. Renal cell carcinoma and oncocytoma are considered. Dictated and Authenticated by: Linden Das MD. Orderin Marco Antonio Rubin MD
== END 2025-01-06 01:12 ==
LOC: DI 00:53
PROVIDERS: PCP Nurse Practitioner Family; Visit Provider Nurse Practitioner Family
DX: N20.0 Calculus of kidney (principal)
CPT/HCPCS: 74183

== ENCOUNTER → 2025-01-10 11:04 | Outpatient (BNVA) | payer MEDICARE, SELFPAY | PROVIDERS: PCP Nurse Practitioner Family; Referring Provider Nurse Practitioner Family; Visit Provider Physician Assistant Surgical | DX: J44.9 Chronic obstructive pulmonary disease, unspecified (principal); F17.210 Nicotine dependence, cigarettes, uncomplicated | CPT/HCPCS: 99214 ==

== ENCOUNTER → 2025-02-03 12:47 | Outpatient (BNVA) | payer MEDICARE, SELFPAY | PROVIDERS: PCP Family Medicine; Referring Provider Family Medicine; Visit Provider Nurse Practitioner Gerontology | DX: N28.89 Other specified disorders of kidney and ureter (principal); N28.1 Cyst of kidney, acquired | CPT/HCPCS: 99214; 81003 ==

== ENCOUNTER 2025-02-09 16:33 | Observation (INO) | payer MEDICARE, SELFPAY ==
[2025-02-09] VITALS (35 sets, daily range): BP systolic 132–183; BP diastolic 71–116; PULSE 66–109; RESP 12–28; TEMP 36.6–36.8; O2SAT 84–99
--- NOTE | 2025-02-09 16:30 | RT.EKG_ITS ---
APPROVED REPORT Exam: Resting ECG Reason for Exam: ekg Patient Location: E HR:74 bpm ECG Measurements Heart Rate 74 AXIS HI 112 P -6 QRSd 88 QRS -31 QT 386 T 62 QTc 429 Conclusion Sinus rhythm 74 left axis no stemi
--- NOTE | 2025-02-09 16:45 | DI.RAD_ITS ---
Exam(s) XR CHEST 2V PA LATERAL EXAM: XR CHEST 2V PA LATERAL CLINICAL HISTORY: sob TECHNIQUE: 2D digital imaging was performed of the chest. Two images were obtained. PA and lateral views were obtained. COMPARISON: CR XR CHEST 2V PA LATERAL from 10/01/2024 FINDINGS: MEDIASTINUM: There is a hiatal hernia present. HEART: Normal. PULMONARY VASCULATURE: Normal. LUNGS: No focal consolidating infiltrates. PLEURAL SPACE: No pleural effusion or pneumothorax. BONE:Within normal limits for the patient's age. OTHER FINDINGS:Normal. IMPRESSION: No acute pulmonary findings. DATA REPOSITORY: RADIATION DOSE DELIVERED:
[2025-02-09 17:12] LABS: Abs Immature Grans 0.02 10^3/uL (0.0-0.06); Absolute Basophil Count 0.09 10^3/uL (0.0-0.2); Absolute Eosinophil Count 0.57 10^3/uL (0.0-0.7); Absolute Lymphocyte Count 2.38 10^3/uL (1.2-3.4); Absolute Neutrophil Count 4.87 10^3/uL (1.2-6.7); Eosinophils % 6.6 %; HCT 40.3 % (36.0-46.0); Immature Grans % 0.2 %; Lymphocytes % 27.6 %; MCHC 32.3 % (32.0-36.0); MCV 90 fL (80-95); Monocytes % 8.1 %; Neutrophils % 56.5 %; Platelet Count 302 10^3/uL (130-400); RBC 4.49 10^6/uL (3.93-5.22); RDW 12.7 % (11.7-14.6); RDW-SD 41.7 fL; WBC 8.63 10^3/uL (4.4-10.8)
[2025-02-09] MEDS: Albuterol/Ipratropium 3 ML UPD VIAL UPD ×4 (17:14→20:09)
[2025-02-09 17:36] LABS: ALT 22 U/L (14-59); AST 21 U/L (15-37); Albumin 3.7 g/dL (3.4-5.0); Alkaline Phosphatase 62 U/L (46-116); Anion Gap 7.6 mmol/L (3-11); BUN 11 mg/dL (7-18); Bilirubin, Total 0.2 mg/dL (0.2-1.0); CO2 28.4 mmol/L (21.0-32.0); CREATININE 0.5 mg/dL (0.55-1.02); Calcium 9.3 mg/dL (8.5-10.1); Chloride 106 mmol/L (98-107); Estimated GFR 97.14 (mL/min/1.73m2); Glucose 94 mg/dL (74-106); Magnesium 1.7 mg/dL (1.8-2.4); NT-proBNP 208 pg/mL (<300); Potassium 4.3 mmol/L (3.5-5.1); Sodium 142 mmol/L (136-145); Total Protein 7.6 g/dL (6.4-8.2); Troponin I 10 ng/L (<or=51)
--- NOTE | 2025-02-09 17:40 | W.ED.GENAD ---
Discharge Plan Disposition Patient Disposition: Admit to [facility] Condition: Fair Discharge Details Clinical Impression: COPD (chronic obstructive pulmonary disease), Hypoxia Primary Care Provider: Lesley Mckenzie ED Provider: Rene Rosales Home Meds and New Rx's Prescriptions: No Action fluticasone propion-salmeterol [Advair Diskus] 250-50 mcg/dose blister with device 1 inh inhalation BID Qty: 60 12RF Spiriva Respimat 2.5 mcg/actuation mist 2 inh inhalation QAM Qty: 4 12RF albuterol sulfate 90 mcg/actuation HFA aerosol inhaler 2 puff inhalation QID PRN (Reason: shortness of breath or wheezing) Qty: 8.5 12RF meclizine 12.5 mg tablet 12.5 mg PO Q6H PRN losartan 25 mg tablet 25 mg PO DAILY Patient Comments: Patient not sure of the dosing montelukast [Singulair] 10 mg tablet 10 mg PO DAILY ipratropium-albuterol 0.5 mg-3 mg(2.5 mg base)/3 mL solution for nebulization See Rx Instructions .ROUTE .COMPLEX PRN (Reason: shortness of breath or wheezing) Qty: 180 12RF Rx Instructions: 3 mL inhaled as needed (DME) Space Chamber Spacer See Rx Instructions .Route Qty: 1 0RF Rx Instructions: As directed Centrum Silver 1 EACH tablet 1 tab PO DAILY HPI General Date/Time Provider Initiated Documentation: 02/09/25 16:47. Limitations to Documentation: physical limitation (Hard of hearing). Information obtained by: patient. HPI Narrative: 74-year-old female with past medical history as tobacco use, COPD presents for evaluation of shortness of breath and cough. She reports that for the last week she has been feeling like her symptoms are not getting better. She has a cough productive of clear sputum. She states that she normally smokes 5 to 6 cigarettes/day but for the last week she has not been able to smoke any because of the cough. She has been using her nebulizers and her inhalers 5-6 times per day without significant change or improvement. She denies any fever. Denies any sick symptoms or sick contacts. Denies any chest pain. Related Data Home Medications ?Medication ?Instructions ?Recorded ?Confirmed noxiaiya-chz-bdzrc acid 0.4 1 tab PO DAILY 11/01/14 02/09/25 mg-lycopene 300 mcg-lutein 250 mcg tablet (Centrum Silver) montelukast 10 mg tablet 10 mg PO DAILY 05/28/21 02/09/25 (Singulair) meclizine 12.5 mg tablet 12.5 mg PO Q6H PRN 09/27/22 02/09/25 losartan 25 mg tablet 25 mg PO DAILY 01/15/24 02/09/25 albuterol sulfate 90 mcg/actuation 2 puff inhalation QID PRN 07/14/24 02/09/25 aerosol inhaler shortness of breath or wheezing #8.5 grams fluticasone 250 mcg-salmeterol 50 1 inh inhalation BID #60 ea 07/14/24 02/09/25 mcg/dose blistr powdr for inhalation (Advair Diskus) tiotropium bromide 2.5 2 inh inhalation QAM #4 grams 07/14/24 02/09/25 mcg/actuation mist for inhalation (Spiriva Respimat) inhalational spacing device (Space #1 ea 08/10/24 02/09/25 Chamber) ipratropium 0.5 mg-albuterol 3 mg See Rx Instructions .Route 08/10/24 02/09/25 (2.5 mg base)/3 mL nebulization .COMPLEX PRN shortness of breath soln or wheezing #180 mL Previous Rx's ?Medication ?Instructions ?Recorded albuterol sulfate 90 mcg/actuation 2 puff inhalation QID PRN 07/14/24 aerosol inhaler shortness of breath or wheezing #8.5 grams fluticasone 250 mcg-salmeterol 50 1 inh inhalation BID #60 ea 07/14/24 mcg/dose blistr powdr for inhalation (Advair Diskus) tiotropium bromide 2.5 2 inh inhalation QAM #4 grams 07/14/24 mcg/actuation mist for inhalation (Spiriva Respimat) inhalational spacing device (Space #1 ea 08/10/24 Chamber) ipratropium 0.5 mg-albuterol 3 mg See Rx Instructions .Route 08/10/24 (2.5 mg base)/3 mL nebulization .COMPLEX PRN shortness of breath soln or wheezing #180 mL Allergies Allergy/AdvReac Type Severity Reaction Status Date / Time No Known Allergies Allergy Verified 02/09/25 16:40 General Stated Complaint: SOB ABELARDO: 3 Exam Narrative Exam Narrative: Review of Systems: All systems reviewed & are unremarkable except as noted in HPI and below Well-developed, no acute distress NCAT RRR Mild tachypnea and increased work of breathing, no hypoxia, diffuse wheezing and coarse breath sounds at bilateral bases Nondistended abdomen soft nontender Extremities w/o edema Course Vital Signs Vital signs: Vital Signs Temperature 36.6 C 02/09/25 16:37 Pulse 86 02/09/25 16:37 Respiratory Rate 24 02/09/25 16:37 Blood Pressure 148/97 H 02/09/25 16:37 Pulse Oximetry 92 02/09/25 16:37 Temperature 36.6 C 02/09/25 16:51 Temperature Source Oral 02/09/25 16:51 Pulse 72 02/09/25 17:10 Pulse 69 02/09/25 17:10 Respiratory Rate 15 02/09/25 17:10 Respiratory Effort Short of Breath, Incrsd Work of Breathing 02/09/25 16:44 Blood Pressure 148/97 H 02/09/25 16:51 Blood Pressure Position Sitting 02/09/25 16:51 Pulse Oximetry 92 02/09/25 17:10 Oxygen Delivery Method Room Air 02/09/25 16:51 Oxygen Flow Rate 0 02/09/25 16:51 Pain Level 0 02/09/25 16:51 Lab/Test Results Lab/Test Results: Laboratory Tests Range/Units 02/09/25 17:05 WBC (4.4-10.8) 10^3/uL 8.63 RBC (3.93-5.22) 10^6/uL 4.49 Hgb (11.2-15.7) g/dL 13.0 Hct (36.0-46.0) % 40.3 MCV (80-95) fL 90 MCH (27.0-33.0) pg 29.0 MCHC (32.0-36.0) % 32.3 RDW (11.7-14.6) % 12.7 Plt Count (130-400) 10^3/uL 302 MPV (8.0-11.0) fL 10.0 Immature Gran % % 0.2 Neutrophils % % 56.5 Lymphocytes % % 27.6 Monocytes % % 8.1 Eosinophils % % 6.6 Basophils % % 1.0 Nucleated RBC % (0.0-0.3) % 0.0 Absolute Neutrophils (1.2-6.7) 10^3/uL 4.87 Absolute Lymphocytes (1.2-3.4) 10^3/uL 2.38 Absolute Monocytes (0.1-0.8) 10^3/uL 0.70 Absolute Eosinophils (0.0-0.7) 10^3/uL 0.57 Absolute Basophils (0.0-0.2) 10^3/uL 0.09 Sodium (136-145) mmol/L 142 Potassium (3.5-5.1) mmol/L 4.3 Chloride (98-107) mmol/L 106 Carbon Dioxide (21.0-32.0) mmol/L 28.4 Anion Gap (3-11) mmol/L 7.6 BUN (7-18) mg/dL 11 Creatinine (0.55-1.02) mg/dL 0.5 L Est GFR (CKD-EPI 2020) (mL/min/1.73m2) 97.14 Glucose (74-106) mg/dL 94 Calcium (8.5-10.1) mg/dL 9.3 Magnesium (1.8-2.4) mg/dL 1.7 L Total Bilirubin (0.2-1.0) mg/dL 0.2 AST (15-37) U/L 21 ALT (14-59) U/L 22 Alkaline Phosphatase (46-116) U/L 62 Troponin I (<or=51) ng/L 10 NT-Pro-B Natriuret Pep (<300) pg/mL 208 Total Protein (6.4-8.2) g/dL 7.6 Albumin (3.4-5.0) g/dL 3.7 Medical Decision Making Emergent evaluation of shortness of breath and cough. Patient has known COPD history and is wheezing diffusely on examination. She is afebrile without any hypoxia. At this time she is not displaying any signs or symptoms concerning for acute respiratory distress or failure. She does not require BiPAP at this time. She reports her last breathing treatments about 1.5 hours ago, will give additional bronchodilators in addition to IV steroids. As for viral illness, evaluate for possible cardiac etiology with lab work and get chest x-ray to evaluate for consolidative process like pneumonia. I do not suspect a pulmonary embolism. EKG reviewed and independently interpreted: Sinus 74 left axis no acute ischemic change Lab work reviewed, there is no leukocytosis or anemia. VBG unremarkable. Electrolytes within normal limits. Magnesium is slightly low and given her respiratory complaint, will give 2 g of magnesium. Troponins negative and stable x 2. BNP is not elevated. I do not suspect a cardiac etiology of her wheezing symptoms today. Her chest x-ray was reviewed and independently interpreted: There is no focal consolidative process cardiomegaly or pleural effusion. However given her increasing cough and worsened respiratory symptoms in the setting of COPD, will treat with doxycycline. While in the emergency department the patient did become hypoxic down to 84%. She was placed on 2 L of nasal cannula oxygen. She had improved breath sounds in air transmission, but still had persistent wheezing. Additional bronchodilator treatment was provided to her. Given that she is COPD with a new oxygen requirement will admit to the hospital for further management., Quality:SDOH Health Related Social Needs: Health related social needs housing instability, housed, with risk of homelessness (Z59.811), problems related to housing/economic circumstances (Z59.89) Critical Care Time Critical Care Time Critical Care Time: Yes Total Critical Care Time: 35 Attestation: CRITICAL CARE Upon my evaluation, this patient had a high probability of imminent or life-threatening deterioration due to COPD exacerbation, hypoxia which required my direct attention, intervention, and personal management. I have personally provided 35 minutes of critical care time exclusive of time spent on separately billable procedures. Time includes review of laboratory data, radiology results, discussion with consultants, and monitoring for potential decompensation. Interventions were performed as documented above [facility] All Active Problems (Updated 02/09/25 @ 20:30 by Sarbjit Guerrier MD) Hypomagnesemia (Acute) Hypoxia (Acute) Renal cyst (Acute) Lymphadenopathy of left cervical region (Acute) Pyuria (Acute) DVT prophylaxis (Acute) Acute UTI (Acute) Lesion of left redding kidney (Acute) Arthritis of knee, left (Acute) Arthritis of knee, right (Acute) DEPO MEDROL 40m05/29/23; 11/13/2022 Hypertension (Chronic) Renal mass (Acute) Irregular cardiac rhythm (Acute) Nicotine dependence, cigarettes, uncomplicated (Acute) Skin lesion of left lower limb (Acute) Tick bite (Acute) COPD (chronic obstructive pulmonary disease) (Chronic) Mass of joint of left wrist (Acute) Impairment of auditory discrimination (Acute 03/14/14) Mixed hearing loss, unilateral (Acute 03/14/14) Sensorineural hearing loss (Acute 03/14/14) Arthritis of carpometacarpal (CMC) joint of left thumb (Acute) Other sprain of left foot, initial encounter (Acute) Sprain of hand, left (Acute) Fall (Acute) Encounter for pessary maintenance (Acute) Tobacco use (Acute) Uterine procidentia (Acute 01/17/17) Used 89mm ring with support pessary until prolapse beyond ring pessary. 03/2019 short stemmed 76mm Gellhorn pessary placed. 04/2019 ring with support pessary inserted For 2019 76 mm donut pessary inserted. 2019 89mm ring with support pessary placed at [facility] [place] [facility] 04/2021. 95mm Ring with support placed. Sensorineural hearing loss, bilateral (Acute 03/29/14) Medical History (Updated 02/09/25 @ 20:30 by Sarbjit Guerrier MD) Pneumonia Migraine Hiatal hernia Hearing loss, bilateral Varicose veins of lower extremity Meniere disease Depression Osteopenia GERD (gastroesophageal reflux disease) Basal cell carcinoma, face COPD (chronic obstructive pulmonary disease) Surgical History (Updated 10/04/24 @ 00:03 by JHOAN MATSON) S/P tonsillectomy History of basal cell carcinoma excision on face History of varicose vein stripping Family History (Updated 10/01/24 @ 22:18 by Amish Rodríguez) Other Adopted Social History (Updated 10/01/24 @ 22:18 by Amish Rodríguez) Smoking/Tobacco Use Status: Current every day Tobacco Type: cigarettes Years smoked: 61 Quit status: not considering quitting Counseling given: counseling >3 minutes Smoking risk assessment performed?: Yes Alcohol Intake: never Drug use: Never Substance use type: does not use Housing: house Number of Children: 4 Current gender identity: female Seatbelt use: always Do you feel safe at home: Yes Additional Social history: pt not in a relationship Lives with daughter and 17 yo grandson in [place] Female Reproductive History Menstrual control method: none Menopause type: natural History History 7 Para Hx # Term Pregnancies 4 Multiple births Hx # Pregnancies Ectopic pregnancies AB induced Hx Number of Living Children AB spontaneous
[2025-02-09] MEDS: Normal Saline Flush 10 ML SYR IVP ×2 (18:13→22:26)
[2025-02-09] MEDS: methylPREDNISolone SUCC 125 MG VIAL IVP (18:13)
[2025-02-09] MEDS: MAGNESIUM SULFATE 2 GM/50 ML BAG IVINF (18:14)
[2025-02-09 18:41] LABS: Troponin I 11 ng/L (<or=51)
[2025-02-09] MEDS: DOXYCYCLINE 100 MG in Normal Saline 100 ML IVPB (20:09)
[2025-02-09 20:18] LABS: BE (Venous) 2 mmol/L (-2-3); HCO3 (Venous) 27 mmol/L (23-28); O2 Sat (Venous) 70 %; TCO2 (Venous) 25 mmol/L (24-29); pCO2 (Venous) 49 mmHg (41-51); pH (Venous) 7.36 (7.31-7.41); pO2 (Venous) 38 mmHg
--- NOTE | 2025-02-09 20:24 | W.PM.HP.N ---
Date of service: 02/09/25 Time of Service: 20:24 Assessment and Plan Assessment and plan (1) Tobacco use: Status: Acute Assessment and plan: Recommend complete cessation. Offered nicotine replacement but patient does not want to try this. (2) COPD (chronic obstructive pulmonary disease): Status: Chronic Assessment and plan: Continue with inhalers will add prednisone as well as continue with doxycycline to started in the ED. Patient would benefit from a walk test prior to DC to see if she qualifies for home O2. Will do viral panel for completeness. (3) Hypomagnesemia: Status: Acute Assessment and plan: Replace [id number] History of Present Illness History of Present Illness Chief Complaint: SOB Narrative: This is a 74-year-old female with a known history of COPD presents with worsening cough and shortness of breath over the last week. Patient denies any hemoptysis. Patient states she does continue to smoke approximately 1 and half pack cigarettes a week. She denies any changes in her medications otherwise. Patient does not use home oxygen. While in the ED she was noted to have increasing oxygen requirement and was subsequently mated to the hospital service for further evaluation and treatment. Patient denies any chest pain arm pain jaw pain. Patient states she takes her medication as prescribed. In reviewing her clinical data CBC is benign, VBG is essentially benign CMP is benign mag is low at 1.7. Viral panel was not done the. Blood cultures were not drawn either. Chest x-ray shows no acute pulmonary findings. EKG shows left axis deviation I agree with this reading, otherwise appears to be normal. PFSH All Active Problems (Updated 02/09/25 @ 20:30 by Sarbjit Guerrier MD) Hypomagnesemia (Acute) Hypoxia (Acute) Renal cyst (Acute) Lymphadenopathy of left cervical region (Acute) Pyuria (Acute) DVT prophylaxis (Acute) Acute UTI (Acute) Lesion of left three affiliated kidney (Acute) Arthritis of knee, left (Acute) Arthritis of knee, right (Acute) DEPO MEDROL 40m05/29/23; 11/13/2022 Hypertension (Chronic) Renal mass (Acute) Irregular cardiac rhythm (Acute) Nicotine dependence, cigarettes, uncomplicated (Acute) Skin lesion of left lower limb (Acute) Tick bite (Acute) COPD (chronic obstructive pulmonary disease) (Chronic) Mass of joint of left wrist (Acute) Impairment of auditory discrimination (Acute 03/14/14) Mixed hearing loss, unilateral (Acute 03/14/14) Sensorineural hearing loss (Acute 03/14/14) Arthritis of carpometacarpal (CMC) joint of left thumb (Acute) Other sprain of left foot, initial encounter (Acute) Sprain of hand, left (Acute) Fall (Acute) Encounter for pessary maintenance (Acute) Tobacco use (Acute) Uterine procidentia (Acute 01/17/17) Used 89mm ring with support pessary until prolapse beyond ring pessary. 03/2019 short stemmed 76mm Gellhorn pessary placed. 04/2019 ring with support pessary inserted For 2019 76 mm donut pessary inserted. 2019 89mm ring with support pessary placed at [facility] [place] [facility] 04/2021. 95mm Ring with support placed. Sensorineural hearing loss, bilateral (Acute 03/29/14) Medical History (Updated 02/09/25 @ 20:30 by Sarbjit Guerrier MD) Pneumonia Migraine Hiatal hernia Hearing loss, bilateral Varicose veins of lower extremity Meniere disease Depression Osteopenia GERD (gastroesophageal reflux disease) Basal cell carcinoma, face COPD (chronic obstructive pulmonary disease) Surgical History (Updated 10/04/24 @ 00:03 by JHOAN MATSON) S/P tonsillectomy History of basal cell carcinoma excision on face History of varicose vein stripping Family History (Updated 10/01/24 @ 22:18 by Amish Rodríguez) Other Adopted Social History (Updated 10/01/24 @ 22:18 by Amish Rodríguez) Smoking/Tobacco Use Status: Current every day Tobacco Type: cigarettes Years smoked: 61 Quit status: not considering quitting Counseling given: counseling >3 minutes Smoking risk assessment performed?: Yes Alcohol Intake: never Drug use: Never Substance use type: does not use Housing: house Number of Children: 4 Current gender identity: female Seatbelt use: always Do you feel safe at home: Yes Additional Social history: pt not in a relationship Lives with daughter and 17 yo grandson in [place] Female Reproductive History Menstrual control method: none Menopause type: natural History History 7 Para Hx # Term Pregnancies 4 Multiple births Hx # Pregnancies Ectopic pregnancies AB induced Hx Number of Living Children AB spontaneous Meds Allergies and Home Medications Allergies Allergy/AdvReac Type Severity Reaction Status Date / Time No Known Allergies Allergy Verified 02/09/25 16:40 Home Medications ?Medication ?Instructions ?Recorded ?Confirmed ?Type ooywslzt-[id number]-[id number] acid 0.4 1 tab PO DAILY 11/01/14 02/09/25 History mg-lycopene 300 mcg-lutein 250 mcg tablet (Centrum Silver) montelukast 10 mg tablet 10 mg PO DAILY 05/28/21 02/09/25 History (Singulair) meclizine 12.5 mg tablet 12.5 mg PO Q6H PRN 09/27/22 02/09/25 History losartan 25 mg tablet 25 mg PO DAILY 01/15/24 02/09/25 History albuterol sulfate 90 mcg/actuation 2 puff inhalation QID PRN 07/14/24 02/09/25 Rx aerosol inhaler shortness of breath or wheezing #8.5 grams fluticasone 250 mcg-salmeterol 50 1 inh inhalation BID #60 ea 07/14/24 02/09/25 Rx mcg/dose blistr powdr for inhalation (Advair Diskus) tiotropium bromide 2.5 2 inh inhalation QAM #4 grams 07/14/24 02/09/25 Rx mcg/actuation mist for inhalation (Spiriva Respimat) inhalational spacing device (Space #1 ea 08/10/24 02/09/25 Rx Chamber) ipratropium 0.5 mg-albuterol 3 mg See Rx Instructions .Route 08/10/24 02/09/25 Rx (2.5 mg base)/3 mL nebulization .COMPLEX PRN shortness of breath soln or wheezing #180 mL Exam Narrative Exam Narrative: HEENT-normocephalic atraumatic mucous membranes moist oropharynx clear extraocular intact Neck-no lymphadenopathy no JVD no thyromegaly Cardiovascular-regular rate and rhythm no murmurs gallops Pulm-bilateral wheeze with expiration no accessory muscle use speaking in complete sentences Abdomen-scaphoid Extremities-no sinus clubbing or edema Neurologic-cranial nerves II through XII intact as tested reflexes upper extremity normal as tested nonfocal exam Psych-alert and oriented x 3 no apparent distress can give a linear history General-decreased muscle mass throughout Results Labs 02/09/25 17:05 02/09/25 17:05 Labs: Laboratory Results - last 24 hr 02/09/25 02/09/25 02/09/25 17:05 18:10 19:56 WBC 8.63 RBC 4.49 Hgb 13.0 Hct 40.3 MCV 90 MCH 29.0 MCHC 32.3 RDW 12.7 Plt Count 302 MPV 10.0 Immature Gran % 0.2 Neutrophils % 56.5 Lymphocytes % 27.6 Monocytes % 8.1 Eosinophils % 6.6 Basophils % 1.0 Nucleated RBC % 0.0 Absolute Neutrophils 4.87 Absolute Lymphocytes 2.38 Absolute Monocytes 0.70 Absolute Eosinophils 0.57 Absolute Basophils 0.09 VBG pH VBG pCO2 VBG pO2 VBG HCO3 VBG Total CO2 VBG O2 Saturation VBG Base Excess Sodium 142 Potassium 4.3 Chloride 106 Carbon Dioxide 28.4 Anion Gap 7.6 BUN 11 Creatinine 0.5 L Est GFR (CKD-EPI 2020) 97.14 Glucose 94 Calcium 9.3 Magnesium 1.7 L Total Bilirubin 0.2 AST 21 ALT 22 Alkaline Phosphatase 62 Troponin I 10 11 Cancelled NT-Pro-B Natriuret Pep 208 Total Protein 7.6 Albumin 3.7 02/09/25 20:15 WBC RBC Hgb Hct MCV MCH MCHC RDW Plt Count MPV Immature Gran % Neutrophils % Lymphocytes % Monocytes % Eosinophils % Basophils % Nucleated RBC % Absolute Neutrophils Absolute Lymphocytes Absolute Monocytes Absolute Eosinophils Absolute Basophils VBG pH 7.36 VBG pCO2 49 VBG pO2 38 VBG HCO3 27 VBG Total CO2 25 VBG O2 Saturation 70 VBG Base Excess 2 Sodium Potassium Chloride Carbon Dioxide Anion Gap BUN Creatinine Est GFR (CKD-EPI 2020) Glucose Calcium Magnesium Total Bilirubin AST ALT Alkaline Phosphatase Troponin I NT-Pro-B Natriuret Pep Total Protein Albumin Last Vital Signs Temp 36.6 C 02/09/25 16:51 Pulse 92 H 02/09/25 20:01 Resp 18 02/09/25 20:01 BP 157/72 H 02/09/25 20:01 Pulse Ox 94 02/09/25 20:01 Time Spent Time spent with Patient: <40 minutes Time was spent: preparing to see the patient(eg.review tests), obtaining and/or reviewing separately otained hiistory, ordering medications,tests, procedures, referring, communicating with other health campground caretaker, indepentently interpreting results, counseling the patient and care coordination
--- NOTE | 2025-02-09 21:42 | W.PC.ACHO ---
Registration Status: Primary Language: Preferred Language: ED Information & Data Chief Complaint SOB 02/09/25 17:44 Triage Note Pt reports SOB, feeling like 02/09/25 16:37 she cant breathe. Has been using nebulizers, no relief. Reports ongoing X 2 weeks. Pt denies any fever, has productive cough with clear sputum, smoker. Denies CP. Medical / Surgical History (Last Reviewed 10/01/24 @ 22:16 by Amish Rodríguez) Pneumonia Migraine Hiatal hernia Hearing loss, bilateral Varicose veins of lower extremity Meniere disease Depression Osteopenia GERD (gastroesophageal reflux disease) Basal cell carcinoma, face COPD (chronic obstructive pulmonary disease) (Last Updated 10/01/24 @ 22:16 by Amish Rodríguez) S/P tonsillectomy History of basal cell carcinoma excision History of varicose vein stripping Most Recent Vital Signs Temperature 36.6 C 02/09/25 16:51 Temperature Source Oral 02/09/25 16:51 Pulse 92 H 02/09/25 20:01 Pulse Rhythm Regular 02/09/25 19:29 Pulse Strength Normal 02/09/25 19:29 Pulse 93 H 02/09/25 20:01 Respiratory Rate 18 02/09/25 20:01 Respiratory Effort Normal, Non-Labored 02/09/25 19:29 Respiratory Depth Normal 02/09/25 19:29 Respiratory Pattern Normal 02/09/25 19:29 Blood Pressure 157/72 H 02/09/25 20:01 Blood Pressure Mean 104 02/09/25 20:01 Blood Pressure Position Sitting 02/09/25 19:29 Pulse Oximetry 94 02/09/25 20:01 Oxygen Delivery Method Nasal Cannula 02/09/25 19:29 Oxygen Flow Rate 2 02/09/25 19:29 Pain Level 0 02/09/25 16:51 Allergies No Known Allergies Allergy (Verified 02/09/25 16:40) Active Medications Generic Name Dose Route Start Last Admin Trade Name Freq PRN Reason Stop Dose Admin Sodium Chloride 0 ml 02/09/25 16:56 02/09/25 18:13 Normal Saline Flush 10 Ml Syr IVP 10 ml PRN PRN Administration IV IV Catheter Type [Left Peripheral IV Antecubital] IV Catheter Type [Right Saline Lock Antecubital] IV Catheter Gauge [Left 20 Antecubital] IV Catheter Gauge [Right 20 Antecubital] Diet Orders Category Date Time Status Regular/Normal [DIET] Nutrition 02/10/25 Breakfast Ordered Diagnostics 02/09/25 02/09/25 02/09/25 Range/Units 20:15 19:56 18:10 WBC (4.4-10.8) 10^3/uL RBC (3.93-5.22) 10^6/uL Hgb (11.2-15.7) g/dL Hct (36.0-46.0) % MCV (80-95) fL MCH (27.0-33.0) pg MCHC (32.0-36.0) % RDW (11.7-14.6) % Plt Count (130-400) 10^3/uL MPV (8.0-11.0) fL Immature Gran % % Neutrophils % % Lymphocytes % % Monocytes % % Eosinophils % % Basophils % % Nucleated RBC % (0.0-0.3) % Absolute Neutrophils (1.2-6.7) 10^3/uL Absolute Lymphocytes (1.2-3.4) 10^3/uL Absolute Monocytes (0.1-0.8) 10^3/uL Absolute Eosinophils (0.0-0.7) 10^3/uL Absolute Basophils (0.0-0.2) 10^3/uL VBG pH 7.36 (7.31-7.41) VBG pCO2 49 (41-51) mmHg VBG pO2 38 mmHg VBG HCO3 27 (23-28) mmol/L VBG Total CO2 25 (24-29) mmol/L VBG O2 Saturation 70 % VBG Base Excess 2 (-2-3) mmol/L Sodium (136-145) mmol/L Potassium (3.5-5.1) mmol/L Chloride (98-107) mmol/L Carbon Dioxide (21.0-32.0) mmol/L Anion Gap (3-11) mmol/L BUN (7-18) mg/dL Creatinine (0.55-1.02) mg/dL Est GFR (CKD-EPI 2020) (mL/min/1.73m2) Glucose (74-106) mg/dL Calcium (8.5-10.1) mg/dL Magnesium (1.8-2.4) mg/dL Total Bilirubin (0.2-1.0) mg/dL AST (15-37) U/L ALT (14-59) U/L Alkaline Phosphatase (46-116) U/L Troponin I Cancelled 11 (<or=51) ng/L NT-Pro-B Natriuret Pep (<300) pg/mL Total Protein (6.4-8.2) g/dL Albumin (3.4-5.0) g/dL 02/09/25 Range/Units 17:05 WBC 8.63 (4.4-10.8) 10^3/uL RBC 4.49 (3.93-5.22) 10^6/uL Hgb 13.0 (11.2-15.7) g/dL Hct 40.3 (36.0-46.0) % MCV 90 (80-95) fL MCH 29.0 (27.0-33.0) pg MCHC 32.3 (32.0-36.0) % RDW 12.7 (11.7-14.6) % Plt Count 302 (130-400) 10^3/uL MPV 10.0 (8.0-11.0) fL Immature Gran % 0.2 % Neutrophils % 56.5 % Lymphocytes % 27.6 % Monocytes % 8.1 % Eosinophils % 6.6 % Basophils % 1.0 % Nucleated RBC % 0.0 (0.0-0.3) % Absolute Neutrophils 4.87 (1.2-6.7) 10^3/uL Absolute Lymphocytes 2.38 (1.2-3.4) 10^3/uL Absolute Monocytes 0.70 (0.1-0.8) 10^3/uL Absolute Eosinophils 0.57 (0.0-0.7) 10^3/uL Absolute Basophils 0.09 (0.0-0.2) 10^3/uL VBG pH (7.31-7.41) VBG pCO2 (41-51) mmHg VBG pO2 mmHg VBG HCO3 (23-28) mmol/L VBG Total CO2 (24-29) mmol/L VBG O2 Saturation % VBG Base Excess (-2-3) mmol/L Sodium 142 (136-145) mmol/L Potassium 4.3 (3.5-5.1) mmol/L Chloride 106 (98-107) mmol/L Carbon Dioxide 28.4 (21.0-32.0) mmol/L Anion Gap 7.6 (3-11) mmol/L BUN 11 (7-18) mg/dL Creatinine 0.5 L (0.55-1.02) mg/dL Est GFR (CKD-EPI 2020) 97.14 (mL/min/1.73m2) Glucose 94 (74-106) mg/dL Calcium 9.3 (8.5-10.1) mg/dL Magnesium 1.7 L (1.8-2.4) mg/dL Total Bilirubin 0.2 (0.2-1.0) mg/dL AST 21 (15-37) U/L ALT 22 (14-59) U/L Alkaline Phosphatase 62 (46-116) U/L Troponin I 10 (<or=51) ng/L NT-Pro-B Natriuret Pep 208 (<300) pg/mL Total Protein 7.6 (6.4-8.2) g/dL Albumin 3.7 (3.4-5.0) g/dL Intake and Output - 24 Hour Total 02/09/25 16:33 thru 02/09/25 21:17 Intake Total 160 Balance 160 Weight 53.524 kg Intake: IV 160 Falls Risk Assessment Contributing Factors No Factors 02/09/25 16:44 Fall Total Score 0 02/09/25 16:44 Level of Risk Standard/Low Risk 02/09/25 16:44 Problems Hypomagnesemia (Acute) COPD (chronic obstructive pulmonary disease) (Chronic) Tobacco use (Acute) v v v v v v v v v Sending and/or Receiving Nurses: Please use comment section below to note any information pertinent to the patient hand-off not included above. Information / Comments: Pt came to ED for increased SOB and work of breathing. O2 sat dropped to 84% on RA in ED, Pt now on 2L/min NC. Pt A+Ox4 and ambulatory. Report received from: Lianet Keyes RN
[2025-02-09] MEDS: Acetaminophen 325 MG TAB PO (22:29)
[2025-02-10 00:24] LABS: COVID-19 PCR Negative (Negative); Influenza A PCR Negative (Negative); Influenza B PCR Negative (Negative); RSV PCR Negative (Negative)
[2025-02-10 00:26] LABS: Source Nasopharynx
[2025-02-10 02:40] VITALS: BP 133/69; PULSE 84; RESP 19; TEMP 36.6; O2SAT 94
[2025-02-10] MEDS: Enoxaparin 40 MG/0.4 ML SYR SC (07:37)
[2025-02-10] MEDS: DOXYCYCLINE 100 MG in Normal Saline 100 ML IVPB (07:37)
[2025-02-10] MEDS: Normal Saline Flush 10 ML SYR IVP (07:38)
[2025-02-10] MEDS: Multivitamin TAB 1 TAB PO (07:38)
[2025-02-10] MEDS: predniSONE 20 MG TAB 40 MG PO (07:38)
[2025-02-10] MEDS: Montelukast 10 MG TAB PO (07:38)
[2025-02-10] MEDS: Losartan 25 MG TAB PO (07:38)
[2025-02-10] MEDS: Magnesium Oxide 400 MG TAB PO (07:38)
[2025-02-10] MEDS: Acetaminophen 325 MG TAB PO (07:38)
[2025-02-10 07:52] VITALS: BP 136/79; PULSE 85; RESP 16; TEMP 36.5; O2SAT 94
[2025-02-10] MEDS: Tiotropium Bromide-Respimat 10 PUFF INH 2 PUFF IH (07:58)
[2025-02-10 08:00] VITALS: RESP 20; RESP 5; O2SAT 94
[2025-02-10] MEDS: Albuterol/Ipratropium 3 ML UPD VIAL UPD (08:00)
[2025-02-10 08:23] VITALS: O2SAT 97
--- NOTE | 2025-02-10 08:51 | INITIAL_ITS ---
Date of service: 02/10/25 Time of Service: 08:51 Care Management Initial Assmt Initial Assessment Reason for Hospitalization: COPD Functional Status/Living Situation Patient Presentation: shanika was sitting up in bed when CM met with her. She was pleasant in interaction and easily engaged with CM. Shanika was admitted into Observation status with a COPD exacerbation. She is not O2 dependent at home but did need supplemental oxygen until this morning. She stated that she is feeling much better and hopes to be able to go home later today. Shanika indicated that at times she has difficulty obtaining medications and paying for medical bills. She stated her last hospital stay left her with a large out of pocket expense and she really can't afford another one. CM informed her about the [facility] Patient Assistance program and provided her with an application. Shanika lives in a single family home in [place] with her daughter and grandson. She has 3 other children; 2 live locally and one daughter lives in [place]. Shanika also has 6 grandchildren and 3 great grandchildren. She indicated that the family is close and supportive of one another. Shanika informed CM that she is retired but has don e many different jobs over the years. 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 Shanika is independent at baseline and does not receive any community services. Town of Residence: [place] Resides with: Child (her daughter and grandson live with her) Significant Other/Family: Local (all but 1 daughter live locally) Natural Supports: family Employment Status: Retired Instrumental Activities of Daily Living (ADLs): Independent Medications Medication Management: Issues/Barriers with Cost (At times ( beginning and end of of the year, Shanika has trouble affording her medication. She shared that sometimes she decreases the dose or spreads out her meds when she can't afford the full prescription.) Physical Functioning/Mobility Assistive Device: none Advance Directives Advance Directives: Do you have an Advance Directive: N , 13:07 AD On File at [facility]: N 12/28/13, 13:07 Date Asked 02/09/25 02/09/25, 07:58 AD Date Reviewed COLST On File at [facility] No 10/03/24, 15:39 COLST Date Scanned Code Status Resuscitation Status Full Code Insurance Coverage/Financial Issues Insurance: BC/BS Medicare Advantage plan Care Team Visit Care Team Role Provider Type Santos Harris MD MD [facility] STAFF PHYSICIAN Lesley Mckenzie MD Primary Care Provider [facility] STAFF PHYSICIAN Daksha Fernandez Other Providers HAND HIDE STRETCHER Fanny Olea Other Providers HAND HIDE STRETCHER Margie Ulrich Other Providers HAND HIDE STRETCHER Caroline Bartlett RN Other Providers HAND HIDE STRETCHER Gina Guerrier Other Providers HAND HIDE STRETCHER Rene Rosales MD Emergency Provider [facility] STAFF PHYSICIAN Sarbjit Guerrier MD Admit Provider [facility] STAFF PHYSICIAN Attending Provider Discharge Potential Discharge Needs: PCP F/U Appt Anticipated Barriers to Discharge: None Identified Patient/Family Education Needs: Review discharge instructions, discuss Ask Me Three Transportation: Private vehicle Plan: Anticipate Oksana will be discharged home with no new services when medically cleared. She will follow up with her PCP and plan of care and transport with family. CM will follow and continue to support discharge planning endeavors. Social Determinants of Health Screening Social Determinants of health last assessed in clinic: 02/10/25 Will the Patient Participate in the Screening?: Yes Do you worry about having a steady place to live?: no Problems where you live: no known problems In the past 12 months, have you had to go without electric, gas, oil or water in your home?: no 1. Within the past 12 months, we worried whether our food would run out before we got money to buy more.: Never true 2. Within the past 12 months, the food we bought just didn't last and we didn't have money to get more.: Never true Has lack of transportation kept you from medical appointments or from doing things needed for daily living?: no Has anyone in your life made you feel unsafe or unsupported?: no How hard is it for you to pay for the very basics like food, housing, medical care, and heating? Would you say it is:: Not hard at all Do you want help finding or keeping work or a job?: I do not need or want help If for any reason you need help with day-to-day activities such as bathing, preparing meals, shopping, managing finances, etc., do you get the help you need?: I don?t need any help How often do you feel lonely or isolated from those around you?: Never Do you speak a language other than Irish at home?: No Does the patient want assistance with any of the above?: No PFSH All Active Problems (Updated 02/10/25 @ 11:11 by Santos Harris MD) Hypomagnesemia (Acute) Hypoxia (Acute) Renal cyst (Acute) Lymphadenopathy of left cervical region (Acute) Pyuria (Acute) DVT prophylaxis (Acute) Acute UTI (Acute) Lesion of left [place] kidney (Acute) Arthritis of knee, left (Acute) Arthritis of knee, right (Acute) DEPO MEDROL 40m05/29/23; 11/13/2022 Hypertension (Chronic) Renal mass (Acute) Irregular cardiac rhythm (Acute) Nicotine dependence, cigarettes, uncomplicated (Acute) Skin lesion of left lower limb (Acute) Tick bite (Acute) COPD (chronic obstructive pulmonary disease) (Chronic) Mass of joint of left wrist (Acute) Impairment of auditory discrimination (Acute 03/14/14) Mixed hearing loss, unilateral (Acute 03/14/14) Sensorineural hearing loss (Acute 03/14/14) Arthritis of carpometacarpal (CMC) joint of left thumb (Acute) Other sprain of left foot, initial encounter (Acute) Sprain of hand, left (Acute) Fall (Acute) Encounter for pessary maintenance (Acute) Tobacco use (Acute) Uterine procidentia (Acute 01/17/17) Used 89mm ring with support pessary until prolapse beyond ring pessary. 03/2019 short stemmed 76mm Gellhorn pessary placed. 04/2019 ring with support pessary inserted For 2019 76 mm donut pessary inserted. 2019 89mm ring with support pessary placed at [facility]. 04/2021. 95mm Ring with support placed. Sensorineural hearing loss, bilateral (Acute 03/29/14) Medical History (Updated 02/10/25 @ 11:11 by Santos Harris MD) Pneumonia Migraine Hiatal hernia Hearing loss, bilateral Varicose veins of lower extremity Meniere disease Depression Osteopenia GERD (gastroesophageal reflux disease) Basal cell carcinoma, face COPD (chronic obstructive pulmonary disease) Surgical History (Updated 10/04/24 @ 00:03 by JHOAN MATSON) S/P tonsillectomy History of basal cell carcinoma excision on face History of varicose vein stripping Family History (Updated 10/01/24 @ 22:18 by Amish Rodríguez) Other Adopted Social History (Updated 10/01/24 @ 22:18 by Amish Rodríguez) Smoking/Tobacco Use Status: Current every day Tobacco Type: cigarettes Years smoked: 61 Quit status: not considering quitting Counseling given: counseling >3 minutes Smoking risk assessment performed?: Yes Alcohol Intake: never Drug use: Never Substance use type: does not use Housing: house Number of Children: 4 Current gender identity: female Seatbelt use: always Do you feel safe at home: Yes Additional Social history: pt not in a relationship Lives with daughter and 17 yo grandson in [place] Female Reproductive History Menstrual control method: none Menopause type: natural History History 7 Para Hx # Term Pregnancies 4 Multiple births Hx # Pregnancies Ectopic pregnancies AB induced Hx Number of Living Children AB spontaneous
--- NOTE | 2025-02-10 11:12 | W.PM.DS.N ---
Date of service: 02/10/25 Time of Service: 11:12 DS: Diagnosis Discharge Diagnosis (1) Tobacco use: Status: Acute (2) COPD (chronic obstructive pulmonary disease): Status: Chronic (3) Hypomagnesemia: Status: Acute Discharge Plan Disposition Patient Disposition: Home Condition: Good Discharge Details Reason For Visit: copd Admit Date/Time: 02/09/25 20:22 Admit Provider: Sarbjit Guerrier Attending Provider: Sarbjit Guerrier Primary Care Provider: Lesley Mckenzie [facility] Course Hospital Course: Patient initially presented with signs and symptoms consistent with acute Evoxac respiratory failure secondary to COPD exacerbation. She received steroids and nebulizer treatments and had rapid improvement of her condition resulting in her being transition to room air and ambulating without shortness of breath. Given the rapid improvement in patient's condition it was determined that she was stable for discharge home and will have an additional 5 days of p.o. prednisone and p.o. doxycycline. Home Meds and New Rx's Prescriptions: New prednisone 20 mg Tablet 40 mg PO DAILY 5 Days Qty: 10 0RF doxycycline hyclate 100 mg tablet 100 mg PO BID 5 Days Qty: 10 0RF Continued fluticasone propion-salmeterol [Advair Diskus] 250-50 mcg/dose blister with device 1 inh inhalation BID Qty: 60 12RF Spiriva Respimat 2.5 mcg/actuation mist 2 inh inhalation QAM Qty: 4 12RF albuterol sulfate 90 mcg/actuation HFA aerosol inhaler 2 puff inhalation QID PRN (Reason: shortness of breath or wheezing) Qty: 8.5 12RF meclizine 12.5 mg tablet 12.5 mg PO Q6H PRN losartan 25 mg tablet 25 mg PO DAILY Patient Comments: Patient not sure of the dosing montelukast [Singulair] 10 mg tablet 10 mg PO DAILY ipratropium-albuterol 0.5 mg-3 mg(2.5 mg base)/3 mL solution for nebulization See Rx Instructions .ROUTE .COMPLEX PRN (Reason: shortness of breath or wheezing) Qty: 180 12RF Rx Instructions: 3 mL inhaled as needed (DME) Space Chamber Spacer See Rx Instructions .Route Qty: 1 0RF Rx Instructions: As directed Centrum Silver 1 EACH tablet 1 tab PO DAILY Discharge Instructions Activity:: Activity as Tolerated Equipment/Supplies:: No Equipment Needed Diet:: As Tolerated Discharge Orders Discharge Orders: Discharge Order (Routine); Ordered 02/10/25 Ordered By: Santos Harris DS: Summary Time Spent with Patient providing and/or coordinating discharge services: Greater than 30 minutes Status at Discharge Functional status at discharge: independent ambulation Overall status at discharge: patient is back to baseline Mental Status: mental status grossly normal Speech and Movement: speech and movement normal Mood: congruent mood Affect: normal affect Quality:SDOH Health Related Social Needs: Health related social needs risk of homeless house/econ circumstance Exam Narrative Exam Narrative: Well-appearing older female sitting up in the bed in no acute distress, ANO x 4, heart regular rhythm, lungs with minimal end expiratory wheezing throughout bilateral lung marquez, abdomen soft, nontender, nondistended Psych Mental Status: mental status grossly normal Speech and Movement: speech and movement normal Mood: congruent mood Affect: normal affect DS: Data Vitals/I&O Vitals and I&O: Vital Signs Temperature 97.7 F 02/10/25 07:52 Temperature Source Temporal Artery Scan 02/10/25 07:52 Pulse 85 02/10/25 07:52 Pulse Rhythm Regular 02/09/25 21:47 Pulse Strength Normal 02/09/25 19:29 Pulse 93 H 02/09/25 20:01 Respiratory Rate 20 02/10/25 08:00 Respiratory Effort Normal, Short of Breath, Accessory Muscle Use 02/09/25 21:47 Respiratory Depth Normal 02/09/25 21:47 Respiratory Pattern Tachypnea 02/09/25 21:47 Blood Pressure 136/79 02/10/25 07:52 Blood Pressure Mean 98 02/10/25 07:52 Blood Pressure Position Sitting 02/09/25 19:29 Pulse Oximetry 97 02/10/25 08:23 Oxygen Delivery Method Room Air 02/10/25 08:23 Oxygen Flow Rate 0 02/10/25 08:23 Pain Level 0 02/10/25 07:52 Intake & Output 02/09/25 02/10/25 02/10/25 17:59 05:59 17:59 Intake Total 160 / 170 400 / 400 Balance 160 / 170 400 / 400 Weight 118 lb 119 lb 7.849 oz Intake: IV 160 / 170 100 / 100 Oral 300 / 300 Data Completed and Pending Labs on day of discharge: Labs from last 24 hours 02/09/25 02/09/25 02/09/25 23:08 20:15 19:56 WBC RBC Hgb Hct MCV MCH MCHC RDW Plt Count MPV Immature Gran % Neutrophils % Lymphocytes % Monocytes % Eosinophils % Basophils % Nucleated RBC % Absolute Neutrophils Absolute Lymphocytes Absolute Monocytes Absolute Eosinophils Absolute Basophils VBG pH 7.36 VBG pCO2 49 VBG pO2 38 VBG HCO3 27 VBG Total CO2 25 VBG O2 Saturation 70 VBG Base Excess 2 Sodium Potassium Chloride Carbon Dioxide Anion Gap BUN Creatinine Est GFR (CKD-EPI 2020) Glucose Calcium Magnesium Total Bilirubin AST ALT Alkaline Phosphatase Troponin I Cancelled NT-Pro-B Natriuret Pep Total Protein Albumin Adenovirus DNA Pending COVID-19 Source Nasopharynx SARS-CoV-2 (PCR) Negative Human Metapneumovir RNA Pending Influenza Type A (PCR) Negative Influenza Type B (PCR) Negative Parainfluenza 1 (PCR) Pending Parainfluenza 2 (PCR) Pending Parainfluenza 3 (PCR) Pending Parainfluenza 4 (PCR) Pending RSV (PCR) Negative Resp Viral Spec Desc Pending Rhinovirus (PCR) Pending 02/09/25 02/09/25 18:10 17:05 WBC 8.63 RBC 4.49 Hgb 13.0 Hct 40.3 MCV 90 MCH 29.0 MCHC 32.3 RDW 12.7 Plt Count 302 MPV 10.0 Immature Gran % 0.2 Neutrophils % 56.5 Lymphocytes % 27.6 Monocytes % 8.1 Eosinophils % 6.6 Basophils % 1.0 Nucleated RBC % 0.0 Absolute Neutrophils 4.87 Absolute Lymphocytes 2.38 Absolute Monocytes 0.70 Absolute Eosinophils 0.57 Absolute Basophils 0.09 VBG pH VBG pCO2 VBG pO2 VBG HCO3 VBG Total CO2 VBG O2 Saturation VBG Base Excess Sodium 142 Potassium 4.3 Chloride 106 Carbon Dioxide 28.4 Anion Gap 7.6 BUN 11 Creatinine 0.5 L Est GFR (CKD-EPI 2020) 97.14 Glucose 94 Calcium 9.3 Magnesium 1.7 L Total Bilirubin 0.2 AST 21 ALT 22 Alkaline Phosphatase 62 Troponin I 11 10 NT-Pro-B Natriuret Pep 208 Total Protein 7.6 Albumin 3.7 Adenovirus DNA COVID-19 Source SARS-CoV-2 (PCR) Human Metapneumovir RNA Influenza Type A (PCR) Influenza Type B (PCR) Parainfluenza 1 (PCR) Parainfluenza 2 (PCR) Parainfluenza 3 (PCR) Parainfluenza 4 (PCR) RSV (PCR) Resp Viral Spec Desc Rhinovirus (PCR) [facility] All Active Problems (Updated 02/10/25 @ 11:11 by Santos Harris MD) Hypomagnesemia (Acute) Hypoxia (Acute) Renal cyst (Acute) Lymphadenopathy of left cervical region (Acute) Pyuria (Acute) DVT prophylaxis (Acute) Acute UTI (Acute) Lesion of left lower [place] kidney (Acute) Arthritis of knee, left (Acute) Arthritis of knee, right (Acute) DEPO MEDROL 40m05/29/23; 11/13/2022 Hypertension (Chronic) Renal mass (Acute) Irregular cardiac rhythm (Acute) Nicotine dependence, cigarettes, uncomplicated (Acute) Skin lesion of left lower limb (Acute) Tick bite (Acute) COPD (chronic obstructive pulmonary disease) (Chronic) Mass of joint of left wrist (Acute) Impairment of auditory discrimination (Acute 03/14/14) Mixed hearing loss, unilateral (Acute 03/14/14) Sensorineural hearing loss (Acute 03/14/14) Arthritis of carpometacarpal (CMC) joint of left thumb (Acute) Other sprain of left foot, initial encounter (Acute) Sprain of hand, left (Acute) Fall (Acute) Encounter for pessary maintenance (Acute) Tobacco use (Acute) Uterine procidentia (Acute 01/17/17) Used 89mm ring with support pessary until prolapse beyond ring pessary. 03/2019 short stemmed 76mm Gellhorn pessary placed. 04/2019 ring with support pessary inserted For 2019 76 mm donut pessary inserted. 2019 89mm ring with support pessary placed at [facility] 04/2021. 95mm Ring with support placed. Sensorineural hearing loss, bilateral (Acute 03/29/14) Medical History (Updated 02/10/25 @ 11:11 by Santos Harris MD) Pneumonia Migraine Hiatal hernia Hearing loss, bilateral Varicose veins of lower extremity Meniere disease Depression Osteopenia GERD (gastroesophageal reflux disease) Basal cell carcinoma, face COPD (chronic obstructive pulmonary disease) Surgical History (Updated 10/04/24 @ 00:03 by JHOAN MATSON) S/P tonsillectomy History of basal cell carcinoma excision on face History of varicose vein stripping Family History (Updated 10/01/24 @ 22:18 by Amish Rodríguez) Other Adopted Social History (Updated 10/01/24 @ 22:18 by Amish Rodríguez) Smoking/Tobacco Use Status: Current every day Tobacco Type: cigarettes Years smoked: 61 Quit status: not considering quitting Counseling given: counseling >3 minutes Smoking risk assessment performed?: Yes Alcohol Intake: never Drug use: Never Substance use type: does not use Housing: house Number of Children: 4 Current gender identity: female Seatbelt use: always Do you feel safe at home: Yes Additional Social history: pt not in a relationship Lives with daughter and 17 yo grandson [place] Female Reproductive History Menstrual control method: none Menopause type: natural History History 7 Para Hx # Term Pregnancies 4 Multiple births Hx # Pregnancies Ectopic pregnancies AB induced Hx Number of Living Children AB spontaneous Time Spent with Patient Time Spent with Patient: <45 minutes Time was spent: preparing to see the patient(eg.review tests), obtaining and/or reviewing separately otained hiistory, ordering medications,tests, procedures, referring, communicating with other health home care consultant, indepentently interpreting results, counseling the patient and care coordination
[2025-02-10 11:16] VITALS: BP 133/78; PULSE 93; TEMP 36.7; O2SAT 91
[2025-02-10 20:02] LABS: Adenovirus DNA Result Negative (Negative); Metapneumovirus RNA Result Negative (Negative); Parainfluenza Type1 RNA Result Negative (Negative); Parainfluenza Type2 RNA Result Negative (Negative); Parainfluenza Type3 RNA Result Negative (Negative); Parainfluenza Type4 RNA Result Negative (Negative); Rhinovirus RNA Result Negative (Negative)
== END 2025-02-10 13:14 | disposition home or self-care (01) ==
LOC: ER 20:00 → MS 21:40
PROVIDERS: Admitting Provider Hospitalist; Emergency Provider Emergency Medicine; PCP Family Medicine; Responsible Provider Family Medicine; Visit Provider Hospitalist
DX: J44.1 Chronic obstructive pulmonary disease with (acute) exacerbation (principal); J96.01 Acute respiratory failure with hypoxia; E83.42 Hypomagnesemia; F17.210 Nicotine dependence, cigarettes, uncomplicated; Z79.899 Other long term (current) drug therapy; N28.1 Cyst of kidney, acquired; I10 Essential (primary) hypertension; K44.9 Diaphragmatic hernia without obstruction or gangrene; K21.9 Gastro-esophageal reflux disease without esophagitis; F32.A Depression, unspecified; M85.80 Other specified disorders of bone density and structure, unspecified site
CPT/HCPCS: 00123; 36415; 80053; 82805; 87426; 87632; 87637; 93005; 94640; 96365; 96367; 96372; 96375; 99291; J1650; 71046; 83735; 83880; 84484; 85025; 93010; 94664; 94760; 99222; 99239; G0378; J2919; J3475; J7512; J7620

== ENCOUNTER 2025-02-25 00:59 | Outpatient (CLI) | payer MEDICARE, SELFPAY ==
[2025-02-25] MEDS: Inhaler, Assist Device 1 EACH MC (14:11)
[2025-02-25] MEDS: Levalbuterol HFA 15 GM INH 4 PUFF IH (14:12)
--- NOTE | 2025-03-06 10:14 | W.PFT ---
Date of service: 02/25/25 Time of Service: 13:01 Pulmonary Function Test Result Indications: COPD Interpretation Spirometry: There is moderate airflow limitation.There is a significant bronchodilator response. Lung Volumes: There is hyperinflation and air trapping Diffusion Capacity: Reduced diffusion Airway Pressure: Increased airways resistance Impression Moderate airflow obstruction with air trapping and a reduced diffusion Clinical Correlation therefore is recommended.
== END 2025-02-25 01:00 | disposition home or self-care (01) ==
LOC: RT 00:59
PROVIDERS: PCP Family Medicine; Visit Provider Student in an Organized Health Care Education/Training Program
DX: J44.9 Chronic obstructive pulmonary disease, unspecified (principal)
CPT/HCPCS: 94060; 94726; 94729

== ENCOUNTER 2025-04-26 02:11 | Outpatient (CLI) | payer MEDICARE, SELFPAY ==
--- NOTE | 2025-04-26 | DI.MRI_ITS ---
Exam(s) MR BRAIN WO EXAM: MR BRAIN WO CLINICAL HISTORY: Intermittent Vertigo, Dizziness/Giddiness R42, Headache R51.9 TECHNIQUE: Multiplanar multisequence MRI of the brain was performed. COMPARISON: MR MRI IAC W/WO CONTRAST from 03/25/2014 FINDINGS: VENTRICLES AND EXTRA AXIAL SPACES: Normal in size and morphology for the patient's age. MIDLINE SHIFT: None. CEREBRAL PARENCHYMA: No focus of restricted diffusion to suggest acute infarct. No space-occupying lesion identified. There are areas of hyperintense signal seen in the white matter on the FLAIR and T2 weighted images most consistent with chronic microvascular ischemic disease. HEMORRHAGE: None. BRAINSTEM/CEREBELLUM: Normal. CALVARIUM: Normal. VISUALIZED PARANASAL SINUSES/MASTOIDS:Clear. [place]: Normal flow void. PITUITARY GLAND: Unremarkable. OTHER FINDINGS: None. IMPRESSION: 1. No evidence of an acute infarct. 2. Age-related cerebral atrophy and chronic microvascular ischemic disease. DATA REPOSITORY:
== END 2025-04-26 02:31 ==
LOC: DI 02:11
PROVIDERS: PCP Family Medicine; Visit Provider Family Medicine
DX: I67.82 Cerebral ischemia (principal)
CPT/HCPCS: 70551

== ENCOUNTER 2025-05-13 15:42 | Outpatient (REF) | payer MEDICARE, SELFPAY ==
[2025-05-13 22:12] LABS: COMMENT (LAB VIEW ONLY) 85.22 mg/dL; Microalb ug/mg Crea 325.9 ug/mg Cr
== END 2025-05-13 15:43 | disposition home or self-care (01) ==
LOC: NCHCN 15:42
PROVIDERS: PCP Family Medicine; Visit Provider Family Medicine
DX: I10 Essential (primary) hypertension (principal)
CPT/HCPCS: 82043; 82570

== ENCOUNTER 2025-06-22 10:20 | Outpatient (REF) | payer MEDICARE, SELFPAY ==
[2025-06-22 15:56] LABS: Glucose Negative (Negative)
[2025-06-22 16:02] LABS: C & S Indicated? Yes; WBC >50 HPF (0-5)
[2025-06-22 16:15] LABS: COMMENT (LAB VIEW ONLY) 51.02 mg/dL
[2025-06-22 16:16] LABS: Microalb ug/mg Crea 464.7 ug/mg Cr
== END 2025-06-22 10:21 | disposition home or self-care (01) ==
LOC: NCHCN 10:20
PROVIDERS: PCP Family Medicine; Visit Provider Family Medicine
DX: R80.9 Proteinuria, unspecified (principal)
CPT/HCPCS: 87077; 81003; 81015; 82043; 82570; 87086; 87186

== ENCOUNTER → 2025-07-12 10:55 | Outpatient (BNVA) | payer MEDICARE, SELFPAY | PROVIDERS: PCP Family Medicine; Referring Provider Nurse Practitioner Family; Visit Provider Physician Assistant Surgical | DX: J44.9 Chronic obstructive pulmonary disease, unspecified (principal); F17.210 Nicotine dependence, cigarettes, uncomplicated | CPT/HCPCS: 99214; G0296 ==

== ENCOUNTER → 2025-08-24 00:12 | Outpatient (CLI) | payer MEDICARE, SELFPAY ==
--- NOTE | 2025-08-24 12:00 | DI.US_ITS ---
Exam(s) US RENAL EXAM: US RENAL CLINICAL HISTORY: Monitoring size changes to cyst/mass areas N28.89 N28.1 TECHNIQUE: Ultrasound of both kidneys performed using standard protocol. COMPARISON: CT CT ABDOMEN PELVIS W from 10/01/2024 US US RENAL from 12/03/2024 FINDINGS: RIGHT KIDNEY: Measures 10.3 cm in length. Contains multiple cysts ranging up to 3.2 cm size. Normal cortical thickness and corticomedullary differentiation .No solid masses No intrarenal calculi nor hydronephrosis. LEFT KIDNEY: Measures 11.8 cm in length. Also contain cysts but also contains a more solid- appearing nodule measuring 2.2 x 1.8 x 1.9 cm, this corresponding to the finding described on the CT scan of 10/01/2024. Normal cortical thickness and corticomedullary differentiaion. No solids masses. No intrarenal calculi nor hydonephrosis. URINARY BLADDER: Prevoid volume is 223 cc Postvoid volume is 101 cc No evidence of bladder mass nor diverticuli. IMPRESSION: 1. There are bilateral benign-appearing renal cysts, these benign cysts measuring up to 4.5 cm size.. However, in the left kidney there is also a 2.2 x 1.8 x 1.9 cm solid-appearing nodule. This measures 2.2 x 1.8 x 1.9 cm. Follow- up dedicated contrast infused MRI recommended. Cannot exclude renal neoplasm here. 2. There is increased postvoid residual mount of the urinary bladder (101 cc). DATA REPOSITORY:
== END ==
LOC: DI 00:12
PROVIDERS: PCP Family Medicine; Visit Provider Nurse Practitioner Gerontology
DX: N28.89 Other specified disorders of kidney and ureter (principal); N28.1 Cyst of kidney, acquired
CPT/HCPCS: 76770